=== PATIENT | male | born 1980 | race Caucasian/White ===

== ENCOUNTER 2020-10-11 10:48 | Outpatient (REF) | payer MEDICAID, SELFPAY | END 2020-10-11 10:49 | disposition home or self-care (01) | LOC: HO.LAB 10:48 | PROVIDERS: Visit Provider Internal Medicine | DX: Z20.828 Contact with and (suspected) exposure to other viral communicable diseases (principal) | CPT/HCPCS: C9803; U0003 ==

== ENCOUNTER 2021-01-07 13:19 | Outpatient (REF) | payer MEDICAID, SELFPAY | END 2021-01-07 13:20 | disposition home or self-care (01) | LOC: HO.LAB 13:19 | PROVIDERS: Visit Provider Internal Medicine | DX: Z20.822 Contact with and (suspected) exposure to COVID-19 (principal) | CPT/HCPCS: 36415; C9803; U0003; U0005 ==

== ENCOUNTER → 2021-02-01 13:48 | Outpatient (BNVA) | payer MEDICAID, SELFPAY | PROVIDERS: Visit Provider Nurse Practitioner Family | DX: M25.571 Pain in right ankle and joints of right foot (principal); M25.572 Pain in left ankle and joints of left foot; M25.50 Pain in unspecified joint; M47.816 Spondylosis without myelopathy or radiculopathy, lumbar region; Z98.1 Arthrodesis status | CPT/HCPCS: 99202 ==

== ENCOUNTER 2021-02-17 14:00 | Outpatient (RCR) | payer MEDICAID, SELFPAY ==
--- NOTE | 2021-02-10 09:28 | MHC.PT.EP ---
[facility] [place] Office [place] Office [place] Office [address] Helena Arboleda [address] [phone] F: [phone] F: [phone] F: [phone] F: [phone] Physical Therapy Plan of Care Date of Evaluation: 02/09/21 Date of Surgery: 2005 RIGHT /2012 LEFT WITH HARDWARE REMOVAL Diagnosis: PAIN IN RIGHT ANKLE AND JOINTS OF FOOT M25.571 PAIN IN LEFT ANKLE AND JOINTS OF FOOT M25.572 Assessment: MIRELLA PRESENTS WITH LONG HISTORY OF FOOT AND ANKLE PAIN WITH JACK FUSIONS. UPON EXAM HE DEMONSTRATES HYPERSENSITIVITY TO JACK FEET AND ANKLES. HE LACKS INVERSION/EVERSION ROM DUE TO FUSIONS JACK BUT IS ABLE TO COMPENSATE WITH MID AND FOREFOOT JOINTS. HE DEMONSTRATES ALTERED GAIT PATTERN, DECREASED BALANCE, INCREASED USE OF ASSISTIVE DEVICE (SPC) AND INCREASED PAIN. FUNCTIONAL LIMITATIONS INCLUDE DECREASED ABILITY TO PERFORM LIFTING, SQUATTING, PUSHING, PULLING. HE REPORTS DECREASED TOLERANCE TO WALKING, RUNNING AND STATIC STANDING. HE REPORTS DISRUPTED SLEEP, DECREASED ABILITY TO PARTICIPATE IN RECREATIONAL AND FITNESS ACTIVITIES. Frequency and Duration: The patient will be seen 2 X WEEK FOR 8 WEEKS Short Term Goals: INITIATE HEP AND PROMOTE SELF MANAGEMENT OF SYMPTOMS Jail Goals: TO AMBULATE AD ANGELA WITHOUT PAIN GREATER THAN 2/10 AT WORST IN 8 WEEKS TO DEMONSTRATE RECIPROCAL GAIT ON STAIRS, 2 FLIGHTS WITH PAIN NO GREATER THAN 2/10 IN 8 WEEKS TO TOLERATE SLS FOR A MINIMUM OF 30 SECONDS WITH MODERATE PRETURBATION IN 8 WEEKS Treatment Plan: CONT SEATED MOBILITY THEREX, BEGIN STRENGTHENING FOR ARCH AND FOOT STABILIZATION, DESENSITIZATION PROGRAM FOR SOFT TISSUES, HIP AND KNEE STRENGTHENING AND STABILIZATION, PROGRESSING TO GAIT TRAINING, DYNAMIC BALANCE ACTIVITIES, NEURO RE-ED MODALITIES PRN, Pt EDUC Electronically signed by: SANDRA MARIE PT, DPT Please sign and return to therapist. Thank you for your referral.
--- NOTE | 2021-03-07 14:26 | MHC.PT.DC ---
[facility] [place] Office [place] Office [place] Office [address] Helena Arboleda 140 [facility] [phone] F: [phone] F: [phone] F: [phone] F: [phone] Physical Therapy Discharge Report Diagnosis: PAIN IN RIGHT ANKLE AND JOINTS OF FOOT M25.571 PAIN IN LEFT ANKLE AND JOINTS OF FOOT M25.572 Date of Surgery: 2005 RIGHT /2012 LEFT WITH HARDWARE REMOVAL Date of Evaluation: 02/09/21 Date of Discharge: 03/07/21 Treatments to Date: 3 Cancellations to Date: 2 No Shows to Date: 3 Discharge Status: Visit Non-compliance Discharge Summary: The patient has had poor visit compliance. Per [facility] [place] [place] [facility] policy, he is to be discharged from this physical therapy plan of care for visit non-compliance. Electronically signed by: Carmen Dumont PT, DPT Please sign and return to therapist. Thank you for your referral.
== END 2021-03-07 14:26 | disposition other institution (70) ==
LOC: HO.PT 14:00
PROVIDERS: PCP General Practice; Visit Provider Anesthesiology
DX: M25.571 Pain in right ankle and joints of right foot (principal)
CPT/HCPCS: 97110; 97140; 97162; 97530; 97535

== ENCOUNTER 2021-02-25 07:31 | Outpatient (REF) | payer MEDICAID, SELFPAY ==
--- NOTE | ~2021-02-25 | XR_ITS ---
EXAMINATION: XR ANKLE, BILATERAL CLINICAL INFORMATION: Pain. COMPARISON: None TECHNIQUE: Bilateral ankles each 3 views. FINDINGS: Right ankle: Postsurgical changes with screw extending across the talus and calcaneus through the posterior subtalar joint. The posterior subtalar joint is not well visualized, suggesting areas of osseous bridging. Ankle mortise is maintained. No acute fracture is seen. Small plantar calcaneal spur. Left ankle: Ankle mortise is maintained. No visible acute fracture or dislocation. Multiple calcific/ossific fragments in the plantar aspect of the hindfoot, in the region of the plantar aponeurosis, appearing chronic. XR/XR ankle RT min 3V IMPRESSION: Right ankle: -Postsurgical changes with screw extending across the posterior subtalar joint, with the findings suggesting degree of osseous bridging. -No acute findings. Left ankle: -Multiple calcifications/ossifications in the region of the plantar fascia. These may be chronic. -No acute findings otherwise.
--- NOTE | ~2021-02-25 | XR_ITS ---
EXAMINATION: XR ANKLE, BILATERAL CLINICAL INFORMATION: Pain. COMPARISON: None TECHNIQUE: Bilateral ankles each 3 views. FINDINGS: Right ankle: Postsurgical changes with screw extending across the talus and calcaneus through the posterior subtalar joint. The posterior subtalar joint is not well visualized, suggesting areas of osseous bridging. Ankle mortise is maintained. No acute fracture is seen. Small plantar calcaneal spur. Left ankle: Ankle mortise is maintained. No visible acute fracture or dislocation. Multiple calcific/ossific fragments in the plantar aspect of the hindfoot, in the region of the plantar aponeurosis, appearing chronic. XR/XR ankle LT min 3V IMPRESSION: Right ankle: -Postsurgical changes with screw extending across the posterior subtalar joint, with the findings suggesting degree of osseous bridging. -No acute findings. Left ankle: -Multiple calcifications/ossifications in the region of the plantar fascia. These may be chronic. -No acute findings otherwise.
== END 2021-02-25 07:32 | disposition home or self-care (01) ==
LOC: HO.HOSX 07:31
PROVIDERS: Visit Provider Physician Assistant
DX: M25.571 Pain in right ankle and joints of right foot (principal); M25.572 Pain in left ankle and joints of left foot
CPT/HCPCS: 73610; 99202

== ENCOUNTER → 2021-03-04 09:21 | Outpatient (BNVA) | payer MEDICAID, SELFPAY | PROVIDERS: Visit Provider Nurse Practitioner Family ==

== ENCOUNTER → 2021-04-25 19:29 | Outpatient (REF) | payer MEDICAID, SELFPAY | LOC: HO.SL 19:29 | PROVIDERS: Visit Provider Internal Medicine Cardiovascular Disease | DX: G47.10 Hypersomnia, unspecified (principal); R06.83 Snoring; R06.81 Apnea, not elsewhere classified; I48.91 Unspecified atrial fibrillation | CPT/HCPCS: 95810 ==

== ENCOUNTER 2021-05-04 08:17 | Outpatient (REF) | payer MEDICAID, SELFPAY ==
--- NOTE | ~2021-05-04 | XR_ITS ---
EXAMINATION: AP PELVIS. THREE-VIEW LUMBAR SPINE. PA AND LATERAL CHEST. CLINICAL INFORMATION: Spondylosis without myelopathy or radiculopathy. Chest pain COMPARISON: None TECHNIQUE: AP pelvis. Three-view lumbar spine. PA and lateral chest. FINDINGS: There is no evidence of acute parenchymal disease, pneumothorax, or pleural effusion. Heart normal size. No evidence of pulmonary edema. Right middle lobe scarring seen. There are 5 nonrib bearing lumbar vertebra. No acute fracture, spondylolisthesis, or definite spondylolysis is appreciated. Sacroiliac joints unremarkable. Pedicles intact. Facet arthropathy is seen right side of L5-S1. There is some narrowing of the L5-S1 disc space. AP film of the pelvis does not demonstrate any acute fracture or diastases. Sacroiliac joints unremarkable. Hip joint spaces maintained. Abnormal XR/XR lumbar spine 2-3V IMPRESSION: No significant pelvic abnormality appreciated. Mild degenerative change L5-S1 disc space level. No significant chest abnormality appreciated.
--- NOTE | ~2021-05-04 | XR_ITS ---
EXAMINATION: AP PELVIS. THREE-VIEW LUMBAR SPINE. PA AND LATERAL CHEST. CLINICAL INFORMATION: Spondylosis without myelopathy or radiculopathy. Chest pain COMPARISON: None TECHNIQUE: AP pelvis. Three-view lumbar spine. PA and lateral chest. FINDINGS: There is no evidence of acute parenchymal disease, pneumothorax, or pleural effusion. Heart normal size. No evidence of pulmonary edema. Right middle lobe scarring seen. There are 5 nonrib bearing lumbar vertebra. No acute fracture, spondylolisthesis, or definite spondylolysis is appreciated. Sacroiliac joints unremarkable. Pedicles intact. Facet arthropathy is seen right side of L5-S1. There is some narrowing of the L5-S1 disc space. AP film of the pelvis does not demonstrate any acute fracture or diastases. Sacroiliac joints unremarkable. Hip joint spaces maintained. Abnormal XR/XR pelvis 1-2V IMPRESSION: No significant pelvic abnormality appreciated. Mild degenerative change L5-S1 disc space level. No significant chest abnormality appreciated.
--- NOTE | ~2021-05-04 | XR_ITS ---
EXAMINATION: AP PELVIS. THREE-VIEW LUMBAR SPINE. PA AND LATERAL CHEST. CLINICAL INFORMATION: Spondylosis without myelopathy or radiculopathy. Chest pain COMPARISON: None TECHNIQUE: AP pelvis. Three-view lumbar spine. PA and lateral chest. FINDINGS: There is no evidence of acute parenchymal disease, pneumothorax, or pleural effusion. Heart normal size. No evidence of pulmonary edema. Right middle lobe scarring seen. There are 5 nonrib bearing lumbar vertebra. No acute fracture, spondylolisthesis, or definite spondylolysis is appreciated. Sacroiliac joints unremarkable. Pedicles intact. Facet arthropathy is seen right side of L5-S1. There is some narrowing of the L5-S1 disc space. AP film of the pelvis does not demonstrate any acute fracture or diastases. Sacroiliac joints unremarkable. Hip joint spaces maintained. Abnormal XR/XR chest 2V IMPRESSION: No significant pelvic abnormality appreciated. Mild degenerative change L5-S1 disc space level. No significant chest abnormality appreciated.
--- NOTE | ~2021-05-04 | US_ITS ---
EXAMINATION: US RETROPERITONEAL LIMITED (RENAL ONLY) CLINICAL INFORMATION: Abdominal pain. COMPARISON: None TECHNIQUE: Real-time imaging of the kidneys. FINDINGS: RIGHT KIDNEY: 11.4 x 5.7 x 4.9 cm (SAG x AP x TRV). The kidney is normal in size, contour, and echogenicity. Renal cortical thickness is normal. No calculi or focal parenchymal lesions. No hydronephrosis. LEFT KIDNEY: 12.6 x 6.0 x 4.7 cm (SAG x AP x TRV). The kidney is normal in size, contour, and echogenicity. Renal cortical thickness is normal. No calculi or focal parenchymal lesions. No hydronephrosis. US/US renal BI IMPRESSION: Normal renal ultrasound.
[2021-05-04 09:39] LABS: MANUAL DIFF FLAG NO
[2021-05-04 09:52] LABS: Basophils Percent Auto 0.3 % (0-2); Eosinophils Absolute Auto 0.1 X10*3/uL (0.0-0.4); Eosinophils Percent Auto 1.5 % (0-4); Hematocrit 45.7 % (42-52); Hemoglobin 15.2 g/dl (14.0-18.0); Imm Gran Abs Auto 0.04 X10*3/uL (0.00-0.03); Imm Gran Pct Auto 0.6 % (0.0-0.4); Lymphocytes Absolute Auto 1.5 X10*3/uL (1.2-4.9); Lymphocytes Percent Auto 22.5 % (20-40); Mean Corpuscular HGB Conc 33.3 g/dl (31.0-36.0); Mean Corpuscular Hemoglobin 29.5 pg (27.0-33.0); Mean Corpuscular Volume 88.7 fL (80-98); Mean Platelet Volume 10.8 fL (9.4-12.4); Monocytes Absolute Auto 0.6 X10*3/uL (0.1-1.2); Monocytes Percent Auto 8.9 % (2-11); Neutrophils Absolute Auto 4.3 X10*3/uL (2.0-8.3); Neutrophils Percent Auto 66.2 % (45-73); Platelet Count 297 X10*3/uL (160-400); Red Blood Count 5.15 X10*6/uL (4.60-5.80); Red Cell Distribution Width 11.8 % (11.0-16.0); White Blood Count 6.5 X10*3/uL (4.8-10.8)
[2021-05-04 10:06] LABS: Alanine Aminotransferase 37 U/L (0-40); Albumin Level 4.4 g/dL (3.5-5.0); Alkaline Phosphatase 69 U/L (39-117); Anion Gap 12 (12-20); Aspartate Amino Transferase 29 U/L (5-37); Bilirubin Total 0.8 mg/dL (0.0-1.0); Blood Urea Nitrogen 13 mg/dL (9-16); C Reactive Protein 0.13 mg/dL (< or = 0.50); Calcium 9.6 mg/dL (8.4-10.2); Carbon Dioxide 27 mmol/L (22-29); Chloride 107 mmol/L (96-108); Estimated Glomerular Filt Rate > 60; Glucose Random 97 mg/dL (60-115); Potassium 4.4 mmol/L (3.3-5.1); Rheumatoid Factor < 15.0 IU/mL (<15.0); Sodium 142 mmol/L (135-145); Total Protein 6.9 g/dL (6.5-8.0)
[2021-05-04 10:33] LABS: Erythrocyte Sedimentation Rate 2 MM/HR (0-15)
[2021-05-05 17:21] LABS: Lyme Abs Screen <0.90 index
[2021-05-09 15:42] LABS: HLA B27 Negative (Negative)
[2021-05-10 12:42] LABS: Cyclic Citrullinated Peptide <16 UNITS
== END 2021-05-04 08:18 | disposition home or self-care (01) ==
LOC: HO.LAB 08:17
PROVIDERS: PCP General Practice; Visit Provider Student in an Organized Health Care Education/Training Program
DX: M47.816 Spondylosis without myelopathy or radiculopathy, lumbar region (principal); M25.571 Pain in right ankle and joints of right foot; M25.572 Pain in left ankle and joints of left foot; M25.50 Pain in unspecified joint; I48.91 Unspecified atrial fibrillation; R10.9 Unspecified abdominal pain; Z79.899 Other long term (current) drug therapy
CPT/HCPCS: 36415; 71046; 72100; 72170; 76775; 80053; 85025; 85652; 86140; 86200; 86431; 86617; 86618; 86812; 99202

== ENCOUNTER 2021-07-27 08:45 | Outpatient (REF) | payer MEDICAID, SELFPAY ==
--- NOTE | ~2021-07-27 | CT_ITS ---
EXAMINATION: CT ABDOMEN AND PELVIS WITH CONTRAST CLINICAL INFORMATION: Abdominal pain. COMPARISON: None TECHNIQUE: Multidetector volumetric images were obtained from the superior aspect of the liver through the pubic symphysis following administration 85 mL of Omnipaque 350 intravenous contrast. Sagittal and coronal reformatted images were obtained on the technologist's workstation. Oral contrast: No. This CT examination was performed using dose optimization techniques as appropriate, variously including the following: *Automated exposure control *Adjustment of mA and/or kV according to patient size (this includes techniques or standardized protocols for targeted exams where dose is matched to indication/reason for exam; i.e. extremities or head) *Use of iterative reconstruction technique DLP: 389 mGy-cm FINDINGS: LUNG BASES: The lung bases are clear. The heart size is normal. Suspect small hiatal hernia. LIVER, GALLBLADDER, AND BILIARY TREE: The liver is normal in size, shape, and attenuation. No focal hepatic lesion or biliary ductal dilatation is present. The gallbladder is unremarkable with no evidence of radiopaque gallstones, gallbladder wall thickening, or obvious pericholecystic inflammatory changes. PANCREAS: Unremarkable. SPLEEN: Unremarkable. ADRENAL GLANDS: Unremarkable. KIDNEYS AND URETERS: The kidneys are normal in size, shape, and attenuation. No hydronephrosis, hydroureter, or calculi seen. No perinephric stranding. BLADDER: Unremarkable. GASTROINTESTINAL TRACT: There is scattered old contrast in the colon and small bowel loops without distention. Appendix is normal caliber. No free fluid or inflammatory process seen. ABDOMINAL WALL: No significant hernia is appreciated. LYMPH NODES: Normal. VASCULAR: Unremarkable. PELVIC VISCERA: The prostate is normal size. No free fluid. No abnormal inguinal or pelvic lymph nodes seen. OSSEOUS STRUCTURES: Unremarkable. CT/CT abdomen pelvis w con IMPRESSION: Mild constipation. Otherwise no acute process seen.
[2021-07-27] MEDS: iohexoL 350 MG/ML 100 ML INFUS..BTL 85 ML IV (11:29)
== END 2021-07-27 08:46 | disposition home or self-care (01) ==
LOC: HO.CT 08:45
PROVIDERS: PCP General Practice; Visit Provider General Practice
DX: R10.13 Epigastric pain (principal); R10.12 Left upper quadrant pain
CPT/HCPCS: 74177; Q9967

== ENCOUNTER → 2021-08-03 13:56 | Outpatient (BNVA) | payer MEDICAID, SELFPAY | PROVIDERS: PCP General Practice; Visit Provider Nurse Practitioner Family | DX: M47.816 Spondylosis without myelopathy or radiculopathy, lumbar region (principal); M79.2 Neuralgia and neuritis, unspecified; M25.50 Pain in unspecified joint; Z98.1 Arthrodesis status | CPT/HCPCS: 99212 ==

== ENCOUNTER → 2021-08-11 10:00 | Outpatient (BNVA) | payer MEDICAID, SELFPAY | PROVIDERS: Visit Provider Nurse Practitioner Family | DX: M47.816 Spondylosis without myelopathy or radiculopathy, lumbar region (principal); M25.572 Pain in left ankle and joints of left foot; M25.571 Pain in right ankle and joints of right foot; I48.91 Unspecified atrial fibrillation; Z91.013 Allergy to seafood; Z79.01 Long term (current) use of anticoagulants; Z79.899 Other long term (current) drug therapy | CPT/HCPCS: 99212 ==

== ENCOUNTER 2021-08-16 09:53 | Outpatient (REF) | payer MEDICAID, SELFPAY ==
--- NOTE | ~2021-08-16 | US_ITS ---
EXAMINATION: US ABDOMEN COMPLETE CLINICAL INFORMATION: Abdominal pain. COMPARISON: CT abdomen and pelvis 07/27/2021. Renal ultrasound 05/04/2021. TECHNIQUE: Real-time imaging of the abdominal viscera. FINDINGS: PANCREAS: Normal. ABDOMINAL AORTA: The midabdominal aorta is not well visualized. The proximal and distal abdominal aorta is normal in caliber. INFERIOR VENA CAVA: Visualized portions are normal. LIVER: Normal. The liver is normal in size. The liver contour is normal. Parenchymal echogenicity is normal. No focal hepatic lesion. There is no intrahepatic biliary duct dilatation seen. GALLBLADDER: Normal. The gallbladder is physiologically distended without evidence of stones, sludge, polyps, wall thickening or pericholecystic fluid. COMMON BILE DUCT: Normal in caliber measuring 0.5 cm in diameter. RIGHT KIDNEY: Normal. No hydronephrosis. No renal calculi or focal parenchymal lesions. The kidney measures 11.7 cm in maximum dimension. LEFT KIDNEY: There is cortical thinning or scarring in the lower pole. No hydronephrosis. No renal calculi or focal parenchymal lesions. The kidney measures 12.6 cm in maximum dimension. SPLEEN: Normal. The spleen measures 11.1 cm in maximum dimension. FREE FLUID: None. US/US abdomen complete IMPRESSION: Cortical thinning or scarring of the lower pole of the left kidney. Limited visualization of the abdominal aorta.
== END 2021-08-16 09:54 | disposition home or self-care (01) ==
LOC: HO.US 09:53
PROVIDERS: PCP General Practice; Visit Provider Internal Medicine
DX: R10.9 Unspecified abdominal pain (principal)
CPT/HCPCS: 76700

== ENCOUNTER → 2022-02-09 09:55 | Outpatient (BNVA) | payer MEDICAID, SELFPAY | PROVIDERS: PCP General Practice; Visit Provider Nurse Practitioner Family | DX: M47.816 Spondylosis without myelopathy or radiculopathy, lumbar region (principal); M25.571 Pain in right ankle and joints of right foot; M25.572 Pain in left ankle and joints of left foot | CPT/HCPCS: 99212 ==

== ENCOUNTER 2022-03-14 08:03 | Outpatient (REF) | payer MEDICAID, SELFPAY ==
--- NOTE | 2022-03-14 08:06 | EEG_ITS ---
This is a 16-channel EEG with an EKG lead. The patient is awake during the tracing. Background EEG rhythm is 12-14 hertz, 5-30 microvolt posteriorly, lower amplitude fast anteriorly. Photic stimulation does not produce any significant driving. Hyperventilation is not performed. Some lead and muscle artifacts. An eye opening and closure artifacts are noted. Cardiac lead does not reveal any significant abnormality. No sharp wave spikes or paroxysmal tendencies noted. IMPRESSION: Unremarkable EEG. MD EMILY Tong/ELICEO / [id number]
== END 2022-03-14 08:04 | disposition home or self-care (01) ==
LOC: HO.NEURO 08:03
PROVIDERS: PCP General Practice; Visit Provider General Practice
DX: R40.4 Transient alteration of awareness (principal)
CPT/HCPCS: 95816

== ENCOUNTER 2022-03-24 18:42 | Outpatient (REF) | payer MEDICAID, SELFPAY ==
--- NOTE | ~2022-03-24 | MR_ITS ---
MR BRAIN WITHOUT AND WITH IV CONTRAST CLINICAL INFORMATION: Epilepsy. TIA. Evaluate for mass. COMPARISON: None available. TECHNIQUE: Multiplanar, multisequence MRI of the brain was obtained before and after the intravenous administration of 10 mL of Gadavist. FINDINGS: There is no pathologic intracranial enhancement. Nonspecific 1.3 cm ovoid focus of T2 signal change within the right parieto-occipital deep white matter on image 15 of series 5. Hippocampi are symmetric in size and normal in morphology without intrinsic signal abnormality. There is no hydrocephalus, extra-axial surface collection, or herniation. The major flow voids at the skull base are preserved. There is no acute infarct on diffusion-weighted imaging. There is no intracranial hemorrhage on the gradient recalled echo acquisition. The midline structures are normal. The cerebellar tonsils are normally positioned. The cerebellum and brainstem are normal. The craniocervical junction is normal. Osseous marrow signal intensity is homogenous. The visualized soft tissues are unremarkable. MR/MR head/brain wo/w con IMPRESSION: Nonspecific 1.3 cm ovoid focus of T2 signal change within the right parieto-occipital deep white matter on image 15 of series 5. No additional parenchymal signal abnormality and no enhancing lesions.
== END 2022-03-24 18:43 | disposition home or self-care (01) ==
LOC: HO.MRI 18:42
PROVIDERS: Visit Provider General Practice
DX: R40.4 Transient alteration of awareness (principal)
CPT/HCPCS: 70553; A9585

== ENCOUNTER 2022-05-08 14:51 | Emergency (ER) | payer MEDICAID, SELFPAY | END 2022-05-08 18:36 | disposition left against medical advice (07) | PROVIDERS: Emergency Provider Emergency Medicine | DX: Z02.89 Encounter for other administrative examinations (principal) | CPT/HCPCS: 99202; 99212 ==

== ENCOUNTER 2022-05-08 15:24 | Outpatient (REF) | payer MEDICAID, SELFPAY ==
[2022-05-08 16:57] LABS: Lipase 27 U/L (8-78)
[2022-05-13 12:06] LABS: Vitamin D 25-OH, D2 <4 ng/mL; Vitamin D 25-OH, D3 24 ng/mL; Vitamin D 25-OH, Total 24 ng/mL (30-100)
== END 2022-05-08 15:25 | disposition home or self-care (01) ==
LOC: HO.LAB 15:24
PROVIDERS: PCP General Practice; Visit Provider Nurse Practitioner Family
DX: R10.9 Unspecified abdominal pain (principal); E55.9 Vitamin D deficiency, unspecified
CPT/HCPCS: 36415; 82306; 82656; 83690; 87338

== ENCOUNTER 2022-05-08 20:16 | Outpatient (REF) | payer MEDICAID, SELFPAY ==
[2022-05-18 19:37] LABS: Pancreatic Elastase-1 >500 mcg/g
== END 2022-05-08 20:17 | disposition home or self-care (01) ==
LOC: HO.LNP 20:16
PROVIDERS: Visit Provider Nurse Practitioner Family
DX: R10.9 Unspecified abdominal pain (principal); E55.9 Vitamin D deficiency, unspecified
CPT/HCPCS: 82656; 87338

== ENCOUNTER 2022-05-17 06:35 | Emergency (ER) | payer MEDICAID, SELFPAY ==
--- NOTE | 2022-05-17 06:51 | ECG_ITS ---
Test Reason : chest pain Blood Pressure : / mmHG Vent. Rate : 056 BPM Atrial Rate : 056 BPM P-R Int : 158 ms QRS Dur : 100 ms QT Int : 400 ms P-R-T Axes : 049 055 -08 degrees QTc Int : 386 ms Sinus bradycardia T wave abnormality, consider inferior ischemia Abnormal ECG When compared to the previous EKG of No significant changes seen Referred By: Generic ED Physician Electronically Signed By:Yao Walls
[2022-05-17 07:44] VITALS: BP 128/83; PULSE 54; RESP 18; TEMP 37.1; BMI 29.6
== END 2022-05-17 10:11 | disposition left against medical advice (07) ==
PROVIDERS: Emergency Provider Emergency Medicine; PCP General Practice
DX: R07.89 Other chest pain (principal)
CPT/HCPCS: 93005; 99283

== ENCOUNTER 2022-06-06 08:23 | Outpatient (REF) | payer MEDICAID, SELFPAY ==
--- NOTE | ~2022-06-06 | US_ITS ---
EXAMINATION: US ABDOMEN COMPLETE CLINICAL INFORMATION: Unspecified abdominal pain. COMPARISON: Ultrasound abdomen complete 08/16/2021. CT abdomen and pelvis 07/27/2021. Renal ultrasound 05/04/2021. TECHNIQUE: Real-time imaging of the abdominal viscera. FINDINGS: PANCREAS: Normal. ABDOMINAL AORTA: The proximal, mid, and distal segments are normal in caliber. INFERIOR VENA CAVA: Visualized portions are normal. LIVER: Normal. The liver is normal in size. The liver contour is normal. Parenchymal echogenicity is normal. No focal hepatic lesion. There is no intrahepatic biliary duct dilatation seen. GALLBLADDER: Normal. The gallbladder is physiologically distended without evidence of stones, sludge, polyps, wall thickening or pericholecystic fluid. COMMON BILE DUCT: Normal in caliber measuring 0.4 cm in diameter. RIGHT KIDNEY: Normal. No hydronephrosis. No renal calculi or focal parenchymal lesions. The kidney measures 11.0 cm in maximum dimension. LEFT KIDNEY: Normal. No hydronephrosis. No renal calculi or focal parenchymal lesions. The kidney measures 11.4 cm in maximum dimension. SPLEEN: Normal. The spleen measures 12.1 cm in maximum dimension. FREE FLUID: None. US/US abdomen complete IMPRESSION: Unremarkable exam.
== END 2022-06-06 08:24 | disposition home or self-care (01) ==
LOC: HO.HMGCX 08:23
PROVIDERS: Visit Provider Nurse Practitioner Family
DX: R10.9 Unspecified abdominal pain (principal)
CPT/HCPCS: 76700

== ENCOUNTER 2022-09-19 11:44 | Emergency (ER) | payer MEDICAID, SELFPAY ==
[2022-09-19 11:48] VITALS: BP 124/82; PULSE 82; RESP 18; TEMP 36.9; O2SAT 97; BMI 30.1
[2022-09-19 12:24] LABS: COVID-19 Test Negative (Negative); IDNOW Serial# 16C4AD1C
--- NOTE | 2022-09-19 12:24 | ED.URI ---
HPI - URI/Sore Throat General Chief Complaint: Upper Respiratory Symptoms Stated Complaint: Cough Time Seen by Provider: 09/19/22 13:13 Source: patient Mode of arrival: ambulatory Limitations: no limitations History of Present Illness HPI Narrative: 42-year-old male with history of AFib was noncompliant with medication presents with cough and chills with sick contact with son who is influenza A. No diff breathing, chest pain, vomiting, diarrhea, fever, headache, neck pain or neck stiffness Related Data Home Medications Medication Instructions Recorded Confirmed acetaminophen 650 mg 650 mg PO Q12H 02/01/21 02/09/22 tablet,extended release (Tylenol Arthritis Pain) bupropion HCl 150 mg 24 hr tablet, 150 mg PO QAM 02/01/21 02/09/22 extended release cetirizine 10 mg capsule (Allergy 10 mg PO DAILY PRN 02/01/21 02/09/22 Relief (cetirizine)) duloxetine 60 mg capsule,delayed 60 mg PO DAILY 02/01/21 02/09/22 release epinephrine 0.3 mg/0.3 mL 0.3 mg IM Q10M PRN 02/01/21 02/09/22 injection, auto-injector alprazolam 1 mg tablet 1 mg PO TID 02/09/22 02/09/22 aspirin 81 mg chewable tablet 1 tab PO DAILY 02/09/22 02/09/22 metoprolol tartrate 25 mg tablet 12.5 mg PO BID 02/09/22 02/09/22 mirtazapine 15 mg tablet 15 mg PO BEDTIME 02/09/22 02/09/22 quetiapine 25 mg tablet 25 mg PO BEDTIME 02/09/22 02/09/22 Previous Rx's Medication Instructions Recorded bismuth subsalicylate 262 mg 2 tab PO QID 14 days #112 tabs 05/15/22 chewable tablet cholecalciferol (vitamin D3) 50 50 mcg PO DAILY #90 caps 05/15/22 mcg (2,000 unit) capsule metronidazole 500 mg tablet 1,000 mg PO BID #56 tabs 05/15/22 omeprazole 20 mg capsule,delayed 20 mg PO DAILY #60 caps 05/15/22 release tetracycline 500 mg capsule 1,000 mg PO Q12H #56 caps 05/15/22 benzonatate 200 mg capsule 200 mg PO TID PRN cough #30 caps 09/19/22 Allergies Allergy/AdvReac Type Severity Reaction Status Date / Time shrimp Allergy Severe RASH Verified 05/08/22 14:15 Review of Systems Review of Systems: Yes all other systems are reviewed and are negative Constitutional: Constitutional: Reports no additional constitutional complaints, Denies body ache(s), Reports chills, Denies fever(s), Denies headache(s) and Denies weakness Eyes: Eyes: Reports no additional eye complaints and Denies change in vision ENT: Reports system reviewed and no additional complaints, except as documented, Denies dizziness, Denies headache(s), Denies nasal congestion, Denies nasal discharge and Denies neck pain Cardiovascular: Cardiovascular: Reports no additional cardiovascular complaints, Denies chest pain, Denies leg edema and Denies dyspnea Respiratory: Respiratory: Reports no additional respiratory complaints, Reports cough and Denies dyspnea Gastrointestinal: Gastrointestinal: Reports no additional gastrointestinal complaints, Denies abdominal pain, Denies diarrhea, Denies nausea and Denies vomiting Genitourinary: Genitourinary: Denies urinary incontinence Musculoskeletal: Musculoskeletal: Reports no additional musculoskeletal complaints, Denies back pain, Denies arthralgias, Denies joint swelling, Denies neck pain, Denies numbness and Denies tingling Integumentary/Breasts: Skin/Breast: Reports system reviewed and no additional complaints, except as docu and Denies rash Neurologic: Reports system reviewed and no additional complaints, except as documented, Denies Abnormal speech present, Denies dizziness, Denies headache(s), Denies numbness, Denies tingling and Denies weakness [facility] Past Medical History Attestation statement: The following information was validated with the patient. 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 Physical Exam Vital Signs: Vital Signs: Last Vital Signs Temp 98.4 F 09/19/22 11:48 Pulse 82 09/19/22 11:48 Resp 18 09/19/22 11:48 BP 124/82 09/19/22 11:48 Pulse Ox 97 09/19/22 11:48 O2 Del Method 09/19/22 11:48 BMI result Body Mass Index 30.1 Const: General: cooperative, healthy appearing, comfortable and no acute distress Orientation/consciousness: patient oriented x3 Limitations: no limitations HEENT: Head: Yes normal to inspection Ears: hearing grossly normal bilaterally and TM's normal bilaterally General nose exam: Normal external nose present Face and sinus: Yes normal facial exam Mouth: Normal oral and palatal mucosa present Throat: Yes posterior oropharynx normal, Yes tonsils normal and Yes uvula midline Eyes: General: appearance normal, both eyes and all related structures Pupils: Equal, round and reactive pupils present Neck: Neck: Yes normal visual inspection, Yes full ROM, Yes no lymphadenopathy and Yes no meningeal signs Chest: Chest palpation & inspection: normal inspection of the chest Resp: Effort & Inspection: normal respiratory effort Auscultation: clear to auscultation bilaterally Cardio: Rate: regular rate Rhythm: regular rhythm Peripheral pulses: Peripheral pulses 2+ throughout GI: Inspection: Yes normal to inspection Palpation (GI): Soft to palpation and nontender Auscultation: normal bowel sounds Back/Spine/Pelvis: Thoracic/Lumbar Spine: thoracic and lumbar spine normal to inspection Skin: General skin exam: no rashes or lesions noted Neuro: General: patient oriented x3, no meningeal signs, no focal motor deficits and normal sensation to monofilament Cranial nerves: Yes Equal, round and reactive pupils present Cognition (Neuro): normal cognition Speech: No Abnormal speech present Gait exam (Neuro): Normal gait present Motor exam (neuro): 5/5 motor strength present throughout Extrem: General: Yes normal to inspection Course Course Course Narrative: Testing for flu and COVID are negative. Likely viral syndrome or early flu. Reviewed supportive care at home. Reviewed worrisome signs symptoms of when to return to the emergency room. Comfortable her discharge home. MDM - URI/Sore Throat MDM Narrative Medical decision making narrative: 42 yo male here with cough and chills with sick contact with son he was influenza A. Will send testing for COVID and flu. Medical Records Attestation: I reviewed the patient's medical records. Lab Data Attestation: I reviewed the patient's lab results. Labs: Lab Results 09/19/22 09/19/22 Range/Units 11:53 13:30 COVID-19 (LEIGH) Negative (Negative) COVID-19 Clin Com See Note Influenza Type A (BHARGAVI) Negative (Negative) Influenza Type B (BHARGAVI) Negative (Negative) Influenza A & B Note See Note Discharge Plan Discharge Clinical Impression: Viral infection Patient Disposition: Home, Self-Care Additional Instructions: Your COVID test is negative. your flu test is also negative. It may be positive over the next few days so I would quarantine at home if you are symptomatic. Take Motrin or Tylenol for pain or fever Increase fluids and rest. Return for any worsening symptoms Prescriptions: New benzonatate 200 mg capsule 200 mg PO TID PRN (Reason: cough) Qty: 30 0RF No Action bismuth subsalicylate 262 mg tablet,chewable 2 tab PO QID 14 Days Qty: 112 0RF metronidazole 500 mg tablet 1,000 mg PO BID Qty: 56 0RF tetracycline 500 mg capsule 1,000 mg PO Q12H Qty: 56 0RF omeprazole 20 mg capsule,delayed release(DR/EC) 20 mg PO DAILY Qty: 60 0RF cholecalciferol (vitamin D3) 50 mcg (2,000 unit) capsule 50 mcg PO DAILY Qty: 90 3RF bupropion HCl 150 mg tablet extended release 24 hr 150 mg PO QAM epinephrine 0.3 mg/0.3 mL auto-injector 0.3 mg IM Q10M PRN Rx Instructions: for 2 doses Allergy Relief (cetirizine) 10 mg capsule 10 mg PO DAILY PRN duloxetine 60 mg capsule,delayed release(DR/EC) 60 mg PO DAILY acetaminophen [Tylenol Arthritis Pain] 650 mg tablet extended release 650 mg PO Q12H metoprolol tartrate 25 mg tablet 12.5 mg PO BID aspirin 81 mg tablet,chewable 1 tab PO DAILY alprazolam 1 mg tablet 1 mg PO TID quetiapine 25 mg tablet 25 mg PO BEDTIME mirtazapine 15 mg tablet 15 mg PO BEDTIME Referrals: Diana Zamudio MD [Primary Care Provider] - Stand Alone Forms: Work/School Release
[2022-09-19 14:01] LABS: IDNOW Serial# BCCEAD1C; Influenza A Negative (Negative); Influenza B2 Negative (Negative)
== END 2022-09-19 15:03 | disposition home or self-care (01) ==
PROVIDERS: Emergency Medicine; Nurse Practitioner Family; Emergency Provider Emergency Medicine; PCP General Practice
DX: B34.9 Viral infection, unspecified (principal); R05.9 Cough, unspecified; Z20.822 Contact with and (suspected) exposure to COVID-19
CPT/HCPCS: 87502; 87635; 99282; 99283

== ENCOUNTER → 2023-02-23 08:39 | Outpatient (BNVA) | payer MEDICAID, SELFPAY | PROVIDERS: PCP General Practice; Visit Provider Nurse Practitioner Family | DX: M25.571 Pain in right ankle and joints of right foot (principal); M25.572 Pain in left ankle and joints of left foot | CPT/HCPCS: 99212 ==

== ENCOUNTER 2023-08-01 11:17 | Outpatient (REF) | payer MEDICAID, SELFPAY ==
[2023-08-01 13:31] LABS: Estimated Average Glucose 100 mg/dL; Hemoglobin A1c % 5.1 % (<6.0)
[2023-08-01 14:03] LABS: Alanine Aminotransferase 19 U/L (0-40); Albumin Level 4.5 g/dL (3.5-5.0); Alkaline Phosphatase 72 U/L (39-117); Anion Gap 12 (12-20); Aspartate Amino Transferase 23 U/L (5-37); Bilirubin Total 1.3 mg/dL (0.0-1.0); Blood Urea Nitrogen 15 mg/dL (9-16); Calcium 9.3 mg/dL (8.4-10.2); Carbon Dioxide 23 mmol/L (22-29); Chloride 109 mmol/L (96-108); Cholesterol 152 mg/dL (<200); Estimated Glomerular Filt Rate > 60; Glucose Random 88 mg/dL (60-115); HDL Cholesterol 38 mg/dL (>40); LDL Cholesterol Calculated 100 mg/dL (<100); Potassium 3.8 mmol/L (3.3-5.1); Sodium 140 mmol/L (135-145); Total Protein 7.1 g/dL (6.5-8.0); Triglycerides 71 mg/dL (<150)
[2023-08-01 14:20] LABS: TSH reflex Free T4 1.42 uIU/mL (0.32-4.0)
[2023-08-06 13:59] LABS: Anti Nuclear Antibody Screen NEGATIVE (NEGATIVE)
== END 2023-08-01 11:18 | disposition home or self-care (01) ==
LOC: HO.HHCL 11:17
PROVIDERS: Visit Provider General Practice
DX: Z00.00 Encounter for general adult medical examination without abnormal findings (principal); L56.8 Other specified acute skin changes due to ultraviolet radiation
CPT/HCPCS: 36415; 80053; 80061; 83036; 84443; 86038

== ENCOUNTER 2023-12-05 15:09 | Emergency (ER) | payer MEDICAID, SELFPAY ==
--- NOTE | ~2023-12-05 | CT_ITS ---
EXAMINATION: CT ABDOMEN AND PELVIS WITHOUT CONTRAST CLINICAL INFORMATION: Right upper quadrant pain. COMPARISON: None available. TECHNIQUE: Multidetector volumetric imaging was performed from the superior aspect of the liver through the pubic symphysis. Sagittal and coronal reformatted images were obtained on the technologist's workstation. This CT examination was performed using dose optimization techniques as appropriate, variously including the following: *Automated exposure control *Adjustment of mA and/or kV according to patient size (this includes techniques or standardized protocols for targeted exams where dose is matched to indication/reason for exam; i.e. extremities or head) *Use of iterative reconstruction technique DLP: 526 mGy-cm FINDINGS: LUNG BASES: There is platelike atelectasis in both lower lobes. Heart size is normal. LIVER, GALLBLADDER, AND BILIARY TREE: The liver is normal in size, shape, and attenuation. No focal hepatic lesion or biliary ductal dilatation is present. The gallbladder is unremarkable with no evidence of radiopaque gallstones, gallbladder wall thickening, or obvious pericholecystic inflammatory changes. PANCREAS: Unremarkable. SPLEEN: Unremarkable. ADRENAL GLANDS: Unremarkable. KIDNEYS AND URETERS: The kidneys are normal in size, shape, and attenuation. No hydronephrosis, hydroureter, or calculi seen. No perinephric stranding. BLADDER: Unremarkable. GASTROINTESTINAL TRACT: There is scattered stool and gas seen throughout the colon without significant distention. The small bowel loops are normal caliber. Stomach is partially distended with recently ingested food and fluid. ABDOMINAL WALL: No significant hernia is appreciated. LYMPH NODES: Normal. VASCULAR: Unremarkable. PELVIC VISCERA: Unremarkable. OSSEOUS STRUCTURES: There is mild degenerative disc changes at L5-S1 disc level. No aggressive lytic or sclerotic process seen. CT/CT abdomen pelvis wo IV con IMPRESSION: 1. No acute intra-abdominal process seen. 2. Mild constipation. Fleischner guidelines were followed.
--- NOTE | 2023-12-05 15:56 | ED.ABDPAIN ---
HPI - Abdominal Pain General Chief Complaint: Abdominal Pain Stated Complaint: abd pain, loss of appetite Time Seen by Provider: 12/05/23 20:02 Source: patient Mode of arrival: ambulatory History of Present Illness HPI narrative: 43-year-old male without significant past medical history reports epigastric discomfort since yesterday with associated nausea and vomiting but states he has been able to tolerate a little bit of water today but otherwise his appetite has been decreased. He otherwise denies any fever, chills. Related Data Home Medications Medication Instructions Recorded Confirmed acetaminophen 650 mg 650 mg PO Q12H 02/01/21 02/09/22 tablet,extended release (Tylenol Arthritis Pain) bupropion HCl 150 mg 24 hr tablet, 150 mg PO QAM 02/01/21 02/09/22 extended release cetirizine 10 mg capsule (Allergy 10 mg PO DAILY PRN 02/01/21 02/09/22 Relief (cetirizine)) duloxetine 60 mg capsule,delayed 60 mg PO DAILY 02/01/21 02/09/22 release epinephrine 0.3 mg/0.3 mL 0.3 mg IM Q10M PRN 02/01/21 02/09/22 injection, auto-injector alprazolam 1 mg tablet 1 mg PO TID 02/09/22 02/09/22 aspirin 81 mg chewable tablet 1 tab PO DAILY 02/09/22 02/09/22 metoprolol tartrate 25 mg tablet 12.5 mg PO BID 02/09/22 02/09/22 mirtazapine 15 mg tablet 15 mg PO BEDTIME 02/09/22 02/09/22 quetiapine 25 mg tablet 25 mg PO BEDTIME 02/09/22 02/09/22 hydroxyzine HCl 25 mg tablet 25 mg PO TID PRN anxiety 02/23/23 Previous Rx's Medication Instructions Recorded cholecalciferol (vitamin D3) 50 50 mcg PO DAILY #90 caps 05/15/22 mcg (2,000 unit) capsule omeprazole 20 mg capsule,delayed 20 mg PO DAILY #60 caps 05/15/22 release tetracycline 500 mg capsule 1,000 mg (2 x 500 mg) PO Q12H #56 05/15/22 caps benzonatate 200 mg capsule 200 mg PO TID PRN cough #30 caps 09/19/22 ondansetron 4 mg disintegrating 4 mg PO Q8H PRN nausea and 12/05/23 tablet vomiting 4 days #7 tabs Allergies Allergy/AdvReac Type Severity Reaction Status Date / Time shrimp Allergy Severe RASH Verified 12/05/23 15:56 Review of Systems Review of Systems Pertinent positives and negatives as stated in HPI [facility] Past Medical History Source: nursing notes reviewed Surgical History Hx of hernia repair Hx of foot surgery Family History Family History Mother HTN (hypertension) Lupus COPD (chronic obstructive pulmonary disease) Father Diabetes Arthritis Brother HTN (hypertension) Brain tumor Social History Social History Household Members: Family Alcohol intake: never Patient Tobacco Use Status: Never used Tobacco e-Cigarette/Vaping Use: Never Used Advance Directives: No Advance Directives Information Provided: No Current occupational status: unemployed Current occupation: right hand Physical Exam ED Vital Signs: Vital Signs - 24 hr 12/05/23 15:57 12/05/23 20:00 Temperature 98.2 F 98.2 F Pulse Rate 71 76 Respiratory Rate 16 16 Blood Pressure 126/91 H 127/88 Pulse Oximetry 97 97 Oxygen Delivery Method Room Air Room Air BMI result Body Mass Index 30.1 VITAL SIGNS: Reviewed. GENERAL: Well developed, well nourished, in no acute distress. HEAD: Normocephalic/atraumatic EYES: PERRLA, EOMI EARS: Ext canals without abnormality, TMs non-bulging and non-erythematous NOSE: Nares patent bilateral OROPHARYNX: no oral lesions noted, posterior pharynx clear and non-erythematous without noted tonsillar enlargement/erythema/exudates NECK: Supple, no adenopathy LUNGS: Normal breath sounds. No adventitious sounds or accessory muscle use. SpO2<97> CARDIOVASCULAR: Regular rate and rhythm without noted murmurs ABDOMEN: Soft, non-tender, non-distended with bowel sounds. MUSCULOSKELETAL: No tenderness, deformities, or effusions noted on gross inspection. EXTREMITIES: No cyanosis, clubbing or edema. SKIN: Inspection of the skin reveals no rashes NEUROLOGIC: Alert and oriented x 4. Strength and sensation to light touch were grossly intact x 4. Course Course Course Narrative: RME:?43 yo male hx of neuropathy here w/ diarrhea, vomiting, RUQ abd pain x2 days. fever 102F at home yesterday, now resolved. does not want to eat d/t nausea. no recent travel. no sick contacts. denies ilicit drug use, marijuana use, etoh consumption. labs, CT ordered Full HPI, ROS and PE to be performed by the primary ED provider. Medical Decision Making Medical Decision Making [facility] Narrative: 43-year-old male with history and clinical presentation, DDX: Viral syndrome, intra-abdominal infection, gastritis. I reviewed all investigations and hematologic indices are negative for leukocytosis or left shift, there is no anemia or thrombocytopenia. Chemistry indices do not demonstrate an JEFFREY/electrolyte/liver enzyme derangement. Viral testing positive for COVID and CT scan negative for any intra-abdominal pathology. Patient received combination analgesics as well as Zofran and was discharged home with a script for Zofran. Differential Diagnosis Differential Diagnoses: The differential diagnosis associated with the presentation includes Please see the discussion above Admission/Observation Consideration of admission/observation: Escalation of care including admission/observation considered Please see the discussion above Lab Data [facility] Lab Attestation statement: I reviewed the patient's lab results. Please see the discussion above 12/05/23 18:07 12/05/23 18:07 Labs: Lab Results 12/05/23 Range/Units 18:07 WBC 6.6 (4.8-10.8) X10*3/uL RBC 5.49 (4.60-5.80) X10*6/uL Hgb 16.6 (14.0-18.0) g/dl Hct 48.5 (42.0-52.0) % MCV 88.3 (80.0-98.0) fL MCH 30.2 (27.0-33.0) pg MCHC 34.2 (31.0-36.0) g/dl RDW 11.8 (11.0-16.0) % Plt Count 258 (160-400) X10*3/uL MPV 10.8 (9.4-12.4) fL Immature Gran % (Auto) 0.8 H (0.0-0.4) % Neut % (Auto) 66.0 (45-73) % Lymph % (Auto) 18.0 L (20-40) % [place] % (Auto) 14.4 H (2-11) % Eos % (Auto) 0.6 (0-4) % Baso % (Auto) 0.2 (0-2) % Lymph # (Auto) 1.2 (1.2-4.9) X10*3/uL [place] # (Auto) 1.0 (0.1-1.2) X10*3/uL Eos # (Auto) 0.0 (0.0-0.4) X10*3/uL Baso # (Auto) 0.0 (0.0-0.2) X10*3/uL Abs Immat Gran (auto) 0.05 H (0.00-0.03) X10*3/uL Absolute Neuts (auto) 4.4 (2.0-8.3) x10*3/uL Absolute Nucleated RBC 0.000 (0.0-0.012) X10*3/uL Nucleated RBC % (auto) 0.0 (0.0-0.2) /100WBC Sodium 139 (135-145) mmol/L Potassium 4.0 (3.3-5.1) mmol/L Chloride 106 (96-108) mmol/L Carbon Dioxide 24 (22-29) mmol/L Anion Gap 13 (12-20) BUN 13 (9-16) mg/dL Creatinine 1.19 (0.5-1.4) mg/dL Estim Creat Clear Calc 88.0 Estimated GFR > 60 Random Glucose 107 (60-115) mg/dL Calcium 9.7 (8.4-10.2) mg/dL Magnesium 2.0 (1.6-2.6) mg/dL Total Bilirubin 1.0 (0.0-1.0) mg/dL AST 22 (5-37) U/L ALT 20 (0-40) U/L Alkaline Phosphatase 77 (39-117) U/L Total Protein 7.5 (6.5-8.0) g/dL Albumin 4.5 (3.5-5.0) g/dL Lipase 24 (8-78) U/L COVID-19 (LEIGH) Positive A (Negative) COVID-19 Clin Com See Note Influenza Type A (BHARGAVI) Negative (Negative) Influenza Type B (BHARGAVI) Negative (Negative) Influenza A & B Note See Note Radiology Impression Discussion of test interpretation with radiology: I have reviewed the radiologist's reading. Radiologist Impression: Please see the discussion above External Record Review External record reviewed: Outpatient record, Prior outpatient labs and Prior outpatient radiology Critical Care Time Critical Care Time Critical Care Time: Yes Total Critical Care Time: 30 Attestation: I personally attest to this time spent taking care of the patient. Discharge Plan Discharge Clinical Impression: Viral syndrome, COVID-19 Patient Disposition: Home, Self-Care Instructions: Viral Syndrome (ED), COVID-19 (Coronavirus Disease 2019) (ED) Additional Instructions: 1. Recommend [id number] Tylenol/ibuprofen as needed for body aches, stomachaches, headaches, temperatures greater than 100.4. 2. Continue to drink plenty of water, I have provided a prescription for antinausea medication that should help with this. 3. Please follow-up with primary care doctor in the next 1-2 days. Return to the ER for any worsening symptoms. Prescriptions: New ondansetron 4 mg tablet,disintegrating 4 mg PO Q8H PRN (Reason: nausea and vomiting) 4 Days Qty: 7 0RF No Action tetracycline 500 mg capsule 1,000 mg PO Q12H Qty: 56 0RF omeprazole 20 mg capsule,delayed release(DR/EC) 20 mg PO DAILY Qty: 60 0RF cholecalciferol (vitamin D3) 50 mcg (2,000 unit) capsule 50 mcg PO DAILY Qty: 90 3RF benzonatate 200 mg capsule 200 mg PO TID PRN (Reason: cough) Qty: 30 0RF bupropion HCl 150 mg tablet extended release 24 hr 150 mg PO QAM epinephrine 0.3 mg/0.3 mL auto-injector 0.3 mg IM Q10M PRN Rx Instructions: for 2 doses Allergy Relief (cetirizine) 10 mg capsule 10 mg PO DAILY PRN duloxetine 60 mg capsule,delayed release(DR/EC) 60 mg PO DAILY acetaminophen [Tylenol Arthritis Pain] 650 mg tablet extended release 650 mg PO Q12H metoprolol tartrate 25 mg tablet 12.5 mg PO BID aspirin 81 mg tablet,chewable 1 tab PO DAILY alprazolam 1 mg tablet 1 mg PO TID quetiapine 25 mg tablet 25 mg PO BEDTIME mirtazapine 15 mg tablet 15 mg PO BEDTIME hydroxyzine HCl 25 mg tablet 25 mg PO TID PRN (Reason: anxiety) Referrals: Diana Zamudio MD [Primary Care Provider] - Stand Alone Forms: Work/School Release
[2023-12-05 15:57] VITALS: BP 126/91; PULSE 71; RESP 16; TEMP 36.8; O2SAT 97; BMI 30.1
[2023-12-05 18:11] LABS: MANUAL DIFF FLAG NO
[2023-12-05 18:26] LABS: Basophils Percent Auto 0.2 % (0-2); Eosinophils Percent Auto 0.6 % (0-4); Hematocrit 48.5 % (42.0-52.0); Hemoglobin 16.6 g/dl (14.0-18.0); Imm Gran Abs Auto 0.05 X10*3/uL (0.00-0.03); Imm Gran Pct Auto 0.8 % (0.0-0.4); Lymphocytes Absolute Auto 1.2 X10*3/uL (1.2-4.9); Mean Corpuscular HGB Conc 34.2 g/dl (31.0-36.0); Mean Corpuscular Hemoglobin 30.2 pg (27.0-33.0); Mean Corpuscular Volume 88.3 fL (80.0-98.0); Mean Platelet Volume 10.8 fL (9.4-12.4); Monocytes Percent Auto 14.4 % (2-11); Neutrophils Absolute Auto 4.4 x10*3/uL (2.0-8.3); Platelet Count 258 X10*3/uL (160-400); Red Blood Count 5.49 X10*6/uL (4.60-5.80); Red Cell Distribution Width 11.8 % (11.0-16.0); White Blood Count 6.6 X10*3/uL (4.8-10.8)
[2023-12-05 18:34] LABS: COVID-19 Test Positive (Negative); IDNOW Serial# 08D9AD1C; IDNOW Serial# 152EDE1D; Influenza A Negative (Negative); Influenza B2 Negative (Negative)
[2023-12-05 18:35] LABS: Alanine Aminotransferase 20 U/L (0-40); Albumin Level 4.5 g/dL (3.5-5.0); Alkaline Phosphatase 77 U/L (39-117); Anion Gap 13 (12-20); Aspartate Amino Transferase 22 U/L (5-37); Blood Urea Nitrogen 13 mg/dL (9-16); Calcium 9.7 mg/dL (8.4-10.2); Carbon Dioxide 24 mmol/L (22-29); Chloride 106 mmol/L (96-108); Estimated Glomerular Filt Rate > 60; Glucose Random 107 mg/dL (60-115); Lipase 24 U/L (8-78); Sodium 139 mmol/L (135-145); Total Protein 7.5 g/dL (6.5-8.0)
[2023-12-05 20:00] VITALS: BP 127/88; PULSE 76; RESP 16; TEMP 36.8; O2SAT 97
[2023-12-05] MEDS: Ibuprofen 400 MG TABLET PO (21:38)
[2023-12-05] MEDS: Ondansetron ODT 4 MG TAB.RAPDIS TRANSLINGU (21:38)
[2023-12-05] MEDS: Acetaminophen 325 MG TABLET 975 MG PO (21:38)
--- NOTE | 2023-12-05 21:40 | PC.NURSE ---
pt medicated per dec for headache. pt denies vomiting. pt tolerated meds well with water. pt verbalizes understanding d/c instructions/isolation precautions. pt axox4 ambulatory with steady gait. nad. resp even and unlabored.
== END 2023-12-05 21:51 | disposition home or self-care (01) ==
PROVIDERS: Physician Assistant Medical; Emergency Provider Student in an Organized Health Care Education/Training Program; PCP General Practice
DX: U07.1 COVID-19 (principal); B34.9 Viral infection, unspecified; R10.13 Epigastric pain; R11.2 Nausea with vomiting, unspecified
CPT/HCPCS: 74176; 80053; 83690; 83735; 85025; 87502; 87635; 99284

== ENCOUNTER 2024-04-10 15:26 | Emergency (ER) | payer MEDICAID, SELFPAY ==
--- NOTE | ~2024-04-10 | XR_ITS ---
EXAMINATION: XR CHEST CLINICAL INFORMATION: Chest pain COMPARISON: Chest 05/04/2021 TECHNIQUE: 2 views of the chest were obtained. FINDINGS: The lungs are well expanded. Right middle lobe scarring is again noted. No focal consolidation, interstitial pulmonary edema or pneumothorax. There is slight blunting of the left costophrenic angle which could represent pleural thickening or a small pleural effusion. No significant abnormality is noted involving the heart, mediastinum, bony thorax or soft tissues. XR/XR chest 2V IMPRESSION: 1. No pneumonia. 2. Blunting of the left costophrenic angle which could represent pleural thickening or a small pleural effusion.
[2024-04-10 15:35] VITALS: BP 132/95; PULSE 86; RESP 18; TEMP 36.6; O2SAT 96; BMI 30.4
--- NOTE | 2024-04-10 15:37 | ED.GENADULT ---
HPI - General Adult General Chief complaint: General Medical Stated complaint: rib pain radiating to back,cough palpatations Related Data Home Medications ?Medication ?Instructions ?Recorded ?Confirmed acetaminophen 650 mg 650 mg PO Q12H 02/01/21 02/09/22 tablet,extended release (Tylenol Arthritis Pain) bupropion HCl 150 mg 24 hr tablet, 150 mg PO QAM 02/01/21 02/09/22 extended release cetirizine 10 mg capsule (Allergy 10 mg PO DAILY PRN 02/01/21 02/09/22 Relief (cetirizine)) duloxetine 60 mg capsule,delayed 60 mg PO DAILY 02/01/21 02/09/22 release epinephrine 0.3 mg/0.3 mL 0.3 mg IM Q10M PRN 02/01/21 02/09/22 injection, auto-injector alprazolam 1 mg tablet 1 mg PO TID 02/09/22 02/09/22 aspirin 81 mg chewable tablet 1 tab PO DAILY 02/09/22 02/09/22 metoprolol tartrate 25 mg tablet 12.5 mg PO BID 02/09/22 02/09/22 mirtazapine 15 mg tablet 15 mg PO BEDTIME 02/09/22 02/09/22 quetiapine 25 mg tablet 25 mg PO BEDTIME 02/09/22 02/09/22 hydroxyzine HCl 25 mg tablet 25 mg PO TID PRN anxiety 02/23/23 Previous Rx's ?Medication ?Instructions ?Recorded cholecalciferol (vitamin D3) 50 50 mcg PO DAILY #90 caps 05/15/22 mcg (2,000 unit) capsule omeprazole 20 mg capsule,delayed 20 mg PO DAILY #60 caps 05/15/22 release tetracycline 500 mg capsule 1,000 mg (2 x 500 mg) PO Q12H #56 05/15/22 caps benzonatate 200 mg capsule 200 mg PO TID PRN cough #30 caps 09/19/22 ondansetron 4 mg disintegrating 4 mg PO Q8H PRN nausea and 12/05/23 tablet vomiting 4 days #7 tabs Allergies Allergy/AdvReac Type Severity Reaction Status Date / Time shrimp Allergy Severe RASH Verified 04/10/24 15:40 PMFSH Past Medical History Surgical History Hx of hernia repair Hx of foot surgery Family History Family History Mother HTN (hypertension) Lupus COPD (chronic obstructive pulmonary disease) Father Diabetes Arthritis Brother HTN (hypertension) Brain tumor Social History Social History Household Members: Family Alcohol intake: never Patient Tobacco Use Status: Never used Tobacco e-Cigarette/Vaping Use: Never Used Advance Directives: No Advance Directives Information Provided: Yes Do you have a plan to hurt others: No Plan Current occupational status: unemployed Current occupation: right hand Physical Exam ED Vital Signs: Vital Signs - 24 hr 04/10/24 15:35 Temperature 97.8 F Pulse Rate 86 Respiratory Rate 18 Blood Pressure 132/95 H Pulse Oximetry 96 Oxygen Delivery Method Room Air BMI result Body Mass Index 30.4 Course Course Course Narrative: This is an RME: Additional HPI, ROS, PE not included below will be deferred to primary provider. RME assessment and note performed by: Brandi Harrell PA-C This is a [id number]-male, with a hx of a fib not anticoagulated, who presents to the ER with complaints of worsening left rib pain. Reports pain worsens with deep inspiration. He also gets palpitations and also has a slight cough. No trauma or injury to his chest wall. He was previously on blood thinners however this was discontinued 2 months ago. Plan: labs, ekg, cxr Reevaluation(s) Reevaluation #1: Patient left without completing treatment. Medical Decision Making Lab Data 04/10/24 16:06 04/10/24 16:06 Labs: Lab Results 04/10/24 Range/Units 16:06 WBC 8.7 (4.8-10.8) X10*3/uL RBC 5.04 (4.60-5.80) X10*6/uL Hgb 15.4 (14.0-18.0) g/dl Hct 44.2 (42.0-52.0) % MCV 87.7 (80.0-98.0) fL MCH 30.6 (27.0-33.0) pg MCHC 34.8 (31.0-36.0) g/dl RDW 12.0 (11.0-16.0) % Plt Count 324 D (160-400) X10*3/uL MPV 10.6 (9.4-12.4) fL Immature Gran % (Auto) 0.3 (0.0-0.4) % Neut % (Auto) 78.2 H (45-73) % Lymph % (Auto) 12.6 L (20-40) % [place] % (Auto) 8.0 (2-11) % Eos % (Auto) 0.6 (0-4) % Baso % (Auto) 0.3 (0-2) % Lymph # (Auto) 1.1 L (1.2-4.9) X10*3/uL [place] # (Auto) 0.7 (0.1-1.2) X10*3/uL Eos # (Auto) 0.1 (0.0-0.4) X10*3/uL Baso # (Auto) 0.0 (0.0-0.2) X10*3/uL Abs Immat Gran (auto) 0.03 (0.00-0.03) X10*3/uL Absolute Neuts (auto) 6.8 (2.0-8.3) x10*3/uL Absolute Nucleated RBC 0.000 (0.0-0.012) X10*3/uL Nucleated RBC % (auto) 0.0 (0.0-0.2) /100WBC PT 12.6 (11.1-13.3) SEC INR 1.0 (0.9-1.1) APTT 28.7 (26.0-36.8) SEC Sodium 144 (135-145) mmol/L Potassium 4.1 (3.3-5.1) mmol/L Chloride 107 (96-108) mmol/L Carbon Dioxide 28 (22-29) mmol/L Anion Gap 13 (12-20) BUN 14 (9-16) mg/dL Creatinine 1.19 (0.5-1.4) mg/dL Estim Creat Clear Calc 88.3 Estimated GFR > 60 Random Glucose 103 (60-115) mg/dL Calcium 9.3 (8.4-10.2) mg/dL Total Bilirubin 0.8 (0.0-1.0) mg/dL Direct Bilirubin 0.2 (0.0-0.5) mg/dL AST 22 (5-37) U/L ALT 19 (0-40) U/L Alkaline Phosphatase 78 (39-117) U/L Troponin I High Sens < 2.7 (<3.5-35.0) ng/L Total Protein 7.0 (6.5-8.0) g/dL Albumin 4.3 (3.5-5.0) g/dL Influenza Type A (PCR) NEGATIVE (Negative) Influenza Type B (PCR) NEGATIVE (Negative) RSV RNA Qual (PCR) NEGATIVE (Negative) SARS-CoV-2 RNA (RT-PCR) NEGATIVE (Negative) Discharge Plan Discharge Clinical Impression: Cough Patient Disposition: Left W/O Completing Treatment Prescriptions: No Action tetracycline 500 mg capsule 1,000 mg PO Q12H Qty: 56 0RF omeprazole 20 mg capsule,delayed release(DR/EC) 20 mg PO DAILY Qty: 60 0RF cholecalciferol (vitamin D3) 50 mcg (2,000 unit) capsule 50 mcg PO DAILY Qty: 90 3RF benzonatate 200 mg capsule 200 mg PO TID PRN (Reason: cough) Qty: 30 0RF ondansetron 4 mg tablet,disintegrating 4 mg PO Q8H PRN (Reason: nausea and vomiting) 4 Days Qty: 7 0RF bupropion HCl 150 mg tablet extended release 24 hr 150 mg PO QAM epinephrine 0.3 mg/0.3 mL auto-injector 0.3 mg IM Q10M PRN Rx Instructions: for 2 doses Allergy Relief (cetirizine) 10 mg capsule 10 mg PO DAILY PRN duloxetine 60 mg capsule,delayed release(DR/EC) 60 mg PO DAILY acetaminophen [Tylenol Arthritis Pain] 650 mg tablet extended release 650 mg PO Q12H metoprolol tartrate 25 mg tablet 12.5 mg PO BID aspirin 81 mg tablet,chewable 1 tab PO DAILY alprazolam 1 mg tablet 1 mg PO TID quetiapine 25 mg tablet 25 mg PO BEDTIME mirtazapine 15 mg tablet 15 mg PO BEDTIME hydroxyzine HCl 25 mg tablet 25 mg PO TID PRN (Reason: anxiety) Discharge Date/Time: 04/10/24 21:11
--- NOTE | 2024-04-10 15:40 | ECG_ITS ---
Test Reason : CHESTPAIN Blood Pressure : / mmHG Vent. Rate : 081 BPM Atrial Rate : 081 BPM P-R Int : 150 ms QRS Dur : 092 ms QT Int : 364 ms P-R-T Axes : 050 050 -25 degrees QTc Int : 422 ms Normal sinus rhythm T wave abnormality, consider inferolateral ischemia Abnormal ECG When compared with ECG of 17-MAY-2022 06:47, Lateral T inversions noted Referred By: Brandi Harrell Electronically Signed By:LINNEA READ
[2024-04-10 16:14] LABS: MANUAL DIFF FLAG NO
[2024-04-10 16:17] LABS: Basophils Percent Auto 0.3 % (0-2); Eosinophils Absolute Auto 0.1 X10*3/uL (0.0-0.4); Eosinophils Percent Auto 0.6 % (0-4); Hematocrit 44.2 % (42.0-52.0); Hemoglobin 15.4 g/dl (14.0-18.0); Imm Gran Abs Auto 0.03 X10*3/uL (0.00-0.03); Imm Gran Pct Auto 0.3 % (0.0-0.4); Lymphocytes Absolute Auto 1.1 X10*3/uL (1.2-4.9); Lymphocytes Percent Auto 12.6 % (20-40); Mean Corpuscular HGB Conc 34.8 g/dl (31.0-36.0); Mean Corpuscular Hemoglobin 30.6 pg (27.0-33.0); Mean Corpuscular Volume 87.7 fL (80.0-98.0); Mean Platelet Volume 10.6 fL (9.4-12.4); Monocytes Absolute Auto 0.7 X10*3/uL (0.1-1.2); Neutrophils Absolute Auto 6.8 x10*3/uL (2.0-8.3); Neutrophils Percent Auto 78.2 % (45-73); Platelet Count 324 X10*3/uL (160-400); Red Blood Count 5.04 X10*6/uL (4.60-5.80); White Blood Count 8.7 X10*3/uL (4.8-10.8)
[2024-04-10 16:21] LABS: Prothrombin Time 12.6 SEC (11.1-13.3)
[2024-04-10 16:24] LABS: Partial Thromboplastin Time 28.7 SEC (26.0-36.8)
[2024-04-10 16:32] LABS: Alanine Aminotransferase 19 U/L (0-40); Albumin Level 4.3 g/dL (3.5-5.0); Alkaline Phosphatase 78 U/L (39-117); Anion Gap 13 (12-20); Aspartate Amino Transferase 22 U/L (5-37); Bilirubin Direct 0.2 mg/dL (0.0-0.5); Bilirubin Total 0.8 mg/dL (0.0-1.0); Blood Urea Nitrogen 14 mg/dL (9-16); Calcium 9.3 mg/dL (8.4-10.2); Carbon Dioxide 28 mmol/L (22-29); Chloride 107 mmol/L (96-108); Creatinine Clr Calc Pharmacy 88.3; Estimated Glomerular Filt Rate > 60; Glucose Random 103 mg/dL (60-115); Potassium 4.1 mmol/L (3.3-5.1); Sodium 144 mmol/L (135-145)
[2024-04-10 16:44] LABS: Troponin-I High Sensitivity < 2.7 ng/L (<3.5-35.0)
[2024-04-10 16:56] LABS: Influenza A PCR NEGATIVE (Negative); Influenza B PCR NEGATIVE (Negative); Resp Syncy Virus RNA Qual PCR NEGATIVE (Negative); SARS COV2 PCR INHOUSE NEGATIVE (Negative)
== END 2024-04-10 21:11 | disposition left against medical advice (07) ==
PROVIDERS: Physician Assistant Medical; Emergency Provider Emergency Medicine; PCP General Practice
DX: R05.9 Cough, unspecified (principal); R07.81 Pleurodynia
CPT/HCPCS: 0241U; 36415; 71046; 80048; 80076; 84484; 85025; 85610; 85730; 93005; 99283

== ENCOUNTER → 2024-04-10 15:40 | Outpatient (BNV) | payer MEDICAID, SELFPAY | PROVIDERS: Emergency Provider Emergency Medicine; PCP General Practice; Visit Provider Internal Medicine | DX: R94.31 Abnormal electrocardiogram [ECG] [EKG] (principal) | CPT/HCPCS: 93010 ==

== ENCOUNTER 2024-04-14 23:40 | Emergency (ER) | payer MEDICAID, SELFPAY ==
--- NOTE | 2024-04-14 | ECG_ITS ---
Test Reason : PALPITATIONS Blood Pressure : / mmHG Vent. Rate : 068 BPM Atrial Rate : 068 BPM P-R Int : 120 ms QRS Dur : 098 ms QT Int : 356 ms P-R-T Axes : 042 110 -26 degrees QTc Int : 378 ms Normal sinus rhythm Right axis deviation T wave abnormality, consider inferior ischemia Abnormal ECG When compared with ECG of 10-APR-2024 15:55, QRS axis Shifted right Nonspecific T wave abnormality has replaced inverted T waves in Anterior leads Referred By: Generic ED Physician Electronically Signed By:Yao Walls
--- NOTE | ~2024-04-14 | XR_ITS ---
EXAMINATION: XR CHEST CLINICAL INFORMATION: Cough. COMPARISON: 04/10/2024. TECHNIQUE: Frontal view of the chest was obtained. FINDINGS: The cardiomediastinal silhouette is within normal limits and stable. Right lower lung field scarring is again seen. There is no focal lung consolidation or pleural effusions. The bony structures and soft tissues are unremarkable XR/XR chest 1V IMPRESSION: No acute cardiopulmonary process.
[2024-04-14 23:54] VITALS: BP 139/89; PULSE 74; RESP 18; TEMP 36.4; O2SAT 95; BMI 30.1
--- NOTE | 2024-04-15 00:23 | PC.NURSE ---
pt from home, a&ox4, respirations even and unlabored. pt reporting onset of chest palpations and left sided rib pain x3 weeks. reports hx of afib but is currently no on medications. pt denies n/v/d, denies sob and chest pain. pt normal sinus on tele 70-74bpm. 20G placed in left ac, labs obtained and sent to lab. xray at bedside.
[2024-04-15 00:25] LABS: MANUAL DIFF FLAG NO
[2024-04-15 00:28] LABS: Basophils Percent Auto 0.4 % (0-2); Eosinophils Absolute Auto 0.1 X10*3/uL (0.0-0.4); Hematocrit 43.3 % (42.0-52.0); Hemoglobin 15.1 g/dl (14.0-18.0); Imm Gran Abs Auto 0.02 X10*3/uL (0.00-0.03); Imm Gran Pct Auto 0.2 % (0.0-0.4); Lymphocytes Absolute Auto 2.3 X10*3/uL (1.2-4.9); Lymphocytes Percent Auto 28.1 % (20-40); Mean Corpuscular HGB Conc 34.9 g/dl (31.0-36.0); Mean Corpuscular Hemoglobin 30.1 pg (27.0-33.0); Mean Corpuscular Volume 86.3 fL (80.0-98.0); Mean Platelet Volume 10.5 fL (9.4-12.4); Monocytes Absolute Auto 0.7 X10*3/uL (0.1-1.2); Monocytes Percent Auto 9.1 % (2-11); Neutrophils Percent Auto 61.2 % (45-73); Platelet Count 329 X10*3/uL (160-400); Red Blood Count 5.02 X10*6/uL (4.60-5.80); White Blood Count 8.2 X10*3/uL (4.8-10.8)
[2024-04-15 00:36] LABS: Prothrombin Time 12.5 SEC (11.1-13.3)
[2024-04-15 00:43] LABS: Alanine Aminotransferase 22 U/L (0-40); Albumin Level 4.4 g/dL (3.5-5.0); Alkaline Phosphatase 84 U/L (39-117); Anion Gap 12 (12-20); Aspartate Amino Transferase 24 U/L (5-37); Bilirubin Total 0.4 mg/dL (0.0-1.0); Blood Urea Nitrogen 18 mg/dL (9-16); Calcium 9.7 mg/dL (8.4-10.2); Carbon Dioxide 25 mmol/L (22-29); Chloride 110 mmol/L (96-108); Creatinine Clr Calc Pharmacy 100.7; D Dimer High Sensitivity < 150 NG/ML; Estimated Glomerular Filt Rate > 60; Glucose Fasting 101 mg/dL (60-99); Potassium 3.6 mmol/L (3.3-5.1); Sodium 143 mmol/L (135-145)
[2024-04-15 00:47] LABS: Troponin-I High Sensitivity < 2.7 ng/L (<3.5-35.0)
--- NOTE | 2024-04-15 01:10 | ED.GENADULT ---
HPI - General Adult General Chief complaint: General Medical Stated complaint: heart palpitations, under rib pain Time Seen by Provider: 04/15/24 00:39 Source: patient Mode of arrival: ambulatory Limitations: no limitations History of Present Illness ED Provider: betty CASTRO narrative: Patient used to live in [place] moved to [place] about a year ago does have a history of lone atrial fibrillation for 8 years used to be on Eliquis stopped after a few years comes here for cough for last month or so specially when he takes a deep breath along with palpitation patient was worried that he might have AFib cough is mostly dry Related Data Home Medications ?Medication ?Instructions ?Recorded ?Confirmed acetaminophen 650 mg 650 mg PO Q12H 02/01/21 02/09/22 tablet,extended release (Tylenol Arthritis Pain) bupropion HCl 150 mg 24 hr tablet, 150 mg PO QAM 02/01/21 02/09/22 extended release cetirizine 10 mg capsule (Allergy 10 mg PO DAILY PRN 02/01/21 02/09/22 Relief (cetirizine)) duloxetine 60 mg capsule,delayed 60 mg PO DAILY 02/01/21 02/09/22 release epinephrine 0.3 mg/0.3 mL 0.3 mg IM Q10M PRN 02/01/21 02/09/22 injection, auto-injector alprazolam 1 mg tablet 1 mg PO TID 02/09/22 02/09/22 aspirin 81 mg chewable tablet 1 tab PO DAILY 02/09/22 02/09/22 metoprolol tartrate 25 mg tablet 12.5 mg PO BID 02/09/22 02/09/22 mirtazapine 15 mg tablet 15 mg PO BEDTIME 02/09/22 02/09/22 quetiapine 25 mg tablet 25 mg PO BEDTIME 02/09/22 02/09/22 hydroxyzine HCl 25 mg tablet 25 mg PO TID PRN anxiety 02/23/23 Previous Rx's ?Medication ?Instructions ?Recorded cholecalciferol (vitamin D3) 50 50 mcg PO DAILY #90 caps 05/15/22 mcg (2,000 unit) capsule omeprazole 20 mg capsule,delayed 20 mg PO DAILY #60 caps 05/15/22 release tetracycline 500 mg capsule 1,000 mg (2 x 500 mg) PO Q12H #56 07/18/22 caps benzonatate 200 mg capsule 200 mg PO TID PRN cough #30 caps 09/19/22 ondansetron 4 mg disintegrating 4 mg PO Q8H PRN nausea and 12/05/23 tablet vomiting 4 days #7 tabs albuterol sulfate 90 mcg/actuation 2 puff inhalation Q4-6H PRN 04/15/24 aerosol inhaler (ProAir HFA) shortness of breath or wheezing #8.5 grams benzonatate 200 mg capsule 200 mg PO TID PRN cough #30 caps 04/15/24 prednisone 20 mg tablet 40 mg (2 x 20 mg) PO DAILY #10 tabs 04/15/24 Allergies Allergy/AdvReac Type Severity Reaction Status Date / Time shrimp Allergy Severe RASH Verified 04/14/24 23:57 Review of Systems Review of Systems: Yes all other systems are reviewed and are negative PMFSH Past Medical History Surgical History Hx of hernia repair Hx of foot surgery Family History Family History Mother HTN (hypertension) Lupus COPD (chronic obstructive pulmonary disease) Father Diabetes Arthritis Brother HTN (hypertension) Brain tumor Social History Social History Household Members: Family Alcohol intake: never Patient Tobacco Use Status: Never used Tobacco Smoked in Last 30 Days: No e-Cigarette/Vaping Use: Never Used Use of substances other than those prescribed or required for medical reasons: No Advance Directives: No Advance Directives Information Provided: Yes Do you have a plan to hurt others: No Plan Current occupational status: unemployed Current occupation: right hand Physical Exam ED Vital Signs: Vital Signs - 24 hr 04/14/24 23:54 04/15/24 01:29 04/15/24 02:36 Temperature 97.6 F 98.9 F Pulse Rate 74 78 79 Respiratory Rate 18 18 20 Blood Pressure 139/89 112/74 Pulse Oximetry 95 94 Oxygen Delivery Method Room Air Room Air 04/15/24 02:36 Temperature 98.9 F Pulse Rate 79 Respiratory Rate 20 Blood Pressure 112/74 Pulse Oximetry 94 Oxygen Delivery Method Room Air BMI result Body Mass Index 30.1 Appearance: Alert. Oriented X3. No acute distress. Eyes: PERRLA, No Nystagmus ENT: Pharynx normal. Oral Mucosa moist Neck: Normal inspection. Neck supple. CVS: Normal heart rate and rhythm. Pulses normal. Respiratory: No respiratory distress. Equal air entry bilateral, no wheezing/rales/rhonchi prolonged expiration Abdomen: Soft and nontender. Bowel sounds are present, no mass palpable, no CVA tenderness Skin: Skin warm and dry. Normal skin color. Normal skin turgor. Extremities: No lower extremity edema. No calf tenderness Neuro: Oriented X 3. No motor deficit. No sensory deficit.No cerebellar signs , cranial nerves II-XII intact Medications Administered Discontinued Medications Generic Name Dose Route Start Last Admin Trade Name Freq PRN Reason Stop Dose Admin Benzonatate 200 mg 04/15/24 02:26 04/15/24 02:32 Benzonatate 100 Mg Capsule PO 04/15/24 02:27 200 mg ONCE ONE Administration Albuterol Sulfate 2.5 mg/ 0 mg 04/15/24 01:24 04/15/24 01:28 Albuterol/Ipratropium 3 ml INHALE 04/15/24 01:25 5 dose ONCE ONE Administration Prednisone 40 mg 04/15/24 02:23 04/15/24 02:32 Prednisone 20 Mg Tablet PO 04/15/24 02:24 40 mg ONCE ONE Administration Medical Decision Making Medical Decision Making [facility] Narrative: Patient with lone atrial fibrillation with episodes of palpitation had 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 04/15/24 00:21 04/15/24 00:21 Labs: Lab Results 04/15/24 Range/Units 00:21 WBC 8.2 (4.8-10.8) X10*3/uL RBC 5.02 (4.60-5.80) X10*6/uL Hgb 15.1 (14.0-18.0) g/dl Hct 43.3 (42.0-52.0) % MCV 86.3 (80.0-98.0) fL MCH 30.1 (27.0-33.0) pg MCHC 34.9 (31.0-36.0) g/dl RDW 12.0 (11.0-16.0) % Plt Count 329 (160-400) X10*3/uL MPV 10.5 (9.4-12.4) fL Immature Gran % (Auto) 0.2 (0.0-0.4) % Neut % (Auto) 61.2 (45-73) % Lymph % (Auto) 28.1 (20-40) % [place] % (Auto) 9.1 (2-11) % Eos % (Auto) 1.0 (0-4) % Baso % (Auto) 0.4 (0-2) % Lymph # (Auto) 2.3 (1.2-4.9) X10*3/uL [place] # (Auto) 0.7 (0.1-1.2) X10*3/uL Eos # (Auto) 0.1 (0.0-0.4) X10*3/uL Baso # (Auto) 0.0 (0.0-0.2) X10*3/uL Abs Immat Gran (auto) 0.02 (0.00-0.03) X10*3/uL Absolute Neuts (auto) 5.0 (2.0-8.3) x10*3/uL Absolute Nucleated RBC 0.000 (0.0-0.012) X10*3/uL Nucleated RBC % (auto) 0.0 (0.0-0.2) /100WBC PT 12.5 (11.1-13.3) SEC INR 1.0 (0.9-1.1) D-Dimer High Sensitivty < 150 NG/ML Sodium 143 (135-145) mmol/L Potassium 3.6 (3.3-5.1) mmol/L Chloride 110 H (96-108) mmol/L Carbon Dioxide 25 (22-29) mmol/L Anion Gap 12 (12-20) BUN 18 H (9-16) mg/dL Creatinine 1.04 (0.5-1.4) mg/dL Estim Creat Clear Calc 100.7 Estimated GFR > 60 Fasting Glucose 101 H (60-99) mg/dL Calcium 9.7 (8.4-10.2) mg/dL Total Bilirubin 0.4 (0.0-1.0) mg/dL AST 24 (5-37) U/L ALT 22 (0-40) U/L Alkaline Phosphatase 84 (39-117) U/L Troponin I High Sens < 2.7 (<3.5-35.0) ng/L B-Natriuretic Peptide < 10 (<100) pg/mL Total Protein 7.0 (6.5-8.0) g/dL Albumin 4.4 (3.5-5.0) g/dL Independent Interpretation I performed an independent interpretation of an: EKG and Plain X-Ray Interpretation: Normal sinus rhythm heart rate 68 beats per minute normal intervals normal axis no acute ST T wave changes no acute ischemia Radiology Impression Discussion of test interpretation with radiology: I have reviewed the radiologist's reading. Discharge Plan Discharge Clinical Impression: Acute bronchitis Patient Disposition: Home, Self-Care Instructions: Acute Bronchitis (ED) Additional Instructions: Use inhaler as advised Cough drops and prednisone as prescribed Follow with your PCP Prescriptions: New benzonatate 200 mg capsule 200 mg PO TID PRN (Reason: cough) Qty: 30 0RF albuterol sulfate [ProAir HFA] 90 mcg/actuation HFA aerosol inhaler 2 puff inhalation Q4-6H PRN (Reason: shortness of breath or wheezing) Qty: 8.5 0RF prednisone 20 mg tablet 40 mg PO DAILY Qty: 10 0RF No Action tetracycline 500 mg capsule 1,000 mg PO Q12H Qty: 56 0RF omeprazole 20 mg capsule,delayed release(DR/EC) 20 mg PO DAILY Qty: 60 0RF cholecalciferol (vitamin D3) 50 mcg (2,000 unit) capsule 50 mcg PO DAILY Qty: 90 3RF benzonatate 200 mg capsule 200 mg PO TID PRN (Reason: cough) Qty: 30 0RF ondansetron 4 mg tablet,disintegrating 4 mg PO Q8H PRN (Reason: nausea and vomiting) 4 Days Qty: 7 0RF bupropion HCl 150 mg tablet extended release 24 hr 150 mg PO QAM epinephrine 0.3 mg/0.3 mL auto-injector 0.3 mg IM Q10M PRN Rx Instructions: for 2 doses Allergy Relief (cetirizine) 10 mg capsule 10 mg PO DAILY PRN duloxetine 60 mg capsule,delayed release(DR/EC) 60 mg PO DAILY acetaminophen [Tylenol Arthritis Pain] 650 mg tablet extended release 650 mg PO Q12H metoprolol tartrate 25 mg tablet 12.5 mg PO BID aspirin 81 mg tablet,chewable 1 tab PO DAILY alprazolam 1 mg tablet 1 mg PO TID quetiapine 25 mg tablet 25 mg PO BEDTIME mirtazapine 15 mg tablet 15 mg PO BEDTIME hydroxyzine HCl 25 mg tablet 25 mg PO TID PRN (Reason: anxiety) Interventions: ED Discharge Assessment Last Done: 04/15/24 02:36 Discharge Date/Time: 04/15/24 02:37 Print Language: Latvian
[2024-04-15] MEDS: Albuterol Sulfate 2.5 MG, Albuterol/Iprat 2.5/0.5MG 3 ML 3 ML INHALE (01:28)
[2024-04-15 01:29] VITALS: PULSE 78; RESP 18; O2SAT 98
[2024-04-15 01:52] LABS: B Type Natriuretic Peptide < 10 pg/mL (<100)
[2024-04-15] MEDS: Benzonatate 100 MG CAPSULE 200 MG PO (02:32)
[2024-04-15] MEDS: predniSONE 20 MG TABLET 40 MG PO (02:32)
[2024-04-15 02:36] VITALS: BP 112/74; PULSE 79; RESP 20; TEMP 37.2; O2SAT 94
== END 2024-04-15 02:37 | disposition home or self-care (01) ==
PROVIDERS: Emergency Provider Internal Medicine; PCP General Practice
DX: J20.9 Acute bronchitis, unspecified (principal); R00.2 Palpitations; R05.9 Cough, unspecified; Z79.899 Other long term (current) drug therapy; Z79.82 Long term (current) use of aspirin
CPT/HCPCS: 36415; 71045; 80053; 83880; 84484; 85025; 85379; 85610; 93005; 99284; 99285

== ENCOUNTER → 2024-04-14 23:43 | Outpatient (BNV) | payer MEDICAID, SELFPAY | PROVIDERS: Emergency Provider Internal Medicine; PCP General Practice; Visit Provider Internal Medicine Cardiovascular Disease | DX: R94.31 Abnormal electrocardiogram [ECG] [EKG] (principal) | CPT/HCPCS: 93010 ==

== ENCOUNTER 2024-08-06 09:01 | Outpatient (AMB) | payer MEDICAID, SELFPAY ==
[2024-08-06 09:05] VITALS: BP 110/68; PULSE 73
--- NOTE | 2024-08-06 09:05 | MHC.OFFVIS ---
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 Previously seen at [facility]. He would like to switch. Per notes, it seems he had atrial fibrillation diagnosed about 5 years ago or so but not definitive. Apparently that was diagnosed in [place] but no EKGs to review from that time. He states that he is still gets palpitations off and on. He can get that when he is playing sports like basketball but also randomly. That seems bother him a lot. He gets anxious. He also gets some stabbing chest pains off and on. Per notes, he was on verapamil but not taking it anymore. He was also on Eliquis but it seems that was stopped. 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 occupation: right hand Review of Systems Const Denies chills, Denies fatigue, Denies fever(s), Denies weight gain and Denies weight loss Eyes Denies loss of vision ENT Denies dizziness Card Denies chest pain, Denies leg edema, Denies lightheadedness, Denies palpitations, Denies dyspnea on exertion, Denies orthopnea and Denies other Resp Denies cough, Denies dyspnea on exertion and Denies wheezing GI Denies hematochezia and Denies change in stool character Denies dysuria and Denies urinary frequency Musc Denies abnormal gait, Denies muscle weakness, Denies numbness, Denies radiating pain into limb and Denies tingling Skin/Breast Denies nail changes and Denies rash Neuro Denies Abnormal speech present, Denies abnormal gait, Denies dizziness, Denies loss of vision, Denies memory loss, Denies numbness and Denies tingling Psych Denies depression and Denies memory loss Endo Denies fatigue and Denies palpitations Tj/Lymph Denies easy bruising Aller/Immun Denies wheezing Physical Exam Vital Signs: Last Vital Signs Pulse 73 08/06/24 09:05 BP 110/68 08/06/24 09:05 BMI result Body Mass Index 30.0 Const General: comfortable and no acute distress Orientation/consciousness: patient oriented x3 HEENT Other: Unremarkable Head: Yes normal to inspection Neck Neck: Yes normal visual inspection Chest Chest palpation & inspection: normal inspection of the chest Resp Auscultation: clear to auscultation bilaterally Cardio Palpation: normal PMI Heart sounds: S1 normal heart sound present, S2 normal heart sound present, no gallops, Murmur heart sound present systolic I/ and at the right sternal border and no rubs GI Palpation (GI): Soft to palpation Back/Spine/Pelvis Other: unremarkable Skin General skin exam: no rashes or lesions noted Neuro General: patient oriented x3 Speech: No Abnormal speech present Extrem General: Yes normal to inspection Psych Mental Status: mental status grossly normal Assessment & Plan Assessment & Plan (1) PAF (paroxysmal atrial fibrillation): Code(s): I48.0 - Paroxysmal atrial fibrillation Category: Medical Plan In the last EKG, underlying rhythm is sinus at 68/Min; inferior T inversions and lateral nonspecific ST-T changes. Normal MA and corrected QT. he has some inferior T-wave findings going back more than 10 years. Lateral changes seem relatively new. We will get any relevant testing from his previous cardiology group. As he continues to have palpitations, we will get an echocardiogram and 30 day monitor. Discussed with patient using historical interpreter. He understands and agrees with plan. Orders: Orders CA echo transthoracic complete Today I48.0 - Paroxysmal atrial fibrillation ECG 30 day event monitor Today I48.0 - Paroxysmal atrial fibrillation Coding Level of Care Code New Pt Level 3 (57487) Diagnoses PAF (paroxysmal atrial fibrillation) I48.0
== END 2024-08-06 09:27 | disposition home or self-care (01) ==
PROVIDERS: PCP General Practice; Visit Provider Internal Medicine
DX: I48.0 Paroxysmal atrial fibrillation (principal)
CPT/HCPCS: 99213

== ENCOUNTER → 2024-08-06 09:01 | Outpatient (BNVA) | payer MEDICAID, SELFPAY | PROVIDERS: PCP General Practice; Visit Provider Internal Medicine | DX: I48.0 Paroxysmal atrial fibrillation (principal) | CPT/HCPCS: 99212 ==

== ENCOUNTER → 2024-09-03 08:54 | Outpatient (REF) | payer MEDICAID, SELFPAY ==
--- NOTE | 2024-09-03 08:56 | HM_ITS ---
Cardiac event monitor Indication: Paroxysmal atrial fibrillation Technique: Patient was hooked up to cardiac event monitor from 09/03/2020 4-10 03 2024 for total period of 30 days. Where time was poor at 3.5 days. Findings: During the event monitoring patient had baseline normal sinus rhythm with average heart rate of 75 beats per minute. There were no significant pauses or bradycardia noted. There were no arrhythmias noted Patient reported 1 symptoms of feeling fatigued and tired correlating with sinus rhythm. Conclusion: 1. Baseline was normal sinus rhythm with no pauses 2. No significant arrhythmias noted 3. Patient reported symptoms correlated with sinus rhythm MTDD
--- NOTE | 2024-09-03 08:56 | CA_ITS ---
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 Low normal biventricular systolic function 2. Normal cardiac valvular Dopplers 3. No gross pericardial effusion Findings Procedure Information Contrast agent, definity, is being given per protocol without apparent complications. Left Ventricle Normal left ventricular cavity size. There is normal left ventricular wall thickness. The left ventricular systolic function is low normal. The visually estimated ejection fraction is between 50-55%. Spectral Doppler is indicative of a normal filling pattern. Right Ventricle Normal right ventricular cavity size. There is low normal right ventricular systolic function. Atria The left atrium is likely dilated. There is no evidence of interatrial shunt. The right atrium is normal in size. Aortic Valve Normal aortic valve structure and function. There is no aortic valve stenosis. There is no aortic valve regurgitation. Mitral Valve Normal mitral valve structure and function. There is trace mitral valve regurgitation. There is no mitral valve stenosis. Pulmonic Valve The pulmonic valve is likely normal. There is trace pulmonic valve regurgitation. Tricuspid Valve Normal tricuspid valve structure. Tricuspid regurgitation envelope is inadequate for calculation of right ventricular systolic pressure. Normal right atrial pressure. Great Vessels All visible segments of the aorta are normal in size. The pulmonary artery was not well visualized. Venous The inferior vena cava is normal in size and collapses greater than 50% with inspiration. Pericardium/Pleural There is no evidence of pericardial effusion. Prior Study Comparison No prior study available for comparison. Measurements 2D Linear Measurements IVSd: 0.98 0.6-0.9/0.6-1.0 cm LVIDd: 5.42 3.9-5.3/4.2-5.9 cm LVIDd Index: 2.66 2.4-3.2/2.2-3.1 cm/m2 LVIDs: 3.76 2.0-3.6 cm LVPWd: 0.81 0.7-1.1 cm LA Diam: 3.60 2.7-3.8/3.0-4.0 cm LAIDs Index: 1.76 1.5-2.3 cm/m2 LV Mass: 223.72 67-162/88-224 g LV Mass Index: 109.67 43-95/49-115 g/m2 LVOT Diam: 2.10 3.0+(-)1.3 cm 2D Systolic Function EF 4C: 48.00 >55% EF 2C: 54.90 >55% EF BiP: 51.60 >55% Mitral Valve MV Pk E: 0.60 MV PK A: 0.33 MV Decel Time: 383.00 E/A: 1.90 E'Lateral: 10.90 E'Medial: 6.53 E/E' Med: 9.20 E/E' Lat: 5.50 PHT: 112.00 MVA PHT: 1.96 Decel Newton: 1.58 Aortic Valve AoV Pk Lewis: 1.45 AoV Mn Lewis: 0.98 AoV VTI: 0.29 AoV Pk Grad: 8.00 Aov Mn Grad: 4.00 JODI Cont.VTI: 2.53 LVOT LVOT Pk Lewis: 1.20 LVOT Mn Lewis: 0.72 LVOT VTI: 0.21 LVOT Pk Grad: 6.00 LVOT Mn Grad: 3.00 LVOT Diam: 2.10 LVOT Area: 3.46 Diastolic Function MV Pk E: 0.60 MV Pk A: 0.33 E/A: 1.90 E'Medial: 6.53 E/E' Med: 9.20 E' Laterial: 10.90 E/E' Lat: 5.50 Right Ventricle TAPSE (mm): 16.60 TVS' Lewis: 9.19 Tricuspid Valve RA Press: 3.00 Great Vessels Aorta Sinus of Valsalva: 3.59 2.0-3.5 cm Ao Asc: 3.30 2.1-3.4 cm Updated in Other Vendor System with Status of Final Theodore Couch MD electronically signed on 09/04/2024 12:20:51 PM with status of Final
== END ==
LOC: HO.CARD 08:54
PROVIDERS: PCP General Practice; Visit Provider Internal Medicine
DX: I48.0 Paroxysmal atrial fibrillation (principal)
CPT/HCPCS: 93270; 93306; Q9957

== ENCOUNTER → 2024-09-03 08:56 | Outpatient (BNV) | payer MEDICAID, SELFPAY | PROVIDERS: PCP General Practice; Visit Provider Internal Medicine Cardiovascular Disease | DX: I48.0 Paroxysmal atrial fibrillation (principal) | CPT/HCPCS: 93306 ==

== ENCOUNTER 2024-09-04 13:05 | Emergency (ER) | payer MEDICAID, SELFPAY ==
--- NOTE | ~2024-09-04 | US_ITS ---
EXAMINATION: US ABDOMEN LIMITED CLINICAL INFORMATION: Epigastric pain. COMPARISON: Ultrasound abdomen dated June 06, 2022. TECHNIQUE: Real-time imaging of the right upper quadrant abdominal viscera. FINDINGS: PANCREAS: Normal. LIVER: Normal. The liver is normal in size. The liver contour is normal. Parenchymal echogenicity is normal. No focal hepatic lesion. There is no intrahepatic biliary duct dilatation seen. GALLBLADDER: Normal. The gallbladder is physiologically distended without evidence of stones, sludge, polyps, wall thickening or pericholecystic fluid. COMMON BILE DUCT: Normal in caliber measuring 0.18 cm in diameter. RIGHT KIDNEY: Normal. No hydronephrosis. No renal calculi or focal parenchymal lesions. The kidney measures 10 cm in maximum dimension. FREE FLUID: None. US/US abdomen limited IMPRESSION: Normal right upper quadrant ultrasound. Electronically signed by: Momo Green DO 09/04/2024 10:18 PM [facility] [place]
[2024-09-04 13:15] VITALS: BP 140/85; PULSE 85; RESP 20; TEMP 36.7; O2SAT 98; BMI 30.3
--- NOTE | 2024-09-04 13:17 | ED.GENADULT ---
HPI - General Adult General Chief complaint: Abdominal Pain Stated complaint: Abd pain Time Seen by Provider: 09/04/24 20:33 Source: patient, RN notes reviewed, old records reviewed and executive assistant Mode of arrival: ambulatory Limitations: language barrier History of Present Illness ED Provider: Nithin CASTRO narrative: 44-year-old male with past medical history significant for paroxysmal AFib, neuropathy, arthralgia presents for evaluation of abdominal pain. Patient reports he woke up around 4:00 a.m. with upper abdominal pain that radiates into his chest His pain was constant until about 2 hours ago. His pain has improved but has not completely resolved. His pain is currently a 6/10. He he denies any nausea vomiting Denies any cough, shortness of breath Denies any history of coronary artery disease Related Data Home Medications ?Medication ?Instructions ?Recorded ?Confirmed epinephrine 0.3 mg/0.3 mL 0.3 mg IM Q10M PRN 02/01/21 08/06/24 injection, auto-injector alprazolam 1 mg tablet 1 mg PO TID PRN 08/06/24 08/06/24 Previous Rx's ?Medication ?Instructions ?Recorded omeprazole 20 mg capsule,delayed 20 mg PO DAILY #60 caps 05/15/22 release albuterol sulfate 90 mcg/actuation 2 puff inhalation Q4-6H PRN 04/15/24 aerosol inhaler (ProAir HFA) shortness of breath or wheezing #8.5 grams omeprazole 40 mg capsule,delayed 40 mg PO DAILY #14 caps 09/04/24 release Allergies Allergy/AdvReac Type Severity Reaction Status Date / Time shrimp Allergy Severe RASH Verified 09/04/24 13:18 Review of Systems Constitutional: Constitutional: Denies body ache(s), Denies chills, Denies fever(s) and Denies headache(s) Eyes: Eyes: Denies blurry vision ENT: Denies vertigo, Denies dizziness and Denies headache(s) Cardiovascular: Cardiovascular: Reports chest pain and Denies dyspnea Respiratory: Respiratory: Denies cough and Denies dyspnea Gastrointestinal: Gastrointestinal: Reports abdominal pain, Denies GI cramping, Denies diarrhea, Denies loose stools, Denies nausea and Denies vomiting Musculoskeletal: Musculoskeletal: Denies back pain Integumentary/Breasts: Skin/Breast: Denies rash Neurologic: Denies vertigo, Denies dizziness and Denies headache(s) [facility] Past Medical History Medical History PAF (paroxysmal atrial fibrillation) Surgical History Hx of hernia repair Hx of foot surgery Family History Family History Mother HTN (hypertension) Lupus COPD (chronic obstructive pulmonary disease) Father Diabetes Arthritis Brother HTN (hypertension) Brain tumor Social History Social History Household Members: Family Alcohol intake: never Patient Tobacco Use Status: Never used Tobacco e-Cigarette/Vaping Use: Never Used Advance Directives: No Advance Directives Information Provided: Yes Current occupational status: unemployed Current occupation: right hand Physical Exam ED Vital Signs: Vital Signs - 24 hr 09/04/24 13:15 09/04/24 18:33 09/04/24 22:15 Temperature 98.1 F 97.4 F 98.4 F Pulse Rate 85 78 59 Respiratory Rate 20 16 17 Blood Pressure 140/85 H 138/90 H 109/63 Pulse Oximetry 98 99 98 Oxygen Delivery Method Room Air Room Air BMI result Body Mass Index 30.3 Const General: healthy appearing, comfortable, no acute distress, alert and awake Nutritional Appearance: well nourished Orientation/consciousness: patient oriented x3 HENMT Head: Yes normocephalic and Yes atraumatic Eyes Eyelids: Yes eyelids normal Conjunctivae: conjunctivae normal Sclerae: sclerae normal Corneas: corneas normal Pupils: Equal, round and reactive pupils present EOM: EOMs intact bilaterally Neck Neck: Yes full ROM Resp Effort & Inspection: normal respiratory effort, able to speak in complete sentences and not labored Cardio Rate: regular rate Rhythm: regular rhythm GI Inspection: No distended Palpation (GI): Soft to palpation, not firm, Tenderness to palpation present (GI) in the epigastrum, in the LUQ and in the RUQ; not in the LLQ and not in the RLQ, no guarding and not rigid Skin General skin exam: elasticity normal Neuro General: patient oriented x3 Cranial nerves: Yes Equal, round and reactive pupils present and Yes Bilaterally intact EOM present Cognition (Neuro): normal cognition Extrem Other: Moving all extremities well without any obvious deformities Course Course Course Narrative: This is an RME: Additional HPI, ROS, PE not included below will be deferred to primary provider. RME assessment and note performed by: Brandi Harrell PA-C This is a [id number]-male, with a hx of paroxysmal afib not anticoagulated (d/c 6 months ago) who presents to the ER with complaints of epigastric pain that will come up in the middle of the night at 4:00 a.m.. Pain has been constant has been worsening. Plan: Labs, EKG, further ER eval needed Reevaluation(s) Reevaluation #1: Patient's pain resolved after GI cocktail. He reports he is on Prilosec 20 mg daily, I will increase his dose to 40 mg for the next 2 weeks and he will follow-up with GI Time: 23:24 Medications Administered Discontinued Medications Generic Name Dose Route Start Last Admin Trade Name Kate PRN Reason Stop Dose Admin Acetaminophen 975 mg 09/04/24 18:33 09/04/24 18:35 Acetaminophen 325 Mg Tablet PO 09/04/24 18:34 975 mg ONCE ONE Administration Al Hydroxide/Mg Hydroxide 30 ml 09/04/24 20:46 09/04/24 22:28 Magnesium Hydrox/Alum Hydrox 30 Ml Oral.Susp PO 09/04/24 20:47 30 ml ONCE ONE Administration Lidocaine HCl 15 ml 09/04/24 20:46 09/04/24 22:28 Lidocaine Hcl Viscous 2 % 15 Ml Solution MUCOUS MEM 09/04/24 20:47 15 ml ONCE ONE Administration Ondansetron HCl 4 mg 09/04/24 20:46 09/04/24 22:28 Ondansetron Odt 4 Mg Tab.Rapdis TRANSLINGU 09/04/24 20:47 4 mg ONCE ONE Administration Medical Decision Making Medical Decision Making [facility] Narrative: 44-year-old male with past medical history as documented above presents for evaluation abdominal pain that started around 4:00 a.m. this morning. He denies associated symptoms. His pain does radiate into his chest, therefore plan for cardiac workup. Patient's EKG is unchanged from previous. He actually saw Cardiology yesterday and had an echocardiogram that is unremarkable. The patient's labs are reviewed and reassuring. An ultrasound of the abdomen was ordered to evaluate for obstructive biliary disease. This remains pending. We will treat the patient's pain with GI cocktail in the meantime. Differential Diagnosis Differential Diagnoses: The differential diagnosis associated with the presentation includes GERD Obstipation Cholelithiasis Acute cholecystitis Pancreatitis Chest pain less likely Lab Data MDM Lab Attestation statement: I reviewed the patient's lab results. No leukocytosis or anemia. Normal platelet count. No significant electrolyte abnormalities. Troponin undetectable. LFTs within normal limits 09/04/24 14:13 09/04/24 14:13 Labs: Lab Results 09/04/24 Range/Units 14:13 WBC 5.3 (4.8-10.8) X10*3/uL RBC 5.34 (4.60-5.80) X10*6/uL Hgb 16.0 (14.0-18.0) g/dl Hct 46.2 (42.0-52.0) % MCV 86.5 (80.0-98.0) fL MCH 30.0 (27.0-33.0) pg MCHC 34.6 (31.0-36.0) g/dl RDW 11.9 (11.0-16.0) % Plt Count 269 (160-400) X10*3/uL MPV 10.4 (9.4-12.4) fL Immature Gran % (Auto) 0.4 (0.0-0.4) % Neut % (Auto) 72.1 (45-73) % Lymph % (Auto) 12.4 L (20-40) % [place] % (Auto) 14.7 H (2-11) % Eos % (Auto) 0.0 (0-4) % Baso % (Auto) 0.4 (0-2) % Lymph # (Auto) 0.7 L (1.2-4.9) X10*3/uL [place] # (Auto) 0.8 (0.1-1.2) X10*3/uL Eos # (Auto) 0.0 (0.0-0.4) X10*3/uL Baso # (Auto) 0.0 (0.0-0.2) X10*3/uL Abs Immat Gran (auto) 0.02 (0.00-0.03) X10*3/uL Absolute Neuts (auto) 3.8 (2.0-8.3) x10*3/uL Absolute Nucleated RBC 0.000 (0.0-0.012) X10*3/uL Nucleated RBC % (auto) 0.0 (0.0-0.2) /100WBC Sodium 141 (135-145) mmol/L Potassium 3.7 (3.3-5.1) mmol/L Chloride 109 H (96-108) mmol/L Carbon Dioxide 22 (22-29) mmol/L Anion Gap 14 (12-20) BUN 13 (9-16) mg/dL Creatinine 0.98 (0.5-1.4) mg/dL Estim Creat Clear Calc 106.0 Estimated GFR > 60 Random Glucose 99 (60-115) mg/dL Calcium 9.7 (8.4-10.2) mg/dL Magnesium 2.0 (1.6-2.6) mg/dL Total Bilirubin 0.8 (0.0-1.0) mg/dL Direct Bilirubin 0.2 (0.0-0.5) mg/dL AST 25 (5-37) U/L ALT 26 (0-40) U/L Alkaline Phosphatase 72 (39-117) U/L Troponin I High Sens < 2.7 (<3.5-35.0) ng/L Total Protein 7.3 (6.5-8.0) g/dL Albumin 4.5 (3.5-5.0) g/dL Lipase 27 (8-78) U/L Urine Color Yellow Urine Appearance Clear Urine pH 5.5 (5.0-9.0) Ur Specific [place] 1.025 (1.005-1.025) Urine Protein Negative (Neg-Trace) mg/dL Urine Glucose (UA) Negative (Negative) mg/dL Urine Ketones Trace (Negative) mg/dL Urine Blood Negative (Negative) Urine Nitrite Negative (Negative) Ur Leukocyte Esterase Negative (Negative) Influenza Type A (PCR) NEGATIVE (Negative) Influenza Type B (PCR) NEGATIVE (Negative) RSV RNA Qual (PCR) NEGATIVE (Negative) SARS-CoV-2 RNA (RT-PCR) NEGATIVE (Negative) Discharge Plan Discharge Clinical Impression: Acute upper abdominal pain Patient Disposition: Home, Self-Care Instructions: Gastritis (ED) Additional Instructions: Your workup in the ER today was reassuring. Your pain is most likely related to gastritis or stomach ulcers. I recommend increasing your omeprazole to 40 mg daily for the next 2 weeks and following up with GI at the number provided Prescriptions: New omeprazole 40 mg capsule,delayed release(DR/EC) 40 mg PO DAILY Qty: 14 0RF No Action omeprazole 20 mg capsule,delayed release(DR/EC) 20 mg PO DAILY Qty: 60 0RF albuterol sulfate [ProAir HFA] 90 mcg/actuation HFA aerosol inhaler 2 puff inhalation Q4-6H PRN (Reason: shortness of breath or wheezing) Qty: 8.5 0RF epinephrine 0.3 mg/0.3 mL auto-injector 0.3 mg IM Q10M PRN Rx Instructions: for 2 doses alprazolam 1 mg tablet 1 mg PO TID PRN Referrals: Brittany Ramos MD [Physician] - (Severe gastritis) Print Language: Amharic
--- NOTE | 2024-09-04 13:20 | ECG_ITS ---
Test Reason : EPIGASTRIC PAIN Blood Pressure : / mmHG Vent. Rate : 085 BPM Atrial Rate : 085 BPM P-R Int : 142 ms QRS Dur : 088 ms QT Int : 334 ms P-R-T Axes : 042 052 -32 degrees QTc Int : 397 ms Normal sinus rhythm T wave abnormality, consider inferolateral ischemia Abnormal ECG When compared with ECG of 14-APR-2024 23:43, QRS axis Shifted left Inverted T waves have replaced nonspecific T wave abnormality in Lateral leads Referred By: Brandi Harrell Electronically Signed By:STACIE YOU MD
[2024-09-04 14:20] LABS: MANUAL DIFF FLAG NO
[2024-09-04 14:25] LABS: Appearance Urine Clear; Color Urine Yellow; Glucose Urine UA Negative (Negative); Leukocyte Esterase Urine Negative (Negative); Nitrite Urine Negative (Negative); PH 5.5 (5.0-9.0); Specific Gravity - Urine 1.025 (1.005-1.025); Urine Blood Negative (Negative); Urine Ketones Trace mg/dL (Negative); Urine Protein Negative (Neg-Trace)
[2024-09-04 14:28] LABS: Basophils Percent Auto 0.4 % (0-2); Hematocrit 46.2 % (42.0-52.0); Imm Gran Abs Auto 0.02 X10*3/uL (0.00-0.03); Imm Gran Pct Auto 0.4 % (0.0-0.4); Lymphocytes Absolute Auto 0.7 X10*3/uL (1.2-4.9); Lymphocytes Percent Auto 12.4 % (20-40); Mean Corpuscular HGB Conc 34.6 g/dl (31.0-36.0); Mean Corpuscular Volume 86.5 fL (80.0-98.0); Mean Platelet Volume 10.4 fL (9.4-12.4); Monocytes Absolute Auto 0.8 X10*3/uL (0.1-1.2); Monocytes Percent Auto 14.7 % (2-11); Neutrophils Absolute Auto 3.8 x10*3/uL (2.0-8.3); Neutrophils Percent Auto 72.1 % (45-73); Platelet Count 269 X10*3/uL (160-400); Red Blood Count 5.34 X10*6/uL (4.60-5.80); Red Cell Distribution Width 11.9 % (11.0-16.0); White Blood Count 5.3 X10*3/uL (4.8-10.8)
[2024-09-04 14:41] LABS: Alanine Aminotransferase 26 U/L (0-40); Albumin Level 4.5 g/dL (3.5-5.0); Alkaline Phosphatase 72 U/L (39-117); Anion Gap 14 (12-20); Aspartate Amino Transferase 25 U/L (5-37); Bilirubin Direct 0.2 mg/dL (0.0-0.5); Bilirubin Total 0.8 mg/dL (0.0-1.0); Blood Urea Nitrogen 13 mg/dL (9-16); Calcium 9.7 mg/dL (8.4-10.2); Carbon Dioxide 22 mmol/L (22-29); Chloride 109 mmol/L (96-108); Estimated Glomerular Filt Rate > 60; Glucose Random 99 mg/dL (60-115); Lipase 27 U/L (8-78); Potassium 3.7 mmol/L (3.3-5.1); Sodium 141 mmol/L (135-145); Total Protein 7.3 g/dL (6.5-8.0)
[2024-09-04 14:49] LABS: Troponin-I High Sensitivity < 2.7 ng/L (<3.5-35.0)
[2024-09-04 15:20] LABS: Influenza A PCR NEGATIVE (Negative); Influenza B PCR NEGATIVE (Negative); Resp Syncy Virus RNA Qual PCR NEGATIVE (Negative); SARS COV2 PCR INHOUSE NEGATIVE (Negative)
[2024-09-04 18:33] VITALS: BP 138/90; PULSE 78; RESP 16; TEMP 36.3; O2SAT 99
[2024-09-04] MEDS: Acetaminophen 325 MG TABLET 975 MG PO (18:35)
[2024-09-04 22:15] VITALS: BP 109/63; PULSE 59; RESP 17; TEMP 36.9; O2SAT 98
[2024-09-04] MEDS: Magnesium Hydrox/Alum Hydrox 30 ML ORAL.SUSP PO (22:28)
[2024-09-04] MEDS: Ondansetron ODT 4 MG TAB.RAPDIS TRANSLINGU (22:28)
[2024-09-04] MEDS: Lidocaine HCl Viscous 2 % 15 ML SOLUTION MUCOUS MEM (22:28)
--- NOTE | 2024-09-04 23:09 | PC.NURSE ---
report to Nola CORDOVA
--- NOTE | 2024-09-04 23:45 | PC.NURSE ---
Took over care from TASHA Recinos, Reviewed discharge instructions with pt. pt verbalized understanding, no sign of distress upon discharge, pt had a steady gait.
[2024-09-04 23:49] VITALS: BP 109/63; PULSE 59; RESP 17; TEMP 36.9; O2SAT 98
== END 2024-09-04 23:49 | disposition home or self-care (01) ==
PROVIDERS: Physician Assistant Medical; Emergency Provider Internal Medicine; PCP General Practice
DX: R10.2 Pelvic and perineal pain (principal); I48.0 Paroxysmal atrial fibrillation; R07.89 Other chest pain; Z79.01 Long term (current) use of anticoagulants; Z79.899 Other long term (current) drug therapy; Z03.818 Encounter for observation for suspected exposure to other biological agents ruled out
CPT/HCPCS: 0241U; 76705; 80048; 80076; 81003; 83690; 83735; 84484; 85025; 93005; 99284; 99285

== ENCOUNTER → 2024-09-04 13:20 | Outpatient (BNV) | payer MEDICAID, SELFPAY | PROVIDERS: Emergency Provider Internal Medicine; PCP General Practice; Visit Provider Internal Medicine Cardiovascular Disease | DX: R94.31 Abnormal electrocardiogram [ECG] [EKG] (principal) | CPT/HCPCS: 93010 ==

== ENCOUNTER 2024-09-19 14:27 | Outpatient (AMB) | payer MEDICAID, SELFPAY ==
[2024-09-19 14:32] VITALS: BP 134/86; PULSE 80; O2SAT 95
--- NOTE | 2024-09-19 14:32 | MHC.OFFVIS ---
Vital Signs 09/19/24 14:32 Height 5 ft 8 in Weight 197 lb 8.547 oz BMI 30.0 BP 134/86 Blood Pressure Location Lt brachial Position Sitting Pulse 80 Pulse Source Pulse Oximeter Pulse Oximetry (%) 95 Oxygen Delivery Method Room Air Intake Visit Reasons: Left side abd pain Intake Note: Relevant Flags or Indicators ? Requires Coffee Urn Attendant? Gilbert presents in office today for a scheduled ED FUV. Seen at [facility] 09/04. Pt reports having labs and US performed at ED. Relevant GI Sx as reported per pt? Reflux ? Dysphagia + Painful Swallowing ? Abdominal Pain + Epigastric pain. ? Hx of any recent surgeries? None Coffee Urn Attendant Required: No Accompanied by: Family/Other Allergies shrimp Allergy (Severe, Verified 09/19/24 14:33) RASH HPI HPI Left side abd pain: Details: LAST VISIT: 05/08/2022 GERD (gastroesophageal reflux disease) Symptoms of acid reflux postprandially. Discussed with patient avoiding dietary triggers and late night snacking. Staying upright for minimum 3 hours after meals discussed with patient. Will test for H pylori and treat empirically if positive. Continue on current dose of PPI IBS (irritable bowel syndrome) Review abdominal bloating. Patient reports that he is moving his bowels without issues discussed with patient FODMAP diet. List of food to avoid as well as list of food recommended given to patient Abdominal pain Patient reports upper abdominal discomfort. Pain mostly in left upper quadrant. Patient reports discomfort after he eats. Patient denies any nausea or vomiting. Patient is moving his bowels without any issues. Will check for H pylori, lipase, pancreatic elastase, will order abdominal ultrasound. Negative Soares sign, however mild tenderness to upper abdomen. Will treat empirically if positive. I will see him in 4 months, sooner on as needed basis. Patient is agreeable to this plan and verbalizes understanding of instructions. Was given the opportunity to ask questions all questions answered. ? Thank you for allowing me to participate in his care Plan Orders Orders Pancreatic Elastase-1 05/09/22 R10.9 Lipase 05/08/22 R10.9 Vitamin D 25-OH (D2 and D3) 05/08/22 E55.9 US abdomen complete 05/08/22 R10.9 H pylori Ag Stool 05/09/22 K21.9 ED VISIT 09/04/2024 Medical Decision Making MDM Narrative: 44-year-old male with past medical history as documented above presents for evaluation abdominal pain that started around 4:00 a.m. this morning. He denies associated symptoms. His pain does radiate into his chest, therefore plan for cardiac workup. Patient's EKG is unchanged from previous. He actually saw Cardiology yesterday and had an echocardiogram that is unremarkable. The patient's labs are reviewed and reassuring. An ultrasound of the abdomen was ordered to evaluate for obstructive biliary disease. This remains pending. We will treat the patient's pain with GI cocktail in the meantime. TODAY'S VISIT Patient is here today for follow-up visit after seen in the ER on September 04. Patient was seen for epigastric pain, severe heartburn postprandially and dyspepsia. Patient denies any nausea or vomiting. As mentioned above in HPI last visit patient was tested for H pylori and results came back positive. Patient was treated with quadruple therapy and states that he finished all of his antibiotics. Patient has not followed up for retesting to see if the bacteria was eradicated. Has not been taking any PPIs still after discharge from emergency department. Will not be able to test patient today, he will need to return for retesting after stopping PPI for 2 weeks. Patient denies any dysphagia or odynophagia. Denies any melena, hematochezia, unintentional weight loss or ribbon like stools. Patient reports that he is moving his bowels without any issues now [facility] Medical History PAF (paroxysmal atrial fibrillation) Surgical History Hx of hernia repair Hx of foot surgery Family History Mother HTN (hypertension) Lupus COPD (chronic obstructive pulmonary disease) Father Diabetes Arthritis Brother HTN (hypertension) Brain tumor Social History (Reviewed 09/19/24 @ 14:33 by Maxwell Sandoval [facility]) Household Members: Family Alcohol intake: never Patient Tobacco Use Status: Never used Tobacco e-Cigarette/Vaping Use: Never Used Current occupational status: unemployed Current occupation: right hand Review of Systems Const Denies weight gain and Denies weight loss ENT Reports no additional complaints, Reports dysphagia and Denies odynophagia Card Reports no additional complaints Resp Reports no additional complaints GI Reports abdominal pain (Epigastric pain postprandially), Denies belching, Denies melena, Denies bloating, Denies change in bowel habits, Denies constipation, Reports dysphagia, Denies excessive flatus, Reports dyspepsia, Reports heartburn, Denies diarrhea, Denies loose stools, Denies nausea, Denies odynophagia and Denies vomiting Reports no additional complaints Musc Reports no additional complaints Neuro Reports no additional complaints Psych Reports no additional complaints Endo Reports no additional complaints Physical Exam Vital Signs: Last Vital Signs Pulse 80 09/19/24 14:32 BP 134/86 09/19/24 14:32 Pulse Ox 95 09/19/24 14:32 Oxygen Delivery Method Room Air 09/19/24 14:32 BMI result Body Mass Index 30.0 Const General: healthy appearing and no acute distress Nutritional Appearance: obese Orientation/consciousness: patient oriented x3 Resp Effort & Inspection: normal respiratory effort, able to speak in complete sentences, no tracheal deviation and symmetric chest movement Auscultation: clear to auscultation bilaterally Cardio Rate: regular rate GI Inspection: Yes normal to inspection, No distended and Yes obesity Palpation (GI): Soft to palpation, not firm, nontender and No hepatosplenomegaly present Auscultation: normal bowel sounds General: Yes no CVA tenderness Back/Spine/Pelvis Back: no CVA tenderness Skin General skin exam: elasticity normal, turgor normal and dry skin Neuro General: patient oriented x3 Psych Appearance: grossly normal Mental Status: mental status grossly normal Results Reviewed Results Reviewed: ABDOMINAL ULTRASOUND 09/04/2024 FINDINGS: PANCREAS: Normal. LIVER: Normal. The liver is normal in size. The liver contour is normal. Parenchymal echogenicity is normal. No focal hepatic lesion. There is no intrahepatic biliary duct dilatation seen. GALLBLADDER: Normal. The gallbladder is physiologically distended without evidence of stones, sludge, polyps, wall thickening or pericholecystic fluid. COMMON BILE DUCT: Normal in caliber measuring 0.18 cm in diameter. RIGHT KIDNEY: Normal. No hydronephrosis. No renal calculi or focal parenchymal lesions. The kidney measures 10 cm in maximum dimension. FREE FLUID: None. US/US abdomen limited IMPRESSION: Normal right upper quadrant ultrasound. Assessment & Plan Assessment & Plan (1) GERD (gastroesophageal reflux disease): Code(s): K21.9 - Gastro-esophageal reflux disease without esophagitis Qualifiers: Esophagitis presence: esophagitis presence not specified Qualified Code(s): K21.9 - Gastro-esophageal reflux disease without esophagitis (2) IBS (irritable bowel syndrome): Code(s): K58.9 - Irritable bowel syndrome, unspecified Qualifiers: Irritable bowel syndrome type: without diarrhea Qualified Code(s): K58.9 - Irritable bowel syndrome, unspecified (3) Abdominal pain: Code(s): R10.9 - Unspecified abdominal pain Qualifiers: Abdominal location: epigastric Qualified Code(s): R10.13 - Epigastric pain (4) Postprandial epigastric pain: Code(s): R10.13 - Epigastric pain Plan We will retest for H pylori positive H pylori 2 years ago treated with quadruple therapy never returned for retesting. Will start sucralfate for now and stop omeprazole. NPO 1 hour before testing. Patient will return in 2 months to discuss going for possible endoscopy. Discussed with patient the importance of avoiding dietary triggers and late night snacking. Staying upright for minimum 3 hours after meals discussed with patient. Patient is agreeable to plan of care and verbalizes understanding instructions He was given the opportunity to ask questions all questions answered Thank you for allowing me to participate in his care Orders: Orders H Pylori Breath Test 09/19/24 K21.9 - Gastro-esophageal reflux disease without esophagitis Medications: New sucralfate 1 g PO BID 60 tabs 1RF R19.7 - Diarrhea, unspecified sucralfate Please take it at noon time and at bedtime 10 mL PO BID 400 mL 0RF K21.9 - Gastro-esophageal reflux disease without esophagitis Coding Level of Care Code Est Pt Level 4 (90286) Complex EM visit Add On G2211 Diagnoses Gastroesophageal reflux disease, unspecified whether esophagitis present K21.9 Esophagitis presence: esophagitis presence not specified Irritable bowel syndrome without diarrhea K58.9 Irritable bowel syndrome type: without diarrhea Epigastric pain R10.13 Abdominal location: epigastric Postprandial epigastric pain R10.13 Time Spent (min) 35 Comment 20 minutes spent with patient and additional 15 minutes spent reviewing his records
== END 2024-09-19 15:26 | disposition home or self-care (01) ==
PROVIDERS: PCP General Practice; Visit Provider Nurse Practitioner Family
DX: K21.9 Gastro-esophageal reflux disease without esophagitis (principal); K58.9 Irritable bowel syndrome, unspecified; R10.13 Epigastric pain
CPT/HCPCS: 99214

== ENCOUNTER → 2024-09-19 14:27 | Outpatient (BNVA) | payer MEDICAID, SELFPAY | PROVIDERS: PCP General Practice; Visit Provider Nurse Practitioner Family | DX: K21.9 Gastro-esophageal reflux disease without esophagitis (principal); K58.9 Irritable bowel syndrome, unspecified; R10.13 Epigastric pain | CPT/HCPCS: 99212 ==

== ENCOUNTER 2024-10-08 10:01 | Outpatient (AMB) | payer MEDICAID, SELFPAY ==
--- NOTE | 2024-10-08 10:13 | AM.OFFVISNUR ---
Intake Visit Reasons: h.pylori breath test Allergies shrimp Allergy (Severe, Verified 09/19/24 14:33) RASH Nursing Note Patient presents for collection of H Pylori breath test. Patient has been fasting for 1 hour (nothing to eat, drink, no chewing gum or smoking) has not taken any antacid medication for at least 2 weeks and has no allergies to artificial sweeteners.?? Assessment & Plan Assessment & Plan (1) GERD (gastroesophageal reflux disease): Code(s): K21.9 - Gastro-esophageal reflux disease without esophagitis Plan Patient presents for collection of H Pylori breath test. Patient has been fasting for 1 hour (nothing to eat, drink, no chewing gum or smoking) has not taken any antacid medication for at least 2 weeks and has no allergies to artificial sweeteners.???This test checks for an overgrowth of bacteria in your stomach. We all have bacteria but some may have more than others. It is treatable. if the test comes back negative there is nothing else to do. If the test result is positive we will treat you with 2 antibiotics and a medication to decrease the acid in your stomach (PPI) for 2 weeks. Two weeks after you have completed the treatment we will retest you to make sure the overgrowth has resolved. Patient Instructions: Process for specimen collection and reason for testing was explained to the patient. Specimen collection. Patient instructed to take a deep breath and then exhale into the blue bag, filling it up as much as possible. Patient instructed to drink a mixture of water and the artificial sweetener with a straw. A 15 minute wait period was observed. Patient instructed to take a deep breath and then exhale into the pink bag, filling it up as much as possible.??
== END 2024-10-08 10:29 | disposition home or self-care (01) ==
PROVIDERS: PCP General Practice; Visit Provider Nurse Practitioner Family
DX: K21.9 Gastro-esophageal reflux disease without esophagitis (principal)

== ENCOUNTER → 2024-10-08 10:01 | Outpatient (BNVA) | payer MEDICAID, SELFPAY | PROVIDERS: PCP General Practice; Visit Provider Nurse Practitioner Family | DX: K21.9 Gastro-esophageal reflux disease without esophagitis (principal); Z11.0 Encounter for screening for intestinal infectious diseases | CPT/HCPCS: 99211 ==

== ENCOUNTER 2024-10-08 16:41 | Outpatient (REF) | payer MEDICAID, SELFPAY ==
[2024-10-09 10:54] LABS: H Pylori Breath Test Positive (Negative)
== END 2024-10-08 16:42 | disposition home or self-care (01) ==
LOC: HO.LNP 16:41
PROVIDERS: Visit Provider Nurse Practitioner Family
DX: K21.9 Gastro-esophageal reflux disease without esophagitis (principal)
CPT/HCPCS: 83013; 99211

== ENCOUNTER 2024-11-07 08:00 | Outpatient (AMB) | payer MEDICAID, SELFPAY ==
[2024-11-07 08:21] VITALS: BP 108/72; PULSE 67; BMI 31.0
--- NOTE | 2024-11-07 08:21 | A.OFFVIS_ITS ---
Vital Signs 11/07/24 08:21 Height 5 ft 8 in Weight 203 lb 11.314 oz BMI 31.0 BP 108/72 Blood Pressure Location Rt brachial Position Sitting Pulse 67 Pulse Source Pulse Oximeter Intake Visit Reasons: 3 mth f/up echo/ 30 day HS Retail [employer] Required: No Allergies shrimp Allergy (Severe, Verified 11/07/24 08:22) RASH Medication List - Last Reconciled 11/07/24 by Mahogany Brower, WILLIAM-C albuterol sulfate 90 mcg/actuation (ProAir HFA) 2 puffs inhalation Q4-6H PRN alprazolam 1 mg PO TID PRN bismuth subsalicylate 2 tabs PO QID PRN 14 days bupropion HCl XL 150 mg PO QAM epinephrine 0.3 mg IM Q10M PRN ibuprofen 800 mg PO TID metronidazole 1,000 mg (2 x 500 mg) PO BID omeprazole 40 mg PO DAILY quetiapine 25 mg PO BEDTIME sucralfate 1 g PO BID sucralfate 10 mL PO BID tetracycline 1,000 mg (2 x 500 mg) PO Q12H HPI HPI 3 mth f/up echo/ 30 day HS: Details: Gilbert is a 44-year-old male with reported past medical history of paroxysmal atrial fibrillation, previously diagnosed in [place], no EKGs to confirm. More recently he was seen by [facility] and now follows with us. On last visit a cardiac event monitor and echocardiogram were ordered and he now presents for follow-up. Today he reports that he does notice brief palpitations at times lasting a few minutes and then resolve. No sustained rapid or irregular rates. No chest discomfort at rest or with activity. No shortness of breath, PND, orthopnea or edema. No lightheadedness, presyncope, syncope. 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 He drinks 1 coffee per day and 1-2 Pepsi's per day. 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 Review of Systems Const All systems reviewed & are unremarkable except as noted in HPI and below ENT Denies dizziness Card Details: intermittent palpitations Denies chest pain, Denies chest pain at rest, Denies chest pain with activity, Denies rapid heart rate, Denies pedal edema, Denies edema, Denies leg edema, Denies lightheadedness, Denies palpitations, Denies dyspnea, Denies dyspnea on exertion and Denies orthopnea Resp Denies cough, Denies dyspnea and Denies dyspnea on exertion GI Denies hematochezia and Denies change in stool character Musc Denies abnormal gait, Denies limited range of motion, Denies muscle cramps, Denies muscle weakness, Denies numbness, Denies radiating pain into limb, Denies stiffness and Denies tingling Neuro Denies abnormal gait, Denies dizziness, Denies numbness and Denies tingling Endo Denies palpitations Physical Exam Vital Signs: Last Vital Signs Pulse 67 11/07/24 08:21 BP 108/72 11/07/24 08:21 BMI result Body Mass Index 31.0 Const General: cooperative, healthy appearing, comfortable and no acute distress Orientation/consciousness: patient oriented x3 Neck Neck: Yes normal visual inspection and Yes no JVD Resp Effort & Inspection: normal respiratory effort Auscultation: clear to auscultation bilaterally, no crackles, no rales, no rhonchi and no wheezes Cardio Jugular venous distension: no JVD Rate: regular rate Rhythm: regular rhythm Heart sounds: S1 normal heart sound present, S2 normal heart sound present, no murmurs and no rubs Neuro General: patient oriented x3 Extrem General: Yes normal to inspection and No no pedal edema Psych Appearance: grossly normal Mental Status: mental status grossly normal Speech and movement: Normal speech and movement present Assessment & Plan Assessment & Plan (1) PAF (paroxysmal atrial fibrillation): Code(s): I48.0 - Paroxysmal atrial fibrillation Category: Medical Plan: Reported history of paroxysmal atrial fibrillation. No EKGs to confirm. First diagnosed approximately 5 years ago while in [place]. A cardiac event monitor done 03/07/2024 through [facility] showed sinus rhythm with occasional PACs and PVCs, no atrial fibrillation. EKG done here 04/15/2024 showed sinus rhythm with T-wave inversion lead 3 and AVF, unchanged from prior EKG, rate 68. A cardiac event monitor was done 09/03/2024 however only worn for 3.5 days due to reported skin irritation from the patch. It showed sinus rhythm with average heart rate 75, no arrhythmias. Echocardiogram 09/03/2024 showed EF 50-55%, no valve abnormality, left atrium likely dilated. He drinks up to 3 caffeinated beverages per day. He will feel brief palpitations at times. Chads Vasc score of 0. Recommended reduction in caffeine to 1 per day. ED care if he has sustained rapid palpitations. He does have daytime sleepiness and usually takes 1 nap per day. Will order a home sleep study to evaluate for obstructive sleep apnea. Echo Holter monitor prior to his next visit. Cardiology follow-up in 6 months, sooner if needed. (2) Palpitations: Code(s): R00.2 - Palpitations Category: Medical Plan: As above (3) Hypersomnia: Code(s): G47.10 - Hypersomnia, unspecified Category: Medical Plan: As above Plan Time spent on chart review, documentation, interview and assessment Orders: Orders RT home sleep study Today G47.10 - Hypersomnia, unspecified, I48.0 - Paroxysmal atrial fibrillation ECG 3 day holter monitor 5 Months I48.0 - Paroxysmal atrial fibrillation, R00.2 - Palpitations Coding Level of Care Code Est Pt Level 4 (68798) Complex EM visit Add On G2211 Diagnoses PAF (paroxysmal atrial fibrillation) I48.0 Palpitations R00.2 Hypersomnia G47.10 Time Spent (min) 28
== END 2024-11-07 08:38 | disposition home or self-care (01) ==
PROVIDERS: PCP General Practice; Visit Provider Nurse Practitioner Family
DX: I48.0 Paroxysmal atrial fibrillation (principal); R00.2 Palpitations; G47.10 Hypersomnia, unspecified
CPT/HCPCS: 99214

== ENCOUNTER → 2024-11-07 08:00 | Outpatient (BNVA) | payer MEDICAID, SELFPAY | PROVIDERS: PCP General Practice; Visit Provider Nurse Practitioner Family | DX: I48.0 Paroxysmal atrial fibrillation (principal); R00.2 Palpitations; G47.10 Hypersomnia, unspecified | CPT/HCPCS: 99212 ==

== ENCOUNTER → 2024-12-29 11:01 | Outpatient (REF) | payer MEDICAID, SELFPAY ==
--- OUTSIDE RECORDS SUMMARY | 2024-12-29 13:13 | XMS_ITS | Encounter Summary ---
Author Organization [employer] Address [address] [place] [address] Care Team Providers Care Operation Specialist Name Role Phone Diana Zamudio MD Primary Care Provider [phone] Reason for Visit * Reason Onset Date Comments Med Refill Schedule [facility] Initial appt 12/12/2024 Encounter Details Date Type Department Care Team (Late st Contact Info) Description 12/12/2024 Refill [facility] [address] [place] [address] Diana Zamudio MD [address] [place] [address] Mood disorder (CMS/HCC) Social History Tobacco Use Types Packs/Day Years Used Date Smoking Tobacco: Never Smokeless Tobacco: Never Alcohol Use Standard Drinks/Week Comments Never 0 (1 standard drink = 0.6 oz pur e alcohol) Alcohol Answer Date Recorded Frequency of Alcohol Consumption Not on file 08/01/2023 Average Number of Drinks Not on file 023 Frequency of Binge Drinking Not on file 01/2023 Score 0 08/01/2023 Depression Answer Date Recorded Patient Health Questionnaire-9 Score 3 03/03/2024 Patient Health Questionnaire-9 Score 3 03/03/2024 Last PHQ-9: Questionnaire Data Not on file 0 03/03/2024 Housing Stability Answer Date Recorded What is your housing situation today? I have quinn fernandez 08/08/[address] you li ve. Do you have problems with any of the following? None of the above 08/08/2024 Food Insecurity Answer Date Recorded Within the past 12 months, y ou worried that your food would run out before you got money to buy more: Never True 08/08/2024 Within the past 12 months,th e food you bought just didn't last and you didn't have enough money to get more: Never True 08/2024 Transportation Answer Date Recorded In the past 12 months, has l ack of transportation kept you from medical appts, meetings, work or from getting things needed for daily living? No 08/08/2024 Utilities Answer Date Recorded In the past 12 months, has t he electric, gas, oil or water company threatened to shut off services in your home? No 08/08/2024 Depression Answer Date Recorded Patient Health Questionnaire-2 Score 0 03/03/2024 Internet Access Answer Date Recorded Internet Access Q1 Yes 08/08/2024 Internet Access Q2 Not on file 08/08/2024 Sex and Gender Information Value Date Recorded Sex Assigned at Male 08/28/2022 10:37 AM EDT Legal Sex Male 10:37 AM EDT Gender Identity Male 08/28/2022 10:37 AM EDT Sexual Orientation Straight 08/28/2022 10 :37 AM EDT documented as of this encounter Miscellaneous Notes * Telephone Encounter - Ashley Bustillos RN - 12/16/2024 10:34 AM EST TC to patient, scheduled for [facility] Initial appt 12/30/24 @ 10am. Advised to bring his Xanax to the apptand to check in on red team. documented in this encounter Plan of Treatment Upcoming Encounters Date Type Department Care Team (Late st Contact Info) Description 12/30/2024 10:00 AM EST Clinical Support [facility] [address] [place] [address] Ashley Bustillos, RN documented as of this encounter Visit Diagnoses Diagnosis Mood disorder (CMS/HCC) Unspecified episodic mood disorder documented in this encounter Additional Health Concerns Assessment Noted Time PHQ-9 Depression Total Score: 3 03/03/20 24 2:34 PM EDT documented as of this encounter Care Teams Operation Specialist Relationship Specialty Start Date End Date Diana Zamudio MD [address] [place] [address] PCP - General Family Medicine 12/20/20 documented as of this encounter
--- OUTSIDE RECORDS SUMMARY | 2024-12-29 13:13 | XMS_ITS | Clinical Summary ---
Author Organization [employer] Address [address] [place] [address] [address] [place] [address] Care Team Providers Care Turkey Egg Gatherer Name Role Phone Diana Zamudio MD Primary Care Provider [phone] Allergies No known active allergies Medications Aspirin Low Dose 81 MG chewable tablet TAKE 1 TABLET BY MOUTH EVERY DAY FOR 30 DAYS Active D3 Super Strength 50 MCG (2000 UT) capsule Take 50 mcg by mouth in the morning. 023 Active EPINEPHrine (Epipen) 0.3 MG/0.3ML injection syringe Inject 0.3 mL into the shoulder, thigh, or buttocks. 022 Active DULoxetine (Cymbalta) [address] capsuleIndication s:Mood disorder (CMS/HCC) Take 1 capsule (60 mg) by mouth Once per day. Do not crush or chew. 90 capsule 3 024 Active QUEtiapine (SEROquel) 25 MG tabletIndications :Mood disorder (CMS/HCC) Take 1 tablet (25 mg) by mouth at bedtime. Take every night 90 tablet 3 024 Active Ventolin HFA 108 (90 Base) MCG/ACT inhaler TOME DOS INHALACIONES CADA 4-6 HORAS CUANDO SEA NECESARIO PARA LA FALTA DE RESPIRACI N/LA SIBILANCIA 024 Active ondansetron ODT (Zofran-ODT) 4 MG disintegrating tablet TOME ABDON TABLETA POR V A ORAL EVERY 8 HOURS NEEDED FOR NAUSEA AND VOMITING FOR 4 DAYS 024 Active buPROPion XL (Wellbutrin XL) 150 MG 24 hr tabletIndications :Mood disorder (CMS/HCC) TAKE 1 TABLET (150 MG) BY MOUTH IN THE MORNING. DO NOT CRUSH, CHEW, OR SPLIT. 90 tablet 3 024 Active omeprazole (PriLOSEC) [address] capsuleIndication s:Gastroesophagea l reflux disease, unspecified whether esophagitis present TAKE 1 CAPSULE BY MOUTH BEFORE MORNING MEAL DAILY 90 capsule 3 024 Active acetaminophen (Pain Relief Extra Strength) 500 MG tablet TAKE 1 TABLET (500 MG) BY MOUTH EVERY 8 (EIGHT) HOURS IF NEEDED FOR MILD PAIN. 90 tablet 3 024 Active clobetasol (Temovate) 0.05 % gelIndications:Po lymorphic light eruption Apply 1 Application. topically 2 times daily. 30 g 024 Active ibuprofen 800 MG tablet TAKE 1 TABLET BY MOUTH 3 TIMES DAILY. 90 tablet 024 Active ALPRAZolam (Xanax) 1 MG tabletIndications :Mood disorder (CMS/HCC) TOME ABDON TABLETA POR VIA ORAL ONCE DAILY NEEDED FOR PANIC ATTACK (MAX 20 TABLETS/MONTH) 20 tablet 025 Active ALPRAZolam (Xanax) 1 MG tabletIndications :Mood disorder (CMS/HCC) TOME ABDON TABLETA POR VIA ORAL ONCE DAILY NEEDED FOR PANIC ATTACK (MAX 20 TABLETS PER MONTH) Do not start before November 07, 2024. 20 tablet 025 2024 Discontinued Active Problems Problem Noted Date Diagnosed Date Chronic pain of left ankle 05/21/2024 Assessment & Plan (05/21/2024 6:39 AM EDT): S/p internal fixation in 2018 Declines hardware removal offered in 2020 at [facility] Movement and stretching Vicodin very sparingly prn Annual physical exam 08/01/2023 Left sided abdominal pain 01/23/2023 Mood disorder 11/02/2022 Assessment & Plan (03/03/2024 3:12 PM EDT): With history of episodes of altered consciousness in which he may do bizarre or risky things. Differential includes bipolar disorder, anxious depression, panic disorder, dissociative disorder, or seizure disorder or other transient neurological events. Psychosis is less likely, since he has normal cognitive functioning except with the rare episodes of panic attacks. These events do typically have warning signals, (prodrome vs. aura). Pt continues doing well. Alprazolam has worked well to prevent attacks when taken at first warning of impending episode. He will continue Seroquel (Quetiapine) 25 mg every bedtime for sleep, mood swings, irritability, and anxiety. Continue Alprazolam 1 mg at first sign of impending panic attack (maximum #20/month). Continue Bupropion 150 mg daily and Duloxetine 60 mg daily. Since this provider will be retiring, he is now referred back to his PCP for further medication management. For any issues or concerns, call [facility]. All his questions were answered. I have wished him well. He agrees with the plan. Assessment & Plan (12/31/2023 2:29 PM EST): With history of episodes of altered consciousness in which he may do bizarre or risky things. Differential includes bipolar disorder, anxious depression, panic disorder, dissociative disorder, or seizure disorder or other transient neurological events. Psychosis is less likely, since he has normal cognitive functioning except with the rare episodes of panic attacks. These events do typically have warning signals, (prodrome vs. aura). Pt continues doing well. Alprazolam has worked well to prevent attacks when taken at first warning of impending episode. He will continue Seroquel (Quetiapine) 25 mg every bedtime for sleep, mood swings, irritability, and anxiety. Continue Alprazolam 1 mg at first sign of impending panic attack (maximum #20/month). Continue Bupropion 150 mg daily and Duloxetine 60 mg daily. On 08/27/2023 provider informed pt that I would be retiring, but we would make every effort to ensure smooth transition of care. He is still not interested in counseling. F/U with me in 2 months. He agrees with the plan. Assessment & Plan (11/01/2023 2:46 PM EST): With history of episodes of altered consciousness in which he may do bizarre or risky things. Differential includes bipolar disorder, anxious depression, panic disorder, dissociative disorder, or seizure disorder or other transient neurological events. Psychosis is less likely, since he has normal cognitive functioning except with the rare episodes of panic attacks. These events do typically have warning signals, (prodrome vs. aura). Pt continues doing well. Alprazolam has worked well to prevent attacks when taken at first warning of impending episode. He will continue Seroquel (Quetiapine) 25 mg every bedtime for sleep, mood swings, irritability, and anxiety. Continue Alprazolam 1 mg at first sign of impending panic attack (maximum #20/month). Continue Bupropion 150 mg daily and Duloxetine 60 mg daily. On 08/27/2023 provider informed pt that I would be retiring, but we would make every effort to ensure smooth transition of care. He is still not interested in counseling. F/U with me in 2 months. He agrees with the plan. Assessment & Plan (08/27/2023 3:41 PM EDT): Differential includes bipolar disorder, anxious depression, panic disorder, dissociative disorder, or seizure disorder or other transient neurological events. Psychosis is less likely, since he has normal cognitive functioning except with the rare episodes of panic attacks. These events do typically have warning signals, (prodrome vs. aura). Pt continues doing subjectively well. Once again reminded that Seroquel (Quetiapine) 25 mg isn't a sleeping pill, but should be taken every bedtime for sleep, mood swings, irritability, and anxiety. Continue Alprazolam 1 mg at first sign of impending panic attack. Continue Bupropion 150 mg daily and Duloxetine 60 mg daily. Today 08/27/2023 provider informed pt that I would be retiring within a year or so, but we would make every effort to ensure smooth transition of care. F/U with me in 2 months. He agrees with the plan. Assessment & Plan (06/26/2023 2:08 PM EDT): Differential includes bipolar disorder, anxious depression, panic disorder, dissociative disorder, or seizure disorder or other transient neurological events. Psychosis is less likely, since he has normal cognitive functioning except with the rare episodes of panic attacks. These events do typically have warning signals, (prodrome vs. aura). Pt continues doing subjectively well, although PHQ9 is positive for depression. Reminded that Seroquel (Quetiapine) 25 mg isn't a sleeping pill, but should be taken every bedtime for sleep, mood swings, irritability, and anxiety. Continue Alprazolam 1 mg at first sign of impending panic attack. Continue Bupropion 150 mg daily and Duloxetine 60 mg daily. F/U with me in 2 months. He agrees with the plan. Assessment & Plan (04/26/2023 2:25 PM EDT): Differential includes bipolar disorder, anxious depression, panic disorder, dissociative disorder, or seizure disorder or other transient neurological events. Psychosis is less likely, since he has normal cognitive functioning except with the rare episodes of panic attacks. These events do typically have warning signals, (prodrome vs. aura). Pt continues doing well, although missing some of his medications as pharmacy (erroneously) told him refills were unavailable. Is able to prevent panic attacks by taking Alprazolam 1 mg at first sign of impending attack (approx once per week). He will also continue Seroquel (Quetiapine) 25 mg taking 1/2 - 1 full tab every bedtime for sleep, mood swings, irritability, and anxiety. Continue Bupropion 150 mg daily and Duloxetine 60 mg daily. Urged to consider switching pharmacies. . F/U with me in 2 months. He agrees with the plan. Assessment & Plan (02/15/2023 10:23 AM EDT): Differential includes bipolar disorder, anxious depression, panic disorder, dissociative disorder, or seizure disorder or other transient neurological events. Psychosis is less likely, since he has normal cognitive functioning except with the rare episodes of panic attacks. These events do typically have warning signals, (prodrome vs. aura). Pt continues doing very well. Is able to prevent panic attacks by taking Alprazolam 1 mg at first sign of impending attack (approx once per week). He will also continue Seroquel (Quetiapine) 25 mg taking 1/2 - 1 full tab every bedtime for sleep, mood swings, irritability, and anxiety. Continue Bupropion 150 mg daily and Duloxetine 60 mg daily. F/U with me in 2 months. He agrees with the plan. Assessment & Plan (12/14/2022 9:58 AM EST): Differential includes bipolar disorder, anxious depression, panic disorder, dissociative disorder, or seizure disorder or other transient neurological events. Psychosis is less likely, since he has normal cognitive functioning except with the rare episodes of panic attacks. These events do typically have warning signals, (prodrome vs. aura). Pt is doing much better. No panic attacks at all during the past week. He will continue Seroquel (Quetiapine) 25 mg taking 1/2 - 1 full tab every bedtime for sleep, mood swings, irritability, and anxiety. May continue Alprazolam 1 mg to take at first sign of impending attack. Will also continue Bupropion 150 mg daily and Duloxetine 60 mg daily. F/U with me in 6-8 weeks. He agrees with the plan. Assessment & Plan (11/02/2022 12:04 PM EST): Differential includes bipolar disorder, anxious depression, panic disorder, dissociative disorder, or seizure disorder or other transient neurological events. Psychosis is less likely, since he has normal cognitive functioning except with the rare episodes of panic attacks. These events do typically have warning signals, (prodrome vs. aura). Although anxiety is still troubling, no longer have frequent severe panic attacks. Reviewed with patient that the Seroquel (Quetiapine) was not just for sleep, but also to help with mood swings, irritability, and anxiety. He has found the Seroquel 50 mg too sedating. Will decrease to Seroquel 25 mg but should take this medication consistently every night around 9 or 10 pm. May continue Alprazolam 1 mg to take at first sign of impending attack. Will also continue Bupropion 150 mg daily and Duloxetine 60 mg daily. F/U with me in 6-8 weeks. He agrees with the plan. Photosensitivity 07/03/2022 Assessment & Plan (05/21/2024 6:37 AM EDT): Noted x 2 years LEYDI negative With joint pains Will refer to derm for further recommendations besides wearing sunscreen, avoidance of sun Helicobacter pylori gastritis 05/23/2022 Normal electroencephalography 04/10/2022 Gastroesophageal reflux disease 05/27/2021 Anxiety 12/21/2020 Atrial fibrillation 12/21/2020 Assessment & Plan (05/21/2024 6:36 AM EDT): Referred to [facility] Given number to call Assessment & Plan (08/01/2023 11:08 AM EDT): Will make f/u appointment with acid strength inspector Had been off anticoagulation for some time Depressive disorder 12/21/2020 Encounters Date Type Department Care Team Description 12/12/2024 Refill [facility] [address] [place] [address] Diana Zamudio MD Mood disorder ([facility]) 11/05/2024 Refill [facility] [address] [place] [address] Leydi Sheppard MD Mood disorder ([facility]) 10/31/2024 Telephone [facility] [address] [place], [place] [phone] Diana Zamudio MD Transfer patient 10/31/2024 Telephone [facility] PED[facility] [address] [place] [phone] Diana Zamudio MD TP 10/05/2024 Refill [facility] [address] [place] [address] Diana Zamudio MD 10/02/2024 Telephone [facility] [address] [place] [address] Diana Zamudio MD Schedule [employer] Initial appt from Last 3 Months Social History Tobacco Use Types Packs/Day Years Used Date Smoking Tobacco: Never Smokeless Tobacco: Never Tobacco Cessation:Counseling Given: Not Answered Alcohol Use Standard Drinks/Week Comments Never 0 [...] Orientation Straight 08/28/2022 10 :37 AM EDT Last Filed Vital Signs Vital Sign Reading Time Taken Comments Blood Pressure 128/70 08/29/2024 1:28 PM EDT Pulse 62 08/29/2024 1:28 PM EDT Temperature 37.1 ??C (98.7 ??F) 08/29/2024 1:28 PM ED T Respiratory Rate 18 08/29/2024 1:2 8 PM EDT Oxygen Saturation 98% 08/01/2023 10: 41 AM EDT Inhaled Oxygen Concentration - - Weight 90.6 kg (199 lb 12.8 oz) 08/29/2024 1:28 PM EDT Height 172.7 cm (5' 8 ) 08/29/2024 1:28 PM EDT Body Mass Index 30.38 08/29/2024 1:28 PM EDT Plan of Treatment Upcoming Encounters Date Type Department Care Team (Late st Contact Info) Description 12/30/2024 10:00 AM EST Clinical Support [address] [address] Ashley Bustillos, RN Health Maintenance Due Date Last Done Comments HIV Screening 1981 Alcohol/Substance Use Screening 1993 Family Planning (PISQ) 1996 DTaP/Tdap/Td Vaccines (1 - Tdap) 2000 Hepatitis B Vaccines (1 of 3 - 19+ 3-dose series) 2000 COVID-19 Vaccine (1 - 2023-2 5 season) 2024 Influenza Vaccine (#1) 2024 Depression Screening 03/03/2025 03/03/2024, 03/03/2024 Tobacco Screening 05/19/2025 05/19/2024 SDOH Screening 08/08/2025 08/08/2024 Lipid Panel 08/01/2028 08/01/2023, 10/19/2021 Zoster Vaccines (1 of 2) 2031 RSV Patients and Patients Aged 60 years or older (1 - 1-dose 75+ series) 2056 Hepatitis C Screening Completed 12/27/2020 HIB Vaccines Aged Out No longer eligi ble based on patient's age to complete this topic HPV Vaccines Aged Out No longer eligi ble based on patient's age to complete this topic Hepatitis A Vaccines Aged Out No long er eligible based on patient's age to complete this topic IPV Vaccines Aged Out No longer eligi ble based on patient's age to complete this topic Meningococcal Vaccine Aged Out No pauline lizandro eligible based on patient's age to complete this topic Pneumococcal Vaccine: Pediatrics (0 to 5 Years) and At-Risk Patients (6 to 49) Years) Aged Out No longer eligible b ased on patient's age to complete this topic RSV under 20 months Aged Out No longe r eligible based on patient's age to complete this topic Rotavirus Vaccines Aged Out No longer eligible based on patient's age to complete this topic Procedures Procedure Name Priority Date/Time Associated Diagnosis Comments LIPID PANEL, STANDARD Routine 08/01/2023 11:21 AM EDT Annual physical exam ZZZ HISTORICAL HEPATITIS C AB W/REFL TO HCV RNA, QN, PCR Routine 12/27/2020 10:03 AM EST from Last 3 Months or Most Recently Relevant to Health Maintenance Results * (ABNORMAL) Lipid Panel, Standard (08/01/2023 11:21 AM EDT) Triglycerides 71 <150 mg/dL [facility] Comment:Desirable Triglyceri de: less than 150 mg/dLBorderline High Triglyceride 150-199 mg/dLHigh Triglyceride: 200-499 mg/dLVery High Triglyceride: greater than or equal to 5OO mg/dL Cholesterol 152 <200 mg/dL [facility] Comment:Desirable Cholestero l: less than 200 mg/dLBorderline High Cholesterol: 200-239 mg/dLHigh Cholesterol: greater than 239 mg/dL LDL Cholesterol Calculated 100(H) <100 mg/dL [facility] Comment:Desirable LDL: less than 100 mg/dLNear Optimal/Above Optimal LDL: 110- 129 mg/dLBorderline High LDL: 130-159 mg/dLHigh LDL: 160-189 mg/dLVery High LDL: greater than or equal to 190 mg/dL HDL Cholesterol 38(L) >40 mg/dL [facility] Comment:Desirable HDL: great er than 40 mg/dL Note: This HDL assay may give artificially low results in patients with liver disease. Blood Venous blood specimen / Unknown 08/01/2023 11:21 AM EDT 08/01/2023 1:13 PM EDT us Diana Zamudio MD LAB BLOOD ORDERABLES Final Res ult [facility] [address] [place] [address] [phone] * HEPATITIS C AB W/REFL TO HCV RNA, QN, PCR (12/27/2020 10:03 AM EST) HEPATITIS C ANTIBODY NON-REACT NINO NON-REACT NINO [facility] INDEX 0.10 <1.00 [facility] Comment: ?? HCV antibody was non-reactive. There is no laboratory ?? evidence of HCV infection. ?? In most cases, no further action is required. However, if recent HCV exposure is suspected, a test for HCV RNA (test code 97660) is suggested. ?? For additional information please refer to http://[employer]faq/KPY77z6 (This link is being provided for informational/ educational purposes only.) ?? 12/27/2020 10:0 3 AM EST Diana Zamudio MD HISTORICAL/NON ORDERABLE LABS Final Result [facility] [address] from Last 3 Months or Most Recently Relevant to Health Maintenance Insurance C3 Care Teams Turkey Egg Gatherer Relationship Specialty Start Date End Date Diana Zamudio MD [address] [place] [address] PCP - General Family Medicine 12/20/20
--- OUTSIDE RECORDS SUMMARY | 2024-12-29 13:13 | XMS_ITS | Encounter Summary ---
Author Organization [employer] [facility] Address [address] [place] [address] [address] [place] [address] Care Team Providers Care Spool Salvager Name Role Phone Diana Zamudio MD Primary Care Provider [phone] Reason for Visit * Reason Comments Med Refill Encounter Details Date Type Department Care Team (Late st Contact Info) Description 12/08/2022 Refill [facility] [address] [place] [id number] John Saunders FNP Social History Tobacco Use Types Packs/Day Years Used Date Smoking Tobacco: Never Assessed PHQ-2 Answer Date Recorded Patient Health Questionnaire-2 Score 2 11/02/2022 Sex and Gender Information Value Date Recorded Sex Assigned at Male 08/28/2022 10:37 AM EDT Legal Sex Male 10:37 AM EDT Gender Identity Male 08/28/2022 10:37 AM EDT Sexual Orientation Straight 08/28/2022 10 :37 AM EDT documented as of this encounter Plan of Treatment Upcoming Encounters Date Type Department Care Team (Late st Contact Info) Description 12/30/2024 10:00 AM EST Clinical Support [facility] [address] [place] [phone] Ashley Bustillos, TASHA documented as of this encounter Visit Diagnoses Not on filedocumented in this encounter Additional Health Concerns Assessment Noted Time PHQ-9 Depression Total Score: 12 023 11:15 AM EST documented as of this encounter Care Teams Spool Salvager Relationship Specialty Start Date End Date Diana Zamudio MD [address] [place] [phone] PCP - General Family Medicine 12/20/20 documented as of this encounter
--- OUTSIDE RECORDS SUMMARY | 2024-12-29 13:13 | XMS_ITS | Encounter Summary ---
Author Organization [employer] Address [address] [facility] [address] [place] [address] Care Team Providers Care Deputy Controller Name Role Phone Diana Zamudio MD Primary Care Provider [phone] Reason for Visit * Reason Onset Date Comments Change PCP 04/21/2024 Encounter Details Date Type Department Care Team ([facility] Contact Info) Description 04/21/2024 Telephone [facility] [address] [place], [place] [phone] Diana Zamudio MD [address] [place], [place] [phone] Change PCP Social History Tobacco Use Types Packs/Day Years [...] housing situation today? I have quinn fernandez 08/27/[address] you li ve. Do you have problems with any of the following? None of the above 08/27/2023 Food Insecurity Answer Date Recorded Within the past 12 months, y ou worried that your food would run out before you got money to buy more: Never True 08/27/2023 Within the past 12 months,th e food you bought just didn't last and you didn't have enough money to get more: Never True Transportation Answer Date Recorded In the past 12 months, has l ack of transportation kept you from medical appts, meetings, work or from getting things needed for daily living? Yes, it has kept me from medical appointments or getting medications. 08/06/2023 Utilities Answer Date Recorded In the past 12 months, has t he electric, gas, oil or water company threatened to shut off services in your home? No 08/27/2023 Depression Answer Date Recorded Patient Health Questionnaire-2 Score 0 03/03/2024 Sex and Gender Information Value Date Recorded Sex Assigned at Male 08/28/2022 10:37 AM EDT Legal Sex Male 10:37 AM EDT Gender Identity Male 08/28/2022 10:37 AM EDT Sexual Orientation Straight 08/28/2022 10 :37 AM EDT documented as of this encounter Miscellaneous Notes * Telephone Encounter - Perla Rudd - 04/21/2024 3:19 PM EDT Tc from pt requesting to switch PCP due to long waits with Dr Zamudio and male preference. documented in this encounter Plan of Treatment Upcoming Encounters Date Type Department Care Team (Late st Contact Info) Description 12/30/2024 10:00 AM EST Clinical Support [facility] [address] [place] [address] Ashley Bustillos, TASHA documented as of this encounter Visit Diagnoses Not on filedocumented in this encounter Additional Health Concerns Assessment Noted Time PHQ-9 Depression Total Score: 3 03/03/20 24 2:34 PM EDT documented as of this encounter Care Teams Deputy Controller Relationship Specialty Start Date End Date Diana Zamudio MD [address] [place] [address] PCP - General Family Medicine 12/20/20 documented as of this encounter
--- OUTSIDE RECORDS SUMMARY | 2024-12-29 13:13 | XMS_ITS | Encounter Summary ---
Author Organization [employer] Address [address] [place] [address] 7t [place] [address] Care Team Providers Care Food Cooking Machine Operator Name Role Phone Diana Zamudio MD Primary Care Provider [phone] Reason for Referral * Consultation (Routine) - Closed Specialty Diagnoses / Procedures Referred By Contac t Referred To Contact Cardiology Diagnoses Paroxysmal atrial fibrillation (CMS/HCC) Diana Zamudio MD [address] [place] [address] Phone: tel: fax: [address] Phone: tel: fax: Referral ID Status Reason Start Date Expiration Date V isits Requested Visits Authorized [id number] Closed Specialty Services Required 04/25/2024 04/25/2025 6 6 Encounter Details Date Type Department Care Team (Late st Contact Info) Description 04/15/2024 Orders Only [facility] [address] [place], [place] [phone] Diana Zamudio MD [address] [place], [place] [phone] Paroxysmal atrial fibrillation (CMS/HCC) (Primary Dx) Social History Tobacco Use Types Packs/Day Years Used Date Smoking Tobacco: Never Smokeless Tobacco: Never Alcohol Use Standard Drinks/Week Comments Never 0 (1 standard drink = 0.6 oz pur e alcohol) Alcohol Answer Date Recorded Frequency of Alcohol Consumption Not on file 08/01/2023 Average Number of Drinks Not on file 023 Frequency of Binge Drinking Not on file 0 01/2023 Score 0 08/01/2023 Depression Answer Date [...] Description 12/30/2024 10:00 AM EST Clinical Support [facility] [address] [place] [phone] Ashley Bustillos RN documented as of this encounter Procedures Procedure Name Priority Date/Time Associated Diagnosis Comments AMB REFERRAL TO CARDIOLOGY Routine 07/22/2024 Paroxysmal atrial fibrillation (CMS/HCC) documented in this encounter Results * Referral to Cardiology (07/22/2024) Diana Zamudio MD OUTPATIENT REFERRAL ORDERABLES Final Result documented in this encounter Visit Diagnoses Diagnosis Paroxysmal atrial fibrillation (CMS/HCC)- Primary Atrial fibrillation documented in this encounter Additional Health Concerns Assessment Noted Time PHQ-9 Depression Total Score: 3 03/03/20 24 2:34 PM EDT documented as of this encounter Care Teams Food Cooking Machine Operator Relationship Specialty Start Date End Date Diana Zamudio MD [address] [place] [phone] PCP - General Family Medicine 12/20/20 documented as of this encounter
--- OUTSIDE RECORDS SUMMARY | 2024-12-29 13:13 | XMS_ITS | Encounter Summary ---
Author Organization [facility] Address [address] [place] [address] 7 [place] [address] Care Team Providers Care Box Office Clerk Name Role Phone Diana Zamudio MD Primary Care Provider [phone] Reason for Visit * Reason Onset Date Comments Appointment Request 05/16/2023 Encounter Details Date Type Department Care Team ([facility] st Contact Info) Description 05/16/2023 Telephone [facility] [address] [place], [place] [phone] Diana Zamudio MD [address] [place], [place] [phone] Appointment Request Social History Tobacco Use Types Packs/Day Years Used Date Smoking Tobacco: Never Assessed PHQ-2 Answer Date Recorded Patient Health Questionnaire-2 Score 2 04/26/2023 Sex and Gender Information Value Date Recorded Sex Assigned at Male 08/28/2022 10:37 AM EDT Legal Sex Male 10:37 AM EDT Gender Identity Male 08/28/2022 10:37 AM EDT Sexual Orientation Straight 08/28/2022 10 :37 AM EDT documented as of this encounter Miscellaneous Notes * Telephone Encounter - Jazmyne Fairbanks LPN - 05/18/2023 8:05 AM EDT Bárbara Ruelas RN - Inga reports patient was evaluated and independent with ADL's does not require AFC or PRESTRESSED CONCRETE LABORER, patient needs only homemaking services IADl's. Will forward message to provider binh OLMEDO. * Telephone Encounter - Clare Williamson - 05/16/2023 11:44 AM EDT Tc from [facility] requesting a PE appt . States pt needs for a program . documented in this encounter Plan of Treatment Upcoming Encounters Date Type Department Care Team (Late st Contact Info) Description 12/30/2024 10:00 AM EST Clinical Support [facility] [address] [place] [address] Ashley Bustillos, RN documented as of this encounter Visit Diagnoses Not on filedocumented in this encounter Additional Health Concerns Assessment Noted Time PHQ-9 Depression Total Score: 12 023 1:13 PM EDT documented as of this encounter Care Teams Box Office Clerk Relationship Specialty Start Date End Date Diana Zamudio MD [address] [place] [address] PCP - General Family Medicine 12/20/20 documented as of this encounter
== END ==
LOC: HO.SL 11:01
PROVIDERS: PCP General Practice; Visit Provider Nurse Practitioner Family
DX: G47.10 Hypersomnia, unspecified (principal); I48.0 Paroxysmal atrial fibrillation
CPT/HCPCS: 95806

== ENCOUNTER → 2024-12-30 11:17 | Outpatient (BNV) | payer MEDICAID, SELFPAY | PROVIDERS: PCP General Practice; Visit Provider Internal Medicine | DX: G47.10 Hypersomnia, unspecified (principal); R06.83 Snoring | CPT/HCPCS: 95806 ==

== ENCOUNTER 2025-02-03 06:40 | Day surgery (SDC) | payer MEDICAID, SELFPAY ==
--- NOTE | 2025-02-02 09:57 | P.CONAN_ITS ---
Documented by User: Michelle Teixeira NP 02/02/25 10:00 HPI - Anesthesia Eval Consult details Narrative: 44yo M for Upper Endoscopy Follows [facility] Cardiology for hx afib (? ~ 5 years ago in [place]). None noted on recent testing. No OAC. Stable at 10/2024 office visit with 6 month f/u [facility] Active Problems Active Problems: All Active Problems Hypersomnia (Acute) Palpitations (Acute) PAF (paroxysmal atrial fibrillation) (Acute) COVID-19 (Acute) Intractable neuropathic pain of foot (Acute) Neuropathy (Acute) Spondylosis of lumbar region without myelopathy or radiculopathy (Acute) Polyarthralgia (Acute) History of ankle fusion (Acute) Bilateral ankle pain (Acute) Past Medical History Medical History PAF (paroxysmal atrial fibrillation) Family History Family History Mother HTN (hypertension) Lupus COPD (chronic obstructive pulmonary disease) Father Diabetes Arthritis Brother HTN (hypertension) Brain tumor Surgical History Surgical History Hx of hernia repair Hx of foot surgery Social History Social History Household Members: Family Alcohol intake: never Patient Tobacco Use Status: Never used Tobacco e-Cigarette/Vaping Use: Never Used Have you been hit, kicked, punched, or otherwise hurt by someone within the past year? If so, by whom?: No Are you DNR?: No Advance Directives: No Advance Directives Information Provided: Yes Current occupational status: unemployed Current occupation: right hand Meds Allergies Allergy/AdvReac Type Severity Reaction Status Date / Time shrimp Allergy Severe RASH Verified 11/07/24 08:22 Home Medications ?Medication ?Instructions ?Recorded ?Confirmed ?Last Taken ?Type epinephrine 0.3 mg/0.3 mL 0.3 mg IM Q10M PRN Anxiety 02/01/21 02/03/25 Unknown History injection, auto-injector alprazolam 1 mg tablet 1 mg PO TID PRN Anxiety 08/06/24 02/03/25 Unknown History Exam Height,Weight and Vital Signs: Height 5 ft 8 in Weight 89.358 kg Pertinent Lab Results Pertinent Lab Results: Laboratory Tests 09/04/24 14:13 WBC 5.3 Hgb 16.0 Hct 46.2 Plt Count 269 Sodium 141 Potassium 3.7 Chloride 109 H Carbon Dioxide 22 BUN 13 Creatinine 0.98 Narrative Narrative: EKG 2023 Vent. Rate : 085 BPM Atrial Rate : 085 BPM P-R Int : 142 ms QRS Dur : 088 ms QT Int : 334 ms P-R-T Axes : 042 052 -32 degrees QTc Int : 397 ms Normal sinus rhythm T wave abnormality, consider inferolateral ischemia Abnormal ECG When compared with ECG of 14-APR-2024 23:43, QRS axis Shifted left Inverted T waves have replaced nonspecific T wave abnormality in Lateral leads A cardiac event monitor was done 09/03/2024 however only worn for 3.5 days due to reported skin irritation from the patch. It showed sinus rhythm with average heart rate 75, no arrhythmias. Echocardiogram 09/03/2024 showed EF 50-55%, no valve abnormality, left atrium likely dilated. Assessment and Plan Assessment Anesthesia Assessment: Chart Reviewed Documented by User: Tracey Padilla MD 02/03/25 08:41 PMFSH Past Medical History Medical History PAF (paroxysmal atrial fibrillation) Family History Family History Mother HTN (hypertension) Lupus COPD (chronic obstructive pulmonary disease) Father Diabetes Arthritis Brother HTN (hypertension) Brain tumor Family history of problems with anesthesia: No Surgical History Surgical History Hx of hernia repair Hx of foot surgery History of Problems with Anesthesia: No Social History Social History Household Members: Family Alcohol intake: never Patient Tobacco Use Status: Never used Tobacco e-Cigarette/Vaping Use: Never Used Have you been hit, kicked, punched, or otherwise hurt by someone within the past year? If so, by whom?: No Are you DNR?: No Advance Directives: No Advance Directives Information Provided: Yes Current occupational status: unemployed Current occupation: right hand Meds Allergies Allergy/AdvReac Type Severity Reaction Status Date / Time shrimp Allergy Severe RASH Verified 11/07/24 08:22 Home Medications ?Medication ?Instructions ?Recorded ?Confirmed ?Last Taken ?Type epinephrine 0.3 mg/0.3 mL 0.3 mg IM Q10M PRN Anxiety 02/01/21 02/03/25 Unknown History injection, auto-injector alprazolam 1 mg tablet 1 mg PO TID PRN Anxiety 08/06/24 02/03/25 Unknown History Exam Airway Mallampati Class: II TM Dist: >3cm Neck ROM: Full Heart: rrr Lungs: cta Assessment and Plan Assessment Anesthesia Assessment: Anesthesia Plan Discussed Final Anesthetic Review Family History of Problems with Anesthesia: No History of Problems with Anesthesia: No NPO: Yes ASA Class: III Final Preanesthetic Review: No Changes in Pt Med Stat, Meds/Allgs Chart Reviewed, Consent Obtained/Reviewed and Anes Risks/Benef Reviewed Patient Risk: Intermediate Procedure Risk: Low Anesthetic Plan Anesthetic Plan: MAC: Disposition: Standard PACU
[2025-02-03 06:49] VITALS: BP 142/97; PULSE 70; RESP 18; TEMP 36.1; O2SAT 96; BMI 30.2
[2025-02-03] MEDS: Lactated Ringers 1,000 ML 100 ML IVCONT (07:06)
--- NOTE | 2025-02-03 08:29 | MHC.SHP ---
Pre-Procedural Eval Section A - 24 Hr Update-Section A only Date of Service: 02/03/25 Section B - Complete if H&P > 30 days Chief Complaint: Epigastric pain Relevant Family History (Specify if Yes): No Relevant Social History: None Present Medications: see Short Stay Collaborative assessment Medical History: Significant History (a-fib) History of Previous Operations: Relevant previous surgery/procedure and date(s) (Hx of hernia repair Hx of foot surgery) Allergies: Allergies Allergy/AdvReac Type Severity Reaction Status Date / Time shrimp Allergy Severe RASH Verified 11/07/24 08:22 Review of Systems Sugical H&P ROS: Negative: Constitution, Cardiovascular, Respiratory, Neurological, Psychiatric, Hem-Onc, Allergic/Immunologic, Gastrointestinal, Genitourinary, Musculoskeletal, Integumentary, Endocrine and Eyes/Ears/Nose/Throat Exam Surgical H&P Exam: Normal: HEENT, Normal: Heart, Normal: Lungs, Normal: Extremities, Normal: Abdomen, Normal: Skin and Normal: Neurological Plan Diagnosis/Plan: Unchanged I have reviewed the history and physical and performed a pertinent physical examination on my patient. No changes have occurred unless specified. Time Spent With Patient Time: Total time managing care of this patient today ____ minutes.
--- NOTE | 2025-02-03 08:54 | W.PM.OPN ---
Operative Note Operative Note Date of Service: 02/03/25 Narrative: Procedure Description: EGD Indication: GERD Anesthesia: MAC FLEXIBLE TRANSORAL UPPER GASTROINTESTINAL ENDOSCOPY UPPER ENDOSCOPY Consent: Indications for the procedure and potential complications of bleeding, perforation, reaction to medications and missed diagnosis were discussed with the patient and informed consent was obtained. Instrument: Olympus GIF H 190 J mid size upper endoscope Monitoring: Vital signs and clinical assessment, continuous EKG monitoring, Pulse oximetry, Carbon Dioxide monitoring and blood pressure monitoring were done throughout the procedure. Procedure: The patient was placed in the left lateral decubitis position and pre-procedure medications were administered and a bite block was placed. The endoscope was inserted into the mouth and advanced under direct vision to the third part of duodenum. A careful inspection was made as the upper endoscope was withdrawn including a retroflexed examination of the proximal stomach; Findings and interventions are described below. Findings: Larynx:normal Esophagus: GE junction at 43 cm, diaphragm hiatus at 43 cm, patulous LES with LA grade B erosive esophagitis streaks at GEJ, bx taken from distal esophagus Stomach: patchy erythema . Biopsies were obtained. Grade 2 flap valve on retroflexed examination of the cardia. Duodenum: Normal bulb and descending duodenum, bx taken Intervention: Biopsies as noted above, Impression/Findings: gastritis erosive esophagitis patulous GEJ PLAN: ensure compliance with PPI if taking faithfully then can change to esomeprazole and see if get better control GERD precautions
[2025-02-03 09:03] VITALS: BP 122/71; PULSE 76; RESP 18; TEMP 36.2; O2SAT 94
[2025-02-03 09:18] VITALS: BP 120/71; PULSE 66; RESP 18; TEMP 36.2; O2SAT 94
== END 2025-02-03 09:59 | disposition home or self-care (01) ==
PROVIDERS: PCP General Practice; Visit Provider Internal Medicine Gastroenterology
PROC: 0DJ08ZZ Inspection of Upper Intestinal Tract, Via Natural or Artificial Opening Endoscopic (ICD-10-PCS; CPT 43235; principal; 2025-02-03 08:30)
DX: K22.10 Ulcer of esophagus without bleeding (principal); K29.60 Other gastritis without bleeding; K22.2 Esophageal obstruction; K22.4 Dyskinesia of esophagus; A04.8 Other specified bacterial intestinal infections; K21.9 Gastro-esophageal reflux disease without esophagitis; R13.10 Dysphagia, unspecified; I48.0 Paroxysmal atrial fibrillation; Z79.899 Other long term (current) drug therapy
CPT/HCPCS: 43239; 88305; 88341; 88342; J1100; J2003; J2250; J2704

== ENCOUNTER → 2025-02-03 06:40 | Outpatient (BNV) | payer MEDICAID, SELFPAY | PROVIDERS: PCP General Practice; Visit Provider Internal Medicine Gastroenterology | DX: K21.00 Gastro-esophageal reflux disease with esophagitis, without bleeding (principal); K29.70 Gastritis, unspecified, without bleeding | CPT/HCPCS: 43239 ==

== ENCOUNTER 2025-02-18 12:49 | Outpatient (AMB) | payer MEDICAID, SELFPAY ==
[2025-02-18 13:06] VITALS: BP 126/86; PULSE 80; O2SAT 97; BMI 30.4
--- NOTE | 2025-02-18 13:06 | A.OFFVIS_ITS ---
Vital Signs 02/18/25 13:06 Height 5 ft 8 in Weight 200 lb BMI 30.4 BP 126/86 Blood Pressure Location Rt brachial Position Sitting Pulse 80 Pulse Source Pulse Oximeter Pulse Oximetry (%) 97 Oxygen Delivery Method Room Air Intake Visit Reasons: s/p EGD Loving Intake Note: ESTABLISHED PATIENT for s/p EGD w/ TH. Chief Complaint; C/O epigastric pain and reflux despite PPI. Pt reports that he has not noticed a great improvement in sx since starting the medication and in fact feels his sx are getting worse. No additional sx or concerns. Burial Vault Setter Required: No Accompanied by: Self / Same As Patient Allergies shrimp Allergy (Severe, Verified 02/18/25 13:06) RASH HPI HPI s/p EGD Loving: Details: LAST VISIT 09/19/2024 GERD (gastroesophageal reflux disease) IBS (irritable bowel syndrome) Abdominal pain Postprandial epigastric pain Plan We will retest for H pylori positive H pylori 2 years ago treated with quadruple therapy never returned for retesting. Will start sucralfate for now and stop omeprazole. NPO 1 hour before testing. Patient will return in 2 months to discuss going for possible endoscopy. Discussed with patient the importance of avoiding dietary triggers and late night snacking. Staying upright for minimum 3 hours after meals discussed with patient. Patient is agreeable to plan of care and verbalizes understanding instructions He was given the opportunity to ask questions all questions answered ? Thank you for allowing me to participate in his care Orders Orders H Pylori Breath Test 09/19/24 K21.9 Medications New sucralfate 1 g PO BID 60 tabs 1RF R19.7 sucralfate Please take it at noon time and at bedtime 10 mL PO BID 400 mL 0RF K21.9 UPPER ENDOSCOPY Findings: Larynx:normal Esophagus: GE junction at 43 cm, diaphragm hiatus at 43 cm, patulous LES with LA grade B erosive esophagitis streaks at GEJ, bx taken from distal esophagus Stomach: patchy erythema . Biopsies were obtained. Grade 2 flap valve on retroflexed examination of the cardia. Duodenum: Normal bulb and descending duodenum, bx taken Intervention: Biopsies as noted above, Impression/Findings: gastritis erosive esophagitis patulous GEJ Schatzki ring PLAN: ensure compliance with PPI if taking faithfully then can change to esomeprazole and see if get better control GERD precautions PATHOLOGY RESULTS 02/03/2025 Diagnosis A. Duodenum, biopsy: Duodenal mucosa with preserved villi and increased intraepithelial lymphocytes (see comment). B. Stomach, biopsy: Chronic Helicobacter gastritis with mild activity and lymphoid aggregate; negative for intestinal metaplasia and dysplasia. C. Esophagus, distal, biopsy: Squamous mucosa with no specific change; no columnar mucosa present. Comment: (A): Although there is an increase in intraepithelial lymphocytes, the villous tip-heavy distribution which would be suggestive of celiac-sprue is not demonstrated. The long differential for this nonspecific finding includes celiac-sprue and clinical correlation is necessary TODAY'S VISIT Patient is here today for follow-up and to discuss upper endoscopy results. Patient reports that his symptoms are not better in fact he feels like they are is worse. He continues to have epigastric pain postprandially and sometimes even drinking water. Upper endoscopy results discussed with patient. Biopsy showed chronic H pylori. No celiac sprue. Patient denies any nausea or vomiting. Denies any dysphagia or odynophagia. Currently taking omeprazole and feels like symptoms are not very well control only occasionally he feels like omeprazole helps. Most of the time he has epigastric pain with reflux PFSH Medical History PAF (paroxysmal atrial fibrillation) Surgical History Hx of hernia repair Hx of foot surgery Family History Mother HTN (hypertension) Lupus COPD (chronic obstructive pulmonary disease) Father Diabetes Arthritis Brother HTN (hypertension) Brain tumor Social History Household Members: Family Alcohol intake: never Patient Tobacco Use Status: Never used Tobacco e-Cigarette/Vaping Use: Never Used Current occupational status: unemployed Current occupation: right hand Review of Systems Const Denies weight gain and Denies weight loss ENT Reports no additional complaints, Reports dysphagia and Denies odynophagia Card Reports no additional complaints Resp Reports no additional complaints GI Reports abdominal pain (Epigastric pain postprandially), Denies belching, Denies melena, Denies bloating, Denies change in bowel habits, Denies constipation, Reports dysphagia, Denies excessive flatus, Reports dyspepsia, Reports heartburn, Denies diarrhea, Denies loose stools, Denies nausea, Denies odynophagia and Denies vomiting Reports no additional complaints Musc Reports no additional complaints Neuro Reports no additional complaints Psych Reports no additional complaints Endo Reports no additional complaints Physical Exam Vital Signs: Last Vital Signs Pulse 80 02/18/25 13:06 BP 126/86 02/18/25 13:06 Pulse Ox 97 02/18/25 13:06 Oxygen Delivery Method Room Air 02/18/25 13:06 BMI result Body Mass Index 30.4 Const General: healthy appearing and no acute distress Nutritional Appearance: obese Orientation/consciousness: patient oriented x3 Resp Effort & Inspection: normal respiratory effort, able to speak in complete sentences, no tracheal deviation and symmetric chest movement Auscultation: clear to auscultation bilaterally Cardio Rate: regular rate GI Inspection: Yes normal to inspection, No distended and Yes obesity Palpation (GI): Soft to palpation, not firm, nontender and No hepatosplenomegaly present Auscultation: normal bowel sounds General: Yes no CVA tenderness Back/Spine/Pelvis Back: no CVA tenderness Skin General skin exam: elasticity normal, turgor normal and dry skin Neuro General: patient oriented x3 Psych Appearance: grossly normal Mental Status: mental status grossly normal Assessment & Plan Assessment & Plan (1) GERD (gastroesophageal reflux disease): Code(s): K21.9 - Gastro-esophageal reflux disease without esophagitis Qualifiers: Esophagitis presence: without esophagitis Qualified Code(s): K21.9 - Gastro-esophageal reflux disease without esophagitis (2) IBS (irritable bowel syndrome): Code(s): K58.9 - Irritable bowel syndrome, unspecified Qualifiers: Irritable bowel syndrome type: without diarrhea Qualified Code(s): K58.9 - Irritable bowel syndrome, unspecified (3) Abdominal pain: Code(s): R10.9 - Unspecified abdominal pain Qualifiers: Abdominal location: epigastric Qualified Code(s): R10.13 - Epigastric pain (4) Postprandial epigastric pain: Code(s): R10.13 - Epigastric pain (5) Helicobacter pylori (H. pylori): Code(s): A04.8 - Other specified bacterial intestinal infections Plan Will start patient on empiric therapy an we will recheck for eradication in few months. Quadruple therapy with changing the PPI to as omeprazole. Avoid dietary triggers we then snacking. Staying upright for minimal 3 hours after meals discussed with patient. James follow-up in 3 months, sooner on as needed basis. He is agreeable to this plan and verbalizes understanding of instructions. He was given the opportunity to ask questions and all questions answered. Thank you for allowing me to participate in his care Medications: New esomeprazole magnesium (Nexium) 40 mg PO DAILY 90 caps 3RF K21.9 - Gastro- esophageal reflux disease without esophagitis doxycycline hyclate 100 mg PO BID 28 tabs 0RF 14 days bismuth subsalicylate 2 tabs PO QID 112 tabs 0RF 14 days A04.8 - Other specified bacterial intestinal infections metronidazole 1,000 mg (2 x 500 mg) PO BID 56 tabs 0RF A04.8 - Other specified bacterial intestinal infections ondansetron 4 mg PO Q8H PRN 20 tabs 0RF nausea and vomiting R11.0 - Nausea Discontinued omeprazole Discontinued Reason: Doctor's Order 40 mg PO DAILY 14 caps 0RF Coding Level of Care Code Est Pt Level 4 (35927) Complex EM visit Add On G2211 Diagnoses Gastroesophageal reflux disease without esophagitis K21.9 Esophagitis presence: without esophagitis Irritable bowel syndrome without diarrhea K58.9 Irritable bowel syndrome type: without diarrhea Epigastric pain R10.13 Abdominal location: epigastric Postprandial epigastric pain R10.13 Helicobacter pylori (H. pylori) A04.8 Time Spent (min) 35 Comment 25 minutes spent with patient and additional 10 minutes spent reviewing his records
--- OUTSIDE RECORDS SUMMARY | 2025-02-18 15:07 | XMS_ITS | Encounter Summary ---
Author Organization [employer] Address [address] [facility] 7 [place] [address] Care Team Providers Care Practice Management Consultant Name Role Phone Milan Abrams MD Primary Care Prov ider Reason for Visit * Reason Comments Med Refill Encounter Details Date Type Department Care Team ([facility] st Contact Info) Description 02/16/2025 Refill [facility] [address] [place], [place] [phone] Milan Abrams MD [address] [place] [address] Mood disorder (CMS/HCC) Social History Tobacco Use [...] as of this encounter Plan of Treatment Not on file documented as of this encounter Visit Diagnoses Diagnosis Mood disorder (CMS/HCC) Unspecified episodic mood disorder documented in this encounter Additional Health Concerns Assessment Noted Time PHQ-9 Depression Total Score: 3 03/03/20 24 2:34 PM EDT documented as of this encounter Care Teams Practice Management Consultant Relationship Specialty Start Date End Date Milan Abrams MD [address] [place] [phone] PCP - General Internal Medicine 12/30/24 documented as of this encounter
--- OUTSIDE RECORDS SUMMARY | 2025-02-18 15:07 | XMS_ITS | Encounter Summary ---
Author Organization [employer] [facility] Address [address] [place] [address] 7 [place] [address] Care Team Providers Care Games Dealer Name Role Phone Diana Zamudio MD Primary Care Provider [phone] Milan Abrams MD Primary Care Prov ider Reason for Visit * Reason Onset Date Comments Appointment Request 05/16/2023 Encounter Details Date Type Department Care Team ([facility] st Contact Info) Description 05/16/[address] [facility] [address] [place] [address] Diana Zamudio MD [address] [place] [address] Appointment Request Social History Tobacco Use Types [...] 8:05 AM EDT Bárbara Ruelas RN - Anuradha reports patient was evaluated and independent with ADL's does not require AFC or LANDMEN, patient needs only homemaking services IADl's. Will forward message to provider binh OLMEDO. * Telephone Encounter - Clare Williamson - 05/16/2023 11:44 AM EDT Tc from [facility] requesting a PE appt . States pt needs for a program . documented in this encounter Plan of Treatment Not on file documented as of this encounter Visit Diagnoses Not on filedocumented in this encounter Additional Health Concerns Assessment Noted Time PHQ-9 Depression Total Score: 12 023 1:13 PM EDT documented as of this encounter Care Teams Games Dealer Relationship Specialty Start Date End Date Diana Zamudio MD [address] [place] [id number] PCP - General Family Medicine 12/20/20 12/29/24 Milan Abrams MD [address] [place] [address] PCP - General Internal Medicine 12/30/24 documented as of this encounter
--- OUTSIDE RECORDS SUMMARY | 2025-02-18 15:07 | XMS_ITS | Clinical Summary ---
Author Organization [employer] Address [address] [facility] 7t [place] [address] Care Team Providers Care Brim Pouncer Name Role Phone Milan Abrams MD Primary Care Prov ider Allergies No known active allergies Medications Aspirin Low Dose 81 MG chewable tablet TAKE 1 TABLET BY MOUTH EVERY DAY FOR 30 DAYS 2 Active D3 Super Strength 50 MCG (1999 UT) capsule Take 50 mcg by mouth in the morning. 3 Active EPINEPHrine (Epipen) 0.3 MG/0.3ML injection syringe Inject 0.3 mL into the shoulder, thigh, or buttocks. 2 Active DULoxetine (Cymbalta) [address] capsuleIndicati ons:Mood disorder (CMS/HCC) Take 1 capsule (60 mg) by mouth Once per day. Do not crush or chew. 90 capsule 3 4 Active QUEtiapine (SEROquel) 25 MG tabletIndicatio ns:Mood disorder (CMS/HCC) Take 1 tablet (25 mg) by mouth at bedtime. Take every night 90 tablet 3 4 Active Ventolin HFA 108 (90 Base) MCG/ACT inhaler TOME DOS INHALACIONES CADA 4-6 HORAS CUANDO SEA NECESARIO PARA LA FALTA DE RESPIRACI N/LA SIBILANCIA 4 Active buPROPion XL (Wellbutrin XL) 150 MG 24 hr tabletIndicatio ns:Mood disorder (CMS/HCC) TAKE 1 TABLET (150 MG) BY MOUTH IN THE MORNING. DO NOT CRUSH, CHEW, OR SPLIT. 90 tablet 3 4 Active omeprazole (PriLOSEC) [address] capsuleIndicati ons:Gastroesoph ageal reflux disease, unspecified whether esophagitis present TAKE 1 CAPSULE BY MOUTH BEFORE MORNING MEAL DAILY 90 capsule 3 4 Active clobetasol (Temovate) 0.05 % gelIndications: Polymorphic light eruption Apply 1 Application. topically 2 times daily. 30 g 4 Active naloxone (Narcan) 4 mg/0.1 mL nasal sprayIndication s:Anxiety Administer 1 spray (4 mg) into affected nostril(s) if needed for opioid reversal. May repeat every 2-3 minutes if needed, alternating nostrils, until medical assistance becomes available. 2 each 3 5 12/31/19 26 Active ALPRAZolam (Xanax) 1 MG tabletIndicatio ns:Mood disorder (CMS/HCC) TOME ABDON TABLETA POR VIA ORAL ONCE DAILY NEEDED FOR PANIC ATTACK (MAX 20 TABLETS/MONTH) 20 tablet 5 Active ALPRAZolam (Xanax) 1 MG tabletIndicatio ns:Mood disorder (CMS/HCC) TOME ABDON TABLETA POR VIA ORAL ONCE DAILY NEEDED FOR PANIC ATTACK (MAX 20 TABLETS/MONTH) 20 tablet 5 Active acetaminophen (Pain Relief Extra Strength) 500 MG tablet TAKE 1 TABLET (500 MG) BY MOUTH EVERY 8 (EIGHT) HOURS IF NEEDED FOR MILD PAIN. 90 tablet 3 5 Active ibuprofen 800 MG tablet Take 1 tablet (800 mg) by mouth 3 times daily. 90 tablet 5 Active Active Problems Problem Noted Date Diagnosed Date Chronic pain of left ankle 05/21/2024 Assessment & Plan (05/21/2024 6:39 AM EDT): S/p internal fixation in 2018 Declines hardware removal offered in 2020 at [facility] Movement and stretching Vicodin very sparingly prn [...] management. For any issues or concerns, call [facility]. All his questions were answered. I have [...] 6:37 AM EDT): Noted x 2 years DOMENICA negative With joint pains Will refer to derm for further recommendations besides wearing sunscreen, avoidance of sun Helicobacter pylori gastritis 05/23/2022 Normal electroencephalography 04/10/2022 Gastroesophageal reflux disease 05/27/2021 Assessment & Plan (01/19/2025 9:29 AM EDT): Followed by gastroenterology, on omeprazole, encouraged lifestyle modifications, Anxiety 12/21/2020 Assessment & Plan (01/19/2025 9:30 AM EDT): On cymbalta, alprazolam PRN, seroquel, bupropion, no suicidal ideas, not interested in BH therapy, Atrial fibrillation 12/21/2020 Assessment & Plan (01/19/2025 9:28 AM EDT): Followed by cardiology, [id number] score 0 points on aspirin Assessment & Plan (05/21/2024 6:36 AM EDT): Referred to [facility] Given number to call Assessment & Plan (08/01/2023 11:08 AM EDT): Will make f/u appointment with gas tester Had been off anticoagulation for some time Depressive disorder 12/21/2020 Encounters Date Type Department Care Team Description 02/16/2025 Refill [facility] [address] [place] [address] Milan Abrams MD Mood disorder (CMS/HCC) 02/03/2025 Orders Only GENERIC EXTERNAL DATA DEPARTMENT Provider, Generic External Data 01/19/2025 9:00 AM EDT Telemedicine [facility] & P[facility]S [address] [place] [address] Milan Abrams MD Paroxysmal atrial fibrillation (CMS/HCC) (Primary Dx); Mood disorder (CMS/HCC); Gastroesophageal reflux disease without esophagitis; Anxiety 01/18/2025 Travel 01/13/2025 Refill [facility] [address] [place] [address] Diana Zamudio MD Mood disorder (CMS/HCC) 01/09/2025 Population Health Risk Score [facility] Department [address] [phone] Provider, Population Health Generic 12/30/2024 10:00 AM EST Clinical Support [facility] MEDICINE [address] [place] [address] Ashley Bustillos, RN Anxiety (Primary Dx) 12/30/2024 Telephone [facility] MEDICINE [address] [place] [address] Milan Abrams MD Care Coordination 12/30/2024 Refill [facility] MEDICINE [address] [place] [address] Ashley Bustillos, TASHA Anxiety (Primary Dx) 12/30/2024 Travel 12/30/2024 Telephone [facility] MEDICINE [address] [place], [place] [phone] Ashley Bustillos RN Recommend CORE LAYING MACHINE OPERATOR Tier 2 12/12/2024 Refill [facility]S [address] [place], [place] [phone] Diana Zamudio MD Mood disorder (CMS/[facility]) from Last 3 Months Family History Medical History Relation Name Comments Brain cancer Brother Diabetes Father Asthma Mother Diabetes Mother Hypertension Mother Lupus Mother Osteoarthritis Mother Skin cancer Mother Relation Name Status Comments Brother Father Mother Social History Tobacco Use Types Packs/Day Years [...] PM ED T Respiratory Rate 18 08/29/2024 1:28 PM EDT Oxygen Saturation 98% 08/01/2023 10: 41 AM EDT Inhaled Oxygen Concentration - - Weight 90.6 kg (199 lb 12.8 oz) 08/29/2024 1:28 PM EDT Height 172.7 cm (5' 8 ) 08/29/2024 1:28 PM EDT Body Mass Index 30.38 08/29/2024 1:28 PM EDT Plan of Treatment Health Maintenance Due Date Last Done Comments HIV Screening 1981 Alcohol/Substance Use Screening 1993 Family Planning (PISQ) 1996 DTaP/Tdap/Td Vaccines (1 - Tdap) 2000 Hepatitis B Vaccines (1 of 3 - 19+ 3-dose series) 2000 COVID-19 Vaccine (1 - 2023-2 5 season) 2024 Influenza Vaccine (#1) 2024 Depression Screening 03/03/2025 03/03/2024, 03/03/2024 SDOH Screening 08/08/2025 08/08/2024 Tobacco Screening 01/19/2026 01/19/2025 Lipid Panel 08/01/2028 08/01/2023, 10/19/2021 Zoster Vaccines [...] Procedure Name Priority Date/Time Associated Diagnosis Comments HEMATOXYLIN AND EOSIN STAIN Routine 02/03/2025 8:52 AM EDT POCT CARLIE-14 URINE DRUG SCREEN Routine 12/30/2024 10:13 AM EST Anxiety LIPID PANEL, STANDARD Routine 08/01/2023 11:21 AM EDT Annual physical exam ZZZ HISTORICAL HEPATITIS C AB W/REFL TO HCV RNA, QN, PCR Routine 12/27/2020 10:03 AM EST from Last 3 Months or Most Recently Relevant to Health Maintenance Results * Hematoxylin and Eosin Stain (02/03/2025 8:52 AM EDT) 02/03/2025 8:52 AM EDT 02/03/2025 9:54 AM EDT [facility] - 02/05/2025 7:04 PM EDT ----- ------- Name: Gilbert Silva ? Age/Sex: 44/M ? : 1980 Unit#: [id number] ?? Attend Dr: Krysta Loving MD ?Re02/03/25 ?Status: DEP SDC ? Location: HO.SSS ?Disch: ? ----- ------- SPEC : [id number] ? RECD: 02/03/25-953 ? STATUS: ??SOUT ? REQ NUM: [id number] ? SEDRICK: 02/03/25-851 ? SUBM DR: Krysat Loving MD ? ENTERED: ??02/03/25-1001 ?SP TYPE: Surgical ? OTHR DR: Diana Zamudio ? ORDERED: ??HE Stain/9, Gross Micro L4/3, T Cell, IHC, Add. immunos, H. pylori ? Diagnosis ?? A. ??Duodenum, biopsy: ??Duodenal mucosa with preserved villi and increased intraepithelial ?? lymphocytes (see comment). ? B. ??Stomach, biopsy: ??Chronic Helicobacter gastritis with mild activity and lymphoid ?? aggregate; negative for intestinal metaplasia and dysplasia. ? C. ??Esophagus, distal, biopsy: ??Squamous mucosa with no specific change; no columnar ?? mucosa present. ? Comment: ?? (A): ??Although there is an increase in intraepithelial lymphocytes, the villous tip- ?? heavy distribution which would be suggestive of celiac-sprue is not demonstrated. ??The ?? long differential for this nonspecific finding includes celiac-sprue and clinical ?? correlation is necessary. ?Clinical History Pre-Op Dx: ??GERD Post-Op Dx: Erosive esophagitis, gastritis, Schatski's ring, incompetent LES ?Microscopic Description Microscopic sections reviewed. ??Immunostain for H. pylori on B is positive. ??CD3 on A shows increased intraepithelial lymphocytes without a villous tip-heavy distribution. ??Controls stain appropriately. ? Material Received ?? A. Duodenal bx's ?? B. Stomach bx's ?? C. Distal esophagus bx's ? Gross Description Received in three parts. Part A: ??Received in formalin labeled ?duodenum biopsies? are 2 pink- red irregular tissue fragments measuring 0.25 cm, submitted in toto in a cassette labeled A. Part B: ??Received in formalin labeled ?stomach biopsies? are 3 scott- pink irregular tissue fragments ranging from 0.15-0.25 cm, submitted in toto in a cassette labeled B. ? CONTINUED ON NEXT PAGE ----- ------- Name: Gilbert Silva ? Age/Sex: 44/M ? : 1980 Unit#: [id number] ?? Attend Dr: Krysta Loving MD ?Re02/03/25 ?Status: DEP SDC ? Location: HO.SSS ?Disch: ? ----- ------- SPEC : [id number] ? RECD: 02/03/25-953 ? STATUS: ??SOUT ? REQ NUM: [id number] ? SEDRICK: 02/03/25-851 ? SUBM DR: Krysta Loving MD ? ENTERED: ??02/03/25-1001 ?SP TYPE: Surgical ? OTHR DR: Diana Zamudio ? ORDERED: ??HE Stain/9, Gross Micro L4/3, T Cell, IHC, Add. immunos, H. pylori ? Gross Description ?(Continued) Part C: ??Received in formalin labeled ?distal esophagus biopsies? are 3 nuno-white irregular and rectangular tissue fragments ranging from 0.2-0.3 cm, submitted in toto in a cassette labeled C. CEDS Special studies ordered and performed: Immunostain for H. pylori on B1; CD3 on A1. Copies To: ?? Krysta Loving MD ?? [facility] Gastroenterology Services ?? [address] ?? [place] [address] ?? [phone] ?? Diana Zamudio ?? [address] [facility] ?? [place] [address] ?? [phone] ----- ------- Signed (signature on file) Verónica Thornton 02/05/251903 ? ----- ------- ? END OF REPORT ? us Generic External Data Provider LAB BLOOD ORDERAB LES Final Result [facility] [address] [place] [address] [phone] * POCT CARLIE-14 Urine Drug Screen (12/30/2024 10:13 AM EST) Urine Urine specimen obtained by clean catch procedure / Unknown 12/30/2024 10:13 AM EST Ashley Dobbs RN - 12/30/2024 10:13 AM EST UTOX cup Lot#[id number] Exp. 06/17/26 Internal Pass Control Negative for all substances Diana Zamudio MD POINT OF CARE TEST ENTER/EDIT ORDERABLES Final Result * (ABNORMAL) Lipid Panel, Standard (08/01/2023 11:21 AM EDT) Triglycerides 71 <150 mg/dL [facility] Comment:Desirable Triglyceri de: less than 150 mg/dLBorderline High Triglyceride 150-199 mg/dLHigh Triglyceride: 200-499 mg/dLVery High Triglyceride: greater than or equal to 5OO mg/dL Cholesterol 152 <200 mg/dL [facility] Comment:Desirable Cholestero l: less than 200 mg/dLBorderline High Cholesterol: 200-239 mg/dLHigh Cholesterol: greater than 239 mg/dL LDL Cholesterol Calculated 100(H) <100 mg/dL [facility] Comment:Desirable LDL: less than 100 mg/dLNear Optimal/Above Optimal LDL: 110- 129 mg/dLBorderline High LDL: 130-159 mg/dLHigh LDL: 160-189 mg/dLVery High LDL: greater than or equal to 190 mg/dL HDL Cholesterol 38(L) >40 mg/dL [facility] Comment:Desirable HDL: great er than 40 mg/dL Note: This HDL assay may give artificially low results in patients with liver disease. Blood Venous blood specimen / Unknown 08/01/2023 11:21 AM EDT 08/01/2023 1:13 PM EDT Diana Zamudio MD LAB BLOOD ORDERABLES Final Res ult Performing Organization Address City/[facility]/ZIP Co de Phone Number [facility] [address] [place] [address] [phone] * HEPATITIS C AB W/REFL TO HCV RNA, QN, PCR (12/27/2020 10:03 AM EST) HEPATITIS C ANTIBODY NON-REACT NINO NON-REACT NINO [facility] INDEX 0.10 <1.00 [facility] Comment: ?? HCV antibody was non-reactive. There is no laboratory ?? evidence of HCV infection. ?? In most cases, no further action is required. However, if recent HCV exposure is suspected, a test for HCV RNA (test code 63176) is suggested. ?? For additional information please refer to http://education.[employer]/faq/QFA56r5 (This link is being provided for informational/ educational purposes only.) ?? 12/27/2020 10:0 3 AM EST Diana Zamudio MD HISTORICAL/NON ORDERABLE LABS Final Result Performing Organization Address City/[facility]/ZIP Co de Phone Number [facility] [address] from Last 3 Months or Most Recently Relevant to Health Maintenance Insurance [facility] C[facility] * Guarantor: Gilbert Silva Account Type Relation to Patient Date of Phone Billing Address Personal/Family Self [address] [place] [address] Care Teams Brim Pouncer Relationship Specialty Start Date End Date Milan Abrams MD [address] [place] [address] PCP - General Internal Medicine 12/30/24
--- OUTSIDE RECORDS SUMMARY | 2025-02-18 15:07 | XMS_ITS | Encounter Summary ---
Author Organization [employer] Address [address] [facility] 7t [place] [address] Care Team Providers Care Philosophy Professor Name Role Phone Diana Zamudio MD Primary Care Provider [phone] Milan Abrams MD Primary Care Prov ider Reason for Referral * Consultation (Routine) - Closed Specialty Diagnoses / Procedures Referred By Contac t Referred To Contact Cardiology Diagnoses Paroxysmal atrial fibrillation (CMS/HCC) Diana Zamudio MD [address] [place] [address] Phone: tel: fax: [address] Phone: tel: fax: Referral ID Status Reason Start Date Expiration Date V isits Requested Visits Authorized [id number] Closed Specialty Services Required 04/25/2024 04/25/2025 6 6 Encounter Details Date Type Department Care Team (Late st Contact Info) Description 04/15/2024 Orders Only [facility] MEDIC[facility] [address] [place], [place] [phone] Diana Zamudio MD [address] [place], [place] [phone] Paroxysmal atrial fibrillation (CMS/HCC) (Primary Dx) Social [...] on file documented as of this encounter Procedures Procedure [...] documented as of this encounter Care Teams Philosophy Professor Relationship Specialty Start Date End Date Diana Zamudio MD [address] [place] [phone] PCP - General Family Medicine 12/20/20 12/29/24 Milan Abrams MD [address] [place] [address] PCP - General Internal Medicine 12/30/24 documented as of this encounter
--- OUTSIDE RECORDS SUMMARY | 2025-02-18 15:07 | XMS_ITS | Encounter Summary ---
Author Organization [facility] [facility] Address [address] [place] [address] 7 [place] [address] Care Team Providers Care Physical Therapy Professor Name Role Phone Diana Zamudio MD Primary Care Provider [phone] Milan Abrams MD Primary Care Prov ider Reason for Visit * Reason Comments Med Refill Encounter Details Date Type Department Care Team ([facility] st Contact Info) Description 12/08/2022 Refill [facility] MEDICINE [address] [place] [address] John Saunders FNP Social History Tobacco Use [...] documented as of this encounter Care Teams Physical Therapy Professor Relationship Specialty Start Date End Date Diana Zamudio MD [address] [place] [address] PCP - General Family Medicine 12/20/20 12/29/24 Milan Abrams MD [address] [place] [id number] PCP - General Internal Medicine 12/30/24 documented as of this encounter
--- OUTSIDE RECORDS SUMMARY | 2025-02-18 15:07 | XMS_ITS | Encounter Summary ---
Author Organization [employer] Address [address] [facility] 7t [place] [address] Care Team Providers Care Video Intern Name Role Phone Diana Zamudio MD Primary Care Provider [phone] Milan Abrams MD Primary Care Prov ider Reason for Visit * Reason Onset Date Comments Change PCP 04/21/2024 Encounter Details Date Type Department Care Team (Late st Contact Info) Description 04/21/2024 Telephone [facility] MEDICINE [address] [place] [address] Diana Zamudio MD [address] [place] [address] Change PCP Social History Tobacco Use Types [...] the past 12 months, has t he about.me, gas, oil or water [employer] threatened to shut off services in your [...] documented as of this encounter Care Teams Video Intern Relationship Specialty Start Date End Date Diana Zamudio MD [address] [place] [address] PCP - General Family Medicine 12/20/20 12/29/24 Milan Abrams MD [address] [place] [address] PCP - General Internal Medicine 12/30/24 documented as of this encounter
== END 2025-02-18 13:36 | disposition home or self-care (01) ==
LOC: HO.HGI 12:50
PROVIDERS: PCP General Practice; Visit Provider Nurse Practitioner Family
DX: K21.9 Gastro-esophageal reflux disease without esophagitis (principal); K58.9 Irritable bowel syndrome, unspecified; R10.13 Epigastric pain; A04.8 Other specified bacterial intestinal infections
CPT/HCPCS: 99214

== ENCOUNTER → 2025-02-18 12:49 | Outpatient (BNVA) | payer MEDICAID, SELFPAY | PROVIDERS: PCP General Practice; Visit Provider Nurse Practitioner Family | DX: K21.9 Gastro-esophageal reflux disease without esophagitis (principal); K58.9 Irritable bowel syndrome, unspecified; R10.13 Epigastric pain; R11.0 Nausea; A04.8 Other specified bacterial intestinal infections | CPT/HCPCS: 99212 ==

== ENCOUNTER → 2025-03-11 14:57 | Outpatient (REF) | payer MEDICAID, SELFPAY ==
--- OUTSIDE RECORDS SUMMARY | 2025-03-11 14:59 | XMS_ITS | Encounter Summary ---
Author Organization [employer] Address [address] [place] [address] 7t [place] [address] Care Team Providers Care Tipping Machine Operator Automatic Name Role Phone Diana Zamudio MD Primary Care Provider [phone] Milan Abrams MD Primary Care Prov ider Reason for Visit * Reason Onset Date Comments Appointment Request 05/16/2023 Encounter Details Date Type Department Care Team ([facility] st Contact Info) Description 05/16/2023 Telephone [facility] MEDICINE [address] [place] [address] Diana Zamudio MD [address] [place] [address] Appointment Request Social History Tobacco Use Types [...] 8:05 AM EDT Bárbara Ruelas RN - [facility] patient was evaluated and independent with ADL's does not require AFC or FLIGHT TEACHER, patient needs only homemaking services IADl's. Will forward message to provider binh OLMEDO. * Telephone Encounter - Clare Williamson - 05/16/2023 11:44 AM EDT Tc from [facility] requesting a PE appt . States pt needs for a program . documented in this encounter Plan of Treatment Upcoming Encounters Date Type Department Care Team (Late st Contact Info) Description 06/01/2025 3:15 PM EDT Office Visit [facility] [address] [place] [address] Milan Abrams MD [address] [place] [address] documented as of this encounter Visit Diagnoses Not on filedocumented in this encounter Additional Health Concerns Assessment Noted Time PHQ-9 Depression Total Score: 12 023 1:13 PM EDT documented as of this encounter Care Teams Tipping Machine Operator Automatic Relationship Specialty Start Date End Date Diana Zamudio MD [address] [place] [address] PCP - General Family Medicine 12/20/20 12/29/24 Milan Abrams MD [address] [place] [address] PCP - General Internal Medicine 12/30/24 documented as of this encounter
--- OUTSIDE RECORDS SUMMARY | 2025-03-11 14:59 | XMS_ITS | Encounter Summary ---
Author Organization [employer] Address [address] [facility] 7t [place] [address] Care Team Providers Care Consulting Senior Practice Director Name Role Phone Diana Zamudio MD Primary Care Provider [phone] Milan Abrams MD Primary Care Prov ider Reason for Visit * Reason Onset Date Comments Change PCP 04/21/2024 Encounter Details Date Type Department Care Team ([facility] st Contact Info) Description 04/21/2024 Telephone [facility] MEDICINE [address] [place] [address] Diana Zamudio MD [address] [place] [address] Change PCP Social History Tobacco Use Types [...] the past 12 months, has t he [employer], gas, oil or water [employer] threatened to shut off services in your [...] Description 06/01/2025 3:15 PM EDT Office Visit [facility] MED [facility] PEDS [address] [place] [address] Milan Abrams MD [address] [place] [address] documented as of this encounter Visit Diagnoses Not on filedocumented in this encounter Additional Health Concerns Assessment Noted Time PHQ-9 Depression Total Score: 3 03/03/20 24 2:34 PM EDT documented as of this encounter Care Teams Consulting Senior Practice Director Relationship Specialty Start Date End Date Diana Zamudio MD [address] [place] [id number] PCP - General Family Medicine 12/20/20 12/29/24 Milan Abrams MD [address] [place] [address] [place] [address] PCP - General Internal Medicine 12/30/24 documented as of this encounter
--- OUTSIDE RECORDS SUMMARY | 2025-03-11 14:59 | XMS_ITS | Clinical Summary ---
Author Organization [employer] Address [address] [facility] 7t [place] [address] Care Team Providers Care Multimedia Coordinator Name Role Phone Milan Abrams MD Primary Care Prov ider Allergies No known active allergies Medications Aspirin Low Dose 81 MG chewable tablet TAKE 1 TABLET BY MOUTH EVERY DAY FOR 30 DAYS 08/23/20 22 Active D3 Super Strength 50 MCG (1999 UT) capsule Take 50 mcg by mouth in the morning. 02/22/20 23 Active EPINEPHrine (Epipen) 0.3 MG/0.3ML injection syringe Inject 0.3 mL into the shoulder, thigh, or buttocks. 02/22/20 22 Active DULoxetine (Cymbalta) [address] capsuleIndicat ions:Mood disorder (CMS/HCC) Take 1 capsule (60 mg) by mouth Once per day. Do not crush or chew. 90 capsule 3 03/03/20 24 Active QUEtiapine (SEROquel) 25 MG tabletIndicati ons:Mood disorder (CMS/HCC) Take 1 tablet (25 mg) by mouth at bedtime. Take every night 90 tablet 3 03/03/20 24 Active Ventolin HFA 108 (90 Base) MCG/ACT inhaler TOME DOS INHALACIONES CADA 4-6 HORAS CUANDO SEA NECESARIO PARA LA FALTA DE RESPIRACI N/LA SIBILANCIA 04/15/20 24 Active buPROPion XL (Wellbutrin XL) 150 MG 24 hr tabletIndicati ons:Mood disorder (CMS/HCC) TAKE 1 TABLET (150 MG) BY MOUTH IN THE MORNING. DO NOT CRUSH, CHEW, OR SPLIT. 90 tablet 3 08/04/20 24 Active omeprazole (PriLOSEC) [address] capsuleIndicat ions:Gastroeso phageal reflux disease, unspecified whether esophagitis present TAKE 1 CAPSULE BY MOUTH BEFORE MORNING MEAL DAILY 90 capsule 3 08/04/20 24 Active clobetasol (Temovate) 0.05 % gelIndications :Polymorphic light eruption Apply 1 Application. topically 2 times daily. 30 g 08/29/20 24 Active naloxone (Narcan) 4 mg/0.1 mL nasal sprayIndicatio ns:Anxiety Administer 1 spray (4 mg) into affected nostril(s) if needed for opioid reversal. May repeat every 2-3 minutes if needed, alternating nostrils, until medical assistance becomes available. 2 each 3 12/31/19 25 026 Active ALPRAZolam (Xanax) 1 MG tabletIndicati ons:Mood disorder (CMS/HCC) TOME ABDON TABLETA POR VIA ORAL ONCE DAILY NEEDED FOR PANIC ATTACK (MAX 20 TABLETS/MONTH) 20 tablet 01/20/20 25 Active acetaminophen (Pain Relief Extra Strength) 500 MG tablet TAKE 1 TABLET (500 MG) BY MOUTH EVERY 8 (EIGHT) HOURS IF NEEDED FOR MILD PAIN. 90 tablet 3 01/20/20 25 Active ibuprofen 800 MG tablet TAKE 1 TABLET BY MOUTH 3 TIMES DAILY. 90 tablet 02/19/20 25 Active ALPRAZolam (Xanax) 1 MG tabletIndicati ons:Mood disorder (CMS/HCC) TOME ABDON TABLETA POR VIA ORAL ONCE DAILY NEEDED FOR PANIC ATTACK (MAX 20 TABLETS/MONTH) 20 tablet 02/19/20 25 Active ALPRAZolam (Xanax) 1 MG tabletIndicati ons:Mood disorder (CMS/HCC) TOME ABDON TABLETA POR VIA ORAL ONCE DAILY NEEDED FOR PANIC ATTACK (MAX 20 TABLETS/MONTH) 20 tablet 01/20/20 25 025 Discontinued ibuprofen 800 MG tablet Take 1 tablet (800 mg) by mouth 3 times daily. 90 tablet 01/20/20 25 025 Discontinued Active Problems Problem Noted Date Diagnosed Date Chronic pain of left ankle 05/21/2024 Assessment & Plan (05/21/2024 6:39 AM EDT): S/p internal fixation in 2018 Declines hardware removal offered in 2021 at [facility] Movement and stretching Vicodin very sparingly prn [...] management. For any issues or concerns, call [facility]. All his questions were answered. I [...] (01/19/2025 9:28 AM EDT): Followed by cardiology, [id number] score 0 points on aspirin Assessment & Plan (05/21/2024 6:36 AM EDT): Referred to [facility] Given number to call Assessment & Plan (08/01/2023 11:08 AM EDT): Will make f/u appointment with marketing graphics specialist Had been off anticoagulation for some time Depressive disorder 12/21/2020 Encounters Date Type Department Care Team Description 02/16/2025 Refill [facility] [address] [place] [address] Milan Abrmas MD Mood disorder ([facility]) 02/03/2025 Orders Only GENERIC EXTERNAL DATA DEPARTMENT Provider, Generic External Data 01/19/2025 9:00 AM EDT Telemedicine [facility] [address] [place] [address] Milan Abrams MD Paroxysmal atrial fibrillation (CMS/HCC) (Primary Dx); Mood disorder (CMS/HCC); Gastroesophageal reflux disease without esophagitis; Anxiety 01/18/2025 Travel 01/13/2025 Refill [facility] [address] [place] [address] Diana Zamudio MD Mood disorder (CMS/HCC) 01/09/2025 Population Health Risk Score [facility] () Department [address] [place] [id number] Provider, Population Health Generic 12/30/2024 10:00 AM EST Clinical Support [facility] [address] [place] [address] Ashley Bustillos RN Anxiety (Primary Dx) 12/30/2024 Telephone [facility] [address] [place] [address] Milan Abrams MD Care Coordination 12/30/2024 Refill [facility] [address] [place] [address] Ashley Bustillos, TASHA Anxiety (Primary Dx) 12/30/2024 Travel 12/30/2024 Telephone [facility] [address] [place] [address] Ashley Bustillos, TASHA Recommend MINE ANALYST Tier 2 12/12/2024 Refill [facility] [address] [place] [address] Diana Zamudio MD Mood disorder (CMS/HCC) from Last 3 Months Family History Medical [...] Upcoming Encounters Date Type Department Care Team ([facility] st Contact Info) Description 06/01/2025 3:15 PM EDT Office Visit [facility] [address] [place] [address] Milan Abrams MD [address] [place] [address] Health Maintenance Due Date Last Done Comments HIV Screening 1981 Alcohol/Substance Use Screening 1993 Family Planning (PISQ) 1996 DTaP/Tdap/Td Vaccines (1 - Tdap) 2000 Hepatitis B Vaccines (1 of 3 - 19+ 3-dose series) 2000 COVID-19 Vaccine ( - 2023-2 5 season) 2024 Influenza Vaccine [...] 8:52 AM EDT 02/03/2025 9:54 AM EDT [facility] - 02/05/2025 7:04 PM EDT ----- ------- Name: Gilbert Silva ? Age/Sex: 44/M ? : 1980 Unit#: [id number] ?? Attend Dr: Krysta Loving MD ?Re02/03/25 ?Status: DEP [facility] ? Location: HO.SSS ?Disch: ? ----- ------- SPEC : [id number] ? RECD: 02/03/25 ? STATUS: ??SOUT ? REQ NUM: [id number] ? SEDRICK: 02/03/25 ? SUBM DR: Krysta Loving MD ? [...] ? Age/Sex: 44/M ? : 1980 Unit#: [id number] ?? Attend Dr: Krysta Loving MD ?Re02/03/25 ?Status: DEP SDC ? Location: HO.SSS ?Disch: ? ----- ------- SPEC : [id number] ? RECD: 02/03/25 ? STATUS: ??SOUT ? REQ NUM: [id number] ? SEDRICK: 02/03/25 ? SUBM DR: Krysta Loving MD ? ENTERED: ??02/03/25-1001 ?SP TYPE: Surgical ? OTHR DR: Diana Zamudio ? ORDERED: ??HE Stain/9, Gross Micro L4/3, T Cell, IHC, Add. immunos, H. pylori ? Gross Description ?(Continued) Part C: ??Received in formalin labeled ?distal esophagus biopsies? are 3 nuno-white irregular and rectangular tissue fragments ranging from 0.2-0.3 cm, submitted in toto in a cassette labeled CAngie CEDS Special studies ordered and performed: Immunostain for H. pylori on B1; CD3 on A1. Copies To: ?? Krysta Loving MD ?? [facility] Gastroenterology Services ?? [address] ?? [place] [address] ?? [phone] ?? Diana Zamudio ?? [address] [facility] ?? [place] [address] ?? [phone] ----- ------- Signed (signature on file) Verónica Norberto 02/05/251903 ? ----- ------- ? END OF REPORT ? us Generic External Data Provider LAB BLOOD ORDERAB LES Final Result [facility] [address] [place] [address] [phone] * POCT CARLIE-14 Urine Drug Screen (12/30/2024 10:13 AM EST) Urine Urine specimen obtained by clean catch procedure / Unknown 12/30/2024 10:13 AM EST Ashley Dobbs RN - 12/30/2024 10:13 AM EST UTOX cup Lot#[id number] Exp. 06/17/26 Internal Pass Control Negative for all substances us Diana Zamudio MD POINT OF CARE TEST ENTER/EDIT ORDERABLES Final Result * (ABNORMAL) Lipid Panel, Standard (08/01/2023 11:21 AM EDT) Triglycerides 71 <150 mg/dL [facility] Comment:Desirable Triglyceri de: less than 150 mg/dLBorderline High Triglyceride 150-199 mg/dLHigh Triglyceride: 200-499 mg/dLVery High Triglyceride: greater than or equal to 5OO mg/dL Cholesterol 152 <200 mg/dL [facility] Comment:Desirable Cholestero l: less than 200 mg/dLBorderline High Cholesterol: 200-239 mg/dLHigh Cholesterol: greater than 239 mg/dL LDL Cholesterol Calculated 100(H) <100 mg/dL [facility] Comment:Desirable LDL: less than 100 mg/dLNear Optimal/Above Optimal LDL: 110- 129 mg/dLBorderline High LDL: 130-159 mg/dLHigh LDL: 160-189 mg/dLVery High LDL: greater than or equal to 190 mg/dL HDL Cholesterol 38(L) >40 mg/dL [facility] Comment:Desirable HDL: great er than 40 mg/dL Note: This HDL assay may give artificially low results in patients with liver disease. Blood Venous blood specimen / Unknown 08/01/2023 11:21 AM EDT 08/01/2023 1:13 PM EDT Diana Zamudio MD LAB BLOOD ORDERABLES Final Res ult [facility] [address] [place] [phone] * HEPATITIS C AB W/REFL TO HCV RNA, QN, PCR (12/27/2020 10:03 AM EST) HEPATITIS C ANTIBODY NON-REACT NINO NON-REACT NINO [facility] INDEX 0.10 <1.00 [facility] Comment: ?? HCV antibody was non-reactive. There is no laboratory ?? evidence of HCV infection. ?? In most cases, no further action is required. However, if recent HCV exposure is suspected, a test for HCV RNA (test code 91014) is suggested. ?? For additional information please refer to http://education.[employer]/faq/ADN07c9 (This link is being provided for informational/ educational purposes only.) ?? 12/27/2020 10:0 3 AM EST us Diana Zamudio MD HISTORICAL/NON ORDERABLE LABS Final Result [facility] [address] from Last 3 Months or Most Recently Relevant to Health Maintenance Insurance [facility] C3 Care Teams Multimedia Coordinator Relationship Specialty Start Date End Date Milan Abrams MD [address] [place] [phone] PCP - General Internal Medicine 12/30/24
--- OUTSIDE RECORDS SUMMARY | 2025-03-11 14:59 | XMS_ITS | Encounter Summary ---
Author Organization [employer] Address [address] [place] [address] 7 [place] [address] Care Team Providers Care Software Installation Engineer Name Role Phone Diana Zamudio MD Primary Care Provider [phone] Milan Abrams MD Primary Care Prov ider Reason for Visit * Reason Comments Med Refill Encounter Details Date Type Department Care Team (Late st Contact Info) Description 12/08/2022 Refill [facility] [address] [place] [address] John Saunders FNP Social History Tobacco Use [...] Description 06/01/2025 3:15 PM EDT Office Visit [facility] [address] [place], [place] [phone] Milan Abrams MD [address] [place], [place] [phone] documented as of this encounter Visit Diagnoses Not on filedocumented in this encounter Additional Health Concerns Assessment Noted Time PHQ-9 Depression Total Score: 12 023 11:15 AM EST documented as of this encounter Care Teams Software Installation Engineer Relationship Specialty Start Date End Date Diana Zamudio MD [address] [place] [address] PCP - General Family Medicine 12/20/20 12/29/24 Milan Abrams MD [address] [place] [phone] PCP - General Internal Medicine 12/30/24 documented as of this encounter
--- OUTSIDE RECORDS SUMMARY | 2025-03-11 14:59 | XMS_ITS | Encounter Summary ---
Author Organization [employer] Address [address] [facility] 7t [place] [address] Care Team Providers Care Reading Professor Name Role Phone Diana Zamudio MD Primary Care Provider [phone] Milan Abrams MD Primary Care Prov ider Reason for Referral * Consultation (Routine) - Closed Specialty Diagnoses / Procedures Referred By Contac t Referred To Contact Cardiology Diagnoses Paroxysmal atrial fibrillation (CMS/HCC) Diana Zamudio MD [address] [place] [address] Phone: tel: fax: [address] Phone: tel: fax: Referral ID Status Reason Start Date Expiration Date V isits Requested Visits Authorized [id number] Closed Specialty Services Required 04/25/2024 04/25/2025 6 6 Encounter Details Date Type Department Care Team (Late st Contact Info) Description 04/15/2024 Orders Only [facility] [address] [place], [place] [phone] Diana Zamudio MD [address] [place], [place] [phone] Paroxysmal atrial fibrillation (CMS/HCC) (Primary Dx) Social [...] Upcoming Encounters Date Type Department Care Team ([facility] st Contact Info) Description 06/01/2025 3:15 PM EDT Office Visit [facility] [address] [place] [address] Milan Abrams MD [address] [place] [address] documented as of this encounter Procedures Procedure [...] documented as of this encounter Care Teams Reading Professor Relationship Specialty Start Date End Date Diana Zamudio MD [address] [place] [phone] PCP - General Family Medicine 12/20/20 12/29/24 Milan Abrams MD [address] [place] [phone] PCP - General Internal Medicine 12/30/24 documented as of this encounter
== END ==
LOC: HO.CARD 14:57
PROVIDERS: PCP General Practice; Visit Provider Nurse Practitioner Family
DX: R00.2 Palpitations (principal); I48.0 Paroxysmal atrial fibrillation
CPT/HCPCS: 93242

== ENCOUNTER → 2025-03-11 14:59 | Outpatient (BNV) | payer MEDICAID, SELFPAY | PROVIDERS: PCP General Practice; Visit Provider Internal Medicine | DX: I47.10 Supraventricular tachycardia, unspecified (principal) | CPT/HCPCS: 93227 ==

== ENCOUNTER 2025-04-23 09:57 | Outpatient (REF) | payer MEDICAID, SELFPAY ==
--- NOTE | ~2025-04-23 | XR_ITS ---
EXAMINATION: XR WRIST, RIGHT CLINICAL INFORMATION: right wrist pain COMPARISON: None available. TECHNIQUE: PA, oblique, lateral, and spot navicular views of the right wrist. FINDINGS: There is no joint diastases or offset of the proximal carpal row. There are no degenerative changes. No fracture or deformity is identified. XR/XR wrist RT min 3V IMPRESSION: Unremarkable right wrist. Electronically signed by: Jose Manuel Silva MD 04/23/2025 10:35 AM EDT
--- OUTSIDE RECORDS SUMMARY | 2025-04-23 11:27 | XMS_ITS | Encounter Summary ---
Author Organization [employer] Address [address] [place] [address] 7t [place] [address] Care Team Providers Care Knife Setter Grinder Machine Name Role Phone Diana Zamudio MD Primary Care Provider [phone] Milan Abrams MD Primary Care Prov ider Reason for Referral * Consultation (Routine) - Closed Specialty Diagnoses / Procedures Referred By Contac t Referred To Contact Cardiology Diagnoses Paroxysmal atrial fibrillation (CMS/HCC) Diana Zamudio MD [address] [place] [address] Phone: tel: fax: [address] Phone: tel: fax: Referral ID Status Reason Start Date Expiration Date V isits Requested Visits Authorized [id number] Closed Specialty Services Required 04/25/2024 04/25/2025 6 6 Encounter Details Date Type Department Care Team (Late st Contact Info) Description 04/15/2024 Orders Only [facility] [address] [place] [address] Diana Zamudio MD [address] [place] [address] Paroxysmal atrial fibrillation (CMS/HCC) (Primary Dx) Social [...] Description 06/01/2025 3:15 PM EDT Office Visit [facility] [address] [place], [place] [phone] Milan Abrams MD [address] [place] [address] documented as of this encounter Procedures Procedure [...] documented as of this encounter Care Teams Knife Setter Grinder Machine Relationship Specialty Start Date End Date Diana Zamudio MD [address] [place] [address] PCP - General Family Medicine 12/20/20 12/29/24 Milan Abrams MD [address] [place] [address] PCP - General Internal Medicine 12/30/24 documented as of this encounter
== END 2025-04-23 09:58 | disposition home or self-care (01) ==
LOC: HO.XRAY 09:57
PROVIDERS: PCP Internal Medicine; Visit Provider Internal Medicine
DX: M25.531 Pain in right wrist (principal)
CPT/HCPCS: 73110

== ENCOUNTER → 2025-04-23 10:01 | Outpatient (BNV) | payer MEDICAID, SELFPAY | PROVIDERS: PCP Internal Medicine; Visit Provider Radiology Diagnostic Radiology | DX: M25.531 Pain in right wrist (principal) | CPT/HCPCS: 73110 ==

== ENCOUNTER 2025-05-20 15:17 | Outpatient (AMB) | payer MEDICAID, SELFPAY ==
--- OUTSIDE RECORDS SUMMARY | 2023-08-02 10:15 | XMS_ITS | Continuity of Care Document ---
Author Organization [facility] Address [address] [place] [address] Phone Care Team Providers Care Uniform Room Attendant Name Role Phone Samuel Biggs DO Unavailable Unavailable Allergies, Adverse Reactions, Alerts Substance Reaction Status Criticality No Known Allergies Active No Inform ation Medications Medication Instructions Dosage Effective Dates (start - stop) Status Comments duloxetine 60 mg capsule,delayed release take 1 capsule by oral route every day 60 MG - Active D/C LATUDA hydroxyzine HCl 25 mg tablet take 1 tablet by oral route tid prn anxiety - Active mirtazapine 15 mg tablet take 1 tablet by oral route every day before bedtime 15 MG - Active D/C TRAZODONE ; TELUGU LABEL PLS; D/C WELLBUTRIN EPIPEN 2-MECHELLE 0.3 MG/0.3 ML INJECTION, AUTO-INJECTOR inject 0.3 milliliter by intramuscular route once as needed for anaphylaxis 0.3 MG - Active loratadine 10 mg tablet take 1 tablet by oral route every day 10 MG - Active Flonase Allergy Relief 50 mcg/actuation nasal spray,suspension spray 1 - 2 spray by intranasal route every day in each nostril as needed 50-100 MCG - Active Vitamin D3 2,000 unit tablet take 1 tabloet po q day after 8 weeks of high dose Vitamin D - Active Eliquis 5 mg tablet take 1 tablet by oral route 2 times every day 5 MG - Active atenolol 25 mg tablet take 1 tablet by oral route every day 25 MG - Active Procedures Procedure Date OFFICE/OUTPATIENT VISIT EST OFFICE/OUTPATIENT VISIT, EST OFFICE/OUTPATIENT VISIT, EST OFFICE/OUTPATIENT VISIT EST OFFICE/OUTPATIENT VISIT EST OFFICE/OUTPATIENT VISIT, EST OFFICE/OUTPATIENT VISIT, EST OFFICE/OUTPATIENT VISIT, EST [facility] Mccd,phys coor-care ovrst Mccd,phys coor-care ovrst OFFICE/OUTPATIENT VISIT, EST Mccd,phys coor-care ovrst OFFICE/OUTPATIENT VISIT, EST PSYCHOTHERAPY 30 MIN WITH A PATIENT AND/ OR FAMILY Mccd,phys coor-care ovrst OFFICE/OUTPATIENT VISIT, EST Mccd,phys coor-care ovrst Mccd,phys coor-care ovrst OFFICE/OUTPATIENT VISIT, EST OFFICE/OUTPATIENT VISIT, EST PSYCHOTHERAPY 30 MIN WITH A PATIENT AND/ OR FAMILY OFFICE/OUTPATIENT VISIT, EST OFFICE/OUTPATIENT VISIT, EST OFFICE/OUTPATIENT VISIT, EST CHIROPRACTIC MANIPULATION PSYCHOTHERAPY 30 MIN WITH A PATIENT AND/ OR FAMILY OFFICE/OUTPATIENT VISIT, EST MEDICAL NUTRITION, INDIV, INITIAL ASSES. OFFICE/OUTPATIENT VISIT, EST OFFICE/OUTPATIENT VISIT, EST Brief Emotional/behave Assmt Brief Emotional/behave Assmt Alcohol/drug screening OFFICE/OUTPATIENT VISIT, EST OFFICE/OUTPATIENT VISIT, EST Handling and/or conveyance of specimen O OFFICE/OUTPATIENT VISIT, EST PSYCHOTHERAPY 30 MIN WITH A PATIENT AND/ OR FAMILY OFFICE/OUTPATIENT VISIT, EST OFFICE/OUTPATIENT VISIT, EST PSYCHOTHERAPY 30 MIN WITH A PATIENT AND/ OR FAMILY Handling and/or conveyance of specimen A OFFICE/OUTPATIENT VISIT, EST OFFICE/OUTPATIENT VISIT, EST OFFICE/OUTPATIENT VISIT, EST PSYCHOTHERAPY 30 MIN WITH A PATIENT AND/ OR FAMILY OFFICE/OUTPATIENT VISIT, EST PSYCHOTHERAPY 30 MIN WITH A PATIENT AND/ OR FAMILY PSYCHOTHERAPY 30 MIN WITH A PATIENT AND/ OR FAMILY PSYCHOTHERAPY 30 MIN WITH A PATIENT AND/ OR FAMILY PSYCHOTHERAPY 30 MIN WITH A PATIENT AND/ OR FAMILY PSYCHOTHERAPY 30 MIN WITH A PATIENT AND/ OR FAMILY OFFICE/OUTPATIENT VISIT, EST PHARMACOLOGICAL MGMT OFFICE/OUTPATIENT VISIT, EST PHARMACOLOGICAL MGMT PSYCHOTHERAPY 45 MIN Psychiatric Diagnositc Eval Advance Directives Directive Yes / No Effective Date File Name No Information Encounters Encounter Description Practice Location Reason(s) For Visit Diagnoses Date Provider Providers Copied on Encounter [facility], [address] [id number], [place] tel:[phone] [facility] No Information 3 Biggs Samuel. [address] [place], [place], [address], [place]. tel:[phone] OFFICE/OUTPATI ENT VISIT EST [facility], [address], [place], [place], [address], [place] tel:[phone] [facility] Major depressive disorder, recurrent, moderateAnxi ety 1 Tom Langston. [address] [place], [place], [address], [place]. tel:[phone] OFFICE/OUTPATI ENT VISIT, EST [facility], [address], [place], [place], [address], [place] tel:[phone] [facility] Major depressive disorder, recurrent, moderateAnxi ety Aug-0 0 Santos Dashrath. [address] [place], [place], [address], [place]. tel:[phone] OFFICE/OUTPATI ENT VISIT, EST [facility], [address], [place], [place], [address], [place] tel:[phone] [facility] Major depressive disorder, recurrent, moderateAnxi ety Sep-0 0 Santos Dashrath. [address] [place], [place], [address], [place]. tel:[phone] OFFICE/OUTPATI ENT VISIT EST [facility], [address], [place], [place], [address], [place] tel:[phone] [facility] Cardiology referrals and test done (chief complaint)Te [facility] (chief complaint)GI update (chief complaint) Heartburn symptomAtypi roddy chest pain 0 Syed Leilan. [address] [place], [address], [place]. tel:[phone] OFFICE/OUTPATI ENT VISIT EST [facility], [address], [place], [place], [address], [place] tel:[phone] [facility] Major depressive disorder, recurrent, moderateAnxi ety Mar- 0 Santos Dashrath. [address] [place], [place], [address], [place]. tel:[phone] [facility], [address], [place], [place], [address], [place] tel:[phone] [facility] No Information 0 No Informatio n OFFICE/OUTPATI ENT VISIT, EST [facility], [address], [place], [place], [address], [place] tel:[phone] [facility] Major depressive disorder, recurrent, moderateAnxi ety Apr-2 3-202 0 Santos Dashrath. [address] [place], [place], [address], [place]. tel:[phone] OFFICE/OUTPATI ENT VISIT, EST [facility], [address], [place], [place], [address], [place] [phone] [facility] Major depressive disorder, recurrent, moderateAnxi ety 9201 9 Santos Dashrath. [address] [place], [place], [address], [place]. tel:[phone] OFFICE/OUTPATI ENT VISIT, EST [facility], [address], [place], [place], [address], [place] tel:[phone] [facility] Major depressive disorder, recurrent, moderateAnxi etyEncounter for administrati ve examinations , unspecified 9 Santos Dashrath. [address] [place], [place], [address], [place]. tel:[phone] [facility], [address], [place], [place], [address], [place] tel:[phone] [facility] Encounter for administrati ve examinations , unspecified 9 Frempong Mathieu. [address] [place], [address], [place]. tel:[phone] OFFICE/OUTPATI ENT VISIT, EST [facility], [address], [place], [place], [address], [place] tel:[phone] [facility] HHP Follow up (chief complaint)Mu ltiple skin tags (chief complaint) Encounter for administrati ve examinations , unspecifiedS kin tags, multiple acquired Sep-0 3-201 9 Frempong Mathieu. [address] [place], [address], [place]. tel:[phone] [facility], [address], [place], [place], [address], [place] tel:[phone] [facility] Encounter for administrati ve examinations , unspecified 9 [facility]. [address] [place], [address], [place]. tel:[phone] OFFICE/OUTPATI ENT VISIT, EST [facility], [address], [place], [place], [address], [place] tel:[phone] [facility] Major depressive disorder, recurrent, moderateAnxi ety 9 Tom Langston. [address] [place], [place], [address], [place]. tel:[phone] PSYCHOTHERAPY 30 MIN WITH A PATIENT AND/OR FAMILY [facility], [address], [place], [place], [address], [place] tel:[phone] [facility] Major depressive disorder, recurrent, moderateAnxi ety 9 No Informatio n OFFICE/OUTPATI ENT VISIT, EST [facility], [address], [place], [place], [address], [place] tel:[phone] [facility] Follow up (chief complaint)ri ght leg pain (chief complaint) Posterior right knee painScreenin g for HIV (human immunodefici ency virus)Screen for STD (sexually transmitted disease)Over weight 9 [facility]. [address] [place], [address], [place]. tel:[phone] [facility], [address], [place], [place], [address], [place] tel:[phone] [facility] Segmental and somatic dysfunction of lumbar region 9 [facility]. [address] [place], [address], [place]. tel:[phone] [facility], [address], [place], [place], [address], [place] tel:[phone] [facility] Segmental and somatic dysfunction of lumbar region 9 Frempong Mathieu. [address] [place], [address], [place]. tel:[phone] OFFICE/OUTPATI ENT VISIT, EST [facility], [address], [place], [place], [address], [place] tel:[phone] [facility] Major depressive disorder, recurrent, moderateAnxi ety 9 Santos Kian. [address] [place], [place], [address], [place]. tel:[phone] OFFICE/OUTPATI ENT VISIT, EST [facility], [address], [place], [place], [address], [place] tel:[phone] [facility] x ray results (chief complaint) Primary osteoarthrit is, right ankle and foot February- 9 Bro Donaldson. [address] [place], [address], [place]. tel:[phone] PSYCHOTHERAPY 30 MIN WITH A PATIENT AND/OR FAMILY [facility], [address], [place], [place], [address], [place] tel:[phone] [facility] Major depressive disorder, recurrent, moderateAnxi ety 9 No Informatio n OFFICE/OUTPATI ENT VISIT, EST [facility], [address], [place], [place], [address], [place] tel:[phone] [facility] ankle issues (chief complaint) Acute right ankle pain February-0 9 Bro Cardoso [address] [place], [address], [place]. tel:[phone] OFFICE/OUTPATI ENT VISIT, EST [facility], [address], [address], [place] tel:[phone] [facility] Major depressive disorder, recurrent, moderateAnxi ety 9 Santos Dashrath. [address] [place], [place], [address], [place]. tel:[phone] OFFICE/OUTPATI ENT VISIT, EST [facility], [address], [place], [place], [address], [place] [phone] [facility] HHP Follow Up (chief complaint)Bl ue Nails (chief complaint) Subungual hematoma of great toe of left foot, initial encounterSub ungual hematoma of great toe of right foot, initial encounterAtr ial fibrillation , unspecified typeHx of care home use of blood thinners 9 Frempong Mathieu. [address] [place], [address], [place]. tel:[phone] [facility], [address], [place], [place], [address], [place] [phone] [facility] Spinal Care (chief complaint) Segmental and somatic dysfunction of lumbar regionSegmen anitra and somatic dysfunction of thoracic regionMid back painAcute midline low back pain without sciatica 9 Gal Washington. [address] [place], [place], [address], [place]. tel:[phone] PSYCHOTHERAPY 30 MIN WITH A PATIENT AND/OR FAMILY [facility], [address], [place], [place], [address], [place] tel:[phone] [facility] Major depressive disorder, recurrent, moderate 9 No Informatio n OFFICE/OUTPATI ENT VISIT, EST [facility], [address], [place], [place], [address], [place] [phone] [facility] Major depressive disorder, recurrent, moderate Feb-0 9 Santos Dashrath. [address] [place], [place], [address], [place]. tel:[phone] [facility], [address], [place], [place], [address], [place] tel:[phone] [facility] RD Consult (chief complaint) BMI 27.0-27.9,ad ultWeight loss counseling, encounter for 9 Rebekah Lozano. [address] [place], [address], [place]. tel:[phone] OFFICE/OUTPATI ENT VISIT, [facility], [address], [place], [place], [address], [place] tel:[phone] [facility] Podiatry referral (chief complaint) Right foot pain 9 Syed Boyd. [address] [place], [address], [place]. tel:[phone] OFFICE/OUTPATI ENT VISIT, [facility], [address], [place], [place], [address], [place] tel:[phone] [facility] Major depressive disorder, recurrent, moderate 8 Tom Langston. [address] [place], [place], [address], [place]. tel:[phone] OFFICE/OUTPATI ENT VISIT, [facility], [address], [place], [place], [address], [place] tel:[phone] [facility] Encounter for screening for other disorderPoor dietAtrial fibrillation , unspecified typeOsteoart hritis, unspecified osteoarthrit is type, unspecified siteDepressi on, unspecified depression typePOLST (Physician Orders for Life-Sustain ing Treatment)En counter to establish care with new doctor 8 Freddy Murdock. [address] [place], [address], [place]. tel:[phone] OFFICE/OUTPATI ENT VISIT, [facility], [address], [place], [place], [address], [place] tel:[phone] [facility] lab results (chief complaint) Shrimp allergyAller gy to treesAtrial fibrillation with controlled ventricular rateRecurren t sinusitis 8 No Informatio n [facility], [address], [place], [place], [address], [place] tel:[phone] [facility] labs only (chief complaint) Allergic rhinitis, unspecified 8 Syed Deb. [address] [place], [address], [place]. tel:[phone] OFFICE/OUTPATI ENT VISIT, [facility], [address], [place], [place], [address], [place] tel:[phone] [facility] f/u allergies/ referrals (chief complaint) Allergic rhinitis, unspecified seasonality, unspecified triggerSnori ngFatigue, unspecified type Sep-2 8 Syed Deb. [address] [place], [address], [place]. tel:[phone] PSYCHOTHERAPY 30 MIN WITH A PATIENT AND/OR FAMILY [facility], [address], [place], [place], [address], [place] tel:[phone] [facility] Major depressive disorder, recurrent, moderate Sep-2 8 No Informatio n OFFICE/OUTPATI ENT VISIT, [facility], [address], [place], [place], [address], [place] tel:[phone] [facility] Major depressive disorder, recurrent, moderatePain in unspecified jointPersona l history of other diseases of the circulatory system 8 Tom Langston. [address] [place], [place], [address], [place]. tel:[phone] OFFICE/OUTPATI ENT VISIT, [facility], [address], [place], [place], [address], [place] tel:[phone] [facility] Results (chief complaint) Low vitamin D levelEncount er to discuss test results 8 Syed Boyd. [address] [place], [address], [place]. tel:[phone] [facility], [address], [address], [place] tel:[phone] [facility] No Information 8 Syed Boyd. [address] [place], [address], [place]. tel:[phone] PSYCHOTHERAPY 30 MIN WITH A PATIENT AND/OR FAMILY [facility], [address], [place], [place], [address], [place] tel:[phone] [facility] Major depressive disorder, recurrent, moderate 8 No Informatio n [facility], [address], [address], [place] tel:[phone] [facility] No Information 8 Syed Boyd. [address] [place], [address], [place]. tel:[phone] OFFICE/OUTPATI ENT VISIT, EST [facility], [address], [address], [place] tel:[phone] [facility] f/u (chief complaint)Ad dendum 03/12/18 (chief complaint) Arthralgia, unspecified jointHistory of atrial fibrillation 8 Syed Boyd. [address] [place], [address], [place]. tel:[phone] OFFICE/OUTPATI ENT VISIT, EST [facility], [address], [address], [place] tel:[phone] [facility] Major depressive disorder, recurrent, moderateImpu lse control disorder 8 Tom Langston. [address] [place], [place], [address], [place]. tel:[phone] OFFICE/OUTPATI ENT VISIT, EST [facility], [address], [place], [place], [address], [place] tel:[phone] [facility] ER follow up (chief complaint) Atrial fibrillation with controlled ventricular rate 8 Carlo Sloan. [address] [place], [place], [address], [place]. tel:[phone] PSYCHOTHERAPY 30 MIN WITH A PATIENT AND/OR FAMILY [facility], [address], [place], [place], [address], [place] tel:[phone] [facility] Major depressive disorder, recurrent, moderate Dec-0 8 No Informatio n OFFICE/OUTPATI ENT VISIT, EST [facility], [address], [address], [place] tel:[phone] [facility] established care (chief complaint) Body mass index (BMI) 29.0-29.9, [facility] to establish careArthralg ia, unspecified jointFatigue , unspecified typeChronic bilateral low back pain without sciaticaOthe r chronic pain 8 Syed Boyd. [address] [place], [address], [place]. tel:[phone] PSYCHOTHERAPY 30 MIN WITH A PATIENT AND/OR FAMILY [facility], [address], [place], [place], [address], [place] tel:[phone] [facility] Major depressive disorder, recurrent, moderateAnge r 8 No Informatio n PSYCHOTHERAPY 30 MIN WITH A PATIENT AND/OR FAMILY [facility], [address], [place], [place], [address], [place] tel:[phone] [facility] Major depressive disorder, recurrent, moderatePani c disorder without agoraphobiaI mpulse control disorder 7 Santos Dashrath. [address] [place], [place], [address], [place]. tel:[phone] PSYCHOTHERAPY 30 MIN WITH A PATIENT AND/OR FAMILY [facility], [address], [address], [place] tel:[phone] [facility] Major depressive disorder, recurrent, moderatePani c disorder without agoraphobiaI mpulse control disorder 7 Santos Dashrath. [address] [place], [place], [address], [place]. tel:[phone] PSYCHOTHERAPY 30 MIN WITH A PATIENT AND/OR FAMILY [facility], [address], [address], [place] tel:[phone] [facility] Major depressive disorder, recurrent, moderatePani c disorder without agoraphobiaI mpulse control disorder Jan- 7 Santos Dashrath. [address] [place], [place], [address], [place]. tel:[phone] PSYCHOTHERAPY 30 MIN WITH A PATIENT AND/OR FAMILY [facility], [address], [address], [place] tel:[phone] [facility] Major depressive disorder, recurrent, moderatePani c disorder without agoraphobia 7 Santos Dashrath. [address] [place], [place], [address], [place]. tel:[phone] OFFICE/OUTPATI ENT VISIT, [facility], [address], [place], [place], [address], [place] tel:[phone] [facility] Major depressive disorder, recurrent, moderatePani c disorder without agoraphobia 6 [facility]. [address] [place], [place], [address], [place]. tel:[phone] OFFICE/OUTPATI ENT VISIT, EST [facility], [facility], [place], [place], [address], [place] tel:[phone] [facility] depression (chief complaint) Major depressive disorder, recurrent, moderatePani c disorder without agoraphobia 6 [facility] [address] [place], [place], [address], [place]. tel:[phone] PSYCHOTHERAPY 45 MIN [facility], [facility], [place], [place], [address], [place] tel:[phone] [facility] Major depressive disorder, recurrent, moderatePani c disorder without agoraphobia 6 No Informatio n Psychiatric Diagnositc Eval [facility], [address], [place], [place], [address], [place] tel:[phone] [facility] Depression (chief complaint)Pa sally Attacks (chief complaint)Mo od Swings (chief complaint) Major depressive disorder, recurrent, moderatePani c disorder without agoraphobia 5 No Informatio n Family History Family Member Type Diagnosis Age At Onset Brother Problem (finding) Cancer, brain Mother Problem (finding) Lupus erythematosus Immunizations Vaccine Date Status Comments Tdap (Adacel) administered Source: Other Provider Payers Payer name Insurance type Covered constitution party ID Authoriza tiania(s) [facility] Managed Wrap [id number] Social History Type Description Quantity Date Captured Comments Alcohol Use Details Unknown Caffeine Use Details Unknown Tobacco Use Status No Information Smoking Status No Information Sex Male Sexual Orientation Straight or heterosexual Gender Identity Male Chief Complaint And Reason For Visit No Information Reason For Referral Reason For Referral No Information Plan Of Treatment Date Type Action Status Goal Alcohol/chemical dependency screeing. Due on due Goal Hep C Ab. Due on due Goal Dental exam. Due on 023 due Goal Depression scree kylah. Due on due Goal Unhealthy drug u se screening. Due on due Goal Hepatitis C scre ening. Due on due Goal Lipid panel. Due on due Goal Depression scree kylah. Due on due Goal Alcohol/chemical dependency screeing. Due on due Goal Hep C Ab. Due on due Goal Dental exam. Due on 021 due Goal Lipid Panel. Due on 023 due Goal Lipid panel. Due on 023 due Goal Influenza vaccine. Due on due Goal Tdap due Goal Depression scree kylah. Due on due Goal Dental exam. Due on due Goal Hep C Ab. Due on due Goal Alcohol/chemical dependency screeing. Due on due Goal Dental exam. Due on 020 due Goal Depression scree kylah. Due on due Goal Lipid Panel due Goal Hep C Ab. Due on due Goal Alcohol/chemical dependency screeing. Due on due Goal Alcohol/chemical dependency screeing. Due on due Goal Hep C Ab. Due on due Goal Dental exam. Due on due Goal Lipid Panel due Goal Depression scree kylah. Due on due Goal Hep C Ab. Due on due Goal Depression scree kylah. Due on due Goal Alcohol/chemical dependency screeing. Due on due Goal Dental exam. Due on due Goal Lipid Panel due Goal PHQ9. Due on due Goal Hep C Ab. Due on due Goal Depression scree kylah. Due on due Goal Alcohol/chemical dependency screeing. Due on due Goal Dental exam. Due on due Goal Lipid Panel. Due on due Goal SHA Senior 65+. Due on due Goal SHA Adult 18-64 yrs. Due on due Goal Tdap due Goal Depression scree kylah. Due on due Goal SHA Senior 65+. Due on due Goal SHA Adult 18-64 yrs. Due on due Goal Tdap due Goal Depression scree kylah. Due on due Goal SHA Adult 18-64 yrs. Due on due Goal SHA Senior 65+. Due on due Goal Tdap due Goal Depression scree kylah. Due on due Goal SHA Adult 18-64 yrs. Due on due Goal SHA Senior 65+. Due on due Goal Tdap due Goal Depression scree kylah. Due on due Goal Tdap due Goal Depression scree kylah. Due on due Goal Tdap due Goal Depression scree kylah. Due on due Goal Tdap due Goal Depression scree kylah. Due on due Goal Tdap due Goal Depression scree kylah. Due on due Goal Tdap due Goal Depression scree kylah. Due on due Goal Tdap due Goal Depression scree kylah. Due on due Goal Depression scree kylah. Due on due Goal Tdap due Goal Tdap due Goal Depression scree kylah. Due on due Goal Tdap due Goal Depression scree kylah. Due on due Goal Tdap due Goal Depression scree kylah. Due on due Goal Tdap due Goal Depression scree kylah. Due on due Goal Tdap due Goal Depression scree kylha. Due on due Goal Depression scree kylah. Due on due Goal Tdap due Goal Depression scree kylah. Due on due Goal Tdap due Goal Tdap due Goal Depression scree kylah. Due on due Goal Tdap due Goal Depression scree kyalh. Due on due Goal Tdap due Goal Depression scree kylah. Due on due Goal Tdap due Goal Depression scree kylah. Due on due Goal Tdap due Goal Depression scree kylah. Due on due Goal Tdap due Goal Depression scree kylah. Due on due Goal Tdap due Goal Depression scree kylah. Due on due Goal Tdap due Goal Depression scree kylah. Due on due Goal Tdap due Goal Depression scree kylah. Due on due Goal Tdap due Goal Depression scree kylah. Due on due Goal Tdap due Goal Depression scree kylah. Due on due Goal Tdap due Goal Depression scree kylah. Due on due Goal Tdap due Goal Depression scree kylah. Due on due Goal Tdap due Goal Depression scree kylah. Due on due Goal Tdap due Goal Depression scree kylah. Due on due Goal Tdap due Goal Depression scree kylah. Due on due Goal Tdap due Goal Depression scree kylah. Due on due Goal Lifestyle education regardin g diet completed Referral Ordered: Dermatology (related to Skin tags, multiple acquired) ordered Referral Ordered: Referrals: Dermatology. Evaluate and treat Appointment date/timeframe: 1 Week ordered Referral Ordered: Physical Therapy (related to Posterior right knee pain) ordered Referral Ordered: X-RAY EXAM OF KNEE, 3- COMPLETE Right ordered Referral Referred To: Physical Therapy Ordered: Referrals: Physical Therapy. Evaluate and treat Appointment date/timeframe: 1 Week ordered Referral Ordered: X-RAY EXAM OF FOOT- COMPLETE RT ordered Referral Ordered: X-RAY EXAM OF ANKLE-COMPLETE RT ordered Referral Ordered: Referrals: Podiatry. Evaluate and treat Appointment date/timeframe: 03/05/2019 ordered Referral Referred To: Dr. Newby Ordered: Referrals: Podiatry. Dr. Newby. Evaluate and treat ordered Referral Ordered: Referrals: Cio. Evaluate and treat Appointment date/timeframe: 10/16/2018 ordered Referral Ordered: X-RAY EXAM OF SINUSES- COMPLETE ordered Referral Ordered: Referrals: Allergy and Immunology. Consult ordered Referral Ordered: Referrals: Pulmonology. Consult ordered Patient Education Chest Pain: Care Instru ctions completed Patient Education A Healthy Lifestyle: Ca re Instructions completed Patient Education A Healthy Lifestyle: Ca re Instructions completed Patient Education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
--- NOTE | 2025-05-20 15:20 | A.OFFVIS_ITS ---
Vital Signs 05/20/25 15:22 Height 5 ft 8 in Weight 203 lb BMI 30.9 BP 126/68 Blood Pressure Location Rt brachial Position Sitting Pulse 90 Pulse Source Pulse Oximeter Pulse Oximetry (%) 97 Oxygen Delivery Method Room Air Intake Visit Reasons: 3 mos FUV. Intake Note: Est pt for mgmt of GERD w/ abd pain. Chief Complaint; C.O. chronic sx persistence. Pt did not finish abx as instructed. Took one dose and stopped taking them due to side effects. Equipment Processor Required: No Accompanied by: Self / Same As Patient Allergies shrimp Allergy (Severe, Verified 02/18/25 13:06) RASH HPI HPI 3 mos FUV.: Details: LAST VISIT GERD (gastroesophageal reflux disease) IBS (irritable bowel syndrome) Abdominal pain Postprandial epigastric pain Helicobacter pylori (H. pylori) Plan Will start patient on empiric therapy an we will recheck for eradication in few months. Quadruple therapy with changing the PPI to as omeprazole. Avoid dietary triggers we then snacking. Staying upright for minimal 3 hours after meals discussed with patient. James follow-up in 3 months, sooner on as needed basis. He is agreeable to this plan and verbalizes understanding of instructions. He was given the opportunity to ask questions and all questions answered. ? Thank you for allowing me to participate in his care New esomeprazole magnesium (Nexium) 40 mg PO DAILY 90 caps 3RF K21.9 doxycycline hyclate 100 mg PO BID 28 tabs 0RF 14 days bismuth subsalicylate 2 tabs PO QID 112 tabs 0RF 14 days A04.8 metronidazole 1,000 mg (2 x 500 mg) PO BID 56 tabs 0RF A04.8 ondansetron 4 mg PO Q8H PRN 20 tabs 0RF nausea and vomiting R11.0 Discontinued omeprazole Discontinued Reason: Doctor's Order 40 mg PO DAILY 14 caps 0RF TODAY'S VISIT Patient is here today for follow-up. Patient reports that he did not take his antibiotic. Patient states that he only took it one day and developed severe abdominal pain. Patient admits that he was not eating any food that day when he was taking the medication. Patient end up at urgent care. Currently patient reports that he has been feeling little better. Is taking Nexium every morning. States that his symptoms are better, however he still has epigastric pain after eating. Worsening epigastric pain when he is hungry. Patient reports that he eats about twice a day. Changed his diet and eating healthier. Avoiding fried food as much as he can. [facility] Medical History PAF (paroxysmal atrial fibrillation) Surgical History Hx of hernia repair Hx of foot surgery Family History Mother HTN (hypertension) Lupus COPD (chronic obstructive pulmonary disease) Father Diabetes Arthritis Brother HTN (hypertension) Brain tumor Social History Household Members: Family Alcohol intake: never Patient Tobacco Use Status: Never used Tobacco e-Cigarette/Vaping Use: Never Used Current occupational status: unemployed Current occupation: right hand Review of Systems Const Denies weight gain and Denies weight loss ENT Reports no additional complaints, Reports dysphagia and Denies odynophagia Card Reports no additional complaints Resp Reports no additional complaints GI Reports abdominal pain (Epigastric pain postprandially), Denies belching, Denies melena, Denies bloating, Denies change in bowel habits, Denies constipation, Reports dysphagia, Denies excessive flatus, Reports dyspepsia, Reports heartburn, Denies diarrhea, Denies loose stools, Denies nausea, Denies odynophagia and Denies vomiting Reports no additional complaints Musc Reports no additional complaints Neuro Reports no additional complaints Psych Reports no additional complaints Endo Reports no additional complaints Physical Exam Vital Signs: Last Vital Signs Pulse 90 05/20/25 15:22 BP 126/68 05/20/25 15:22 Pulse Ox 97 05/20/25 15:22 Oxygen Delivery Method Room Air 05/20/25 15:22 BMI result Body Mass Index 30.9 Const General: healthy appearing and no acute distress Nutritional Appearance: obese Orientation/consciousness: patient oriented x3 Resp Effort & Inspection: normal respiratory effort, able to speak in complete sentences, no tracheal deviation and symmetric chest movement Auscultation: clear to auscultation bilaterally Cardio Rate: regular rate GI Inspection: Yes normal to inspection, No distended and Yes obesity Palpation (GI): Soft to palpation, not firm, nontender and No hepatosplenomegaly present Auscultation: normal bowel sounds General: Yes no CVA tenderness Back/Spine/Pelvis Back: no CVA tenderness Skin General skin exam: elasticity normal, turgor normal and dry skin Neuro General: patient oriented x3 Psych Appearance: grossly normal Mental Status: mental status grossly normal Assessment & Plan Assessment & Plan (1) Gastroesophageal reflux disease: Code(s): K21.9 - Gastro-esophageal reflux disease without esophagitis Qualifiers: Esophagitis presence: esophagitis presence not specified Qualified Code(s): K21.9 - Gastro-esophageal reflux disease without esophagitis (2) Irritable bowel syndrome: Code(s): K58.9 - Irritable bowel syndrome, unspecified Qualifiers: Irritable bowel syndrome type: without diarrhea Qualified Code(s): K58.9 - Irritable bowel syndrome, unspecified (3) Abdominal pain: Code(s): R10.9 - Unspecified abdominal pain Qualifiers: Abdominal location: epigastric Qualified Code(s): R10.13 - Epigastric pain (4) Postprandial epigastric pain: Code(s): R10.13 - Epigastric pain (5) Helicobacter pylori infection: Code(s): A04.8 - Other specified bacterial intestinal infections Plan Patient will take full cycle of antibiotics if he did not take the antibiotics properly. He was taking them on empty stomach. Patient will try Zofran if he will have any trouble with nausea. Continue Nexium. Avoid dietary triggers and late night snacking. Staying upright for minimal 3 hours after meals discussed with patient. Patient will follow-up in 3 months, sooner on as needed basis. He is agreeable to this plan and verbalizes understanding of instructions. He was given the opportunity to ask questions and all questions answered. Thank you for allowing me to participate in his care Medications: New bismuth subsalicylate 2 tabs PO QID 112 tabs 0RF 14 days A04.8 - Other specified bacterial intestinal infections doxycycline hyclate 100 mg PO BID 28 caps 0RF 14 days metronidazole 1,000 mg (2 x 500 mg) PO BID 56 tabs 0RF A04.8 - Other specified bacterial intestinal infections Coding Level of Care Code Est Pt Level 4 (26825) Complex EM visit Add On G2211 Diagnoses Gastroesophageal reflux disease, unspecified whether esophagitis present K21.9 Esophagitis presence: esophagitis presence not specified Irritable bowel syndrome without diarrhea K58.9 Irritable bowel syndrome type: without diarrhea Epigastric pain R10.13 Abdominal location: epigastric Postprandial epigastric pain R10.13 Helicobacter pylori infection A04.8 Time Spent (min) 35 Comment 25 minutes spent with patient and additional 10 minutes spent reviewing his records
[2025-05-20 15:22] VITALS: BP 126/68; PULSE 90; O2SAT 97; BMI 30.9
--- OUTSIDE RECORDS SUMMARY | 2025-05-20 15:42 | XMS_ITS | Encounter Summary ---
Author Organization [employer] Address [address] [place] [address] 7t [place] [address] Care Team Providers Care Manufacturing Cost Estimator Name Role Phone Diana Zamudio MD Primary Care Provider [phone] Milan Abrams MD Primary Care Prov ider Reason for Referral * Consultation (Routine) - Closed Specialty Diagnoses / Procedures Referred By Contac t Referred To Contact Cardiology Diagnoses Paroxysmal atrial fibrillation (CMS/HCC) Diana Zamudio MD [address] [place] [address] Phone: tel: fax: [address] Phone: tel: fax: Referral ID Status Reason Start Date Expiration Date V isits Requested Visits Authorized [id number] Closed Specialty Services Required 04/25/2024 04/25/2025 6 6 Encounter Details Date Type Department Care Team (Late st Contact Info) Description 04/15/2024 Orders Only [facility] [address] [place] [address] Diana Zamudio MD [address] [place] [address] Paroxysmal atrial fibrillation (CMS/HCC) (Primary Dx) Social [...] Description 06/01/2025 3:15 PM EDT Office Visit [facility] [address] [place], [place] [phone] Milan Abrams MD [address] [place] [address] documented as of this encounter [...] documented as of this encounter Care Teams Manufacturing Cost Estimator Relationship Specialty Start Date End Date Diana Zamudio MD [address] [place] [address] PCP - General Family Medicine 12/20/20 12/29/24 Milan Abrams MD [address] [place] [address] PCP - General Internal Medicine 12/30/24 documented as of this encounter
== END 2025-05-20 15:38 | disposition home or self-care (01) ==
PROVIDERS: PCP Internal Medicine; Visit Provider Nurse Practitioner Family
DX: K21.9 Gastro-esophageal reflux disease without esophagitis (principal); K58.9 Irritable bowel syndrome, unspecified; R10.13 Epigastric pain; A04.8 Other specified bacterial intestinal infections
CPT/HCPCS: 99214

== ENCOUNTER → 2025-05-20 15:17 | Outpatient (BNVA) | payer MEDICAID, SELFPAY | PROVIDERS: PCP Internal Medicine; Visit Provider Nurse Practitioner Family | DX: K21.9 Gastro-esophageal reflux disease without esophagitis (principal); K58.9 Irritable bowel syndrome, unspecified; R10.13 Epigastric pain; A04.8 Other specified bacterial intestinal infections | CPT/HCPCS: 99212 ==

== ENCOUNTER 2025-06-08 14:07 | Outpatient (AMB) | payer MEDICAID, SELFPAY ==
[2025-06-08 14:12] VITALS: BP 124/72; PULSE 80; BMI 30.8
--- NOTE | 2025-06-08 14:12 | MHC.OFFVIS ---
Vital Signs 06/08/25 14:12 Height 5 ft 8 in Weight 202 lb 13.204 oz BMI 30.8 BP 124/72 Blood Pressure Location Rt brachial Position Sitting Pulse 80 Pulse Source Pulse Oximeter Intake Visit Reasons: 6m follow up Research Test Engine Operator Required: No Allergies shrimp Allergy (Severe, Verified 06/08/25 14:14) RASH Medication List - Last Reconciled 06/08/25 by Mahogany Brower, DOOR BUILDER-C albuterol sulfate 90 mcg/actuation (ProAir HFA) 2 puffs inhalation Q4-6H PRN alprazolam 1 mg PO TID PRN bismuth subsalicylate 2 tabs PO QID 14 days doxycycline hyclate 100 mg PO BID 14 days epinephrine 0.3 mg IM Q10M PRN esomeprazole magnesium (Nexium) 40 mg PO DAILY metronidazole 1,000 mg (2 x 500 mg) PO BID naloxone 4 mg/actuation intranasal omeprazole 40 mg PO DAILY ondansetron 4 mg PO Q8H PRN HPI HPI 6m follow up: Details: Gilbert is a 44-year-old male with reported past medical history of paroxysmal atrial fibrillation, previously diagnosed in [place], no EKGs to confirm. More recently he was seen by [facility] and now follows with us. Last visit 11/07/2024. Today he reports that he continues to feel rapid heartbeats especially when he does physical activity like playing basketball with his kids. He says that even after exercise it takes a while for his heart rate to come down. He reports good hydration but does not do routine exercise. He is fearful that these heart palpitations are signs of recurrent AFib. No shortness of breath, PND, orthopnea or edema. No lightheadedness, presyncope, syncope. He has been out of work for a few months and needs a note for return to work. He still drinks 1 coffee per day and 1-2 Pepsi's per day. Paroxysmal AFib reportedly diagnosed in [place] approximately 5 years ago. 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 Review of Systems Const All systems reviewed & are unremarkable except as noted in HPI and below ENT Denies dizziness Card Denies chest pain, Denies chest pain at rest, Denies chest pain with activity, Reports rapid heart rate, Denies pedal edema, Denies edema, Denies leg edema, Denies lightheadedness, Denies palpitations, Denies dyspnea, Denies dyspnea on exertion and Denies orthopnea Resp Denies cough, Denies dyspnea and Denies dyspnea on exertion GI Denies hematochezia and Denies change in stool character Musc Denies abnormal gait, Reports limited range of motion, Reports muscle cramps, Denies muscle weakness, Denies numbness, Denies radiating pain into limb, Denies stiffness and Denies tingling Neuro Denies abnormal gait, Denies dizziness, Denies numbness and Denies tingling Endo Denies palpitations Physical Exam Vital Signs: Last Vital Signs Pulse 80 06/08/25 14:12 BP 124/72 06/08/25 14:12 BMI result Body Mass Index 30.8 Const General: cooperative, healthy appearing, comfortable and no acute distress Orientation/consciousness: patient oriented x3 Neck Neck: Yes normal visual inspection and Yes no JVD Resp Effort & Inspection: normal respiratory effort Auscultation: clear to auscultation bilaterally, no crackles, no rales, no rhonchi and no wheezes Cardio Jugular venous distension: no JVD Rate: regular rate Rhythm: regular rhythm Heart sounds: S1 normal heart sound present, S2 normal heart sound present, no murmurs and no rubs Neuro General: patient oriented x3 Extrem General: Yes normal to inspection and No no pedal edema Psych Appearance: grossly normal Mental Status: mental status grossly normal Speech and movement: Normal speech and movement present Assessment & Plan Assessment & Plan (1) PAF (paroxysmal atrial fibrillation): Code(s): I48.0 - Paroxysmal atrial fibrillation Category: Medical Plan: Reported history of paroxysmal atrial fibrillation, though not confirmed. A cardiac event monitor done 03/07/2024 through [facility] showed sinus rhythm with occasional PACs and PVCs, no atrial fibrillation. EKG done here 04/15/2024 showed sinus rhythm with T-wave inversion lead 3 and AVF, unchanged from prior EKG, rate 68. A cardiac event monitor was done 09/03/2024 however only worn for 3.5 days due to reported skin irritation from the patch. It showed sinus rhythm with average heart rate 75, no arrhythmias. Holter monitor done 03/11/2025 showing sinus rhythm with average heart rate 78, rare SVE and ve. Echocardiogram 09/03/2024 showed EF 50-55%, no valve abnormality, left atrium likely dilated. Home sleep study 01/12/2025 showed no evidence of sleep apnea. He is still reporting intermittent heart palpitations especially with activity. Will order exercise stress test to evaluate this further. He is likely feeling sinus tachycardia. Recommended reduction in caffeine. Chads Vasc score of 0. No indication for anticoagulation due to low CHADS-VASc score and no confirmed AFib. Cardiology follow-up in 6 months, sooner if needed. (2) Palpitations: Code(s): R00.2 - Palpitations Category: Medical Plan: As above Plan I discussed with the patient the plan to conduct a stress test to monitor for atrial fibrillation during physical exertion. We agreed that if the test is normal, I will provide a clearance note for work. I explained that due to his low stroke risk, anticoagulation therapy is not necessary. The patient will be contacted for scheduling the stress test, and a follow-up is planned in six months, or sooner if needed. Orders: Orders CA stress test Today I48.0 - Paroxysmal atrial fibrillation, R00.2 - Palpitations Patient Instructions: - Await contact for stress test scheduling. - Follow up in six months or sooner if symptoms worsen. - Monitor heart rate during physical activity and report any irregularities. Patient was informed and verbally consented to the use of an ambient scribe for clinic note documentation during this visit. Visit time spent on chart review, interview, assessment, orders, documentation. Coding Level of Care Code Est Pt Level 3 (20400) Complex EM visit Add On G2211 Diagnoses PAF (paroxysmal atrial fibrillation) I48.0 Palpitations R00.2 Time Spent (min) 22
== END 2025-06-08 14:40 | disposition home or self-care (01) ==
LOC: HO.HCS 14:07
PROVIDERS: PCP Internal Medicine; Visit Provider Nurse Practitioner Family
DX: I48.0 Paroxysmal atrial fibrillation (principal); R00.2 Palpitations
CPT/HCPCS: 99213

== ENCOUNTER → 2025-06-08 14:07 | Outpatient (BNVA) | payer MEDICAID, SELFPAY | PROVIDERS: PCP Internal Medicine; Visit Provider Nurse Practitioner Family | DX: I48.0 Paroxysmal atrial fibrillation (principal); R00.2 Palpitations | CPT/HCPCS: 99212 ==

== ENCOUNTER → 2025-07-03 08:05 | Outpatient (REF) | payer MEDICAID, SELFPAY ==
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
--- OUTSIDE RECORDS SUMMARY | 2023-08-02 10:15 | XMS_ITS | Continuity of Care Document ---
Author Organization [facility] Address [address] [place] [address] Phone Care Team Providers Care Sanitation Tank Washer Name Role Phone Samuel Biggs DO Unavailable [...] 15 MG - Active D/C TRAZODONE ; BELARUSIAN LABEL PLS; D/C WELLBUTRIN EPIPEN 2-MECHELLE 0.3 [...] VISIT, EST OFFICE/OUTPATIENT VISIT, EST [facility]-care ovrst Mccd,phys coor-care [...] Diagnoses Date Provider Providers Copied on Encounter [employer], [address], [address], [place] tel:[phone] [employer] No Information 3 Biggs Samuel. [address], [place], [address], [place]. tel:[phone] OFFICE/OUTPATI ENT VISIT EST [employer], [address], [place], [place], [address], [place] tel:[phone] [facility] Major depressive disorder, recurrent, moderateAnxi ety 1 Tom Langston. [address] [place], [place], [address], [place]. tel:[phone] OFFICE/OUTPATI ENT VISIT, EST [employer], [address], [place], [place], [address], [place] tel:[phone] [facility] Major depressive disorder, recurrent, moderateAnxi ety Aug-0 0 Santos Dashrath. [address] [place], [place], [address], [place]. tel:[phone] OFFICE/OUTPATI ENT VISIT, EST [employer], [address], [place], [place], [address], [place] tel:[phone] [facility] Major depressive disorder, recurrent, moderateAnxi ety Sep-0 0 Santos Dashrath. [address] [place], [place], [address], [place]. tel:[phone] OFFICE/OUTPATI ENT VISIT EST [employer], [address], [place], [place], [address], [place] tel:[phone] [facility] Cardiology referrals and test done (chief complaint)Te [facility] (chief complaint)GI update (chief complaint) Heartburn symptomAtypi roddy chest pain 0 Syed Leilan. [address] [place], [address], [place]. tel:[phone] OFFICE/OUTPATI ENT VISIT EST [employer], [address], [place], [place], [address], [place] tel:[phone] [facility] Major depressive disorder, recurrent, moderateAnxi ety Mar- 0 Santos Dashrath. [address] [place], [place], [address], [place]. tel:[phone] [employer], [address], [place], [place], [address], [place] tel:[phone] [facility] No Information 0 No Informatio n OFFICE/OUTPATI ENT VISIT, EST [employer], [address], [place], [place], [address], [place] tel:[phone] [facility] Major depressive disorder, recurrent, moderateAnxi ety Apr-2 3-202 0 Santos Dashrath. [address] [place], [place], [address], [place]. tel:[phone] OFFICE/OUTPATI ENT VISIT, EST [employer] [facility], [address], [place], [place], [address], [place] [phone] [facility] Major depressive disorder, recurrent, moderateAnxi ety 9201 9 Santos Dashrath. [address] [place], [place], [address], [place]. tel:[phone] OFFICE/OUTPATI ENT VISIT, EST [employer] [facility], [address], [place], [place], [address], [place] tel:[phone] [facility] Major depressive disorder, recurrent, moderateAnxi etyEncounter for administrati ve examinations , unspecified 9 Santos Dashrath. [address] [place], [place], [address], [place]. tel:[phone] [employer], [address], [place], [place], [address], [place] tel:[phone] [facility] Encounter for administrati ve examinations , unspecified 9 Frempong Mathieu. [address] [place], [address], [place]. tel:[phone] OFFICE/OUTPATI ENT VISIT, EST [employer], [address], [place], [place], [address], [place] tel:[phone] [facility] HHP Follow up (chief complaint)Mu ltiple skin tags (chief complaint) Encounter for administrati ve examinations , unspecifiedS kin tags, multiple acquired Sep-0 3-201 9 Frempong Mathieu. [address] [place], [address], [place]. tel:[phone] [employer], [address], [place], [place], [address], [place] tel:[phone] [facility] Encounter for administrati ve examinations , unspecified 9 [facility]. [address] [place], [address], [place]. tel:[phone] OFFICE/OUTPATI ENT VISIT, EST [facility], [address], [place], [place], [address], [place] tel:[phone] [facility] Major depressive disorder, recurrent, moderateAnxi ety 9 Tom Langston. [address], [place], [address], [place]. tel:[phone] PSYCHOTHERAPY 30 MIN WITH A PATIENT AND/OR FAMILY [employer] [facility], [address], [place], [place], [address], [place] tel:[phone] [facility] Major depressive disorder, recurrent, moderateAnxi ety 9 No Informatio n OFFICE/OUTPATI ENT VISIT, EST [employer] [facility], [address], [place], [place], [address], [place] tel:[phone] [facility] Follow up (chief complaint)ri ght leg pain (chief complaint) Posterior right knee painScreenin g for HIV (human immunodefici ency virus)Screen for STD (sexually transmitted disease)Over weight 9 [facility]. [address] [place], [address], [place]. tel:[phone] [employer] [facility], [address], [place], [place], [address], [place] tel:[phone] [facility] Segmental and somatic dysfunction of lumbar region 9 [facility]. [address] [place], [address], [place]. tel:[phone] [employer] [facility], [address], [place], [place], [address], [place] tel:[phone] [facility] Segmental and somatic dysfunction of lumbar region 9 Frempong Mathieu. [address] [place], [address], [place]. tel:[phone] OFFICE/OUTPATI ENT VISIT, EST [employer] [facility], [address], [place], [place], [address], [place] tel:[phone] [facility] Major depressive disorder, recurrent, moderateAnxi ety 9 Santos Kian. [address] [place], [place], [address], [place]. tel:[phone] OFFICE/OUTPATI ENT VISIT, EST [employer], [address], [place], [place], [address], [place] tel:[phone] [facility] x ray results (chief complaint) Primary osteoarthrit is, right ankle and foot February- 9 Bro Donaldson. [address] [place], [address], [place]. tel:[phone] PSYCHOTHERAPY 30 MIN WITH A PATIENT AND/OR FAMILY [facility] [employer], [address], [place], [place], [address], [place] tel:[phone] [facility] Major depressive disorder, recurrent, moderateAnxi ety 9 No Informatio n OFFICE/OUTPATI ENT VISIT, EST [employer], [address], [place], [place], [address], [place] tel:[phone] [facility] ankle issues (chief complaint) Acute right ankle pain February-0 9 Bro Cardoso [address] [place], [address], [place]. tel:[phone] OFFICE/OUTPATI ENT VISIT, EST [employer], [address], [address], [place] tel:[phone] [facility] Major depressive disorder, recurrent, moderateAnxi ety 9 Santos Dashrath. [address], [place], [address], [place]. tel:[phone] OFFICE/OUTPATI ENT VISIT, EST [facility], [address], [place], [place], [address], [place] [phone] [facility] HHP Follow Up (chief complaint)Bl ue Nails (chief complaint) Subungual hematoma of great toe of left foot, initial encounterSub ungual hematoma of great toe of right foot, initial encounterAtr ial fibrillation , unspecified typeHx of terminal operations manager use of blood thinners 9 Frempong Mathieu. [address] [place], [address], [place]. tel:[phone] [facility], [address], [place], [place], [address], [place] [phone] [facility] Spinal Care (chief complaint) Segmental and somatic dysfunction of lumbar regionSegmen anitra and somatic dysfunction of thoracic regionMid back painAcute midline low back pain without sciatica 9 Gal Washington. [address], [place], [address], [place]. tel:[phone] PSYCHOTHERAPY 30 MIN WITH A PATIENT AND/OR FAMILY [facility], [address], [place], [place], [address], [place] tel:[phone] [facility] Major depressive disorder, recurrent, moderate 9 No Informatio n OFFICE/OUTPATI ENT VISIT, EST [facility], [address], [place], [place], [address], [place] [phone] [facility] Major depressive disorder, recurrent, moderate Feb-0 9 Santos Dashrath. [address] [place], [place], [address], [place]. tel:[phone] [employer] [facility], [address], [place], [place], [address], [place] tel:[phone] [facility] RD Consult (chief complaint) BMI 27.0-27.9,ad ultWeight loss counseling, encounter for 9 Rebekah Lozano. [address] [place], [address], [place]. tel:[phone] OFFICE/OUTPATI ENT VISIT, [facility] [employer], [address], [place], [place], [address], [place] tel:[phone] [facility] Podiatry referral (chief complaint) Right foot pain 9 Syed Boyd. [address] [place], [address], [place]. tel:[phone] OFFICE/OUTPATI ENT VISIT, [facility] [employer], [address], [place], [place], [address], [place] tel:[phone] [facility] Major depressive disorder, recurrent, moderate 8 Tom Langston. [address] [place], [place], [address], [place]. tel:[phone] OFFICE/OUTPATI ENT VISIT, [facility] [employer], [address], [place], [place], [address], [place] tel:[phone] [facility] ([facility]) Encounter for screening for other disorderPoor dietAtrial fibrillation , unspecified typeOsteoart hritis, unspecified osteoarthrit is type, unspecified siteDepressi on, unspecified depression typePOLST (Physician Orders for Life-Sustain ing Treatment)En counter to establish care with new doctor 8 Freddy Murdock. [address] [place], [address], [place]. tel:[phone] OFFICE/OUTPATI ENT VISIT, [facility], [address], [place], [place], [address], [place] tel:[phone] [facility] lab results (chief complaint) Shrimp allergyAller gy to treesAtrial fibrillation with controlled ventricular rateRecurren t sinusitis 8 No Informatio n [facility], [address], [place], [place], [address], [place] tel:[phone] [facility] labs only (chief complaint) Allergic rhinitis, unspecified 8 Syed Deb. [address] [place], [address], [place]. tel:[phone] OFFICE/OUTPATI ENT VISIT, [facility], [address], [place], [place], [address], [place] tel:[phone] [facility] f/u allergies/ referrals (chief complaint) Allergic rhinitis, unspecified seasonality, unspecified triggerSnori ngFatigue, unspecified type Sep-2 8 Syed Deb. [address] [place], [address], [place]. tel:[phone] PSYCHOTHERAPY 30 MIN WITH A PATIENT AND/OR FAMILY [facility] [employer] [facility], [address], [place], [place], [address], [place] tel:[phone] [facility] Major depressive disorder, recurrent, moderate Sep-2 8 No Informatio n OFFICE/OUTPATI ENT VISIT, [facility] [employer] [facility], [address], [place], [place], [address], [place] tel:[phone] [facility] Major depressive disorder, recurrent, moderatePain in unspecified jointPersona l history of other diseases of the circulatory system 8 Tom Langston. [address], [place], [address], [place]. tel:[phone] OFFICE/OUTPATI ENT VISIT, [facility] [employer], [address], [place], [place], [address], [place] tel:[phone] [facility] Results (chief complaint) Low vitamin D levelEncount er to discuss test results 8 Syed Boyd. [address] [place], [address], [place]. tel:[phone] [employer], [address], [address], [place] tel:[phone] [facility] No Information 8 Syed Boyd. [address] [place], [address], [place]. tel:[phone] PSYCHOTHERAPY 30 MIN WITH A PATIENT AND/OR FAMILY [facility], [address], [place], [place], [address], [place] tel:[phone] [facility] Major depressive disorder, recurrent, moderate 8 No Informatio n [employer], [address], [address], [place] tel:[phone] [facility] No Information 8 Syed Boyd. [address] [place], [address], [place]. tel:[phone] OFFICE/OUTPATI ENT VISIT, EST [employer], [address], [address], [place] tel:[phone] [facility] f/u (chief complaint)Ad dendum 03/12/18 (chief complaint) Arthralgia, unspecified jointHistory of atrial fibrillation 8 Syed Boyd. [address] [place], [address], [place]. tel:[phone] OFFICE/OUTPATI ENT VISIT, EST [employer], [address], [address], [place] tel:[phone] [facility] Major depressive disorder, recurrent, moderateImpu lse control disorder 8 Tom Langston. [address], [place], [address], [place]. tel:[phone] OFFICE/OUTPATI ENT VISIT, EST [employer], [address], [place], [place], [address], [place] tel:[phone] [facility] ER follow up (chief complaint) Atrial fibrillation with controlled ventricular rate 8 Carlo Sloan. [address], [place], [address], [place]. tel:[phone] PSYCHOTHERAPY 30 MIN WITH A PATIENT AND/OR FAMILY [employer], [address], [place], [place], [address], [place] tel:[phone] [facility] Major depressive disorder, recurrent, moderate Dec-0 8 No Informatio n OFFICE/OUTPATI ENT VISIT, EST [employer], [address], [address], [place] tel:[phone] [facility] established care (chief complaint) Body mass index (BMI) 29.0-29.9, [facility] er to establish careArthralg ia, unspecified jointFatigue , unspecified typeChronic bilateral low back pain without sciaticaOthe r chronic pain 8 Syed Boyd. [address] [place], [address], [place]. tel:[phone] PSYCHOTHERAPY 30 MIN WITH A PATIENT AND/OR FAMILY [employer], [address], [place], [place], [address], [place] tel:[phone] [facility] Major depressive disorder, recurrent, moderateAnge r 8 No Informatio n PSYCHOTHERAPY 30 MIN WITH A PATIENT AND/OR FAMILY [employer], [address], [place], [place], [address], [place] tel:[phone] [facility] Major depressive disorder, recurrent, moderatePani c disorder without agoraphobiaI mpulse control disorder 7 Santos Dashrath. [address], [place], [address], [place]. tel:[phone] PSYCHOTHERAPY 30 MIN WITH A PATIENT AND/OR FAMILY [facility], [address], [address], [place] tel:[phone] [facility] Major depressive disorder, recurrent, moderatePani c disorder without agoraphobiaI mpulse control disorder 7 Santos Dashrath. [address], [place], [address], [place]. tel:[phone] PSYCHOTHERAPY 30 MIN WITH A PATIENT AND/OR FAMILY [facility], [address], [place], [address], [place] tel:[phone] [facility] Major depressive disorder, recurrent, moderatePani c disorder without agoraphobiaI mpulse control disorder Jan- 7 Santos Dashrath. [address], [place], [address], [place]. tel:[phone] PSYCHOTHERAPY 30 MIN WITH A PATIENT AND/OR FAMILY [employer], [address], [address], [place] tel:[phone] [facility] Major depressive disorder, recurrent, moderatePani c disorder without agoraphobia 7 Santos Dashrath. [address], [place], [address], [place]. tel:[phone] OFFICE/OUTPATI ENT VISIT, [facility] [employer], [address], [place], [place], [address], [place] tel:[phone] [facility] Major depressive disorder, recurrent, moderatePani c disorder without agoraphobia 6 [facility]. [address], [place], [address], [place]. tel:[phone] OFFICE/OUTPATI ENT VISIT, EST [facility], [facility] [address], [place], [place], [address], [place] tel:[phone] [facility] depression (chief complaint) Major depressive disorder, recurrent, moderatePani c disorder without agoraphobia 6 [facility] [address], [place], [address], [place]. tel:[phone] PSYCHOTHERAPY 45 MIN [facility], [facility], [place], [place], [address], [place] tel:[phone] [facility] Major depressive disorder, recurrent, moderatePani c disorder without agoraphobia 6 No Informatio n Psychiatric Diagnositc Eval [facility], [address], [place], [place], [address], [place] tel:[phone] [facility] Depression (chief complaint)Pa sally Attacks (chief complaint)Mo [...] type Covered alliance party ID Authoriza tiania(s) [facility] Managed Wrap [id number] Social History Type Description Quantity Date Captured Comments Alcohol Use Details Unknown Caffeine Use Details Unknown Tobacco Use Status No Information Smoking Status No Information Sex Male Sexual Orientation Straight or heterosexual Gender Identity Male Chief Complaint And Reason For Visit No Information Reason For Referral Reason For Referral No Information Plan Of Treatment Date Type Action Status Goal Dental exam. Due on due Goal Hep C Ab. Due on due Goal Unhealthy drug u se screening. Due on due Goal Alcohol/chemical dependency screeing. Due on due Goal Depression scree kylah. Due on due Goal Hepatitis C scre ening. Due on due Goal Alcohol/chemical dependency screeing. Due on due Goal Depression scree kylah. Due on due Goal Lipid panel. Due on due Goal Dental exam. Due on due Goal Hep C Ab. Due on due Goal Lipid panel. Due on due Goal Influenza vaccine. Due on due Goal Tdap due Goal Lipid Panel. Due on due Goal Hep C Ab. Due on due Goal Alcohol/chemical dependency screeing. Due on due Goal Dental exam. Due on due Goal Depression scree kylah. Due on due Goal Hep C Ab. Due on due Goal Depression scree kylah. Due on due Goal Dental exam. Due on due Goal Alcohol/chemical dependency screeing. Due on due Goal Lipid Panel due Goal Lipid Panel due Goal Dental [...] Goal Lipid Panel. Due on due Goal Hep C Ab. Due on due Goal PHQ9. Due on due Goal Dental exam. Due on due Goal Alcohol/chemical dependency screeing. Due on due Goal SHA Adult 18-64 [...] Evaluate and treat ordered Referral Ordered: Referrals: [facility]. Evaluate and treat Appointment date/timeframe: 10/16/2018 ordered [...] Lab Order Chlamydi a/Neisseria gonorrhoeae RNA, TMA ([id number]), Ordered on: Ordered Future Order: Lab Order CMP ([id number]), Orde red on: Ordered Future Order: Lab Order CBC (INC LUDES DIFF/PLT) (1202), Ordered on: Ordered Future Order: Lab Order LIPID PA PARVIZ ([id number]), Ordered on: Ordered Future Order: Lab Order HEMOGLOB IN A1C (496), Ordered on: Ordered Future Order: Lab Order TSH, 3RD GENERATION ([id number]), Ordered on: Ordered Future Order: Lab Order T4, FREE (866), O rdered on: Ordered Future Order: Lab Order URINALYS IS, COMPLETE W/REFLEX TO CULTURE ([id number]), Ordered on: Ordered Future Order: Lab Order RPR (DX) W/REFL TITER AND CONFIRMATORY TESTING ([id number]), Ordered on: Ordered Future Order: Lab Order HIV-1/2 Antigen and Antibodies, Fourth Generation, with Reflexes ([id number]), Ordered on: Ordered History Of Present Illness Encounter Date Complaint History Of Prese nt Illness GI update > Seen by Dr. Ra felton, scheduled for EGD 06/24/20 Cardiology referrals and test done > Cardiac work up - Unremarkable, per Dr. Valadez, chest pain is non cardiac Tele Health > Patient verbal ly consented to have their visit with [facility] via Telehealth for their concern.> Reason for Telehealth Visit: State guidelines require residents to remain at home> Telehealth Platform used: Telephone > Is this visit type clinically appropriate for this patient? Yes> Is the encounter in place of a glmh-pe-gmyq encounter? Yes> Total Length of Telehealth Visit: 15 minutes> The patient understands and consents to this telehealth(audio) encounter> Date of verified by patient> Language line used for Interpretation: Sami> ID # - Placido [id number] [facility] Follow up Patient is here for [...] Still complaining of Right foot pain, his Door Captain is Dr. Newby> No other health complaints [facility] enrollment 37 year old male patient here presenting for [facility] Enrollment.Specialist/ Other doctors:- Cardiology - Afib- Podiatry - Odin- - Anxiety Depression - Gastro - for Ulcers- Pain management- on Yoandy-PCP- [facility] PMHx Date/ status / medications:- Afib- Arthritis [...] Caffeine: none Hospital Visits: 6 months ago [facility] lab results labs only f/u allergies/ [...] - will do Lumbosacral X-ray> Currently takes [place] for pain, c/o pain management2. Annual labs3. 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
--- NOTE | 2025-07-03 08:08 | CA_ITS ---
Acquisition Time: 2025-07-03 08:12:57 Total Exercise Time: 00:11:31 Test Indications: P AFIB Medications: SEE H&P Protocol: UCHE Max HR: 153 BPM 86% of Pred: 177 BPM Max BP: 140/80 mmHG Max Work Load: 13.4 METS Exercise stress test with exercise 11 mins 31 secs of [place] Protocol, achieving 86% MPHR, without any reports of chest pain or SOB, with isolated PVC, with normotensive response to exercise. Without any EKG changes meeting criteria for ischemia. In recovery, pt continued to feel well. Test reviewed with Dr. Walls. Referred By: Mahogany Brower Electronically Signed By: Mitch Rodgers
--- OUTSIDE RECORDS SUMMARY | 2025-07-03 08:12 | XMS_ITS | Encounter Summary ---
Author Organization [employer] Address [address] [place] [address] [address] [place] [address] Care Team Providers Care Living Nurse Name Role Phone Diana Zamudio MD Primary Care Provider [phone] Milan Abrams MD Primary Care Prov ider Reason for Referral * Consultation (Routine) - Closed Specialty Diagnoses / Procedures Referred By Contac t Referred To Contact Cardiology Diagnoses Paroxysmal atrial fibrillation (CMS/HCC) Diana Zamudio MD [address] [place] [address] Phone: tel: fax: [address] Phone: tel: fax: Referral ID Status Reason Start Date Expiration Date V isits Requested Visits Authorized [id number] Closed Specialty Services Required 04/25/2024 04/25/2025 6 6 Encounter Details Date Type Department Care Team (Late st Contact Info) Description 04/15/2024 Orders Only [facility] [address] [place] [address] Diana Zamudio MD [address] [place] [address] Paroxysmal atrial fibrillation (CMS/HCC) (Primary Dx) Social [...] encounter Results * Referral to Cardiology (07/22/2024) us Diana Zamudio MD OUTPATIENT REFERRAL ORDERABLES Final Result documented in this encounter Visit Diagnoses Diagnosis Paroxysmal atrial fibrillation (CMS/HCC)- Primary Atrial fibrillation documented in this encounter Additional Health Concerns Assessment Noted Time PHQ-9 Depression Total Score: 3 03/03/20 24 2:34 PM EDT documented as of this encounter Care Teams Living Nurse Relationship Specialty Start Date End Date Diana Zamudio MD [address] [place] [address] PCP - General Family Medicine 12/20/20 12/29/24 Milan Abrams MD [address] [place] [id number] PCP - General Internal Medicine 12/30/24 documented as of this encounter
--- OUTSIDE RECORDS SUMMARY | 2025-07-03 08:13 | XMS_ITS | Encounter Summary ---
Author Organization [employer] Address [address] [place] [address] [address] [place] [address] Care Team Providers Care Sales Host Name Role Phone Diana Zamudio MD Primary Care Provider [phone] Milan Abrams MD Primary Care Prov ider Reason for Visit * Reason Comments Med Refill Encounter Details Date Type Department Care Team (Late st Contact Info) Description 12/08/2022 Refill [facility] [address] [place] [address] John Saunders FNP Social History Tobacco Use [...] documented as of this encounter Care Teams Sales Host Relationship Specialty Start Date End Date Diana Zamudio MD [address] [place] [address] PCP - General Family Medicine 12/20/20 12/29/24 Milan Abrams MD [address] [place] [id number] PCP - General Internal Medicine 12/30/24 documented as of this encounter
--- OUTSIDE RECORDS SUMMARY | 2025-07-03 08:13 | XMS_ITS | Encounter Summary ---
Author Organization [employer] Address [address] [place] [address] [address] [place] [address] Care Team Providers Care Manager Transfer Name Role Phone Diana Zamudio MD Primary Care Provider [phone] Milan Abrams MD Primary Care Prov ider Reason for Visit * Reason Onset Date Comments Appointment Request 05/16/2023 Encounter Details Date Type Department Care Team ([facility] st Contact Info) Description 05/16/2023 Telephone [facility] [address] [place] [address] Diana Zamudio MD [address] [place] [address] Appointment Request Social History Tobacco Use Types [...] with ADL's does not require AFC or TISSUE SPECIALIST, patient needs only homemaking services IADl's. Will [...] documented as of this encounter Care Teams Manager Transfer Relationship Specialty Start Date End Date Diana Zamudio MD [address] [place] [phone] PCP - General Family Medicine 12/20/20 12/29/24 Milan Abrams MD [address] [place] [id number] PCP - General Internal Medicine 12/30/24 documented as of this encounter
--- OUTSIDE RECORDS SUMMARY | 2025-07-03 08:13 | XMS_ITS | Encounter Summary ---
Author Organization [employer] Address [address] [facility] [address] [place] [address] Care Team Providers Care Reinforcing Steel Worker Wire Mesh Name Role Phone Diana Zamudio MD Primary Care Provider [phone] Milan Abrams MD Primary Care Prov ider Reason for Visit * Reason Onset Date Comments Change PCP 04/21/2024 Encounter Details Date Type Department Care Team (Late st Contact Info) Description 04/21/2024 Telephone [facility] MEDICINE [address] [place] [address] Diana Zamudio MD [address] [place], [place] [phone] Change PCP Social History Tobacco Use Types [...] Time PHQ-9 Depression Total Score: 3 03/03/20 2:34 PM EDT documented as of this encounter Care Teams Reinforcing Steel Worker Wire Mesh Relationship Specialty Start Date End Date Diana Zamudio MD [address] [place] [address] PCP - General Family Medicine 12/20/20 12/29/24 Milan Abrams MD [address] [place] [address] PCP - General Internal Medicine 12/30/24 documented as of this encounter
--- OUTSIDE RECORDS SUMMARY | 2025-07-03 08:15 | XMS_ITS | Clinical Summary ---
Author Organization [employer] Address [address] [facility] 7t [place] [address] Care Team Providers Care Sailing Instructor Name Role Phone Milan Abrams MD Primary [...] shoulder, thigh, or buttocks. 02/22/20 22 Active buPROPion XL (Wellbutrin XL) 150 MG 24 hr tabletIndicatio ns:Mood disorder (CMS/HCC) TAKE 1 TABLET (150 MG) BY MOUTH IN THE MORNING. DO NOT CRUSH, CHEW, OR SPLIT. 90 tablet 3 08/04/20 24 Active omeprazole (PriLOSEC) [address] capsuleIndicati ons:Gastroesoph ageal reflux disease, unspecified whether esophagitis present TAKE 1 CAPSULE BY MOUTH BEFORE MORNING MEAL DAILY 90 capsule 3 08/04/20 24 Active clobetasol (Temovate) 0.05 % gelIndications: Polymorphic [...] 25 026 Active ALPRAZolam (Xanax) 1 MG tabletIndicatio ns:Mood disorder (CMS/HCC) TOME ADBON TABLETA POR VIA ORAL ONCE DAILY NEEDED FOR PANIC ATTACK (MAX 20 TABLETS/MONTH) 20 tablet 01/20/20 25 Active acetaminophen (Pain Relief Extra Strength) 500 MG tablet TAKE 1 TABLET (500 MG) BY MOUTH EVERY 8 (EIGHT) HOURS IF NEEDED FOR MILD PAIN. 90 tablet 3 01/20/20 25 Active QUEtiapine (SEROquel) 25 MG tabletIndicatio ns:Mood disorder (CMS/HCC) Take 1 tablet (25 mg) by mouth at bedtime. Take every night 90 tablet 3 05/11/20 25 Active DULoxetine (Cymbalta) [address] capsuleIndicati ons:Mood disorder (CMS/HCC) TAKE 1 CAPSULE BY MOUTH EVERY DAY. DO NOT CRUSH OR CHEW. 90 capsule 05/15/20 25 Active ibuprofen 800 MG tablet TAKE 1 TABLET BY MOUTH 3 TIMES DAILY 90 tablet 05/18/20 25 Active Diclofenac Sodium 1 % gelIndications: De Quervain's tenosynovitis,R ight wrist pain TO APPLY TO THE AFFECTED AREA 3 TIMES A DAY 100 g 05/25/20 25 Active Ventolin HFA 108 (90 Base) MCG/ACT inhaler Inhale 1 puff every 6 (six) hours if needed for wheezing. 18 g 3 06/01/20 25 026 Active ALPRAZolam (Xanax) 1 MG tabletIndicatio ns:Mood disorder (CMS/HCC) TOME 1 TABLETA POR VIA ORAL TODOS [place] FOR PANIC ATTACK (MAX 20 TABS/MONTH) 20 tablet 06/27/20 25 Active ALPRAZolam (Xanax) 1 MG tabletIndicatio ns:Mood disorder (CMS/HCC) TOME 1 TABLETA POR VIA ORAL TODOS [place] N[place]ESARIO FOR PANIC ATTACK (MAX 20 TABS/MONTH) 20 tablet 05/25/20 25 025 Discontinued Active Problems Problem Noted Date Diagnosed Date Chronic pain of left ankle 05/21/2024 Assessment & Plan (05/21/2024 6:39 AM EDT): S/p internal fixation in 2019 Declines hardware removal offered in 2020 at [facility] Movement and stretching Vicodin very sparingly prn [...] management. For any issues or concerns, call [facility]. All his questions were answered. 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 Had been off anticoagulation for some time Depressive disorder 12/21/2020 Assessment & Plan (06/01/2025 4:29 PM EDT): Followed by therapist, no suicidal/homicidal ideas Encounters Date Type Department Care Team Description 06/27/2025 Refill [facility] [address] [place] [address] Milan Abrams MD De Quervain's tenosynovitis; Right wrist pain 06/26/2025 Telephone [facility] [address] [place] [address] Milan Abrams MD 06/24/2025 Refill [facility] [address] [place] [address] Milan Abrams MD Mood disorder (CMS/HCC) 06/11/2025 Telephone [facility] [address] [place] [address] Milan Abrams MD Letter Request (I called to get information, regarding a request for a letter for daycare, and spoke with Haley. She stated that she is currently , and is high risk. The patient is disabled, and cannot care for their young son while she goes to her doctors appointments. They are requesting a letter from the patient's PCP, asking for assistance with getting their son into daycare. ) 06/03/2025 Telephone [facility] [address] [place] [address] Milan Abrams MD Letter Request (I called to get clarification, on a request for a letter for welfare. I reached a voicemail, and left a message asking the patient to return my call at ext [phone].) 06/01/2025 3:15 PM EDT Office Visit [facility] [address] [place] [address] Milan Abrams MD Paroxysmal atrial fibrillation (CMS/HCC) (Primary Dx); Dietary counseling; Exercise counseling; Depressive disorder 06/01/2025 Travel 05/25/2025 Refill [facility] [address] [place] [address] Kit Reyes MD Mood disorder (CMS/HCC); De Quervain's tenosynovitis; Right wrist pain 05/25/2025 Travel 05/17/2025 Refill [facility] [address] [place] [address] Milan Abrams MD 05/15/2025 Refill [facility] [address] [place] [address] Milan Abrams MD Mood disorder ([facility] 05/11/2025 Refill [facility] [address] [place] [address] Milan Abrams MD Mood disorder ([facility]) 04/27/2025 Refill [facility] [address] [place] [address] Milan Abrams MD Mood disorder ([facility]) 04/23/2025 9:00 AM EDT Office Visit [facility] [address] [place] [address] Kit Reyes MD De Quervain's tenosynovitis (Primary Dx); Right wrist pain 04/23/2025 Results Follow-Up [facility] [address] [place] [address] Kit Reyes MD XR Wrist 3+ Views Right 04/23/2025 Travel 04/22/2025 Telephone [facility] [address] [place] [address] Milan Abrams MD 04/22/2025 Telephone [facility] [address] [place] [address] Milan Abrams MD Nurse Triage 04/16/2025 Refill [facility] [address] [place] [address] Milan Abrams MD from Last 3 Months Family History Medical [...] Answer Date Recorded Patient Health Questionnaire-9 Score 21 06/01/2025 Patient Health Questionnaire-9 Score 21 06/01/2025 Last PHQ-9: Questionnaire Data Not on file 0 06/01/2025 Housing Stability Answer Date Recorded What is [...] Answer Date Recorded Patient Health Questionnaire-2 Score 5 06/01/2025 Internet Access Answer Date Recorded Internet Access [...] Sign Reading Time Taken Comments Blood Pressure 118/72 06/01/2025 3:14 PM EDT Pulse 80 06/01/2025 3:14 PM EDT Temperature 37.1 C (98.7 F) 06/01/2025 3:14 PM EDT Respiratory Rate 20 06/01/2025 3:14 PM EDT Oxygen Saturation 96% 04/23/2025 9:03 AM EDT Inhaled Oxygen Concentration - - Weight 91.6 kg (202 lb) 06/01/2025 3:14 PM EDT Height 172.7 cm (5' 8 ) 06/01/2025 3:14 PM EDT Body Mass Index 30.71 06/01/2025 3:14 PM EDT Plan of Treatment Health Maintenance Due Date Last Done Comments HIV Screening 1980 Family Planning (PISQ) 1996 HPV Vaccines (1 - Male 3-dos e series) 1996 DTaP/Tdap/Td Vaccines (1 - Tdap) 2000 Hepatitis B Vaccines (1 of 3 - 19+ 3-dose series) 2000 Pneumococcal Vaccine: Pediatrics (0 to 5 Years) and At-Risk Patients (6 to 49) Years (1 of 2 - PCV) 2000 COVID-19 Vaccine (1 - 2023-2 5 season) 2025 Influenza Vaccine (#1) 2025 SDOH Screening 08/08/2025 08/08/2024 Depression Monitoring 12/02/2025 06/01/2025 , 06/01/2025 Disability Screening 01/18/2026 01/18/2025 Tobacco Screening 04/23/2026 04/23/2025 Alcohol/Substance Use Screening 06/01/2026 06/01/2025 Lipid Panel 08/01/2028 08/01/2023, 10/19/2021 Zoster Vaccines [...] patient's age to complete this topic Meningococcal B Vaccine Aged Out No l onger eligible based on patient's age to complete [...] Procedure Name Priority Date/Time Associated Diagnosis Comments XR WRIST 3+ VIEWS RIGHT Routine 04/23/2025 10:02 AM EDT Right wrist pain LIPID PANEL, STANDARD Routine 08/01/2023 11:21 AM EDT Annual physical exam ZZZ HISTORICAL HEPATITIS C AB W/REFL TO HCV RNA, QN, PCR Routine 12/27/2020 10:03 AM EST from Last 3 Months or Most Recently Relevant to Health Maintenance Results * XR Wrist 3+ Views Right (04/23/2025 10:02 AM EDT) Anatomical Region Laterality Modality Upper Extremities, Wrist Right Radiogr aphic Imaging 04/23/2025 10:0 2 AM EDT Narrative 04/23/2025 10:38 AM EDT [place] [address] XRay Report Signed Patient: Gilbert Silva MR#: [id number] : 1980 Acct:[id number] Age/Sex: 44 / M ADM Date: 04/23/25 Loc: HO.JOVANNI Attending Dr: Kit Reyes MD Ordering Physician: Kit Reyes MD Date of Service: 04/23/25 Procedure(s): XR wrist RT min 3V Accession Number(s): [id number] cc: Kit Reyes MD EXAMINATION: XR WRIST, RIGHT CLINICAL INFORMATION: right wrist pain COMPARISON: None available. TECHNIQUE: PA, oblique, lateral, and spot navicular views of the right wrist. FINDINGS: There is no joint diastases or offset of the proximal carpal row. There are no degenerative changes. No fracture or deformity is identified. XR/XR wrist RT min 3V IMPRESSION: Unremarkable right wrist. Electronically signed by: Jose Manuel Silva MD 04/23/2025 10:35 AM EDT RP Dictated By: Jose Manuel Silva MD Signed By: <Electronically signed by Jose Manuel Silva MD in OV> 04/23/25 1035 DD/ 1002 TD/TT: 04/23/25 1010 Yard Clerk: Procedure Note Donotsjinterpreter, Image - 04/23/[address] [address] XRay Report Signed Patient: Gilbert Silva EMR#: [id number] : 1980Acct:[id number] Age/Sex: 44 / MADM Date: 04/23/25 Loc: HO.JOVANNI Attending Dr: Kit Reyes MD Ordering Physician: Kit Reyes MD Date of Service: 04/23/25 Procedure(s): XR wrist RT min 3V Accession Number(s): [id number] cc: Kit Reyes MD EXAMINATION: XR WRIST, RIGHT CLINICAL INFORMATION: right wrist pain COMPARISON: None available. TECHNIQUE: PA, oblique, lateral, and spot navicular views of the right wrist. FINDINGS: There is no joint diastases or offset of the proximal carpal row. There are no degenerative changes. No fracture or deformity is identified. XR/XR wrist RT min 3V IMPRESSION: Unremarkable right wrist. Electronically signed by: Jose Manuel Silva MD 04/23/2025 10:35 AM EDT RP Dictated By: Jose Manuel Silva MD Signed By: <Electronically signed by Jose Manuel Silva MD in OV> 04/23/25 1035 DD/ 1002 TD/TT: 04/23/25 1010 Yard Clerk: us Kit Reyes MD IMG XR PROCEDURES Final Res ult * (ABNORMAL) Lipid Panel, Standard (08/01/2023 11:21 AM EDT) Triglycerides 71 <150 mg/dL [facility] Comment:Desirable Triglyceri de: less than 150 mg/dLBorderline High Triglyceride 150-199 mg/dLHigh Triglyceride: 200-499 mg/dLVery High Triglyceride: greater than or equal to 5OO mg/dL Cholesterol 152 <200 mg/dL [facility] Comment:Desirable Cholestero l: less than 200 mg/dLBorderline High Cholesterol: 200-239 mg/dLHigh Cholesterol: greater than 239 mg/dL LDL Cholesterol Calculated 100(H) <100 mg/dL [facility] Comment:Desirable LDL: less than 100 mg/dLNear Optimal/Above Optimal LDL: 110- 129 mg/dLBorderline High LDL: 130-159 mg/dLHigh LDL: 160-189 mg/dLVery High LDL: greater than or equal to 190 mg/dL HDL Cholesterol 38(L) >40 mg/dL [facility] Comment:Desirable HDL: great er than 40 mg/dL Note: This HDL assay may give artificially low results in patients with liver disease. Blood Venous blood specimen / Unknown 08/01/2023 11:21 AM EDT 08/01/2023 1:13 PM EDT us Diana Zamudio MD LAB BLOOD ORDERABLES Final Res ult [facility] [address] [place] [phone] * HEPATITIS C AB W/REFL TO HCV RNA, QN, PCR (12/27/2020 10:03 AM EST) HEPATITIS C ANTIBODY NON-REACT NINO NON-REACT NINO [facility] INDEX 0.10 <1.00 [facility] Comment: HCV antibody was non-reactive. There is no laboratory evidence of HCV infection. In most cases, no further action is required. However, if recent HCV exposure is suspected, a test for HCV RNA (test code 62468) is suggested. For additional information please refer to http://education.Stitch/faq/MZY69g2 (This link is being provided for informational/ educational purposes only.) 12/27/2020 10:0 3 AM EST us Diana Zamudio MD HISTORICAL/NON ORDERABLE LABS Final Result [facility] [address] [place] [phone], from Last 3 Months or Most Recently Relevant to Health Maintenance [facility] Care Teams Sailing Instructor Relationship Specialty Start Date End Date Milan Abrams MD [address] [place] [id number] PCP - General Internal Medicine 12/30/24
--- OUTSIDE RECORDS SUMMARY | 2025-07-03 08:15 | XMS_ITS | Encounter Summary ---
Author Organization [employer] Address [address] [place] [address] 7 [place] [address] Care Team Providers Care System Operator Name Role Phone Milan Abrams MD Primary Care Prov ider Reason for Visit * Reason Comments Med Refill Encounter Details Date Type Department Care Team ([facility] st Contact Info) Description 06/27/2025 Refill [facility] [address] [place], [place] [phone] Milan Abrams MD [address] [place] [address] De Quervain's tenosynovitis; Right wrist pain Social History Tobacco Use Types Packs/Day Years [...] as of this encounter Visit Diagnoses Diagnosis De Quervain's tenosynovitis Radial styloid tenosynovitis Right wrist pain Pain in joint, forearm documented in this encounter Additional Health Concerns Assessment Noted Time PHQ-9 Depression Total Score: 21 025 3:47 PM EDT documented as of this encounter Care Teams System Operator Relationship Specialty Start Date End Date Milan Abrams MD [address] [place] [id number] PCP - General Internal Medicine 12/30/24 documented as of this encounter
== END ==
LOC: HO.CARD 08:05
PROVIDERS: PCP Internal Medicine; Visit Provider Nurse Practitioner Family
DX: I48.0 Paroxysmal atrial fibrillation (principal); R00.2 Palpitations
CPT/HCPCS: 93017

== ENCOUNTER → 2025-07-03 08:08 | Outpatient (BNV) | payer MEDICAID, SELFPAY | PROVIDERS: PCP Internal Medicine | DX: I49.3 Ventricular premature depolarization (principal) | CPT/HCPCS: 93016; 93018 ==

== ENCOUNTER 2025-07-22 12:49 | Outpatient (AMB) | payer MEDICAID, SELFPAY ==
--- NOTE | 2025-07-22 12:51 | A.OFFVIS_ITS ---
Vital Signs 07/22/25 12:59 Height 5 ft 8 in Weight 200 lb BMI 30.4 BP 114/66 Blood Pressure Location Rt brachial Position Sitting Pulse 72 Pulse Source Pulse Oximeter Pulse Oximetry (%) 96 Oxygen Delivery Method Room Air Intake Visit Reasons: 3m retest h pylori Intake Note: Est pt for GERD mgmt. Needs retesting for H Pylori. Check to see if abx were finished. CC; Pt denies any GI changes or concerns at this time. Confirms that he did complete the abx course. Commission Agent Livestock Required: No Accompanied by: Self / Same As Patient Allergies shrimp Allergy (Severe, Verified 07/22/25 12:51) RASH HPI HPI 3m retest h pylori: Details: LAST VISIT: Gastroesophageal reflux disease Irritable bowel syndrome Abdominal pain Postprandial epigastric pain Helicobacter pylori infection Plan Patient will take full cycle of antibiotics if he did not take the antibiotics properly. He was taking them on empty stomach. Patient will try Zofran if he will have any trouble with nausea. Continue Nexium. Avoid dietary triggers and late night snacking. Staying upright for minimal 3 hours after meals discussed with patient. Patient will follow-up in 3 months, sooner on as needed basis. He is agreeable to this plan and verbalizes understanding of instructions. He was given the opportunity to ask questions and all questions answered. ? Thank you for allowing me to participate in his care New bismuth subsalicylate 2 tabs PO QID 112 tabs 0RF 14 days A04.8 doxycycline hyclate 100 mg PO BID 28 caps 0RF 14 days metronidazole 1,000 mg (2 x 500 mg) PO BID 56 tabs 0RF A04.8 TODAY'S VISIT: Patient is here today for follow-up. Patient reports that he has been doing well since he finished his antibiotics. He is currently taking Nexium every morning. Denies any dyspepsia, dysphagia or odynophagia. Denies any acid reflux, however occasionally depending on what he eats he might have reflux. Denies any abdominal pain, cramping, diarrhea, constipation. Patient denies any other GI concerning symptoms. Reports to have good appetite denies melena, hematochezia, unintentional weight loss or ribbon like stools. [facility] Medical History PAF (paroxysmal atrial fibrillation) Surgical History Hx of hernia repair Hx of foot surgery Family History Mother HTN (hypertension) Lupus COPD (chronic obstructive pulmonary disease) Father Diabetes Arthritis Brother HTN (hypertension) Brain tumor Social History Household Members: Family Alcohol intake: never Patient Tobacco Use Status: Never used Tobacco e-Cigarette/Vaping Use: Never Used Current occupational status: unemployed Current occupation: right hand Review of Systems Const Denies weight gain and Denies weight loss ENT Reports no additional complaints, Reports dysphagia and Denies odynophagia Card Reports no additional complaints Resp Reports no additional complaints GI Reports abdominal pain (Epigastric pain postprandially), Denies belching, Denies melena, Denies bloating, Denies change in bowel habits, Denies constipation, Reports dysphagia, Denies excessive flatus, Reports dyspepsia, Reports heartburn, Denies diarrhea, Denies loose stools, Denies nausea, Denies odynophagia and Denies vomiting Reports no additional complaints Musc Reports no additional complaints Neuro Reports no additional complaints Psych Reports no additional complaints Endo Reports no additional complaints Physical Exam Const General: healthy appearing and no acute distress Nutritional Appearance: obese Orientation/consciousness: patient oriented x3 Resp Effort & Inspection: normal respiratory effort, able to speak in complete sentences, no tracheal deviation and symmetric chest movement Auscultation: clear to auscultation bilaterally Cardio Rate: regular rate GI Inspection: Yes normal to inspection, No distended and Yes obesity Palpation (GI): Soft to palpation, not firm, nontender and No hepatosplenomegaly present Auscultation: normal bowel sounds General: Yes no CVA tenderness Back/Spine/Pelvis Back: no CVA tenderness Skin General skin exam: elasticity normal, turgor normal and dry skin Neuro General: patient oriented x3 Psych Appearance: grossly normal Mental Status: mental status grossly normal Assessment & Plan Assessment & Plan (1) Gastroesophageal reflux disease: Code(s): K21.9 - Gastro-esophageal reflux disease without esophagitis Qualifiers: Esophagitis presence: esophagitis presence not specified Qualified Code(s): K21.9 - Gastro-esophageal reflux disease without esophagitis (2) Irritable bowel syndrome: Code(s): K58.9 - Irritable bowel syndrome, unspecified Qualifiers: Irritable bowel syndrome type: without diarrhea Qualified Code(s): K58.9 - Irritable bowel syndrome, unspecified (3) Abdominal pain: Code(s): R10.9 - Unspecified abdominal pain Qualifiers: Abdominal location: epigastric Qualified Code(s): R10.13 - Epigastric pain (4) Postprandial epigastric pain: Code(s): R10.13 - Epigastric pain (5) Helicobacter pylori infection: Code(s): A04.8 - Other specified bacterial intestinal infections Plan Patient will hold Nexium for the next 2 weeks and start famotidine. Hold famotidine 24-48 hours before coming back for testing. If positive will treat empirically. Patient will start Nexium after testing for H pylori. Patient will continue avoiding dietary triggers and late night snacking. Staying upright for minimum 3 hours after meals discussed with patient. Orders: Orders H Pylori Breath Test Today K21.9 - Gastro-esophageal reflux disease without esophagitis Medications: New famotidine (Pepcid) 20 mg PO BID 30 tabs 0RF K29.70 - Gastritis, unspecified, without bleeding Coding Level of Care Code Est Pt Level 4 (24537) Complex EM visit Add On G2211 Diagnoses Gastroesophageal reflux disease, unspecified whether esophagitis present K21.9 Esophagitis presence: esophagitis presence not specified Irritable bowel syndrome without diarrhea K58.9 Irritable bowel syndrome type: without diarrhea Epigastric pain R10.13 Abdominal location: epigastric Postprandial epigastric pain R10.13 Helicobacter pylori infection A04.8 Time Spent (min) 35 Comment 25 minutes spent with patient and additional 10 minutes spent reviewing his records
[2025-07-22 12:59] VITALS: BP 114/66; PULSE 72; O2SAT 96; BMI 30.4
--- OUTSIDE RECORDS SUMMARY | 2025-07-22 15:16 | XMS_ITS | Encounter Summary ---
Author Organization [employer] Address [address] [facility] [address] [place] [address] Care Team Providers Care Delivery Tech Name Role Phone Diana Zamudio MD Primary Care Provider [phone] Milan Abrams MD Primary Care Prov ider Reason for Visit * Reason Onset Date Comments Change PCP 04/21/2024 Encounter Details Date Type Department Care Team (Late st Contact Info) Description 04/21/2024 Telephone [facility] [address] [place] [address] Diana Zamudio MD [address] [place], [place] [phone] Change PCP Social History Tobacco Use Types [...] documented as of this encounter Care Teams Delivery Tech Relationship Specialty Start Date End Date Diana Zamudio MD [address] [place] [address] PCP - General Family Medicine 12/20/20 12/29/24 Milan Abrams MD [address] [place] [address] PCP - General Internal Medicine 12/30/24 documented as of this encounter
--- OUTSIDE RECORDS SUMMARY | 2025-07-22 15:16 | XMS_ITS | Encounter Summary ---
Author Organization [employer] Address [address] [facility] 7 [place] [address] Care Team Providers Care Network Mgr Name Role Phone Milan Abrams MD Primary Care Prov ider Reason for Visit * Reason Comments Med Refill Encounter Details Date Type Department Care Team ([facility] st Contact Info) Description 07/20/2025 Refill [facility] [address] [place], [place] [phone] Kit Reyes MD [address] [place] [address] Social History Tobacco Use Types Packs/Day Years [...] documented as of this encounter Care Teams Network Mgr Relationship Specialty Start Date End Date iMlan Abrams MD [address] [place] [phone] PCP - General Internal Medicine 12/30/24 documented as of this encounter
--- OUTSIDE RECORDS SUMMARY | 2025-07-22 15:16 | XMS_ITS | Encounter Summary ---
Author Organization [employer] Address [address] [place] [address] 7 [place] [address] Care Team Providers Care Science Consultant Name Role Phone Diana Zamudio MD Primary Care Provider [phone] Milan Abrams MD Primary Care Prov ider Reason for Visit * Reason Onset Date Comments Appointment Request 05/16/2023 Encounter Details Date Type Department Care Team ([facility] st Contact Info) Description 05/16/2023 Telephone [facility] [address] [place] [address] Diana Zamudio MD [address] [place] [address] Appointment Request Social History Tobacco Use Types [...] with ADL's does not require AFC or CLINICAL DOCUMENTATION MANAGER, patient needs only homemaking services IADl's. Will [...] documented as of this encounter Care Teams Science Consultant Relationship Specialty Start Date End Date Diana Zamudio MD [address] [place] [id number] PCP - General Family Medicine 12/20/20 12/29/24 Milan Abrams MD [address] [place] [address] PCP - General Internal Medicine 12/30/24 documented as of this encounter
--- OUTSIDE RECORDS SUMMARY | 2025-07-22 15:16 | XMS_ITS | Encounter Summary ---
Author Organization [employer] Address [address] [facility] 7t [place] [address] Care Team Providers Care Political Organizer Name Role Phone Milan Abrams MD Primary Care Prov ider Encounter Details Date Type Department Care Team ([facility] st Contact Info) Description 07/22/2025 Orders Only [facility] [address] [place], [place] [phone] Milan Abrams MD [address] [place] [address] Social History Tobacco Use Types Packs/Day Years [...] documented as of this encounter Care Teams Political Organizer Relationship Specialty Start Date End Date Milan Abrams MD [address] [place] [address] PCP - General Internal Medicine 12/30/24 documented as of this encounter
--- OUTSIDE RECORDS SUMMARY | 2025-07-22 15:16 | XMS_ITS | Clinical Summary ---
Author Organization [employer] Address [address] [facility] 7t [place] [address] Care Team Providers Care Transaction Processor Name Role Phone Milan Abrams MD Primary [...] OR CHEW. 90 capsule 05/15/20 25 Active Ventolin HFA 108 (90 Base) MCG/ACT inhaler Inhale 1 puff every 6 (six) hours if needed for wheezing. 18 g 3 06/01/20 25 026 Active ALPRAZolam (Xanax) 1 MG tabletIndicatio ns:Mood disorder (CMS/HCC) TOME 1 TABLETA POR VIA ORAL TODOS LOS SUAREZ CUANDO SEA NECESARIO FOR PANIC ATTACK (MAX 20 TABS/MONTH) 20 tablet 06/27/20 25 Active Diclofenac Sodium 1 % gelIndications: De Quervain's tenosynovitis,R ight wrist pain TO APPLY TO THE AFFECTED AREA 3 TIMES A DAY 100 g 07/07/20 25 Active ibuprofen 800 MG tablet TOME 1 TABLETA POR VIA ORAL RAIMUNDO VECES AL DEMARCUS 90 tablet 07/22/20 25 Active ibuprofen 800 MG tablet TAKE 1 TABLET BY MOUTH 3 TIMES DAILY 90 tablet 05/18/20 25 025 Discontinued ALPRAZolam (Xanax) 1 MG tabletIndicatio ns:Mood disorder (CMS/HCC) TOME 1 TABLETA POR VIA ORAL TODOS LOS SUAREZ CUANDO SEA NECESARIO FOR PANIC ATTACK (MAX 20 TABS/MONTH) 20 tablet 05/25/20 25 025 Discontinued Diclofenac Sodium 1 % gelIndications: De Quervain's tenosynovitis,R ight wrist pain TO APPLY TO THE AFFECTED AREA 3 TIMES A DAY 100 g 05/25/20 25 025 Discontinued Active Problems Problem Noted Date Diagnosed Date Chronic pain of left ankle 05/21/2024 Assessment & Plan (05/21/2024 6:39 AM EDT): S/p internal fixation in 2018 Declines hardware removal offered in 2020 at [facility] Movement and stretching Vicodin very sparingly prn [...] management. For any issues or concerns, call [facility]. All his questions were answered. [...] (01/19/2025 9:28 AM EDT): Followed by cardiology, [id number] score 0 points on aspirin Assessment & Plan (05/21/2024 6:36 AM EDT): Referred to [facility] Given number to call Assessment & Plan (08/01/2023 11:08 AM EDT): Will make f/u appointment with dispatcher service chief Had been off anticoagulation for some time Depressive disorder 12/21/2020 Assessment & Plan (06/01/2025 4:29 PM EDT): Followed by therapist, no suicidal/homicidal ideas Encounters Date Type Department Care Team Description 07/22/2025 Orders Only [facility] [address] [place] [address] Milan Abrams MD 07/20/2025 Refill [facility] [address] [place] [address] Kit Reyes MD 07/09/2025 Telephone [facility] [address] [place] [address] Milan Abrams MD 06/27/2025 Refill [facility] [address] [place] [address] Milan Abrams MD De Quervain's tenosynovitis; Right wrist pain 06/26/2025 Telephone [facility] [address] [place] [address] Milan Abrams MD TP 06/24/2025 Refill [facility] [address] [place] [address] Milan Abrams MD Mood disorder (CMS/HCC) 06/11/2025 Telephone [facility] [address] [place] [address] Milan Abrams MD Letter Request (I called [...] their son into daycare. ) 06/03/2025 Telephone [facility] [address] [place] [address] Milan Abrams MD Letter Request (I called to get clarification, on a request for a letter for welfare. I reached a voicemail, and left a message asking the patient to return my call at ext [phone].) 06/01/2025 3:15 PM EDT Office Visit [facility] [address] [place] [address] Milan Abrams MD Paroxysmal atrial fibrillation ([facility]/HCC) (Primary Dx); Dietary counseling; Exercise counseling; Depressive disorder 06/01/2025 Travel 05/25/2025 Refill [facility] [address] [place] [address] Kit Reyes MD Mood disorder ([facility]/HCC); De Quervain's tenosynovitis; Right wrist pain 05/25/2025 Travel 05/17/2025 Refill [facility] [address] [place] [address] Milan Abrams MD 05/15/2025 Refill [facility] [address] [place] [address] Milan Abrams MD Mood disorder ([facility]/HCC) 05/11/2025 Refill [facility] [address] [place] [address] Milan Abrams MD Mood disorder ([facility]/HCC) 04/27/2025 Refill [facility] [address] [place] [address] Milan Abrams MD Mood disorder ([facility]/HCC) 04/23/2025 9:00 AM EDT Office Visit [facility] [address] [place] [address] Kit Reyes MD De Quervain's tenosynovitis (Primary Dx); Right wrist pain 04/23/2025 Results Follow-Up [facility] [address] [place] [address] Kit Reyes MD XR Wrist 3+ Views Right 04/23/2025 Travel 04/22/2025 Telephone [facility] & PEDS [address] [place] [address] Milan Abrams MD 04/22/2025 Telephone [facility] MEDICINE [address] [place] [address] Milan Abrams MD Nurse Triage from Last 3 Months Family History Medical [...] of 2 - PCV) 2000 COVID-19 Vaccine ( - 2023-2 5 season) 2025 Influenza Vaccine [...] AM EDT Narrative 04/23/2025 10:38 AM EDT [address] [address] XRay Report Signed Patient: Gilbert Silva MR#: [id number] : 1980 Acct:[id number] Age/Sex: 44 / M ADM Date: 04/23/25 Loc: [facility] Attending Dr: Kti Reyes MD Ordering Physician: Kit Reyes MD Date of Service: 04/23/25 Procedure(s): XR wrist RT min 3V Accession Number(s): [id number] cc: Kit Reyes MD EXAMINATION: XR WRIST, [...] 04/23/25 1035 DD/ 1002 TD/TT: 04/23/25 1010 Environmental Services Coordinator: Procedure Note Donotuseinterpreter, Image - 04/23/[address] [address] XRay Report Signed Patient: Gilbert Silva EMR#: [id number] : 1980Acct:[id number] Age/Sex: 44 / MADM Date: 04/23/25 Loc: [facility] Attending Dr: Kit Reyes MD Ordering Physician: Kit Reyes MD Date of Service: 04/23/25 Procedure(s): XR wrist RT min 3V Accession Number(s): [id number] cc: Kit Reyes MD EXAMINATION: XR WRIST, [...] 04/23/25 1035 DD/ 1002 TD/TT: 04/23/25 1010 Environmental Services Coordinator: us Kit Reyes MD IMG XR PROCEDURES Final Res ult * (ABNORMAL) Lipid Panel, Standard (08/01/2023 11:21 AM EDT) Triglycerides 71 <150 mg/dL [facility] Comment:Desirable Triglyceri de: less than 150 mg/dLBorderline High Triglyceride 150-199 mg/dLHigh Triglyceride: 200-499 mg/dLVery High Triglyceride: greater than or equal to 5OO mg/dL Cholesterol 152 <200 mg/dL [facility] Comment:Desirable Cholestero l: less than 200 mg/dLBorderline High Cholesterol: 200-239 mg/dLHigh Cholesterol: greater than 239 mg/dL LDL Cholesterol Calculated 100(H) <100 mg/dL [facility] Comment:Desirable LDL: less than 100 mg/dLNear Optimal/Above Optimal LDL: 110- 129 mg/dLBorderline High LDL: 130-159 mg/dLHigh LDL: 160-189 mg/dLVery High LDL: greater than or equal to 190 mg/dL HDL Cholesterol 38(L) >40 mg/dL [facility] Comment:Desirable HDL: great er than 40 mg/dL Note: This HDL assay may give artificially low results in patients with liver disease. Blood Venous blood specimen / Unknown 08/01/2023 11:21 AM EDT 08/01/2023 1:13 PM EDT us Diana Zamudio MD LAB BLOOD ORDERABLES Final Res ult [facility] [address] [place], [place] [phone] * HEPATITIS C AB W/REFL TO HCV RNA, QN, PCR (12/27/2020 10:03 AM EST) HEPATITIS C ANTIBODY NON-REACT NINO NON-REACT NINO [facility] INDEX 0.10 <1.00 [facility] Comment: HCV antibody was non-reactive. There is no laboratory evidence of HCV infection. In most cases, no further action is required. However, if recent HCV exposure is suspected, a test for HCV RNA (test code 95407) is suggested. For additional information please refer to http://education.Zilyo/faq/KYX25w1 (This link is being provided for informational/ educational purposes only.) 12/27/2020 10:0 3 AM EST Diana Zamudio MD HISTORICAL/NON ORDERABLE LABS Final Result [facility] Count includes the [facility] [place] [facility] Anywhere [address] from Last 3 Months or Most Recently Relevant to Health Maintenance Insurance [facility] C3 Care Teams Transaction Processor Relationship Specialty Start Date End Date Milan Abrams MD [address] [place] [address] PCP - General Internal Medicine 12/30/24
--- OUTSIDE RECORDS SUMMARY | 2025-07-22 15:16 | XMS_ITS | Encounter Summary ---
Author Organization [employer] Address [address] [place] [address] [address] [place] [address] Care Team Providers Care Cartographic Drafter Name Role Phone Diana Zamudio MD Primary Care Provider [phone] Milan Abrams MD Primary Care Prov ider Reason for Visit * Reason Comments Med Refill Encounter Details Date Type Department Care Team (Late st Contact Info) Description 12/08/2022 Refill [facility] [address] [place] [address] John Saunders FNP Social History Tobacco Use [...] documented as of this encounter Care Teams Cartographic Drafter Relationship Specialty Start Date End Date Diana Zamudio MD [address] [place] [address] PCP - General Family Medicine 12/20/20 12/29/24 Milan Abrams MD [address] [place] [address] PCP - General Internal Medicine 12/30/24 documented as of this encounter
--- OUTSIDE RECORDS SUMMARY | 2025-07-22 15:16 | XMS_ITS | Encounter Summary ---
Author Organization [employer] Address [address] [place] [address] 7t [place] [address] Care Team Providers Care Button Maker And Installer Name Role Phone Diana Zamudio MD Primary Care Provider [phone] Milan Abrams MD Primary Care Prov ider Reason for Referral * Consultation (Routine) - Closed Specialty Diagnoses / Procedures Referred By Contac t Referred To Contact Cardiology Diagnoses Paroxysmal atrial fibrillation (CMS/HCC) Diana Zamudio MD [address] [place] [address] Phone: tel: fax: [address] Phone: tel: fax: Referral ID Status Reason Start Date Expiration Date V isits Requested Visits Authorized [id number] Closed Specialty Services Required 04/25/2024 04/25/2025 6 6 Encounter Details Date Type Department Care Team (Late st Contact Info) Description 04/15/2024 Orders Only [facility] MED[facility] [address] [place] [address] Diana Zamudio MD [address] [place] [address] Paroxysmal atrial fibrillation (CMS/HCC) (Primary Dx) Social [...] documented as of this encounter Care Teams Button Maker And Installer Relationship Specialty Start Date End Date Diana Zamudio MD [address] [place] [address] PCP - General Family Medicine 12/20/20 12/29/24 Milan Abrams MD [address] [place] [address] PCP - General Internal Medicine 12/30/24 documented as of this encounter
== END 2025-07-22 13:07 | disposition home or self-care (01) ==
LOC: HO.HGI 12:49
PROVIDERS: PCP Internal Medicine; Visit Provider Nurse Practitioner Family
DX: K21.9 Gastro-esophageal reflux disease without esophagitis (principal); K58.9 Irritable bowel syndrome, unspecified; R10.13 Epigastric pain; A04.8 Other specified bacterial intestinal infections
CPT/HCPCS: 99214

== ENCOUNTER → 2025-07-22 12:49 | Outpatient (BNVA) | payer MEDICAID, SELFPAY | PROVIDERS: PCP Internal Medicine; Visit Provider Nurse Practitioner Family | DX: K21.9 Gastro-esophageal reflux disease without esophagitis (principal); K58.9 Irritable bowel syndrome, unspecified; R10.13 Epigastric pain; A04.8 Other specified bacterial intestinal infections | CPT/HCPCS: 99212 ==

== ENCOUNTER 2025-07-30 21:41 | Observation (INO) | payer MEDICAID, SELFPAY ==
--- OUTSIDE RECORDS SUMMARY | 2023-04-20 02:12 | XMS_ITS | Continuity of Care Document ---
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 Role Phone [facility] [place], [facility] Unavailable Unavailable Allergies, Adverse Reactions, Alerts Substance Reaction Status Criticality No Known Allergies Active No Inform ation Medications Medication Instructions Dosage Effective Dates (start - stop) Status Comments ibuprofen 800 mg tablet take 1 tablet by oral route 3 times every day with food PRN OA Pain - Active Orma 5 mg-325 mg tablet take 1 tablet by oral route every 6 hours as needed for pain - Active Prilosec 20 mg capsule,delayed release take 1 capsule by oral route every day before a meal - Active Procedures Procedure Date Office/outpatient visit,est, mod 2016 [facility] [place] [facility] DOCD Systolic Blood Pressure Less Than 130mm Hg Diastolic Blood Pressure 80-89mm Hg Urinalysis, non-automated, w/scope Office/outpatient visit,est, mod 2016 [place] [facility] DOCD Systolic Blood Pressure Less Than 130mm Hg Diastolic Blood Pressure 80-89mm Hg Preventive checkup, est,18-39 yrs [place] INDEX DOCD Systolic Blood Pressure Less Than 130mm Hg Urinalysis, non-automated, w/scope Office/outpatient visit,est, [facility] [place] 2016 [place] INDEX DOCD Systolic Blood Pressure Less Than 130mm Hg Diastolic Blood Pressure 80-89mm Hg Office/outpatient visit,[facility], [facility] [place] 2016 Systolic Blood Pressure 131-139mm Hg Nov Diastolic Blood Pressure 80-89mm Hg Office/outpatient visit,est, [facility] [place] 2016 [place] INDEX DOCD Systolic Blood Pressure 131-139mm Hg Oct Diastolic Blood Pressure Less Than 80mm Hg Office/outpatient visit,[facility], [facility] [place] 2015 [facility] [place] INDEX [facility] Systolic Blood Pressure 131-139mm Hg Jul Diastolic Blood Pressure 80-89mm Hg Office/outpatient visit,[facility], [facility] [place] 2015 [place] INDEX [facility] Systolic Blood Pressure Less Than 130mm Hg Diastolic Blood Pressure 80-89mm Hg Office/outpatient visit,[facility], [facility] [place] 2015 Systolic Blood Pressure Less Than 130mm Hg Diastolic Blood Pressure 80-89mm Hg Office/outpatient visit,[facility], [facility] [place] 2015 [place] INDEX DOCD Systolic Blood Pressure Less Than 130mm Hg Diastolic Blood Pressure Less Than 80mm Hg Office/outpatient visit,[facility], [facility] [place] 2015 [place] INDEX [facility] Systolic Blood Pressure Less Than 130mm Hg Diastolic Blood Pressure Less Than 80mm Hg Normal BP Reading Documented. F/U Not Re quired Office/outpatient visit,est, [facility] [place] 2015 [place] INDEX DOCD Systolic Blood Pressure 131-139mm Hg Nov Diastolic Blood Pressure 80-89mm Hg Urinalysis, non-automated, w/scope Office/outpatient visit,est, [facility] [place] 2015 [place] [facility]DEX DOCD Systolic Blood Pressure Less Than 130mm Hg Diastolic Blood Pressure 80-89mm Hg Toradol Per 15mg THER/PROPH/DIAG INJ, SC/IM Office/outpatient visit,est, mod 2014 [place] [facility] DOCD Systolic Blood Pressure Less Than 130mm Hg Diastolic Blood Pressure 80-89mm Hg Office/outpatient visit,est, mod 2014 [place] [facility]DEX DOCD Systolic Blood Pressure Less Than 130mm Hg Diastolic Blood Pressure 80-89mm Hg Office/outpatient visit,est, mod 2014 [place] [facility]DEX DOCD Systolic Blood Pressure Less Than 130mm Hg Diastolic Blood Pressure 80-89mm Hg Office/outpatient visit,est, mod 2014 [place] [facility]DEX DOCD Systolic Blood Pressure Less Than 130mm Hg Diastolic Blood Pressure 80-89mm Hg Electrocardiogram, complete (ECG) Office/outpatient visit,est, low 2014 [place] [facility]DEX DOCD Systolic Blood Pressure Less Than 130mm Hg Diastolic Blood Pressure Less Than 80mm Hg Normal BP Reading Documented. F/U Not Re quired [place] [facility]DEX DOCD Systolic Blood Pressure Less Than 130mm Hg Diastolic Blood Pressure Less Than 80mm Hg Normal BP Reading Documented. F/U Not Re quired Normal BP Reading Documented. F/U Not Re quired Preventive checkup, est,18-39 yrs Electrocardiogram, complete (ECG) [place] [facility]DEX DOCD Systolic Blood Pressure Less Than 130mm Hg Diastolic Blood Pressure 80-89mm Hg Preventive checkup, est,18-39 yrs [place] INDEX DOCD Systolic Blood Pressure Less Than 130mm Hg Diastolic Blood Pressure 80-89mm Hg Office/outpatient visit,est, mod 2013 [place] INDEX DOCD Systolic Blood Pressure Less Than 130mm Hg Diastolic Blood Pressure Less Than 80mm Hg Office/outpatient visit,est, mod 2013 [place]DEX DOCD Systolic Blood Pressure Less Than 130mm Hg Diastolic Blood Pressure 80-89mm Hg Office/outpatient visit,est, mod 2013 [place]DEX DOCD Systolic Blood Pressure Less Than 130mm Hg Diastolic Blood Pressure Less Than 80mm Hg Office/outpatient visit,est, mod 2013 [place] INDEX DOCD Systolic Blood Pressure Less Than 130mm Hg Diastolic Blood Pressure Less Than 80mm Hg Urinalysis, non-automated, w/scope Office/outpatient visit,est, mod 2013 [place] [facility]DEX DOCD Systolic Blood Pressure 131-139mm Hg Jan Diastolic Blood Pressure 80-89mm Hg Infcts antign, streptococcus Grp A Office/outpatient visit,est, mod 2013 Toradol Per 15mg Office/outpatient visit,est, low 2012 Office/outpatient visit,est, mod 2012 Void Ticket Office/outpatient visit,est, mod 2011 Flu vac, split, 3+ years, intramusc, 0.5 0ml Tdap Vaccine,7yrs>, [email or web address].[email or web address] Preventive checkup, est,18-39 yrs Preventive checkup, new,18-39 yrs Advance Directives Directive Yes / No Effective Date File Name No Information Encounters Encounter Description Practice Location Reason(s) For Visit Diagnoses Date Provider Providers Copied on Encounter [facility], [address], [place], [place], [id number], [place] tel:[phone] [facility] No Information 3 [facility]. [address] [place], [address], [place]. tel:[phone] Office/outpa tient visit,[facility], [facility], [address] [place] [address], [id number], [place] tel:[phone] [facility] Urinary frequency (FP) (chief complaint) Renal mass, rightProstat e massBody mass index (BMI) 26.0-26.9, [facility] w/o abnormal findings 7 Deangelo Fabian. [address] [place], [address], [place]. tel:[phone] Office/outpa tient visit,[facility], [facility], [address] [place] [address], [id number], [place] tel:[phone] [facility] b/l foot pain (chief complaint)U rinary frequency (FP) (chief complaint)H PI (chief complaint) Osteoarthrit is of both ankles, unspecified osteoarthrit is typeUrinatio n frequencyBod y mass index (BMI) 27.0-27.9, [facility] of [facility] pressure w/o abnormal findings 7 Deangelo Fabian. [address] [place], [address], [place]. tel:[phone] Preventive checkup, est,18-39 yrs [facility], [address] [place] [address], [id number], [place] tel:[phone] [facility] Back pain (chief complaint)M edication refill (chief complaint) Routine physical examinationP ain in left footAcute low back pain without sciatica, unspecified back pain lateralityBo dy mass index (BMI) 26.0-26.9, [facility] of blood pressure w/o abnormal findings 7 Deangelo Fabian. [address] [place], [address], [place]. tel:[phone] [facility], [address] [place] [address], [id number], [place] tel:[phone] [facility] Pain in left foot 7 Yudith Adhikari. [address] [place] [address], [address], [place]. tel:[phone] Office/outpa tient visit,est, [facility], [address], [place], [place], [id number], [place] tel:[phone] [facility] referral (chief complaint)t est results (chief complaint)H PI (chief complaint) Pain in left foot 7 Deangelo Fabian. [address] [place], [address], [place]. tel:[phone] Office/outpa tient visit,est, [facility], [address], [place], [place], [id number], [place] tel:[phone] [facility] neck pain (chief complaint)H PI (chief complaint) Cervicalgia 7 Deangelo Fabian. [address] [place], [address], [place]. tel:[phone] [facility], [address], [place], [place], [id number], [place] tel:[phone] [facility] Periumbilica l pain 7 Deangelo Fabian. [address] [place], [address], [place]. tel:[phone] Office/outpa tient visit,est, [facility], [address], [place], [place], [id number], [place] tel:[phone] [facility] Abdominal pain (chief complaint)a nkle pain (chief complaint)H PI (chief complaint) Pain in left footPeriumbi lical pain 7 Deangelo Fabian. [address] [place], [address], [place]. tel:[phone] Office/outpa tient visit,est, [facility], [address] [place] [address], [id number], [place] tel:[phone] [facility] ankle pain (chief complaint)p aperwork (chief complaint) Pain in left foot Oct-1 7-201 6 Deangelo Fabian. [address] [place], [address], [place]. tel:[phone] Office/outpa tient visit,est, [facility], [address] [place] [address], [id number], [place] tel:[phone] [facility] foot pain (chief complaint)m edication refills (chief complaint)H PI (chief complaint) Pain in unspecified limb Sep-0 2-201 6 Deangelo Fabian. [address] [place], [address], [place]. tel:[phone] Office/outpa tient visit,[facility], [facility], [address] [place] [address], [id number], [place] tel:[phone] [facility] back pain (chief complaint) Acute left-sided thoracic back pain Eugene-3 0-201 6 Linsenbigle r Jignesh. [address] [place], [address], [place]. tel:[phone] Office/outpa tient visit,[facility], [facility], [address] [place] [address], [id number], [place] tel:[phone] [facility] ER Follow up (chief complaint)H PI (chief complaint) Hemorrhoids, external, thrombosed May-0 2-201 6 Deangelo Fabian. [address] [place], [address], [place]. [phone] Office/outpa tient visit,[facility], [facility], [address] [place] [address], [id number], [place] tel:[phone] [facility] Foot Pain (chief complaint)[employer] (chief complaint) Left ankle pain, unspecified chronicity Apr-2 6-201 6 Linsenbigle r Jignesh. [address] [place], [address], [place]. tel:[phone] Office/outpa tient visit,[facility], [facility], [address] [place] [address], [id number], [place] tel:[phone] [facility] medication (chief complaint) Acute left ankle pain 6 Linsenbigle r Jignesh. [address] [place], [address], [place]. [phone] Office/outpa tient visit,[facility], [facility], [address] [place] [address], [id number], [place] tel:[phone] [facility] Pre- operative visit (chief complaint) Pre-op evaluationAb normal EKG 6 Linsenbigle r Jignesh. [address] [place], [address], [place]. tel:[phone] Office/outpa tient visit,[facility], [address], [place], [id number], [place] tel:[phone] [facility] leg pain (chief complaint)a bdominal pain (chief complaint) Left ankle painBody mass index (BMI) 26.0-26.9, adult Dec-0 4-201 5 Linsenbigle r Jignesh. [address] [place], [address], [place]. tel:[phone] Office/outpa tient visit,[facility], [facility], [address] [place] [address], [id number], [place] tel:[phone] [facility] depression (chief complaint) DepressionAr thralgia of left ankleLeg pain, bilateralPai n In Left LegBody mass index (BMI) 27.0-27.9, adultEncount er for exam of blood pressure w/o abnormal findings 2 5 [facility]. [address] [place], [address], [place]. tel:[phone] Referring Provider: Jignesh sarabia, [address] [place], [address]. tel:[phone] Office/outpa tient visit,est, mod [facility], [address], [place], [id number], [place] tel:[phone] [facility] Left ankle pain (chief complaint)T est results f/u (chief complaint) Left foot pain Sep-2 4-201 5 Israel Egan. [address] [place], [address], [place]. tel:[phone] Office/outpa tient visit,est, mod [facility], [address], [id number], [place] tel:[phone] [facility] ear pain (chief complaint)f oot pain (chief complaint)a bdominal pain (chief complaint) Abdominal painJOINT PAIN-ANKLEOt itis media Apr-2 0-201 5 Joe Rey. [address] [place], [address], [place]. tel:[phone] Office/outpa tient visit,est, low [facility], [address], [id number], [place] tel:[phone] [facility] Surgery Clearance (chief complaint) Pre-op evaluationJo int fusionJOINT PAIN-ANKLE Eugene-0 5-201 5 Joe Rey. [address] [place], [address], [place]. tel:[phone] Preventive checkup, est,18-39 yrs [facility], [address], [id number], [place] tel:[phone] [facility] Pre-op Clearance (chief complaint) Pre-op evaluation Jan-2 1-201 5 Joe Rey. [address] [place], [address], [place]. tel:[phone] Preventive checkup, est,18-39 yrs [facility], [address] [place] [address], [id number], [place] tel:[phone] [facility] Pre-op exam (chief complaint)c hest pain (chief complaint) BMI 27.0-27.9,AD ULTPre-op examAtypical chest painPalpitat ions Oct- 2-201 5 [place] [facility]-Dye Zeynep. [address] [place] [address], [address], [place]. tel:[phone] Office/outpa tient visit,[facility], [facility], [address] [place] [address], [id number], [place] tel:[phone] [facility] ankle pain (chief complaint) JOINT PAIN-ANKLE Sep-0 9-201 4 [place] y-Dye Zeynep. [address] [place] [address], [address], . tel:[phone] Office/outpa tient visit,[facility], [facility], [address] [place] [address], [id number], [place] tel:[phone] [facility] foot pain (chief complaint) JOINT PAIN-ANKLE Aug-0 4-201 4 [place] [facility]-D[facility] Zeynep. [address] [place] [address], [address], [place]. tel:[phone] Office/outpa tient visit,[facility], [facility], [address] [place] [address], [id number], [place] tel:[phone] [facility] Physical Exam (chief complaint) JOINT PAIN-ANKLE Oscar-0 7-201 4 [place] [facility]-Dye Zeynep. [address] [place] [address], [address], [place]. tel:[phone] Office/outpa tient visit,[facility], [address] [place] [address], [id number], [place] tel:[phone] [facility] testicular pain (chief complaint) Left varicocele Eugene-2 3-201 4 Aragon Kerry. [address] [place], [address], [place]. tel:[phone] Office/outpa tient visit,est, [facility], [address], [place], [place], [id number], [place] tel:[phone] [facility] abdominal pain (chief complaint) Abdominal discomfort, generalized May-2 2-201 4 Aragon Kerry. [address] [place], [address], [place]. tel:[phone] Office/outpa tient visit,est, [facility], [address], [id number], [place] tel:[phone] [facility] cold symptoms (chief complaint)a nkle pain (chief complaint) NV 26.0-26.9,AD ULTOTH SPECIFIED EXAMPHARYNGI TIS- ACUTEJOINT PAIN-ANKLEAc [place] sinusitis Apr-1 7-201 4 Aragon Kerry. [address] [place], [address], [place]. tel:[phone] Office/outpa tient visit,est, low [facility], [address], [place], [place], [id number], [place] tel:[phone] [facility] Hospital Discahrge (chief complaint) PainCervical strainLBP (low back pain) Sep- 8-201 3 Aragon Kerry. [address] [place], [address], [place]. tel:[phone] Office/outpa tient visit,[facility], [facility], [address], [id number], [place] tel:[phone] [facility] pain (chief complaint)a bd discomfort (chief complaint) JOINT PAIN-ANKLEAb dominal discomfortAB DOMINAL PAIN UNSPECIFIED Apr-0 2-201 3 Aragon Kerry. [address] [place], [address], [place]. tel:[phone] [facility], [address], [id number], [place] tel:[phone] [place] [address] No Information 2 [facility]. [address] [place], [address], [place]. tel:[phone] Office/outpa tient visit,est, mod [facility], [address], [id number], [place] tel:[phone] [facility] left ankle pain (chief complaint)v accines (chief complaint)f atigue (chief complaint) FatigueFATIG UEFLU VACCINEVACCI NATION FOR DTP-DTAPAnkl e painJOINT PAIN-ANKLE 2 Mahesh Payne. [address] [place], [address], [place]. [phone] Preventive checkup, est,18-39 yrs [facility], [address], [id number], [place] tel:[phone] [place] [address] No Information 2 Viral Egan. [address] [place], [address], [place]. tel:[phone] Preventive checkup, new,18-39 yrs [facility], [address], [id number], [place] tel:[phone] [facility] No Information 1 Viral Egan. [address] [place], [address], [place]. tel:[phone] Family History Family Member Type Diagnosis Age At Onset Close relative Problem (finding) Maternal history of d iabetes mellitus Mother Problem (finding) malignant neoplasm of b one Brother Problem (finding) Brain tumor Mother Problem (finding) Heart disease Immunizations Vaccine Date Status Comments Tdap administered Source: New Imm unization Record Flu (split) (3 yrs or older) administered Source: New Immunization Record Payers Payer name Insurance type Covered green party ID Authoriza shakila(s) [facility] PPO CI [id number] Social History Type Description Quantity Date Captured Comments Sex Male Smoking Status No Information Chief Complaint And Reason For Visit No Information Reason For Referral Reason For Referral No Information Plan Of Treatment Date Type Action Status Goal Lipid panel. Due on 021 due Goal TSH. Due on due Goal Depression scree kylah. Due on due Goal Hemoglobin A1C. Due on due Goal Hemoglobin A1C. Due on due Goal TSH. Due on due Goal Depression scree kylah. Due on due Goal Depression scree kylah. Due on due Goal Hemoglobin A1C. Due on due Goal Hemoglobin A1C. Due on due Goal Hemoglobin A1C. Due on due Goal Hemoglobin A1C. Due on due Goal Hemoglobin A1C. Due on due Goal TSH. Due on due Goal Hemoglobin A1C. Due on due Goal Hemoglobin A1C. Due on due Goal TSH. Due on due Goal TSH. Due on due Goal Hemoglobin A1C. Due on due Goal Hemoglobin A1C. Due on due Goal Lipid panel. Due on 017 due Goal TSH. Due on due Goal Eye Exam. Due on due Goal Lipid panel. Due on 015 due Goal Influenza Vaccine. Due on due Goal Depression scree kylah. Due on due Goal Hemoglobin A1C. Due on due Goal Eye Exam. Due on due Goal TSH. Due on due Goal Depression scree kylah. Due on due Goal Lipid panel. Due on due Goal Influenza Vaccine. Due on due Goal TSH. Due on due Goal Hemoglobin A1C. Due on due Goal Eye Exam. Due on due Goal Influenza Vaccine. Due on due Goal Hemoglobin A1C. Due on due Goal Lipid panel. Due on due Goal TSH. Due on due Goal Eye Exam. Due on due Goal Depression scree kylah. Due on due Goal Depression scree kylah. Due on due Goal TSH. Due on due Goal Lipid panel. Due on due Goal Influenza Vaccine. Due on due Goal Eye Exam. Due on due Goal Hemoglobin A1C. Due on due Goal Depression scree kylah. Due on due Goal Influenza Vaccine. Due on due Goal TSH. Due on due Goal Eye Exam. Due on due Goal Hemoglobin A1C. Due on due Goal Lipid panel. Due on due Goal FLUZONE HIGH DOSE. Due on due Goal TSH. Due on due Goal FLUZONE MDV 3yrs>. Due on due Goal FLUZONE HIGH DOSE. Due on due Goal FLUMIST. Due on due Goal FLUVIRIN MDV 3yrs>. Due on due Goal FLULAVAL. Due on due Goal Lipid panel. Due on 015 due Goal FLUVIRIN PRES FR EE 3yrs>. Due on due Goal Hemoglobin A1C. Due on due Goal Influenza Vaccine. Due on due Goal Eye Exam. Due on due Goal Depression scree kylah. Due on due Goal Tdap due Goal Lipid panel. Due on 014 due Goal Hemoglobin A1C. Due on due Goal TSH. Due on due Goal Depression scree kylah. Due on due Goal Influenza Vaccine. Due on due Goal Eye Exam. Due on due Goal TSH. Due on due Goal Hemoglobin A1C. Due on due Goal Influenza Vaccine. Due on due Goal TSH. Due on due Goal Hemoglobin A1C. Due on due Goal Influenza Vaccine. Due on due Goal TSH. Due on due Goal Hemoglobin A1C. Due on due Goal Influenza Vaccine. Due on due Goal H&P. Due on due Goal H&P. Due on due Goal Hemoglobin A1C. Due on due Goal TSH. Due on due Goal Influenza Vaccine. Due on due Goal H&P. Due on due Goal TSH. Due on due Goal Hemoglobin A1C. Due on due Goal Influenza Vaccine. Due on due Goal Influenza Vaccine. Due on due Goal Hemoglobin A1C. Due on due Goal H&P. Due on due Goal TSH. Due on due Referral Ordered: Ultrasound Renal/Retroperitoneal Complete ordered Referral Ordered: Pain Medicine (related to Pain in left foot) ordered Referral Ordered: Referrals: Pain Medicine. Evaluate and treat ordered Referral Ordered: at [facility]/Specialist -Podiatry (related to Pain in left foot) ordered Referral Referred To: at [facility]/Specialist Ordered: Referrals: Podiatry. at [facility]/Specialist. Evaluate and treat. Surgery ordered Referral Ordered: X-ray Cervical Complete 4 Views ordered Referral Ordered: Referrals: Surgery. Evaluate and treat Appointment date/timeframe: ROUTINE ordered Referral Ordered: X-ray Foot Complete 3 Views Left ordered Referral Ordered: Chest X-ray Complete 2 Views ordered Referral Ordered: Referrals: Orthopedic Surgery. Consult Appointment date/timeframe: ROUTINE ordered Referral Ordered: Mental Health Counselor (related to Depression) ordered Referral Ordered: Referrals: Mental Health Counselor. Evaluate and treat Appointment date/timeframe: ROUTINE ordered Referral Ordered: Referrals: Physical Therapy. Evaluate and treat Appointment date/timeframe: ROUTINE ordered Referral Ordered: Gastroenterology (related to Abdominal pain) ordered Referral Ordered: Referrals: Gastroenterology. Evaluate and treat Appointment date/timeframe: EXPEDITE ordered Referral Ordered: Cardiology (related to Pre-op exam) ordered Referral Ordered: Referrals: Cardiology. Evaluate and treat Appointment date/timeframe: ROUTINE ordered Referral Ordered: Podiatry (related to JOINT PAIN-ANKLE) ordered Referral Ordered: Referrals: Radiology. Diagnostic testing Appointment date/timeframe: ROUTINE ordered Referral Ordered: Referrals: Podiatry. Evaluate and treat Appointment date/timeframe: ROUTINE ordered Referral Ordered: Referral: Orthopedics. Evaluate and treat. Appointment date/timeframe: ROUTINE ordered Referral Ordered: Urology (related to Left varicocele) ordered Referral Ordered: Referral: Urology. Evaluate and treat. Appointment date/timeframe: ROUTINE ordered Referral Ordered: Physical Therapy (related to Cervical strain) ordered Referral Ordered: Referral: Physical Therapy. Evaluate and treat. Appointment date/timeframe: ROUTINE ordered Patient Education Hemorrhoids: After Your Visit completed Patient Education Joint Pain: After Your Visit completed Patient Education Depression Treatment: A fter Your Visit completed Future Order: Lab Order Comp. Me tabolic Panel (14) ([id number]), Sent on: Sent Future Order: Lab Order CBC With Differential/Platelet ([id number]), Sent on: Sent Future Order: Lab Order Hemoglob in A1c ([id number]), Sent on: Sent Future Order: Lab Order Lipid Pa main ([id number]), Sent on: Sent Future Order: Lab Order TSH And Free T4 ([id number]), Sent on: Sent History Of Present Illness Encounter Date Complaint History Of Prese nt Illness Urinary frequency (FP) The patie nt does not report any of the following neurological symptoms: diabetes. Additional information: Pt here to discuss renal ultrasound. [facility]. Urinary frequency (FP) The onset was 4 months ago. The patient does not report any of the following neurological symptoms: diabetes. Additional information: Pt states today he voided 3 times in a 30 min span. States sometimes theres burning. [facility]. b/l foot pain Pt states he was told at [facility] pain was due to arthritis and pt is requesting to be treated for this.Currently going to pain mgmt. [facility] HPI Pt. to keep all scheduled f/us with Pain Management for control of his Chronic Bilat. Foot/Ankle Pain Issues. Pt. denies no Familial Early onset of BPH/Prostate CA, no feeling of Inability to Empty Bladder, no infxns/lesions rashes, no dysuria. Back pain Onset: 3 days ag o. Location of pain is lower back.There is no radiation of pain. The patient describes the pain as an ache. Context: slept on the floor and had pain upon waking up. Additional information: currently takes advil and Orma PRN severe pain. -Shaista MELO. Medication refill Patient states needs refill on Orma. -SIAopez [employer] test results Pt here to revie w recent cervical x-ray. [facility] referral Pt requesting re ferral to [facility] toilet products molder for b/l foot pain. Left foot is worse.Pt also requesting med for the pain. [facility] HPI Imaging of Neck shows No Abnormalities/Pt. to cont. current meds/avoidance of activities that can worsening neck pain issues. HPI Pt. to be schedu led for Senior Network Security Architect/Surgeon visit at [facility] in near future for his Chronic Left Foot Pain and urged to make and keep this Specialist visit/See Previous Notes for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
--- OUTSIDE RECORDS SUMMARY | 2023-08-02 10:15 | XMS_ITS | Continuity of Care Document ---
[facility] Organization [facility] Address [address] [place] [address] Phone Care Team Providers Care Audit Associate Name Role Phone Samuel Biggs DO Unavailable [...] 15 MG - Active D/C TRAZODONE ; SOMALI LABEL PLS; D/C WELLBUTRIN EPIPEN 2-MECHELLE 0.3 [...] Diagnoses Date Provider Providers Copied on Encounter [facility], [address], [address], [place] tel:[phone] [facility] No Information 3 Biggs Samuel. [address], [place], [address], [place]. tel:[phone] OFFICE/OUTPATI ENT VISIT EST [facility], [address], [place], [place], [address], [place] tel:[phone] [facility] Major depressive disorder, recurrent, moderateAnxi ety 1 Tom Langston. [address], [place], [address], [place]. tel:[phone] OFFICE/OUTPATI ENT VISIT, EST [facility], [address], [place], [place], [address], [place] tel:[phone] [facility] Major depressive disorder, recurrent, moderateAnxi ety Aug-0 0 Santos Dashrath. [address], [place], [address], [place]. tel:[phone] OFFICE/OUTPATI ENT VISIT, EST [facility], [address], [place], [place], [address], [place] tel:[phone] [facility] Major depressive disorder, recurrent, moderateAnxi ety Sep-0 0 Santos Dashrath. [address], [place], [address], [place]. tel:[phone] OFFICE/OUTPATI ENT VISIT EST [facility], [address], [place], [place], [address], [place] tel:[phone] [facility] Cardiology referrals and test done (chief complaint)Te [facility] (chief complaint)GI update (chief complaint) Heartburn symptomAtypi roddy chest pain 0 Syed Leilan. [address] [place], [address], [place]. tel:[phone] OFFICE/OUTPATI ENT VISIT EST [facility], [address], [place], [place], [address], [place] tel:[phone] [facility] Major depressive disorder, recurrent, moderateAnxi ety Mar- 0 Santos Dashrath. [address], [place], [address], [place]. tel:[phone] [facility], [address], [place], [place], [address], [place] tel:[phone] [facility] No Information 0 No Informatio n OFFICE/OUTPATI ENT VISIT, EST [facility], [address], [place], [place], [address], [place] tel:[phone] [facility] Major depressive disorder, recurrent, moderateAnxi ety Apr-2 3-202 0 Santos Dashrath. [address], [place], [address], [place]. tel:[phone] OFFICE/OUTPATI ENT VISIT, EST [facility], [address], [place], [place], [address], [place] [phone] [facility] Major depressive disorder, recurrent, moderateAnxi ety 9201 9 Santos Dashrath. [address], [place], [address], [place]. tel:[phone] OFFICE/OUTPATI ENT VISIT, EST [facility], [address], [place], [place], [address], [place] tel:[phone] [facility] Major depressive disorder, recurrent, moderateAnxi etyEncounter for administrati ve examinations , unspecified 9 Santos Dashrath. [address], [place], [address], [place]. tel:[phone] [facility], [address], [place], [place], [address], [place] tel:[phone] [facility] Encounter for administrati ve examinations , unspecified 9 Frempong Mathieu. [address] [place], [address], [place]. tel:[phone] OFFICE/OUTPATI ENT VISIT, EST [facility], [address], [place], [place], [address], [place] tel:[phone] [facility] HHP Follow up (chief complaint)Mu ltiple skin tags (chief complaint) Encounter for administrati ve examinations , unspecifiedS kin tags, multiple acquired Sep-0 3-201 9 Frempong Mathieu. [address] [place], [address], [place]. tel:[phone] [facility], [address], [place], [place], [address], [place] tel:[phone] [facility] Encounter for administrati ve examinations , unspecified 9 [facility]. [address] [place], [address], [place]. tel:[phone] OFFICE[facility]PATI ENT VISIT, [facility], [address], [place], [place], [address], [place] tel:[phone] [facility] Major depressive disorder, recurrent, moderateAnxi ety 9 Tom Langston. [address], [place], [address], [place]. tel:[phone] PSYCHOTHERAPY 30 MIN WITH A PATIENT AND/OR FAMILY [facility], [address], [place], [place], [address], [place] tel:[phone] [facility] Major depressive disorder, recurrent, moderateAnxi ety 9 No Informatio n OFFICE/OUTPATI ENT VISIT, EST [facility], [address], [place], [place], [address], [place] tel:[phone] [facility] Follow up (chief complaint)ri ght leg pain (chief complaint) Posterior right knee painScreenin g for HIV (human immunodefici ency virus)Screen for STD (sexually transmitted disease)Over weight 9 [facility]. [address] [place], [address], [place]. tel:[phone] [facility], [address], [place], [place], [address], [place] tel:[phone] [facility] Segmental and somatic dysfunction of lumbar region 9 [facility]. [address] [place], [address], [place]. tel:[phone] [facility], [address], [place], [place], [address], [place] tel:[phone] [facility] Segmental and somatic dysfunction of lumbar region 9 Frempong Mathieu. [address] [place], [address], [place]. tel:[phone] OFFICE/OUTPATI ENT VISIT, EST [facility], [address], [place], [place], [address], [place] tel:[phone] [facility] Major depressive disorder, recurrent, moderateAnxi ety 9 Santos Kian. [address], [place], [address], [place]. tel:[phone] OFFICE/OUTPATI ENT VISIT, EST [facility], [address], [place], [place], [address], [place] tel:[phone] [facility] x ray results (chief complaint) Primary osteoarthrit is, right ankle and foot February- 9 Bro Donaldson. [address] [place], [address], [place]. tel:[phone] PSYCHOTHERAPY 30 MIN WITH A PATIENT AND/OR FAMILY [facility], [address], [place], [place], [address], [place] tel:[phone] [facility] Major depressive disorder, recurrent, moderateAnxi ety 9 No Informatio n OFFICE/OUTPATI ENT VISIT, EST [facility], [address], [place], [place], [address], [place] tel:[phone] [facility] ankle issues (chief complaint) Acute right ankle pain February-0 9 Bro Cardoso [address] [place], [address], [place]. tel:[phone] OFFICE/OUTPATI ENT VISIT, EST [facility], [address], [address], [place] tel:[phone] [facility] Major depressive disorder, recurrent, moderateAnxi ety 9 Santos Dashrath. [address], [place], [address], [place]. tel:[phone] OFFICE/OUTPATI ENT VISIT, EST [facility], [address], [place], [place], [address], [place] [phone] [facility] HHP Follow Up (chief complaint)Bl ue Nails (chief complaint) Subungual hematoma of great toe of left foot, initial encounterSub ungual hematoma of great toe of right foot, initial encounterAtr ial fibrillation , unspecified typeHx of custodial use of blood thinners 9 Frempong Mathieu. [address] [place], [address], [place]. tel:[phone] [facility], [address], [place], [place], [address], [place] [phone] [facility] Spinal Care (chief complaint) Segmental and somatic dysfunction of lumbar regionSegmen anitra and somatic dysfunction of thoracic regionMid back painAcute midline low back pain without sciatica 9 Gal Washington. [address], [place], [address], [place]. tel:[phone] PSYCHOTHERAPY 30 MIN WITH A PATIENT AND/OR FAMILY [facility], [address], [place], [place], [address], [place] tel:[phone] [facility] Major depressive disorder, recurrent, moderate 9 No Informatio n OFFICE/OUTPATI ENT VISIT, EST [facility], [address], [place], [place], [address], [place] [phone] [facility] Major depressive disorder, recurrent, moderate Feb-0 9 Santos Dashrath. [address], [place], [address], [place]. tel:[phone] [facility], [address], [place], [place], [address], [place] tel:[phone] [facility] [address] Consult (chief complaint) BMI 27.0-27.9,ad ultWeight loss counseling, encounter for 9 Rebekah Lozano. [address] [place], [address], [place]. tel:[phone] OFFICE/OUTPATI ENT VISIT, [facility], [address], [place], [place], [address], [place] tel:[phone] [facility] Podiatry referral (chief complaint) Right foot pain 9 Syed Boyd. [address] [place], [address], [place]. tel:[phone] OFFICE/OUTPATI ENT VISIT, [facility], [address], [place], [place], [address], [place] tel:[phone] [facility] Major depressive disorder, recurrent, moderate 8 Tom Langston. [address], [place], [address], [place]. tel:[phone] OFFICE/OUTPATI ENT VISIT, [facility], [address], [place], [place], [address], [place] tel:[phone] [facility] Encounter for screening for other disorderPoor dietAtrial fibrillation , unspecified typeOsteoart hritis, unspecified osteoarthrit is type, unspecified siteDepressi on, unspecified depression typePOLST (Physician Orders for Life-Sustain ing Treatment)En counter to establish care with new doctor 8 Freddy Murdock. [address] [place], [address], [place]. tel:[phone] OFFICE/OUTPATI ENT VISIT, [facility], [address], [place], [place], [address], [place] tel:[phone] [facility] lab results (chief complaint) Shrimp allergyAller gy to treesAtrial fibrillation with controlled ventricular rateRecurren t sinusitis 8 No Informatio n [facility], [address], [place], [place], [address], [place] tel:[phone] [facility] labs only (chief complaint) Allergic rhinitis, unspecified 8 Syed Deb. [address] [place], [address], [place]. tel:[phone] OFFICE/OUTPATI ENT VISIT, [facility], [address], [place], [place], [address], [place] tel:[phone] [facility] f/u allergies/ referrals (chief complaint) Allergic rhinitis, unspecified seasonality, unspecified triggerSnori ngFatigue, unspecified type Sep-2 8 Syed Deb. [address] [place], [address], [place]. tel:[phone] PSYCHOTHERAPY 30 MIN WITH A PATIENT AND/OR FAMILY [facility], [address], [place], [place], [address], [place] tel:[phone] [facility] Major depressive disorder, recurrent, moderate Sep-2 8 No Informatio n OFFICE/OUTPATI ENT VISIT, [facility], [address], [place], [place], [address], [place] tel:[phone] [facility] Major depressive disorder, recurrent, moderatePain in unspecified jointPersona l history of other diseases of the circulatory system 8 Tom Langston. [address], [place], [address], [place]. tel:[phone] OFFICE/OUTPATI ENT VISIT, [facility], [address], [place], [place], [address], [place] tel:[phone] [facility] Results (chief complaint) Low vitamin D levelEncount er to discuss test results 8 Syed Boyd. [address] [place], [address], [place]. tel:[phone] [facility], [address], [address], [place] tel:[phone] [facility] No Information 8 Syed Boyd. [address] [place], [address], [place]. tel:[phone] PSYCHOTHERAPY 30 MIN WITH A PATIENT AND/OR FAMILY [facility], [address], [place], [place], [address], [place] tel:[phone] [facility] Major depressive disorder, recurrent, moderate 8 No Informatio n [facility], [address], [address], [place] tel:[phone] [facility] No Information 8 Syed Boyd. [address] [place], [address], [place]. tel:[phone] OFFICE/OUTPATI ENT VISIT, EST [facility], [address], [address], [place] tel:[phone] [facility] f/u (chief complaint)Ad dendum 03/12/18 (chief complaint) Arthralgia, unspecified jointHistory of atrial fibrillation 8 Syed Boyd. [address] [place], [address], [place]. tel:[phone] OFFICE/OUTPATI ENT VISIT, EST [facility], [address], [address], [place] tel:[phone] [facility] Major depressive disorder, recurrent, moderateImpu lse control disorder 8 Tom Langston. [address], [place], [address], [place]. tel:[phone] OFFICE/OUTPATI ENT VISIT, EST [facility], [address], [place], [place], [address], [place] tel:[phone] [facility] ER follow up (chief complaint) Atrial fibrillation with controlled ventricular rate 8 Carlo Sloan. [address], [place], [address], [place]. tel:[phone] PSYCHOTHERAPY 30 MIN WITH A PATIENT AND/OR FAMILY [facility], [address], [place], [place], [address], [place] tel:[phone] [facility] Major depressive disorder, recurrent, moderate Dec-0 8 No Informatio n OFFICE/OUTPATI ENT VISIT, EST [facility], [address], [address], [place] tel:[phone] [facility] established care (chief complaint) Body mass index (BMI) 29.0-29.9, [facility] er to establish careArthralg ia, unspecified jointFatigue , unspecified typeChronic bilateral low back pain without sciaticaOthe r chronic pain 8 Syed Boyd. [address] [place], [address], [place]. tel:[phone] PSYCHOTHERAPY 30 MIN WITH A PATIENT AND/OR FAMILY [facility], [address], [place], [place], [address], [place] tel:[phone] [facility] Major depressive disorder, recurrent, moderateAnge r 8 No Informatio n PSYCHOTHERAPY 30 MIN WITH A PATIENT AND/OR FAMILY [facility], [address], [place], [place], [address], [place] tel:[phone] [facility] Major depressive disorder, recurrent, moderatePani c disorder without agoraphobiaI mpulse control disorder 7 Santos Dashrath. [address], [place], [address], [place]. tel:[phone] PSYCHOTHERAPY 30 MIN WITH A PATIENT AND/OR FAMILY [facility], [address], [address], [place] tel:[phone] [facility] Major depressive disorder, recurrent, moderatePani c disorder without agoraphobiaI mpulse control disorder 7 Santos Dashrath. [address], [place], [address], [place]. tel:[phone] PSYCHOTHERAPY 30 MIN WITH A PATIENT AND/OR FAMILY [facility], [address], [address], [place] tel:[phone] [facility] Major depressive disorder, recurrent, moderatePani c disorder without agoraphobiaI mpulse control disorder Jan- 7 Santos Dashrath. [address], [place], [address], [place]. tel:[phone] PSYCHOTHERAPY 30 MIN WITH A PATIENT AND/OR FAMILY [facility], [address], [address], [place] tel:[phone] [facility] Major depressive disorder, recurrent, moderatePani c disorder without agoraphobia 7 Santos Dashrath. [address], [place], [address], [place]. tel:[phone] OFFICE/OUTPATI ENT VISIT, [facility], [address], [place], [place], [address], [place] tel:[phone] [facility] Major depressive disorder, recurrent, moderatePani c disorder without agoraphobia 6 [facility]. [address], [place], [address], [place]. tel:[phone] OFFICE/OUTPATI ENT VISIT, EST [facility], [facility], [place], [place], [address], [place] tel:[phone] [facility] depression (chief complaint) Major depressive disorder, recurrent, moderatePani c disorder without agoraphobia 6 [facility]. [address], [place], [address], [place]. tel:[phone] PSYCHOTHERAPY 45 MIN [facility], [facility], [place], [place], [address], [place] tel:[phone] [facility] Major depressive disorder, recurrent, moderatePani c disorder without agoraphobia 6 No Informatio n Psychiatric Diagnositc Eval [facility], [address], [place], [place], [address], [place] tel:[phone] [facility] Depression (chief complaint)Pa sally Attacks (chief complaint)Mo od Swings (chief complaint) Major depressive disorder, recurrent, moderatePani c disorder without agoraphobia 5 No Informatio n Family History Family Member Type Diagnosis Age At Onset Brother Problem (finding) Cancer, brain Mother Problem (finding) Lupus erythematosus Immunizations Vaccine Date Status Comments Tdap (Adacel) administered Source: Other Provider Payers Payer name Insurance type Covered democrat ID Authoriza tion(s) [facility] Managed Wrap [id number] Social History Type Description Quantity Date Captured Comments Alcohol Use Details Unknown Caffeine Use Details Unknown Tobacco Use Status No Information Smoking Status No Information Sex Male Sexual Orientation Straight or heterosexual Gender Identity Male Chief Complaint And Reason For Visit No Information Reason For Referral Reason For Referral No Information Plan Of Treatment Date Type Action Status Goal Hepatitis C scre ening. Due on due Goal Unhealthy drug u se screening. Due on due Goal Hep C Ab. Due on due Goal Dental exam. Due on due Goal Depression scree kylah. Due on due Goal Alcohol/chemical dependency screeing. Due on due Goal Hep C Ab. Due on due Goal Dental exam. Due on due Goal Depression scree kylah. Due on due Goal Alcohol/chemical dependency screeing. Due on due Goal Lipid panel. Due on due Goal Lipid panel. Due on due Goal Tdap due Goal Influenza vaccine. Due on due Goal Lipid Panel. Due on due Goal Dental exam. Due on due Goal Depression scree kylah. Due on due Goal Alcohol/chemical dependency screeing. Due on due Goal Hep C Ab. Due on due Goal Lipid Panel due Goal Alcohol/chemical dependency screeing. Due on due Goal Dental exam. Due on due Goal Depression scree kylah. Due on due Goal Hep C Ab. Due on due Goal Alcohol/chemical dependency screeing. Due on due Goal Hep C Ab. Due on due Goal Dental exam. Due on due Goal Lipid Panel due Goal Depression scree kylah. Due on due Goal Depression scree kylah. Due on due Goal Lipid Panel due Goal Dental exam. Due on due Goal Hep C Ab. Due on due Goal Alcohol/chemical dependency screeing. Due on due Goal Lipid Panel. Due on due Goal Depression scree kylah. Due on due Goal Alcohol/chemical dependency screeing. Due on due Goal Dental exam. Due on due Goal PHQ9. Due on due Goal Hep C Ab. Due on due Goal Tdap due Goal Depression scree kylah. Due on due Goal SHA Adult 18-64 yrs. Due on due Goal SHA Senior 65+. Due on due Goal Depression scree kylah. Due on due Goal SHA Senior 65+. Due on due Goal Tdap due Goal SHA Adult 18-64 yrs. Due [...] Due on due Goal Tdap due Goal Lifestyle education regardin g diet [...] Evaluate and treat ordered Referral Ordered: Referrals: [facility]. Evaluate and treat Appointment date/timeframe: 10/16/2018 ordered [...] Lab Order Chlamydi a/Neisseria gonorrhoeae RNA, TMA ([id number]), Ordered on: Ordered Future Order: Lab Order CMP ([id number]), Orde red on: Ordered Future Order: Lab Order CBC (INC LUDES DIFF/PLT) ([id number]), Ordered on: Ordered Future Order: Lab Order LIPID PA PARVIZ ([id number]), Ordered on: Ordered Future Order: Lab Order HEMOGLOB IN A1C (496), Ordered on: Ordered Future Order: Lab Order TSH, 3RD GENERATION (699), Ordered on: Ordered Future Order: Lab Order T4, FREE (866), O rdered on: Ordered Future Order: Lab Order URINALYS IS, COMPLETE W/REFLEX TO CULTURE ([id number]), Ordered on: Ordered Future Order: Lab Order RPR (DX) W/REFL TITER AND CONFIRMATORY TESTING ([id number]), Ordered on: Ordered Future Order: Lab Order HIV-1/2 Antigen and Antibodies, Fourth Generation, with Reflexes ([id number]), Ordered on: Ordered History Of Present Illness Encounter Date Complaint History Of Prese nt Illness GI update > Seen by Dr. Ra felton, scheduled for EGD 06/24/20 Cardiology referrals and test done > Cardiac work up - Unremarkable, per Dr. Valadez, chest pain is non cardiac Tele Health > Patient verbal ly consented to have their visit with [facility] via Telehealth for their concern.> Reason for Telehealth Visit: State guidelines require residents to remain at home> Telehealth Platform used: Telephone > Is this visit type clinically appropriate for this patient? Yes> Is the encounter in place of a dlwf-af-khra encounter? Yes> Total Length of Telehealth Visit: 15 minutes> The patient understands and consents to this telehealth(audio) encounter> Date of verified by patient> Language line used for Interpretation: Upper Sorbian> ID # - Placido [id number] [facility] Follow up Patient is here for [...] Still complaining of Right foot pain, his Tool Checker is Dr. Newby> No other health complaints [facility] enrollment 37 year old male patient here presenting for [facility] Enrollment.Specialist/ Other doctors:- Cardiology - Afib- Podiatry - Odin- - Anxiety Depression - Gastro - for Ulcers- Pain management- on Yoandy-PCP- [facility] PMHx Date/ status / medications:- Afib- Arthritis [...] Caffeine: none Hospital Visits: 6 months ago [facility] lab results labs only f/u allergies/ [...] - will do Lumbosacral X-ray> Currently takes [place] for pain, c/o pain management2. Annual labs3. [...] region PLEASE FOLLOW UP WIT H YOUR HEMP FIBER TAKER OFF Related to Atrial fibrillation with controlled ventricular [...] Related to Encounter to discuss test results Will come back for l abs ordered previously Related to Arthralgia, unspecified joint Ff. up with Dr. Mojica Related to History of atrial fibrillation Giving encouragement to exercise Related to Body mass index (BMI) 29.0-29.9, adult Lifestyle education regarding di et Related to [...] Related to Major depressive disorder, recurrent, moderate Assessments Type Assessment Date No Information Patient Care Teams Name Effective Dates (start - stop) Status Members No Information
--- NOTE | 2025-07-30 | ECG_ITS ---
Test Reason : DIZINESS Blood Pressure : */* mmHG Vent. Rate : 67 BPM Atrial Rate : 67 BPM P-R Int : 154 ms QRS Dur : 104 ms QT Int : 386 ms P-R-T Axes : 57 71 -8 degrees QTcB Int : 407 ms Normal sinus rhythm T wave abnormality, consider inferior ischemia Abnormal ECG When compared with ECG of 04-Sep-2024 13:59, Nonspecific T wave abnormality has replaced inverted T waves in Lateral leads Referred By: Generic ED Physician Electronically Signed By: LINNEA READ
--- NOTE | ~2025-07-30 | XR_ITS ---
CLINICAL HISTORY: DIZZINESS 1 view chest x-ray Comparison: 04/15/2024 Findings: Lungs are clear without acute infiltrates. No pneumothorax. Heart size normal. No acute bony abnormalities. Impression: No acute processes This document has been electronically signed by: Andres Irvin MD on 07/30/2025 22:37:04
--- NOTE | ~2025-07-30 | CT_ITS ---
CLINICAL HISTORY: syncope, severe MIGUEL CT head without contrast Comparison: None provided Findings: No intra-axial mass, midline shift, hydrocephalus, or acute hemorrhage. No significant atrophy-like change or white matter disease. There is no sinus or mastoid fluid. The orbits are unremarkable. There is no acute fracture. IMPRESSION: 1. No acute intracranial findings. This document has been electronically signed by: Joseph Yu MD, PHD on 07/31/2025 05:06:28
[2025-07-30 21:51] VITALS: BP 144/82; PULSE 78; O2SAT 96; BMI 31.1
[2025-07-30 22:00] VITALS: BP 130/86; PULSE 71; RESP 16; TEMP 36.3; O2SAT 97
--- OUTSIDE RECORDS SUMMARY | 2025-07-30 22:07 | XMS_ITS | Encounter Summary ---
Author Organization [employer] Address [address] [place] [address] 7t [place] [address] Care Team Providers Care Glassware Selector Name Role Phone Diana Zamudio MD Primary Care Provider [phone] Milan Abrams MD Primary Care Prov ider Reason for Referral * Consultation (Routine) - Closed Specialty Diagnoses / Procedures Referred By Contac t Referred To Contact Cardiology Diagnoses Paroxysmal atrial fibrillation (CMS/HCC) (HCC) Diana Zamudio MD [address] [place] [address] Phone: tel: fax: [address] Phone: tel: fax: Referral ID Status Reason Start Date Expiration Date V isits Requested Visits Authorized [id number] Closed Specialty Services Required 04/25/2024 04/25/2025 6 6 Encounter Details Date Type Department Care Team (Late st Contact Info) Description 04/15/2024 Orders Only [facility] [address] [place] [address] Diana Zamudio MD [address] [place] [address] Paroxysmal atrial fibrillation (CMS/HCC) (Primary Dx) Social [...] encounter Visit Diagnoses Diagnosis Paroxysmal atrial fibrillation (CMS/HCC) (HCC)- Primary Atrial fibrillation documented in this encounter Additional Health Concerns Assessment Noted Time PHQ-9 Depression Total Score: 3 03/03/20 24 2:34 PM EDT documented as of this encounter Care Teams Glassware Selector Relationship Specialty Start Date End Date Diana Zamudio MD [address] [place] [address] PCP - General Family Medicine 12/20/20 12/29/24 Milan Abrams MD [address] [place] [address] PCP - General Internal Medicine 12/30/24 documented as of this encounter
--- OUTSIDE RECORDS SUMMARY | 2025-07-30 22:07 | XMS_ITS | Encounter Summary ---
Author Organization [employer] Address [address] [facility] 7t [place] [address] Care Team Providers Care Mobile Lounge Driver Name Role Phone Diana Zamudio MD Primary Care Provider [phone] Milan Abrams MD Primary Care Prov ider Reason for Visit * Reason Onset Date Comments Change PCP 04/21/2024 Encounter Details Date Type Department Care Team (Late st Contact Info) Description 04/21/2024 Telephone [facility] [address] [place] [address] Diana Zamudio MD [address] [place], [place] [phone] Change PCP Social History Tobacco Use Types [...] documented as of this encounter Care Teams Mobile Lounge Driver Relationship Specialty Start Date End Date Diana Zamudio MD [address] [place] [address] PCP - General Family Medicine 12/20/20 12/29/24 Milan Abrams MD [address] [place] [address] PCP - General Internal Medicine 12/30/24 documented as of this encounter
--- OUTSIDE RECORDS SUMMARY | 2025-07-30 22:07 | XMS_ITS | Encounter Summary ---
Author Organization [employer] Address [address] [place] [address] 7 [place] [address] Care Team Providers Care Astrophysics Professor Name Role Phone Diana Zamudio MD Primary Care Provider Milan Abrams MD Primary Care Prov ider Reason for Visit * Reason Onset Date Comments Appointment Request 05/16/2023 Encounter Details Date Type Department Care Team ([facility] st Contact Info) Description 05/16/2023 Telephone [facility] MEDICINE [address] [place] [address] Diana Zamudio MD [address] [place] [address] Appointment Request Social History Tobacco Use Types [...] with ADL's does not require AFC or IMPREGNATING TANK OPERATOR, patient needs only homemaking services IADl's. Will [...] documented as of this encounter Care Teams Astrophysics Professor Relationship Specialty Start Date End Date Diana Zamudio MD [address] [place] [address] PCP - General Family Medicine 12/20/20 12/29/24 Milan Abrams MD [address] [place] [address] PCP - General Internal Medicine 12/30/24 documented as of this encounter
--- OUTSIDE RECORDS SUMMARY | 2025-07-30 22:07 | XMS_ITS | Encounter Summary ---
Author Organization [employer] Address [address] [facility] [address] [place] [address] Care Team Providers Care Neon Tube Pumper Name Role Phone Milan Abrams MD Primary Care Prov ider Reason for Visit * Reason Onset Date Comments PCP Summary form 07/29/2025 Encounter Details Date Type Department Care Team ([facility] st Contact Info) Description 07/29/2025 Telephone [facility] MEDICINE [address] [place] [address] Milan Abrams MD [address] [place] [address] PCP Summary form Social History Tobacco Use Types Packs/Day Years [...] encounter Miscellaneous Notes * Telephone Encounter - Milena Garvin - 07/29/2025 10:52 AM EDT Tc from Martine stating she fax over an PCP summary form, needing fax over for this or next week. Contact Martine at [phone] documented in this encounter Plan of Treatment Not on file documented as of this encounter Visit Diagnoses Not on filedocumented in this encounter Additional Health Concerns Assessment Noted Time PHQ-9 Depression Total Score: 21 025 3:47 PM EDT documented as of this encounter Care Teams Neon Tube Pumper Relationship Specialty Start Date End Date Milan Abrams MD [address] [place] [address] PCP - General Internal Medicine 12/30/24 documented as of this encounter
--- OUTSIDE RECORDS SUMMARY | 2025-07-30 22:07 | XMS_ITS | Clinical Summary ---
Author Organization [employer] Address [address] [facility] 7t [place] [address] Care Team Providers Care Molder Operator Name Role Phone Milan Abrams MD [...] 18 g 3 06/01/20 25 026 Active Diclofenac Sodium 1 % gelIndications: De Quervain's tenosynovitis,R ight wrist pain TO APPLY TO THE AFFECTED AREA 3 TIMES A DAY 100 g 07/07/20 25 Active ibuprofen 800 MG tablet TOME 1 TABLETA POR VIA ORAL RAIMUNDO VECES AL DEMARCUS 90 tablet 07/22/20 25 Active ALPRAZolam (Xanax) 1 MG tabletIndicatio ns:Mood disorder (CMS/HCC) TOME 1 TABLETA POR VIA ORAL TODOS LOS SUAREZ CUANDO SEA NECESARIO FOR PANIC ATTACK (MAX 20 TABS/MONTH) 20 tablet 07/29/20 25 Active ibuprofen 800 MG tablet TAKE 1 TABLET BY MOUTH 3 TIMES DAILY 90 tablet 05/18/20 25 025 Discontinued Diclofenac Sodium 1 % gelIndications: De Quervain's tenosynovitis,R ight wrist pain TO APPLY TO THE AFFECTED AREA 3 TIMES A DAY 100 g 05/25/20 25 025 Discontinued ALPRAZolam (Xanax) 1 MG tabletIndicatio ns:Mood disorder (CMS/HCC) TOME 1 TABLETA POR VIA ORAL TODOS LOS SUAREZ CUANDO SEA NECESARIO FOR PANIC ATTACK (MAX 20 TABS/MONTH) 20 tablet 06/27/20 25 025 Discontinued Active Problems Problem Noted Date Diagnosed Date Chronic pain of left ankle 05/21/2024 Assessment & Plan (05/21/2024 6:39 AM EDT): S/p internal fixation in 2018 Declines hardware removal offered in 2020 at [facility] Movement and stretching Vicodin very sparingly [...] management. For any issues or concerns, call [facility]. All his questions were answered. I [...] not interested in BH therapy, Atrial fibrillation ([facility]) 12/21/2020 Assessment & Plan (06/01/2025 4:22 PM EDT): Followed by cardiology, on aspirin, no changes will be made Assessment & Plan (01/19/2025 9:28 AM EDT): Followed by cardiology, [id number] score 0 points on aspirin Assessment & Plan (05/21/2024 6:36 AM EDT): [facility] to [facility] Given number to call Assessment & Plan (08/01/2023 11:08 AM EDT): Will make f/u appointment with vp integration Had been off anticoagulation for some time Depressive disorder 12/21/2020 Assessment & Plan (06/01/2025 4:29 PM EDT): Followed by therapist, no suicidal/homicidal ideas Encounters Date Type Department Care Team Description 07/29/2025 Telephone [facility] MEDICINE [address] [place] [address] Milan Abrams MD PCP Summary form 07/27/2025 Refill [facility] PEDS [address] [place] [address] Milan Abrams MD Mood disorder (CMS/HCC) 07/23/2025 Telephone [facility] [address] [place] [address] Milan Abrams MD TP 07/23/2025 Telephone [facility] MEDICINE [address] [place] [address] Milan Abrams MD 07/22/2025 Orders Only [facility] PEDS [address] [place] [address] Milan Abrams MD 07/20/2025 Refill [facility]S [address] [place] [address] Kit Reyes MD 07/09/2025 Telephone [facility] PED[facility] [address] [place] [address] Milan Abrams MD 06/27/2025 Refill [facility] PEDS [address] [place] [address] Milan Abrams MD De Quervain's tenosynovitis; Right wrist pain 06/26/2025 Telephone [facility] PEDS [address] [place] [address] Milan Abrams MD TP 06/24/2025 Refill [facility]EDS [address] [place] [address] Milan Abrams MD Mood disorder ([facility]/HCC) 06/11/2025 Telephone [facility] PEDS [address] [place] [address] Milan Abrams MD Letter Request (I called [...] their son into daycare. ) 06/03/2025 Telephone [facility] [address] [place] [address] Milan Abrams MD Letter Request (I called to get clarification, on a request for a letter for welfare. I reached a voicemail, and left a message asking the patient to return my call at ext [phone].) 06/01/2025 3:15 PM EDT Office Visit [facility] [address] [place] [address] Milan Abrams MD Paroxysmal atrial fibrillation ([facility]) (Primary Dx); Dietary counseling; Exercise counseling; Depressive disorder 06/01/2025 Travel 05/25/2025 Refill [facility] [address] [place] [address] Kit Reyes MD Mood disorder ([facility]/HCC); De Quervain's tenosynovitis; Right wrist pain 05/25/2025 Travel 05/17/2025 Refill [facility] PEDS [address] [place] [address] Milan Abrams MD 05/15/2025 Refill [facility]EDS [address] [place] [address] Milan Abrams MD Mood disorder ([facility]/HCC) 05/11/2025 Refill [facility] PEDS [address] [place] [address] Milan Abrams MD Mood disorder (CMS/HCC) from Last 3 [...] t he electric, gas, oil or water [employer] threatened to shut off services in your [...] 11:21 AM EDT) Triglycerides 71 <150 mg/dL [facility] Comment:Desirable Triglyceri de: less than 150 mg/dLBorderline High Triglyceride 150-199 mg/dLHigh Triglyceride: 200-499 mg/dLVery High Triglyceride: greater than or equal to 5OO mg/dL Cholesterol 152 <200 mg/dL [facility] Comment:Desirable Cholestero l: less than 200 mg/dLBorderline High Cholesterol: 200-239 mg/dLHigh Cholesterol: greater than 239 mg/dL LDL Cholesterol Calculated 100(H) <100 mg/dL [facility] Comment:Desirable LDL: less than 100 mg/dLNear Optimal/Above Optimal LDL: 110- 129 mg/dLBorderline High LDL: 130-159 mg/dLHigh LDL: 160-189 mg/dLVery High LDL: greater than or equal to 190 mg/dL HDL Cholesterol 38(L) >40 mg/dL [facility] Comment:Desirable HDL: great er than 40 mg/dL Note: This HDL assay may give artificially low results in patients with liver disease. Blood Venous blood specimen / Unknown 08/01/2023 11:21 AM EDT 08/01/2023 1:13 PM EDT us Diana Zamudio MD LAB BLOOD ORDERABLES Final Res ult Performing Organization Address City/[facility]/ZIP Co de Phone Number [facility] [address] [place] [address] [phone] * HEPATITIS C AB W/REFL TO [...] a test for HCV RNA (test code 04871) is suggested. For additional information please refer to http://education.[employer]/faq/DBM53y8 (This link is being provided for informational/ educational purposes only.) 12/27/2020 10:0 3 AM EST us Diana Zamudio MD HISTORICAL/NON ORDERABLE LABS Final Result Performing Organization Address City/[facility] Co de Phone Number [facility] [address] [place] [address], from Last 3 Months or Most Recently Relevant to Health Maintenance Insurance [facility] C3 Care Teams Molder Operator Relationship Specialty Start Date End Date Milan Abrams MD [address] [place] [address] PCP - General Internal Medicine 12/30/24
--- OUTSIDE RECORDS SUMMARY | 2025-07-30 22:07 | XMS_ITS | Encounter Summary ---
Author Organization [employer] Address [address] [place] [address] [address] [place] [address] Care Team Providers Care Area Cleaner Name Role Phone Milan Abrams MD Primary Care Prov ider Encounter Details Date Type Department Care Team ([facility] st Contact Info) Description 07/22/2025 Orders Only [facility] MED [facility] PEDS [address] [place], [place] [phone] Milan Abrams MD [address] [place] [address] Social History Tobacco Use Types Packs/Day Years [...] documented as of this encounter Care Teams Area Cleaner Relationship Specialty Start Date End Date Milan Abrams MD [address] [place] [address] PCP - General Internal Medicine 12/30/24 documented as of this encounter
--- OUTSIDE RECORDS SUMMARY | 2025-07-30 22:07 | XMS_ITS | Encounter Summary ---
Author Organization [employer] Address [address] [place] [address] [address] [place] [address] Care Team Providers Care Door Patcher Name Role Phone Diana Zamudio MD Primary Care Provider [phone] Milan Abrams MD Primary Care Prov ider Reason for Visit * Reason Comments Med Refill Encounter Details Date Type Department Care Team (Late st Contact Info) Description 12/08/2022 Refill [facility] MEDICINE [address] [place] [address] John Saunders FNP Social History Tobacco Use [...] documented as of this encounter Care Teams Door Patcher Relationship Specialty Start Date End Date Diana Zamudio MD [address] [place] [address] PCP - General Family Medicine 12/20/20 12/29/24 Milan Abrams MD [address] [place] [id number] PCP - General Internal Medicine 12/30/24 documented as of this encounter
--- OUTSIDE RECORDS SUMMARY | 2025-07-30 22:07 | XMS_ITS | Encounter Summary ---
Author Organization [employer] Address [address] [place] [address] 7 [place] [address] Care Team Providers Care Residential Tech Name Role Phone Milan Abrams MD Primary Care Prov ider Reason for Visit * Reason Comments Med Refill Encounter Details Date Type Department Care Team ([facility] st Contact Info) Description 07/27/2025 Refill [facility] MED [facility] PEDS [address] [place], [place] [phone] Milan Abrams MD [address] [place] [address] Mood disorder (CMS/HCC) Social History Tobacco Use [...] encounter Miscellaneous Notes * Telephone Encounter - Salome Antony RN - 07/27/2025 3:47 PM EDT Would you like pt to be on [employer]HER? What [employer]ING [employer]W PUSHER Tier? documented in this encounter Plan of Treatment Not on file documented as of this encounter Visit Diagnoses Diagnosis Mood disorder (CMS/HCC) Unspecified episodic mood disorder documented in this encounter Additional Health Concerns Assessment Noted Time PHQ-9 Depression Total Score: 21 025 3:47 PM EDT documented as of this encounter Care Teams Residential Tech Relationship Specialty Start Date End Date Milan Abrams MD [address] [place] [id number] PCP - General Internal Medicine 12/30/24 documented as of this encounter
[2025-07-30 22:15] LABS: MANUAL DIFF FLAG NO
[2025-07-30 22:22] LABS: INTERNATIONAL NORM RATIO 1.0 (0.9-1.1); Prothrombin Time 11.8 SEC (10.9-12.4)
[2025-07-30 22:30] LABS: Hematocrit 41.2 % (42.0-52.0); Hemoglobin 14.6 g/dl (14.0-18.0); Imm Gran Abs Auto 0.11 X10*3/uL (0.00-0.03); Imm Gran Pct Auto 0.7 % (0.0-0.4); Lymphocytes Absolute Auto 1.7 X10*3/uL (1.2-4.9); Mean Corpuscular HGB Conc 35.4 g/dl (31.0-36.0); Mean Corpuscular Hemoglobin 30.2 pg (27.0-33.0); Mean Corpuscular Volume 85.3 fL (80.0-98.0); NRBC Abs Auto 0.000 X10*3/uL (0.0-0.012); NRBC Pct Auto 0.0 /100WBC (0.0-0.2); Platelet Count 286 X10*3/uL (160-400); Red Blood Count 4.83 X10*6/uL (4.60-5.80); White Blood Count 15.6 X10*3/uL (4.8-10.8)
[2025-07-30 22:32] LABS: Alanine Aminotransferase 27 U/L (0-40); Albumin Level 4.6 g/dL (3.5-5.0); Alkaline Phosphatase 75 U/L (39-117); Anion Gap 13 (12-20); Aspartate Amino Transferase 28 U/L (5-37); Blood Urea Nitrogen 19 mg/dL (9-16); Calcium 8.8 mg/dL (8.4-10.2); Carbon Dioxide 23 mmol/L (22-29); Chloride 109 mmol/L (96-108); Creatinine Clr Calc Pharmacy 82.9; Estimated Glomerular Filt Rate > 60; Potassium 3.4 mmol/L (3.3-5.1); Sodium 142 mmol/L (135-145); Total Protein 6.7 g/dL (6.5-8.0)
[2025-07-30 22:39] LABS: Troponin-I High Sensitivity 9.9 ng/L (<3.5-35.0)
[2025-07-31] VITALS (15 sets, daily range): BP systolic 99–121; BP diastolic 59–77; PULSE 58–84; RESP 12–18; TEMP 36.5–36.9; O2SAT 94–98; BMI 30.9
--- NOTE | 2025-07-31 | EEG_ITS ---
Roomed Performed: 1st floor Reason: syncope History: H/O afib- Yesterday patient reported episode of dizziness, like the room was spinning and then lowered to the ground. Patient has had blurred vision since then as well as dizziness. Medication: albuterol, magnesium hydroxide, melatonin, omeprazole, ondansetron Technical description Photic stimulation: completed Hyperventilation:?omitted Behavioral state: pleasant State of Consciousness: awake and sleep Skull defect: none Sedation: none Handedness: right Duration of study:?29 min 40 sec Description: This is a 16 channel EEG with an EKG lead. Patient is reported awake and asleep during the tracing. Background EEG rhythm is about 10 hertz 5- 50 microvolt posteriorly and lower amplitude fast anteriorly. Photic stimulation does not produce any significant abnormality. Hyperventilation is not performed. Cardiac lead does not reveal any significant abnormality patient transitioned into drowsiness wit no significant abnormality. No sharp wave spikes or paroxysmal tendency noted. Impression: Unremarkable EEG. MTDD
[2025-07-31 00:38] LABS: Appearance Urine Clear; Glucose Urine UA Negative (Negative); PH 6.0 (5.0-9.0); Specific Gravity - Urine 1.025 (1.005-1.025)
--- NOTE | 2025-07-31 00:53 | ED_ITS ---
HPI - Dizziness General Chief Complaint: Dizziness Stated Complaint: Fall no head strike, HTN, n/v, dizziness Time Seen by Provider: 07/31/25 00:34 Source: patient and EMS Mode of arrival: EMS Limitations: no limitations History of Present Illness ED Provider: Dr. Stephanie Ruano HPI Narrative: Patient comes to the emergency room complaining of dizziness. According to the patient, he was cooking when he told his that he was not feeling well and was feeling lightheaded/dizzy. According to the patient, he started called him and lower him to the ground. He did not hit his head or lost consciousness. Patient is known to take Eliquis for atrial fibrillation. However, patient states that he stopped taking it a few days ago because he takes too much medication and did not feel like taking it. According to EMS, patient was a bit diaphoretic when they arrived to his residence, patient's oxygen saturation was 89% on room air, but patient did not complaining of any shortness of breath, palpitations or chest pain. Patient was put on 4 L nasal cannula with significant improvement and was eventually weaned off to room air. Patient states that approximately 30 minutes ago he started having a severe headache Related Data Home Medications ?Medication ?Instructions ?Recorded ?Confirmed epinephrine 0.3 mg/0.3 mL 0.3 mg IM Q10M PRN Anxiety 0 02/01/21 06/08/25 injection, auto-injector alprazolam 1 mg tablet 1 mg PO TID PRN Anxiety 10/0 07/2206/08/25 naloxone 4 mg/actuation nasal spray intranasal 5 06/08/25 Previous Rx's ?Medication ?Instructions ?Recorded albuterol sulfate 90 mcg/actuation 2 puff inhalation Q 4-6H PRN 04/15/24 aerosol inhaler (ProAir HFA) shortness of breath or wh eezing #8.5 grams esomeprazole magnesium 40 mg 40 mg PO DAILY #90 caps 0 02/18/25 capsule,delayed release (Nexium) ondansetron 4 mg disintegrating 4 mg PO Q8H PRN nausea and 02/18/25 tablet vomiting #20 tabs famotidine 20 mg tablet (Pepcid) 20 mg PO BID #30 tabs 07/22/25 Allergies Allergy/AdvReac Type Severity Reaction Status Date / Time shrimp Allergy Severe RASH Verified 07/30/25 21:56 Review of Systems 2 Review of Systems: Constitutional : No Weight loss, No Fever, No Chills, No Night Sweats, No Fatigue, No Malaise ENT/Mouth : No Hearing loss, No Ear Pain, No Nasal Congestion, No Sinus Pain, No Hoarseness, No sore throat, No Rhinorrhea, No Swallowing Difficulty Eyes: No Eye Pain, No Swelling, No Redness, No Foreign Body, No Discharge, No Vision Changes Cardiovascular : No Chest Pain, No SOB, No Dyspnea on Exertion, No Orthopnea, No Edema, No Palpitations Respiratory : No Cough, No Sputum, No Wheezing, No Smoke Exposure, No Dyspnea Gastrointestinal : No Nausea, No Vomiting, No Diarrhea, No Constipation, No abdominal Pain, No Hematochezia, No Melena Genitourinary : no irregular bleeding, No Dysuria, No Urinary Frequency, No Hematuria, No Urinary Incontinence, No Urgency, No Flank Pain, No Urinary Flow Changes, No Hesitancy Musculoskeletal : No joint pain, No Myalgias, No Joint Swelling Skin : No Skin Lesions, No rash Neuro : No Weakness, No Numbness, No Paresthesias, complaining of near syncope with dizziness , no head strike but patient complaining of headache Psych : No Anxiety/Panic, No Depression, No SI/HI/AH/VH, No Social Issues, Heme/Lymph: No Bruising, No Bleeding,No Lymphadenopathy Endocrine : No Polyuria, No Polydipsia, No Temperature Intolerance PMFSH Past Medical History 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 PAF (paroxysmal atrial fibrillation) Surgical History Hx of hernia repair Hx of foot surgery Family History Family History Mother HTN (hypertension) Lupus COPD (chronic obstructive pulmonary disease) Father Diabetes Arthritis Brother HTN (hypertension) Brain tumor Social History Social History Household Members: Family Alcohol intake: never Patient Tobacco Use Status: Never used Tobacco Smoked in Last 30 Days: No e-Cigarette/Vaping Use: Never Used Use of substances other than those prescribed or required for medical reasons: No Advance Directives: No Advance Directives Information Provided: No Current occupational status: unemployed 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 Oriented X3. No acute distress. Eyes: Pupils equal, round and reactive to light. No nystagmus ENT: Pharynx normal. Neck: Normal inspection. Neck supple. No lymph nodes noted. No crepitus CVS: Normal heart rate and rhythm. Pulses normal. Normal S1 and S2 Respiratory: No respiratory distress. Breath sounds normal. No Wheezing. No rales Abdomen: Soft and nontender. No rigidity. No distention. Skin: Skin warm and dry. Normal skin color. Normal skin turgor. Extremities: No lower extremity edema. No Lacerations. No Rash Neuro: Oriented X 3. No motor deficit. No sensory deficit. Moving all extremities. No slurred speech. CN 2 through 12 grossly intact Psych: calm, cooperative, normal affect Vital Signs: Vital Signs: Last Vital Signs Temp 98 F 07/31/25 03:55 Pulse 72 07/31/25 03:55 Resp 16 07/31/25 03:55 BP 110/60 07/31/25 03:55 Pulse Ox 96 07/31/25 03:55 O2 Del Method Room Air 07/31/25 03:55 BMI result Body Mass Index 31.1 Course Course Course Narrative: Patient denies chest pain, palpitations or shortness of breath. Patient has a near syncopal episode Given patient's symptoms, we will proceed with a CT scan. Patient admits that he has stopped taking Eliquis a few days ago Medications Administered Discontinued Medications Generic Name Dose Route Start Last Admin Trade Name Kate PRN Reason Stop Dose Admin Acetaminophen/Butalbital/Caffeine 1 tab 07/31/25 04:22 07/31/25 04:27 Butalb/Acetamin/Caff 50/325/40 Tablet PO 07/31/25 04:23 1 tab ONCE ONE Administration Diazepam 2.5 mg 07/31/25 00:51 07/31/25 01:06 Diazepam 10 Mg/2 Ml Cartridge IVPUSH 07/31/25 00:52 2.5 mg STAT STA Administration Morphine Sulfate 1 mg 07/31/25 00:51 07/31/25 01:06 Morphine Sulfate 2 Mg/Ml Cartridge IVPUSH 07/31/25 00:52 1 mg ONCE ONE Administration Protocol Ondansetron HCl 4 mg 07/31/25 01:02 07/31/25 01:06 Ondansetron Hcl 4 Mg/2 Ml Vial IVPUSH 07/31/25 01:03 4 mg ONCE ONE Administration Medical Decision Making Medical Decision Making [facility] Narrative: My interpretation of EKG: Normal sinus rhythm, heart rate 67, no ST segment depression or elevation, nonspecific T-wave inversion in lead 3 AVF, QTC 407. No EKG changes since at least August of 2024 My interpretation of hematology, patient's white blood cell count 15.6, likely reactive leukocytosis. No source of infection at this time. Chemistry does not show any acute abnormality, glucose 131, INR 1.0, normal chemistry, troponin within normal limits. Urinalysis negative for UTI Patient complaining of a headache. Patient states that he feels opens his eyes he becomes very dizzy, described as room spinning. Patient receiving IV diazepam and morphine to help with the symptoms. CT scan of the head pending D-dimer is negative Orthostatic vitals are negative Head CT does not show any acute abnormality Patient states that he feels much better. However, when patient arrived, patient's oxygen saturation was 89% with a clear explanation. Patient's oxygen saturation now 97% on room air Patient has been off Eliquis for several days. I discussed the above-mentioned with Dr. Matute from the Medicine team, patient to be admitted. Patient agrees with plan Differential Diagnosis Differential Diagnoses: The differential diagnosis associated with the presentation includes (Atrial fibrillation, hemorrhagic stroke, vertigo) Admission/Observation Consideration of admission/observation: Escalation of care including admission/observation considered Consult Healthcare Provider Management of the patient was discussed with: Hospitalist Lab Data [facility] Lab Attestation statement: I reviewed the patient's lab results. 07/30/25 22:08 07/30/25 22:08 Labs: Lab Results 07/30/25 07/31/25 Range/Units 22:08 00:26 WBC 15.6 H (4.8-10.8) X10*3/uL RBC 4.83 (4.60-5.80) X10*6/uL Hgb 14.6 (14.0-18.0) g/dl Hct 41.2 L (42.0-52.0) % MCV 85.3 (80.0-98.0) fL MCH 30.2 (27.0-33.0) pg MCHC 35.4 (31.0-36.0) g/dl RDW 11.8 (11.0-16.0) % Plt Count 286 (160-400) X10*3/uL MPV 10.9 (9.4-12.4) fL Immature Gran % (Auto) 0.7 H (0.0-0.4) % Neut % (Auto) 82.7 H (45-73) % Lymph % (Auto) 10.9 L (20-40) % [place] % (Auto) 5.4 (2-11) % Eos % (Auto) 0.1 (0-4) % Baso % (Auto) 0.2 (0-2) % Lymph # (Auto) 1.7 (1.2-4.9) X10*3/uL [place] # (Auto) 0.8 (0.1-1.2) X10*3/uL Eos # (Auto) 0.0 (0.0-0.4) X10*3/uL Baso # (Auto) 0.0 (0.0-0.2) X10*3/uL Abs Immat Gran (auto) 0.11 H (0.00-0.03) X10*3/uL Absolute Neuts (auto) 12.9 H (2.0-8.3) x10*3/uL Absolute Nucleated RBC 0.000 (0.0-0.012) X10*3/uL Nucleated RBC % (auto) 0.0 (0.0-0.2) /100WBC PT 11.8 (10.9-12.4) SEC INR 1.0 (0.9-1.1) D-Dimer High Sensitivty < 150 NG/ML Sodium 142 (135-145) mmol/L Potassium 3.4 (3.3-5.1) mmol/L Chloride 109 H (96-108) mmol/L Carbon Dioxide 23 (22-29) mmol/L Anion Gap 13 (12-20) BUN 19 H (9-16) mg/dL Creatinine 1.27 (0.5-1.4) mg/dL Estim Creat Clear Calc 82.9 Estimated GFR > 60 Random Glucose 131 H (60-115) mg/dL Calcium 8.8 D (8.4-10.2) mg/dL Total Bilirubin 0.6 (0.0-1.0) mg/dL AST 28 (5-37) U/L ALT 27 (0-40) U/L Alkaline Phosphatase 75 (39-117) U/L Troponin I High Sens 9.9 D (<3.5-35.0) ng/L Total Protein 6.7 (6.5-8.0) g/dL Albumin 4.6 (3.5-5.0) g/dL Urine Color Yellow Urine Appearance Clear Urine pH 6.0 (5.0-9.0) Ur Specific [place] 1.025 (1.005-1.025) Urine Protein Negative (Neg-Trace) mg/dL Urine Glucose (UA) Negative (Negative) mg/dL Urine Ketones Trace (Negative) mg/dL Urine Blood Negative (Negative) Urine Nitrite Negative (Negative) Ur Leukocyte Esterase Negative (Negative) Urine RBC 0-2 (0-2) /HPF Urine WBC 0-5 (0-5) /HPF Ur Squamous Epith Cells 0-2 (0-2) /HPF Urine Bacteria None Seen (None Seen) Hyaline Casts 0-2 (0-2) /LPF Urine Opiates Screen Not Detected (Not Detect) Ur Buprenorphine Scrn Not Detected (Not Detect) ng/mL Ur Oxycodone Screen Not Detected (Not Detect) ng/mL Urine Methadone Screen Not Detected (Not Detect) ng/mL Urine Fentanyl Screen Not Detected (Not Detect) Ur Barbiturates Screen Not Detected (Not Detect) Ur Phencyclidine Scrn Not Detected (Not Detect) Ur Amphetamines Screen Not Detected (Not Detect) U Benzodiazepines Scrn Not Detected (Not Detect) Urine Cocaine Screen Not Detected (Not Detect) U Marijuana (THC) Screen Not Detected (Not Detect) Independent Interpretation I performed an independent interpretation of an: EKG and CT Scan Radiology Impression Discussion of test interpretation with radiology: I have reviewed the radiologist's reading. Radiologist Impression: No intra-axial mass, midline shift, hydrocephalus, or acute hemorrhage. No significant atrophy-like change or white matter disease. There is no sinus or mastoid fluid. The orbits are unremarkable. There is no acute fracture. IMPRESSION: 1. No acute intracranial findings. Chronic Conditions Patient?s care impacted by: Other (Atrial fibrillation, medication noncompliance) Critical Care Time Critical Care Time Critical Care Time: Yes Total Critical Care Time: 60 Attestation: I have personally provided critical care time. Time includes review of lab data, radiology results, discussion with consultants, and monitoring for potential decompensation. Intervention performed as documented. Discharge Plan Discharge Clinical Impression: Near syncope Patient Disposition: Admitted As Inpatient Print Language: Mozambican
[2025-07-31] MEDS: diazePAM 10 MG/2 ML CARTRIDGE 2.5 MG IVPUSH (01:06)
[2025-07-31 01:09] LABS: D Dimer High Sensitivity < 150 NG/ML
--- NOTE | 2025-07-31 01:22 | MHC.EDTECH ---
This PCT attempted to perform Orthostatic vitals on patient. After successfully completing the supine position patient informed me he was too weak to sit and stand to complete the rest of the vitals. aware
[2025-07-31 01:25] LABS: Cannabinoid Screen Urine Not Detected (Not Detect)
[2025-07-31] MEDS: Butalb/Acetamin/Caff 50/325/40 TABLET 1 TAB PO ×2 (04:27→21:20)
--- NOTE | 2025-07-31 05:19 | MHC.EDTECH ---
pt's ambulation trial complete and he ambulated from room 6 to double doors outside of 4 back to room just fine
--- NOTE | 2025-07-31 05:46 | PM.IMHP ---
History of Present Illness Date of Service: 07/31/25 Attending physician on admission: Tj Dukes Chief Complaint: syncope Patient is a 44-year-old male with past medical history PAFib normally on Eliquis, COVID, spondylosis of the lumbar spine,,neuropathy ankle fusion, GERD, anxiety, recent sleep study negative for FARIHA, bronchitis was brought in by ambulance after experiencing a syncopal episode witnessed by family. It was in the evening while family was preparing dinner and patient complained to his that he was not feeling well and felt dizzy and as he began to pass out, family caught him and prevented the head strike. Patient currently on leave from work as he and his have just welcomed a 7-day-old baby that was born premature. Patient indicates that he has not had much sleep and prior to this episode in the kitchen, patient had been at the gym doing cardiovascular activity for approximately 2 hours. Patient states he did hydrate during this time. Patient is reporting blurry vision with no loss of central or peripheral vision and a significant headache behind the left eye towards the top of his head. Patient states he was admitted in his 30s for the same issue regarding a very severe headache but was not diagnosed with migraine and there was no follow-up needed. In addition patient reports his sensation in his left upper thigh is diminished and it is worrying him. Patient does report chronic back problems likely related to weightlifting. Patient denies any history of motor vehicle accident or injury to the lower spine. Patient denies any loss of bowel or bladder. patient does have diminished sensation in the left upper thigh only on exam, strength and reflexes are all normal. Patient was not hypoglycemic on arrival. Patient also noted to be hypoxic at 89% upon arrival to the ED and was given 4 L with remarkable improvement. Chest x-ray negative for any acute findings. D-dimer low no indication for CTA. Patient does have a leukocytosis but no fever and is not complaining of any nausea or vomiting at this time. UA also negative for UTI. EKG normal sinus rhythm with a T-wave abnormality in the inferior leads. QTC 407. Troponin 9.9. CT of the head also negative for acute findings. Magnesium and TSH pending. Patient now on room air and pulse ox is 96%. Pt currently denies any chest pain, SOB at rest and states his dizziness has resolved. Patient states the headache persists and after receiving Tylenol there has been no change. Patient being admitted for syncopal episode. Review of Systems Review of Systems: Patient denies any chest pain, shortness of breath at rest, abdominal pain or nausea and vomiting. Patient is not having any diarrhea or constipation. Patient has had a significant behind left eye going into the temporal area and the perianal area. headache and was treated in the ED with Tylenol patient states the headache remains the same. Patient also reporting blurry vision. Patient denies any loss of central or peripheral vision. Patient also reporting decreased sensitivity in the left upper thigh specifically. Patient ?it feels weird? 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 PAF (paroxysmal atrial fibrillation) Cognitive capacity: Alert and orientated x3 Functional capacity: independent ambulation Family History Mother HTN (hypertension) Lupus COPD (chronic obstructive pulmonary disease) Father Diabetes Arthritis Brother HTN (hypertension) Brain tumor Surgical History Hx of hernia repair Hx of foot surgery Social History Household Members: Family Alcohol intake: never Patient Tobacco Use Status: Never used Tobacco Smoked in Last 30 Days: No e-Cigarette/Vaping Use: Never Used Use of substances other than those prescribed or required for medical reasons: No Advance Directives: No Advance Directives Information Provided: No Current occupational status: unemployed Current occupation: right hand Ebola Risk: Travel/Contact With Anyone From Affected Area/s: No Has Patient Experienced Ebola Symptoms: No Meds Allergies Allergy/AdvReac Type Severity Reaction Status Date / Time shrimp Allergy Severe RASH Verified 07/30/25 21:56 Active Medications: Current Medications Acetaminophen (Acetaminophen 325 Mg Tablet) 650 mg PO Q6H PRN PRN Reason: Pain, Mild 1-3,fever,headache Albuterol/Ipratropium (Albuterol/Iprat 2.5/0.5mg 3 Ml Ampul.Neb) 3 ml INHALE Q4H PRN PRN Reason: Shortness of Breath/Wheezing Calcium Carbonate (Calcium Carbonate 750 Mg Tab.Chew) 750 mg PO Q4H PRN PRN Reason: Heartburn Sodium Chloride (Ns) 1,000 mls @ 100 mls/hr IVCONT .Q10H [facility] Magnesium Hydroxide (Milk Of Magnesia 30 Ml Oral.Susp) 30 ml PO DAILY PRN PRN Reason: Constipation Melatonin (Melatonin 3 Mg Tablet) 6 mg PO BEDTIME PRN PRN Reason: Insomnia Ondansetron HCl (Ondansetron Hcl 4 Mg/2 Ml Vial) 4 mg IVPUSH Q8H PRN PRN Reason: Nausea and Vomiting Polyethylene Glycol (Polyethylene Glycol 3350 17 Gm Powd.Pack) 17 gm PO DAILY PRN PRN Reason: Constipation Sodium Chloride (0.9 % Sodium Chloride Flush 3 Ml Syringe) 3 ml IVFLUSH QSHIFT [facility] Home Medications ?Medication ?Instructions ?Recorded ?Confirmed ?Last Taken ?Type epinephrine 0.3 mg/0.3 mL 0.3 mg IM Q10M PRN Anxiety 02/01/21 06/08/25 Unknown History injection, auto-injector alprazolam 1 mg tablet 1 mg PO TID PRN Anxiety 08/06/24 06/08/25 Unknown History naloxone 4 mg/actuation nasal spray intranasal 02/18/25 06/08/25 Unknown History Physical Exam Vital Signs and Narrative: Vital Signs: Last Vital Signs Temp 98 F 07/31/25 03:55 Pulse 80 07/31/25 05:33 Resp 18 07/31/25 05:33 BP 111/71 07/31/25 05:33 Pulse Ox 96 07/31/25 05:33 O2 Del Method Room Air 07/31/25 05:33 BMI result Body Mass Index 31.1 Alert and orientated X3, able to give good history. Neuro: CN II-X11 intact, visual acuity intact , sensation diminished in left upper thigh only, photosensitivity but no nuchal rigidity EYES: PERRLA, EOM intact, sclerae nonicteric ENT: hearing intact, no issues with swallowing, uvula midline, lips moist, nares patent no epistaxis Cardiac: S1 S2 RRR, no murmur, no JVD, no edema in Lower ext Pulmonary: lungs clear to auscultation B Abdominal: BS active in all 4 quadrants, no guarding, tenderness, rebounding MSK: strength 5/5 upper and R lower extremities , 4/5 L lower ext : no CVA tenderness no bladder distension Extremities: no edema in lower extremities, PT and DP pulses palpable +2 Psych: mood stable, judgement and insight good Skin: No new rashes or lesions Results Labs 07/30/25 22:08 07/30/25 22:08 Labs: Laboratory Results - last 24 hr 07/30/25 07/31/25 22:08 00:26 MCV 85.3 MCH 30.2 MCHC 35.4 RDW 11.8 Plt Count 286 MPV 10.9 Immature Gran % (Auto) 0.7 H Neut % (Auto) 82.7 H Lymph % (Auto) 10.9 L [place] % (Auto) 5.4 Eos % (Auto) 0.1 Baso % (Auto) 0.2 Lymph # (Auto) 1.7 [place] # (Auto) 0.8 Eos # (Auto) 0.0 Baso # (Auto) 0.0 Abs Immat Gran (auto) 0.11 H Absolute Neuts (auto) 12.9 H Absolute Nucleated RBC 0.000 Nucleated RBC % (auto) 0.0 PT 11.8 INR 1.0 D-Dimer High Sensitivty < 150 Anion Gap 13 Estim Creat Clear Calc 82.9 Estimated GFR > 60 Random Glucose 131 H Calcium 8.8 D Total Bilirubin 0.6 AST 28 ALT 27 Alkaline Phosphatase 75 Troponin I High Sens 9.9 D Total Protein 6.7 Albumin 4.6 Urine Color Yellow Urine Appearance Clear Urine pH 6.0 Ur Specific [place] 1.025 Urine Protein Negative Urine Glucose (UA) Negative Urine Ketones Trace Urine Blood Negative Urine Nitrite Negative Ur Leukocyte Esterase Negative Urine RBC 0-2 Urine WBC 0-5 Ur Squamous Epith Cells 0-2 Urine Bacteria None Seen Hyaline Casts 0-2 Urine Opiates Screen Not Detected Ur Buprenorphine Scrn Not Detected Ur Oxycodone Screen Not Detected Urine Methadone Screen Not Detected Urine Fentanyl Screen Not Detected Ur Barbiturates Screen Not Detected Ur Phencyclidine Scrn Not Detected Ur Amphetamines Screen Not Detected U Benzodiazepines Scrn Not Detected Urine Cocaine Screen Not Detected U Marijuana (THC) Screen Not Detected Imaging Radiologist's Impressions: CT scan Negative for acute findings Chest x-ray negative for any acute processes Assessment and Plan (1) Syncope: Qualifiers: Syncope type: unspecified Qualified Code(s): R55 - Syncope and collapse Status: Acute Plan Patient is a 44-year-old male with past medical history PAFib normally on Eliquis, COVID, spondylosis of the lumbar spine, ,neuropathy ankle fusion, GERD, anxiety, recent sleep study negative for FARIHA, bronchitis was brought in by ambulance after experiencing a syncopal episode witnessed by family. It was in the evening while family was preparing dinner and patient complained to his that he was not feeling well and felt dizzy and as he began to pass out, family caught him and prevented the head strike. Patient had gone to the gym prior to the episode and did cardiovascular workout and was hydrating. Please note that patient is now caring for a 6-day-old baby that is premature along with his . In addition they have 4 other children. Patient states he is sleep deprived. 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 This was confirmed with patient's by phone. Continue telemetry Last Holter monitor was February 2020 5- for AFib GERD Omeprazole ordered Anxiety We will hold Xanax PRN for now DVT prophylaxis: Lovenox Med rec pending Full Code status Quality Stroke Does the patient have a stroke diagnosis?: No Reason for No Anti-thrombotic by Day Two: N/A - Med Ordered VTE Prior VTE?: No VTE Risk Level:: Medical - moderate - high VTE Device Contraindication: N/A - Device Ordered VTE Drug Contraindication: N/A - Med Ordered
--- NOTE | 2025-07-31 07:00 | CA_ITS ---
Transthoracic Echocardiogram Patient (Last, First, Middle): Gilbert Silva E Gender: M Date of : 1980 Age: 44 Procedure Date: 07/31/2025 Procedure Type: Transthoracic Echocardiogram Location: ER Height: 172.72 cm Weight: 92.53 kg BSA: 2.06 m2 Heart Rate: 62 bpm BP: 114 / 74 mmHg Coil Cleaner: LILIAM Referring MD: Martita ESPINO Symptoms: syncope Study Quality: Adequate w contrast ECG Rhythm: Sinus Conclusions: - The left ventricular systolic function is hyperdynamic. The visually estimated ejection fraction is >70%. - No obvious valvular pathology seen on this study. Findings Procedure Information Contrast agent, definity, is being given per protocol without apparent complications. Left Ventricle Normal left ventricular cavity size. There is mildly increased left ventricular wall thickness. The left ventricular systolic function is hyperdynamic. The visually estimated ejection fraction is >70%. The calculated ejection fraction is 73% by biplane method. There is no evidence of regional wall motion abnormalities. Diastolic function is normal for age. Right Ventricle Normal right ventricular cavity size. There is low normal right ventricular systolic function. Atria Both atria are normal in size. Aortic Valve There is a normal trileaflet aortic valve. There is no aortic valve stenosis. There is no aortic valve regurgitation. Mitral Valve The mitral valve appears normal. There is no mitral valve regurgitation. There is no mitral valve stenosis. Pulmonic Valve The pulmonic valve is likely normal. Tricuspid Valve Normal tricuspid valve structure. There is trace tricuspid valve regurgitation. There is no evidence of pulmonary hypertension. Great Vessels The asc aorta and aortic arch are normal in size. Venous The inferior vena cava is normal in size and collapses greater than 50% with inspiration. Pericardium/Pleural There is no evidence of pericardial effusion. Prior Study Comparison Changes noted compared to prior study dated: 09/03/2024. Increase in LVEF. Recommendations, Care & Conclusions No obvious valvular pathology seen on this study. Measurements 2D Linear Measurements IVSd: 1.18 0.6-0.9/0.6-1.0 cm LVIDd: 5.03 3.9-5.3/4.2-5.9 cm LVIDd Index: 2.44 2.4-3.2/2.2-3.1 cm/m2 LVIDs: 3.32 2.0-3.6 cm LVPWd: 1.07 0.7-1.1 cm LA Diam: 3.70 2.7-3.8/3.0-4.0 cm LAIDs Index: 1.80 1.5-2.3 cm/m2 LV Mass: 268.91 67-162/88-224 g LV Mass Index: 130.54 43-95/49-115 g/m2 LVOT Diam: 2.10 3.0+(-)1.3 cm 2D Systolic Function EF 4C: 73.40 >55% EF 2C: 72.20 >55% EF BiP: 72.80 >55% Mitral Valve MV Pk E: 0.89 MV PK A: 0.50 MV Decel Time: 173.00 E/A: 1.80 E'Lateral: 10.90 E'Medial: 9.14 E/E' Med: 9.70 E/E' Lat: 8.10 PHT: 51.00 MVA PHT: 4.31 Decel [place]: 5.14 Aortic Valve AoV Pk Lewis: 1.40 AoV Pk Grad: 8.00 JODI: 3.75 LVOT LVOT Pk Lewis: 1.40 LVOT Mn Lewis: 0.86 LVOT VTI: 0.25 LVOT Pk Grad: 8.00 LVOT Mn Grad: 4.00 LVOT Diam: 2.10 LVOT Area: 3.46 Diastolic Function MV Pk E: 0.89 MV Pk A: 0.50 E/A: 1.80 E'Medial: 9.14 E/E' Med: 9.70 E' Laterial: 10.90 E/E' Lat: 8.10 Right Ventricle TAPSE (mm): 17.80 TVS' Lewis: 9.46 Tricuspid Valve RA Press: 3.00 Great Vessels Aorta Sinus of Valsalva: 3.40 2.0-3.5 cm Ao Asc: 3.10 2.1-3.4 cm Ao Arch: 3.00 Pulmonary Veins Pulm Vein S/D 1.20 Pulmonary Valve PV Pk Lewis: 0.89 Peak PV Grad: 3.00 Updated in Other Vendor System with Status of Final Phillip Bustos MD electronically signed on 07/31/2025 11:15:21 AM with status of Final
[2025-07-31 07:10] LABS: Magnesium 2.1 mg/dL (1.6-2.6)
--- NOTE | 2025-07-31 10:11 | P.CONCA_ITS ---
History of Present Illness History of Present Illness Date of Service: 07/31/25 Chief complaint: near syncope Narrative: This is a cardiology consultation for syncope. Patient has been seen in the clinic an year ago. At that time, there was a question of atrial fibrillation that was diagnosed in [place] but no EKGs to confirm that. Any case, he underwent a comprehensive workup with an echocardiogram and Holter and there was no obvious abnormality. Current admissions because of syncopal episode. Patient states that he was doing some cocaine and was boiling something and in that instance, suddenly felt dizzy and he fell down. Then brought to the ER for further evaluation. Currently, he states that he feels as if everything is spinning around. Discussed more of a vertigo than true dizziness. He does not have any symptoms like chest pains or shortness of breath or palpitations or any other cardiac concerns. He states he was actually working out in the gym couple of hours prior to this specific episode. Review of Systems 2 Review of Systems: Yes all other systems are reviewed and are negative Constitutional: Constitutional: Reports as per HPI and Reports no additional constitutional complaints Eyes: Eyes: Reports as per HPI and Denies no additional eye complaints ENT: Denies system reviewed and no additional complaints, except as documented and Reports as per HPI Cardiovascular: Cardiovascular: Reports as per HPI, Reports no additional cardiovascular complaints, Denies acrocyanosis, Denies cool extremities, Denies chest pain, Denies leg edema, Denies lightheadedness, Denies palpitations and Denies dyspnea Respiratory: Respiratory: Reports as per HPI, Denies no additional respiratory complaints and Denies dyspnea Gastrointestinal: Gastrointestinal: Reports as per HPI and Denies no additional gastrointestinal complaints Genitourinary: Genitourinary: Reports no additional male genitourinary complaints and Reports as per HPI Musculoskeletal: Musculoskeletal: Reports no additional musculoskeletal complaints and Reports as per HPI Integumentary/Breasts: Skin/Breast: Reports system reviewed and no additional complaints, except as docu Neurologic: Reports system reviewed and no additional complaints, except as documented and Reports as per HPI Psychiatric: Psychiatric: Reports no additional psychiatric complaints and Reports as per HPI Endocrine: Endocrine: Reports no additional endocrine complaints, Reports as per HPI and Denies palpitations Hematologic/Lymphatic: Hematologic/Lymphatic: Reports no additional hematologic/lymphatic complaints and Reports as per HPI Allergic/Immunologic: Allergic/Immunologic: Reports no additional allergic/immunologic complaints and Reports as per HPI PMFSH Past Medical History Medical History (Updated 07/31/25 @ 10:25 by Phillip Bustos MD) Bronchitis Anxiety GERD (gastroesophageal reflux disease) Hx of prison use of blood thinners PAF (paroxysmal atrial fibrillation) Family History Family History Mother HTN (hypertension) Lupus COPD (chronic obstructive pulmonary disease) Father Diabetes Arthritis Brother HTN (hypertension) Brain tumor Surgical History Surgical History Hx of hernia repair Hx of foot surgery Social History Social History Household Members: Family Alcohol intake: never Patient Tobacco Use Status: Never used Tobacco Smoked in Last 30 Days: No e-Cigarette/Vaping Use: Never Used Use of substances other than those prescribed or required for medical reasons: No Advance Directives: No Advance Directives Information Provided: No Nutrition Risks: No Nutritional Risk Current occupational status: unemployed Current occupation: right hand Travel History Ebola Risk: Travel/Contact With Anyone From Affected Area/s: No Has Patient Experienced Ebola Symptoms: No Meds Allergies Allergy/AdvReac Type Severity Reaction Status Date / Time shrimp Allergy Severe RASH Verified 07/30/25 21:56 Active Medications: Current Medications Acetaminophen (Acetaminophen 325 Mg Tablet) 650 mg PO Q6H PRN PRN Reason: Pain, Mild 1-3,fever,headache Albuterol/Ipratropium (Albuterol/Iprat 2.5/0.5mg 3 Ml Ampul.Neb) 3 ml INHALE Q4H PRN PRN Reason: Shortness of Breath/Wheezing Calcium Carbonate (Calcium Carbonate 750 Mg Tab.Chew) 750 mg PO Q4H PRN PRN Reason: Heartburn Sodium Chloride (Ns) 1,000 mls @ 100 mls/hr IVCONT .Q10H [facility] Last Admin: 07/31/25 06:31 Dose: 100 mls/hr Magnesium Hydroxide (Milk Of Magnesia 30 Ml Oral.Susp) 30 ml PO DAILY PRN PRN Reason: Constipation Melatonin (Melatonin 3 Mg Tablet) 6 mg PO BEDTIME PRN PRN Reason: Insomnia Omeprazole (Omeprazole 20 Mg Capsule.Dr) 20 mg PO DAILY@0630 [facility] Last Admin: 07/31/25 06:26 Dose: 20 mg Ondansetron HCl (Ondansetron Hcl 4 Mg/2 Ml Vial) 4 mg IVPUSH Q8H PRN PRN Reason: Nausea and Vomiting Polyethylene Glycol (Polyethylene Glycol 3350 17 Gm Powd.Pack) 17 gm PO DAILY PRN PRN Reason: Constipation Sodium Chloride (0.9 % Sodium Chloride Flush 3 Ml Syringe) 3 ml IVFLUSH QSHIFT [facility] Last Admin: 07/31/25 07:31 Dose: Not Given Home Medications ?Medication ?Instructions ?Recorded ?Confirmed ?Last Taken ?Type epinephrine 0.3 mg/0.3 mL 0.3 mg IM Q10M PRN Anxiety 0 02/01/21 06/08/25 Unknown History injection, auto-injector alprazolam 1 mg tablet 1 mg PO TID PRN Anxiety 1007/2206/08/25 Unknown History naloxone 4 mg/actuation nasal spray intranasal 5 06/08/25 Unknown History Physical Exam 2 Vital Signs: Vital Signs: Last Vital Signs Temp 98.5 F 07/31/25 08:00 Pulse 65 07/31/25 08:00 Resp 13 07/31/25 08:00 BP 118/70 07/31/25 08:00 Pulse Ox 94 07/31/25 08:00 O2 Del Method Room Air 07/31/25 08:00 BMI result Body Mass Index 31.1 Const: General: comfortable and no acute distress O rientation/consciousness: patient oriented x3 HEENT: Other: Unremarkable Head: Yes normal to inspection Neck: Neck: Yes normal visual inspection Chest: Chest palpation & inspection: normal inspection of the chest Resp: Auscultation: clear to auscultation bilaterally Cardio: Palpation: normal PMI Heart sounds: S1 normal heart sound present, S2 normal heart sound present, no gallops, no murmurs and no rubs GI: Palpation (GI): Soft to palpation Back/Spine/Pelvis: Other: unremarkable Skin: General skin exam: no rashes or lesions noted Neuro: General: patient oriented x3 Extrem: General: Yes normal to inspection Psych: Mental Status: mental status grossly normal Objective Labs and Meds 07/30/25 22:08 07/30/25 22:08 Lab results: Laboratory Results - last 24 hr 07/30/25 07/31/25 22:08 00:26 WBC 15.6 H RBC 4.83 Hgb 14.6 Hct 41.2 L MCV 85.3 MCH 30.2 MCHC 35.4 RDW 11.8 Plt Count 286 MPV 10.9 Immature Gran % (Auto) 0.7 H Neut % (Auto) 82.7 H Lymph % (Auto) 10.9 L [place] % (Auto) 5.4 Eos % (Auto) 0.1 Baso % (Auto) 0.2 Lymph # (Auto) 1.7 [place] # (Auto) 0.8 Eos # (Auto) 0.0 Baso # (Auto) 0.0 Abs Immat Gran (auto) 0.11 H Absolute Neuts (auto) 12.9 H Absolute Nucleated RBC 0.000 Nucleated RBC % (auto) 0.0 PT 11.8 INR 1.0 D-Dimer High Sensitivty < 150 Sodium 142 Potassium 3.4 Chloride 109 H Carbon Dioxide 23 Anion Gap 13 BUN 19 H Creatinine 1.27 Estim Creat Clear Calc 82.9 Estimated GFR > 60 Random Glucose 131 H Calcium 8.8 D Magnesium 2.1 Total Bilirubin 0.6 AST 28 ALT 27 Alkaline Phosphatase 75 Troponin I High Sens 9.9 D Total Protein 6.7 Albumin 4.6 TSH 0.88 Urine Color Yellow Urine Appearance Clear Urine pH 6.0 Ur Specific [place] 1.025 Urine Protein Negative Urine Glucose (UA) Negative Urine Ketones Trace Urine Blood Negative Urine Nitrite Negative Ur Leukocyte Esterase Negative Urine RBC 0-2 Urine WBC 0-5 Ur Squamous Epith Cells 0-2 Urine Bacteria None Seen Hyaline Casts 0-2 Urine Opiates Screen Not Detected Ur Buprenorphine Scrn Not Detected Ur Oxycodone Screen Not Detected Urine Methadone Screen Not Detected Urine Fentanyl Screen Not Detected Ur Barbiturates Screen Not Detected Ur Phencyclidine Scrn Not Detected Ur Amphetamines Screen Not Detected U Benzodiazepines Scrn Not Detected Urine Cocaine Screen Not Detected U Marijuana (THC) Screen Not Detected ECG Interpretation: EKG with sinus rhythm at 67/Min; nonspecific changes in the inferior leads; normal ID and corrected QT. similar to prior. Assessment and Plan (1) Syncope and collapse: Status: Acute Plan Baseline EKG and telemetry are unremarkable. Unremarkable high sensitivity troponin. Prior echocardiogram with low normal LVEF and no significant valvular findings. Holters in the past had shown no arrhythmias. CTA head shows no intracranial findings. It seems that he is rather describing vertigo than any true cardiogenic syncope. Consider getting a brain MRI to look for cerebellar stroke. Consider Neurology evaluation. Procedures Date of Service Date of Service: 07/31/25
--- NOTE | 2025-07-31 11:39 | P.CNNE_ITS ---
History of Present Illness Data of Consult Service Date: 07/31/25 Primary Care Provider: [facility] Reason for consult: Syncope 44 years old man who apparently has past medical history of paroxysmal atrial fibrillation recently stopped working, became father of a new child few days ago, was working in his kitchen and standing when he he suddenly became dizzy. Dizziness became like a spinning sensation and then he lost control of himself and apparently was held by other people. He said that next thing he knew he was in hospital. According to him this is not happened before. There was no obvious description of convulsion, physical injury, or incontinence. He denied drinking alcohol or drug use. Review of Systems 2 Review of Systems: No recent cold or flu-like illness PMFSH Past Medical History Medical History (Updated 07/31/25 @ 11:42 by Daniel Barrett MD) Syncope and collapse Bronchitis Anxiety GERD (gastroesophageal reflux disease) Hx of shelter use of blood thinners PAF (paroxysmal atrial fibrillation) Family History Family History Mother HTN (hypertension) Lupus COPD (chronic obstructive pulmonary disease) Father Diabetes Arthritis Brother HTN (hypertension) Brain tumor Surgical History Surgical History Hx of hernia repair Hx of foot surgery Social History Social History Household Members: Family Alcohol intake: never Patient Tobacco Use Status: Never used Tobacco Smoked in Last 30 Days: No e-Cigarette/Vaping Use: Never Used Use of substances other than those prescribed or required for medical reasons: No Advance Directives: No Advance Directives Information Provided: No Nutrition Risks: No Nutritional Risk Current occupational status: unemployed Current occupation: right hand Travel History Ebola Risk: Travel/Contact With Anyone From Affected Area/s: No Has Patient Experienced Ebola Symptoms: No Meds Allergies Allergy/AdvReac Type Severity Reaction Status Date / Time shrimp Allergy Severe RASH Verified 07/30/25 21:56 Active Medications: Current Medications Acetaminophen (Acetaminophen 325 Mg Tablet) 650 mg PO Q6H PRN PRN Reason: Pain, Mild 1-3,fever,headache Albuterol/Ipratropium (Albuterol/Iprat 2.5/0.5mg 3 Ml Ampul.Neb) 3 ml INHALE Q4H PRN PRN Reason: Shortness of Breath/Wheezing Calcium Carbonate (Calcium Carbonate 750 Mg Tab.Chew) 750 mg PO Q4H PRN PRN Reason: Heartburn Sodium Chloride (Ns) 1,000 mls @ 100 mls/hr IVCONT .Q10H [facility] Last Admin: 07/31/25 06:31 Dose: 100 mls/hr Magnesium Hydroxide (Milk Of Magnesia 30 Ml Oral.Susp) 30 ml PO DAILY PRN PRN Reason: Constipation Melatonin (Melatonin 3 Mg Tablet) 6 mg PO BEDTIME PRN PRN Reason: Insomnia Omeprazole (Omeprazole 20 Mg Capsule.Dr) 20 mg PO DAILY@0630 [facility] Last Admin: 07/31/25 06:26 Dose: 20 mg Ondansetron HCl (Ondansetron Hcl 4 Mg/2 Ml Vial) 4 mg IVPUSH Q8H PRN PRN Reason: Nausea and Vomiting Polyethylene Glycol (Polyethylene Glycol 3350 17 Gm Powd.Pack) 17 gm PO DAILY PRN PRN Reason: Constipation Sodium Chloride (0.9 % Sodium Chloride Flush 3 Ml Syringe) 3 ml IVFLUSH QSHIFT [facility] Last Admin: 07/31/25 07:31 Dose: Not Given Home Medications ?Medication ?Instructions ?Recorded ?Confirmed ?Last Taken ?Type epinephrine 0.3 mg/0.3 mL 0.3 mg IM Q10M PRN Anxiety 0 02/01/21 06/08/25 Unknown History injection, auto-injector alprazolam 1 mg tablet 1 mg PO TID PRN Anxiety 1007/2206/08/25 Unknown History naloxone 4 mg/actuation nasal spray intranasal 5 06/08/25 Unknown History Physical Exam 2 Vital Signs: Vital Signs: Last Vital Signs Temp 98.5 F 07/31/25 08:00 Pulse 65 07/31/25 08:00 Resp 13 07/31/25 08:00 BP 118/70 07/31/25 08:00 Pulse Ox 94 07/31/25 08:00 O2 Del Method Room Air 07/31/25 08:00 BMI result Body Mass Index 31.1 Neuro: Other: He is alert and awake with normal spontaneity of speech fluency comprehension and affect. Face is symmetrical. Visual rodriguez are full. There was no focal weakness. Results Labs 07/30/25 22:08 07/30/25 22:08 Labs: Short CBC 07/30/25 Range/Units 22:08 WBC 15.6 H (4.8-10.8) X10*3/uL Hgb 14.6 (14.0-18.0) g/dl Hct 41.2 L (42.0-52.0) % Plt Count 286 (160-400) X10*3/uL BMP 07/30/25 22:08 Sodium 142 Potassium 3.4 Chloride 109 H Carbon Dioxide 23 BUN 19 H Creatinine 1.27 Calcium 8.8 D Liver Function 07/30/25 Range/Units 22:08 Total Bilirubin 0.6 (0.0-1.0) mg/dL AST 28 (5-37) U/L ALT 27 (0-40) U/L Alkaline Phosphatase 75 (39-117) U/L Albumin 4.6 (3.5-5.0) g/dL Urine 07/31/25 Range/Units 00:26 Urine Color Yellow Urine Appearance Clear Urine pH 6.0 (5.0-9.0) Ur Specific [place] 1.025 (1.005-1.025) Urine Protein Negative (Neg-Trace) mg/dL Urine Glucose (UA) Negative (Negative) mg/dL Head CT did not reveal any significant abnormality. EKG was normal. Assessment and Plan (1) Syncope and collapse: Status: Acute 44 years old man who became dizzy with vertigo type of symptom and then lost control of his body and become unresponsive. There was no obvious explanation at this time. Blood pressure was on the lower side and orthostasis might be an explanation but overall description of symptom was larger than what 1 would expect from orthostatic syncope. My recommendation is to do EEG rule out seizure disorder. Procedures Date of Service Date of Service: 07/31/25
--- NOTE | 2025-07-31 13:41 | PHA.MEDREC ---
Pharmacy Consult ? Medication Reconciliation Pharmacy has completed the medication reconciliation. Spoke to patient to confirm med list. Last dose of medications was 07/29/25
--- NOTE | 2025-07-31 14:56 | MHC.EDTECH ---
patient vision is very blurry so not able to stand and do vital signs also patient going to get a EEG done
--- NOTE | 2025-07-31 18:46 | HO.NURTONUR ---
Pt is a 44yo M with PMH of PAfib on blood thinners, chronic lumbar pain. Came into ED for syncopal episode. Admit for obs. Pt was seen by neuro and EEG was done today while in ED. Pending results. Labs unremarkable. Elevated WBC. Pt a/ox4. Neuro intact. Dizzy on standing. NSR on monitor. 98% on RA. 20RAC with 100ml/hr NS. VSS. NAD noted.
[2025-08-01] VITALS (18 sets, daily range): BP systolic 96–142; BP diastolic 59–95; PULSE 56–88; RESP 16–19; TEMP 34.7–37; O2SAT 93–97
[2025-08-01] MEDS: Butalb/Acetamin/Caff 50/325/40 TABLET 1 TAB PO ×2 (05:35→23:48)
[2025-08-01 07:07] LABS: MANUAL DIFF FLAG NO
[2025-08-01 07:17] LABS: Hematocrit 39.7 % (42.0-52.0); Hemoglobin 13.5 g/dl (14.0-18.0); Imm Gran Abs Auto 0.04 X10*3/uL (0.00-0.03); Imm Gran Pct Auto 0.6 % (0.0-0.4); Lymphocytes Absolute Auto 1.8 X10*3/uL (1.2-4.9); Mean Corpuscular HGB Conc 34.0 g/dl (31.0-36.0); Mean Corpuscular Hemoglobin 30.1 pg (27.0-33.0); Mean Corpuscular Volume 88.4 fL (80.0-98.0); NRBC Abs Auto 0.000 X10*3/uL (0.0-0.012); NRBC Pct Auto 0.0 /100WBC (0.0-0.2); Platelet Count 238 X10*3/uL (160-400); Red Blood Count 4.49 X10*6/uL (4.60-5.80); White Blood Count 7.0 X10*3/uL (4.8-10.8)
[2025-08-01 07:47] LABS: Anion Gap 9 (12-20); Blood Urea Nitrogen 10 mg/dL (9-16); Calcium 8.2 mg/dL (8.4-10.2); Carbon Dioxide 24 mmol/L (22-29); Chloride 113 mmol/L (96-108); Creatinine Clr Calc Pharmacy 110.5; Estimated Glomerular Filt Rate > 60; Potassium 3.8 mmol/L (3.3-5.1); Sodium 142 mmol/L (135-145)
--- NOTE | 2025-08-01 09:59 | MHC.CM.PN ---
[place] 08/01/25, Pt. lives with his and children, he does not use home health services or DME. HCP to be completed and added to chart. PCP is Milan Vieyra MD. Pt. can arrange a ride home at [place], DCP: home, self care, CM to follow for DC needs.
--- NOTE | 2025-08-01 11:46 | PM.DS ---
DS: Providers Provider Date of Service: 08/01/25 Date of admission: 07/31/25 05:38 Date of discharge: 08/01/25 Primary care physician: Kit Reyes MD Consults: 07/31/25 05:46 Consult to Cardiology Routine Consulting Provider: [facility] Reason for consultation: syncope Has provider been notified: No 07/31/25 06:26 Consult to Neurology Routine Consulting Provider: [facility] Reason for consultation: syncope w Severe headache blurry vision, loss of sensation left upper thigh DS: Diagnosis Discharge Diagnosis (1) Vestibular neuritis: Status: Acute DS: Summary Hospital Course Hospital Course: 44-year-old male with a history of paroxysmal AFib on anticoagulation and anxiety presents after he had a near syncopal episode at home. He states that it began approximately 24 hours ago and is worse when he turns his head. He states he has been sleep deprived as a has a new infant at home. He also stated he was not having adequate p.o. intake. He presented to the emergency room where monitor demonstrated sinus rhythm. CTA of the head was unremarkable. He was seen in consultation by Neurology who recommended an EEG which failed to demonstrate any seizure activity. He was given a pulse dose steroids for presumed vestibular neuritis with improvement. At this point in time he will be discharged on prednisone taper and will follow up with his PCP next available Time Attestation Discharge Coordination Time (in mins): 35 Quality: Safe Use of Opioids Does Pt have an Active Cancer Diagnosis on the Problem List?: No Quality: Stroke Does the patient have a stroke diagnosis?: No Physical Exam Vital Signs: Vital Signs: Last Vital Signs Temp 98.4 F 08/01/25 10:00 Pulse 60 08/01/25 10:00 Resp 17 08/01/25 10:00 BP 96/59 L 08/01/25 10:00 Pulse Ox 94 08/01/25 10:00 O2 Del Method Room Air 08/01/25 10:00 O2 Flow Rate 2 08/01/25 00:00 BMI result Body Mass Index 30.9 Const: Other: Awake alert oriented x3 in no acute distress Eyes: Other: No observable nystagmus Resp: Other: Clear to auscultation bilaterally no rales rhonchi or wheezes Cardio: Other: No S4; positive S1-S2; no S3 murmurs rubs or gallops GI: Other: Soft nontender nondistended normoactive bowel sounds Neuro: Other: Cranial nerves 2-12 grossly intact as tested. Motor is 5/5 all extremities. Sensation is intact. Gait steady. Cognition appropriate Extrem: Other: No edema bilaterally DS: Data Data Completed and Pending Labs on day of discharge: Laboratory Results - last 24 hr 08/01/25 06:49 WBC 7.0 RBC 4.49 L Hgb 13.5 L Hct 39.7 L MCV 88.4 MCH 30.1 MCHC 34.0 RDW 11.9 Plt Count 238 MPV 10.6 Immature Gran % (Auto) 0.6 H Neut % (Auto) 64.0 Lymph % (Auto) 26.1 [place] % (Auto) 7.6 Eos % (Auto) 1.3 Baso % (Auto) 0.4 Lymph # (Auto) 1.8 [place] # (Auto) 0.5 Eos # (Auto) 0.1 Baso # (Auto) 0.0 Abs Immat Gran (auto) 0.04 H Absolute Neuts (auto) 4.5 Absolute Nucleated RBC 0.000 Nucleated RBC % (auto) 0.0 Sodium 142 Potassium 3.8 Chloride 113 H Carbon Dioxide 24 Anion Gap 9 L BUN 10 Creatinine 0.95 Estim Creat Clear Calc 110.5 Estimated GFR > 60 Random Glucose 92 Calcium 8.2 L D Discharge Plan Discharge Anticipated Discharge Date/Time: 08/01/25 11:39 Patient Disposition: Home, Self-Care Discharge Diagnosis: Vestibular neuritis Referrals: Kit Reyes MD [Primary Care Provider, Medical] - 1 Week Discharge Medications: New prednisone 20 mg tablet See Rx Instructions .Route .COMPLEX Qty: 18 0RF Rx Instructions: 20 mg orally; 3 tabs daily for 3 days, 2 tabs daily for 3 days, 1 tab daily for 3 days Continued ibuprofen 800 mg tablet 800 mg PO TID PRN (Reason: Pain) albuterol sulfate [Ventolin HFA] 90 mcg/actuation HFA aerosol inhaler 1 puff inhalation Q6H PRN (Reason: Shortness Of Breath Or Wheezing) bupropion HCl 150 mg tablet extended release 24 hr 150 mg PO DAILY duloxetine 60 mg capsule,delayed release(DR/EC) 60 mg PO DAILY diclofenac sodium 1 % gel 2 g topical TID esomeprazole magnesium [Nexium] 40 mg capsule,delayed release(DR/EC) 40 mg PO DAILY@0630 alprazolam 1 mg tablet 1 mg PO TID PRN (Reason: Anxiety) famotidine [Pepcid] 20 mg tablet 20 mg PO BID Qty: 30 0RF Diet: Advance to usual diet Activity on Discharge: As tolerated Stand Alone Forms: Patient Portal Discharge page Print Language: Khmer Care Plan Goals: You have an inner ear issue. Take prednisone taper as ordered. This will gradually improve. Your test did not demonstrate a seizure disorder Health Concerns: Resume all other meds as taken prior to hospitalization Plan of Treatment: Follow up with your PCP next available Assessment: See discharge summary
--- NOTE | 2025-08-01 12:53 | P.PNIM_ITS ---
Subjective Subjective Date of Service: 08/01/25 Interval History: Still with positional dizziness. EEG unremarkable per neuro Review of Systems Denies chest pain Denies shortness of breath Denies nausea vomiting diarrhea Denies fever chills Admits to positional dizziness Constitutional Constitutional: Reports as per HPI and Reports no additional constitutional complaints Eyes Eyes: Reports as per HPI and Denies no additional eye complaints ENT Ears, Nose, Mouth, and Throat: Denies system reviewed and no additional complaints, except as documented and Reports as per HPI Cardiovascular Cardiovascular: Reports as per HPI, Reports no additional cardiovascular complaints, Denies acrocyanosis, Denies cool extremities, Denies chest pain, Denies leg edema, Denies lightheadedness, Denies palpitations and Denies dyspnea Respiratory Respiratory: Reports as per HPI, Denies no additional respiratory complaints and Denies dyspnea Gastrointestinal Gastrointestinal: Reports as per HPI and Denies no additional gastrointestinal complaints Genitourinary Genitourinary: Reports no additional male genitourinary complaints and Reports as per HPI Musculoskeletal Musculoskeletal: Reports no additional musculoskeletal complaints and Reports as per HPI Integumentary/Breasts Skin/Breast: Reports no additional skin complaints Neurologic Neurologic: Reports system reviewed and no additional complaints, except as documented and Reports as per HPI Psychiatric Psychiatric: Reports no additional psychiatric complaints and Reports as per HPI Endocrine Endocrine: Reports no additional endocrine complaints, Reports as per HPI and Denies palpitations Hematologic/Lymphatic Hematologic/Lymphatic: Reports no additional hematologic/lymphatic complaints and Reports as per HPI Allergic/Immunologic Allergic/Immunologic: Reports no additional allergic/immunologic complaints and Reports as per HPI Physical Exam 2 Vital Signs: Vital Signs: Last Vital Signs Temp 98.4 F 08/01/25 12:00 Pulse 67 08/01/25 12:00 Resp 17 08/01/25 12:00 BP 113/71 08/01/25 12:00 Pulse Ox 95 08/01/25 12:00 O2 Del Method Room Air 08/01/25 12:00 O2 Flow Rate 2 08/01/25 00:00 BMI result Body Mass Index 30.9 Const: Other: Awake alert no acute distress General: comfortable and no acute distress Orientation/consciousness: p atient oriented x3 HEENT: Other: Unremarkable Head: Yes normal to inspection Eyes: Other: No observable nystagmus Neck: Neck: Yes normal visual inspection Chest: Chest palpation & inspection: normal inspection of the chest Resp: Other: Clear to auscultation bilaterally no rales rhonchi or wheezes Auscultation: clear to auscultation bilaterally Cardio: Other: No S4; positive S1-S2; no S3 murmurs rubs or gallops Palpation: normal PMI Heart sounds: S1 normal heart sound present, S2 normal heart sound present, no gallops, no murmurs and no rubs GI: Other: Soft nontender nondistended normoactive bowel sounds Palpation (GI): Soft to palpation Back/Spine/Pelvis: Other: unremarkable Skin: General skin exam: no rashes or lesions noted Neuro: Other: Cranial nerves 2-12 grossly intact as tested. Motor is 5/5 all extremities. Sensation is intact. Gait steady. Cognition appropriate General: patient oriented x3 Extrem: Other: No edema bilaterally General: Yes normal to inspection Psych: Mental Status: mental status grossly normal Objective Data Active Medications Acetaminophen (Acetaminophen 325 Mg Tablet) 650 mg PO Q6H PRN PRN Reason: Pain, Mild 1-3 and fever Last Admin: 07/31/25 12:43 Dose: 650 mg Documented By: AWILDA Acetaminophen/Butalbital/Caffeine (Butalb/Acetamin/Caff 50/325/40 Tablet) 1 tab PO Q4H PRN PRN Reason: Headache Last Admin: 08/01/25 05:35 Dose: 1 tab Documented By: CARIN Albuterol/Ipratropium (Albuterol/Iprat 2.5/0.5mg 3 Ml Ampul.Neb) 3 ml INHALE Q4H PRN PRN Reason: Shortness of Breath/Wheezing Calcium Carbonate (Calcium Carbonate 750 Mg Tab.Chew) 750 mg PO Q4H PRN PRN Reason: Heartburn Magnesium Hydroxide (Milk Of Magnesia 30 Ml Oral.Susp) 30 ml PO DAILY PRN PRN Reason: Constipation Melatonin (Melatonin 3 Mg Tablet) 6 mg PO BEDTIME PRN PRN Reason: Insomnia Last Admin: 07/31/25 23:14 Dose: 6 mg Documented By: CARIN Omeprazole (Omeprazole 20 Mg Capsule.Dr) 20 mg PO DAILY@0630 [facility] Last Admin: 08/01/25 05:35 Dose: 20 mg Documented By: CARIN Ondansetron HCl (Ondansetron Hcl 4 Mg/2 Ml Vial) 4 mg IVPUSH Q8H PRN PRN Reason: Nausea and Vomiting Polyethylene Glycol (Polyethylene Glycol 3350 17 Gm Powd.Pack) 17 gm PO DAILY PRN PRN Reason: Constipation Sodium Chloride (0.9 % Sodium Chloride Flush 3 Ml Syringe) 3 ml IVFLUSH QSHIFT [facility] Last Admin: 08/01/25 09:51 Dose: Not Given Documented By: CHESTER Non-Admin Reason: IV Running Labs 08/01/25 06:49 08/01/25 06:49 Labs: Laboratory Results - last 24 hr 08/01/25 06:49 MCV 88.4 MCH 30.1 MCHC 34.0 RDW 11.9 Plt Count 238 MPV 10.6 Immature Gran % (Auto) 0.6 H Neut % (Auto) 64.0 Lymph % (Auto) 26.1 [place] % (Auto) 7.6 Eos % (Auto) 1.3 Baso % (Auto) 0.4 Lymph # (Auto) 1.8 [place] # (Auto) 0.5 Eos # (Auto) 0.1 Baso # (Auto) 0.0 Abs Immat Gran (auto) 0.04 H Absolute Neuts (auto) 4.5 Absolute Nucleated RBC 0.000 Nucleated RBC % (auto) 0.0 Anion Gap 9 L Estim Creat Clear Calc 110.5 Estimated GFR > 60 Random Glucose 92 Calcium 8.2 L D Assessment and Plan (1) Vestibular neuritis: Status: Acute (2) PAF (paroxysmal atrial fibrillation): Status: Acute (3) Anxiety: Status: Acute Plan 44-year-old male with history of paroxysmal AFib not on Eliquis GERD anxiety brought in after questionable syncopal episode. Upon further review patient states this is more dizziness and spinning. Admitted to telemetry no acute dysrhythmias overnight. Patient very clearly states that his dizziness with head movement 1. Vestibular neuritis -Zofran p.r.n. for nausea -pulse dose steroids -supportive measures 2. Paroxysmal atrial fibrillation -examined and normal sinus rhythm -at therapies as clinically indicated 3. Anxiety -stable and well compensated -continue outpatient therapies Full code Lovenox Quality Stroke Does the patient have a stroke diagnosis?: No Reason for No Anti-thrombotic by Day Two: N/A - Med Ordered VTE Prior VTE?: No VTE Risk Level:: Medical - moderate - high VTE Device Contraindication: N/A - Device Ordered VTE Drug Contraindication: N/A - Med Ordered
[2025-08-01 13:33] LABS: Glucose, Whole Blood 144 mg/dL (60-115)
[2025-08-01] MEDS: 0.9 % Sodium Chloride Flush 3 ML SYRINGE IVFLUSH ×2 (17:57→23:51)
[2025-08-02] VITALS (15 sets, daily range): BP systolic 99–130; BP diastolic 50–85; PULSE 64–86; RESP 16–20; TEMP 36–37; O2SAT 92–95
--- NOTE | 2025-08-02 | ECG_ITS ---
Test Reason : Chest pain, V-tach Blood Pressure : */* mmHG Vent. Rate : 80 BPM Atrial Rate : 80 BPM P-R Int : 148 ms QRS Dur : 98 ms QT Int : 368 ms P-R-T Axes : 53 62 -36 degrees QTcB Int : 424 ms Normal sinus rhythm T wave abnormality, consider inferior ischemia Abnormal ECG When compared with ECG of 30-Jul-2025 22:10, No significant change was found Referred By: Tj Dukes Electronically Signed By: LINNEA READ
[2025-08-02] MEDS: Magnesium Sulfate/H2O 2 GM/50 ML PIGGYBACK IV (00:15)
--- NOTE | 2025-08-02 00:19 | PM.EVENT ---
Event Note Date of Service: 08/02/25 Event Note: 11:50 pm - Event of Vtach (see pic below), 15 runs. Patient is complaining of chest pain. We will obtain magnesium sulfate 2 g IV x1, add magnesium level, start metoprolol 12.5 mg p.o. b.i.d., Nitrostat 0.4 mg sublingual every 5 minutes x3 p.r.n. chest pain and aspirin 325 mg p.o. stat then 81 mg p.o. daily. Recent echo showed no regional wall motion abnormalities. (pt is here for episodes of dizziness and LOC). ECG stat showed T-wave changes V4-5. Time Spent With Patient Time: Total time managing care of this patient today ____ minutes.
[2025-08-02] MEDS: Metoprolol Tartrate 12.5 MG HALFTAB PO ×3 (00:28→20:30)
[2025-08-02 00:51] LABS: Magnesium 1.8 mg/dL (1.6-2.6)
[2025-08-02 00:58] LABS: Troponin-I High Sensitivity 5.2 ng/L (<3.5-35.0)
--- NOTE | 2025-08-02 04:17 | PC.NURSE ---
Assumed care of pt at 19:00. Raised complaints of localized CP 10 at around 23:49 with a run of VTach 15 beats. Night Hospitalist notified. Pain relived by 1 dose of 0.4mg nitro. Magnesium sulfate, Metoprolol, aspirin, EKG, and Labs ordered and executed stat. Pt reported relief, calm and resting in bed. Continuos tele monitoring in place.
[2025-08-02] MEDS: 0.9 % Sodium Chloride Flush 3 ML SYRINGE IVFLUSH ×3 (09:25→20:31)
[2025-08-02] MEDS: Aspirin Enteric Coated 81 MG TABLET.DR PO (09:25)
[2025-08-02] MEDS: buPROPion HCl XL 150 MG TAB.ER.24H PO (09:25)
--- NOTE | 2025-08-02 10:43 | P.PNCA_ITS ---
Subjective Subjective Date of Service: 08/02/25 Interval history: It seems he had an episode of chest pain overnight and around that time he also had run of monomorphic VT for about 15 beats. No further syncope episodes. Review of Systems Review of Systems Yes all other systems are reviewed and are negative Constitutional: Reports as per HPI and Reports no additional constitutional complaints Eyes: Reports as per HPI and Denies no additional eye complaints Denies system reviewed and no additional complaints, except as documented and Reports as per HPI Cardiovascular: Reports as per HPI, Reports no additional cardiovascular complaints, Denies acrocyanosis, Denies cool extremities, Denies chest pain, Denies leg edema, Denies lightheadedness, Denies palpitations and Denies dyspnea Respiratory: Reports as per HPI, Denies no additional respiratory complaints and Denies dyspnea Gastrointestinal: Reports as per HPI and Denies no additional gastrointestinal complaints Genitourinary: Reports no additional male genitourinary complaints and Reports as per HPI Musculoskeletal: Reports no additional musculoskeletal complaints and Reports as per HPI Skin/Breast: Reports system reviewed and no additional complaints, except as docu Reports system reviewed and no additional complaints, except as documented and Reports as per HPI Psychiatric: Reports no additional psychiatric complaints and Reports as per HPI Endocrine: Reports no additional endocrine complaints, Reports as per HPI and Denies palpitations Hematologic/Lymphatic: Reports no additional hematologic/lymphatic complaints and Reports as per HPI Allergic/Immunologic: Reports no additional allergic/immunologic complaints and Reports as per HPI Physical Exam Vital Signs: Last Vital Signs Temp 96.8 F 08/02/25 07:33 Pulse 66 08/02/25 07:33 Resp 18 08/02/25 07:33 BP 110/69 08/02/25 07:33 Pulse Ox 92 08/02/25 07:33 O2 Del Method Room Air 08/02/25 07:33 O2 Flow Rate 3 08/01/25 19:32 BMI result Body Mass Index 30.9 Const General: comfortable and no acute distress Orientation/consciousness: patient oriented x3 HEENT Other: Unremarkable Head: Yes normal to inspection Neck Neck: Yes normal visual inspection Chest Chest palpation & inspection: normal inspection of the chest Resp Auscultation: clear to auscultation bilaterally Cardio Palpation: normal PMI Heart sounds: S1 normal heart sound present, S2 normal heart sound present, no gallops, no murmurs and no rubs GI Palpation (GI): Soft to palpation Back/Spine/Pelvis Other: unremarkable Skin General skin exam: no rashes or lesions noted Neuro General: patient oriented x3 Extrem General: Yes normal to inspection Psych Mental Status: mental status grossly normal Objective Labs and Meds 08/01/25 06:49 08/01/25 06:49 Lab results: Laboratory Results - last 24 hr 08/01/25 08/02/25 08/02/25 13:29 00:18 00:18 POC Glucose 144 H Magnesium 1.8 Troponin I High Sens Cancelled 5.2 Progress Note: A&P Assessment and plan (1) Syncope and collapse: Status: Acute (2) Ventricular tachycardia: Status: Acute Plan Baseline EKG and telemetry are unremarkable. Unremarkable high sensitivity troponin. Echocardiogram with hyperdynamic LVEF but otherwise unremarkable. Holters in the past had shown no arrhythmias. CTA head shows no intracranial findings. Telemetry shows an episode of monomorphic VT for 15 beats last night. Unclear if this is the etiology for the initial presentation of syncope. Discussed with Dr. Crockett at [facility]. He recommends implantable loop recorder for monitoring as an outpatient, a diagnostic catheterization and cardiac MRI. He will arrange clinic visit with him. We will set these up in the near future. Keep NPO and we will look into possible lead doing the implantable loop recorder tomorrow. Blood pressure is somewhat lowish and hence he may not be able to tolerate beta- blockers or calcium channel blockers. However, if blood pressure does go up, we can do a small dose of Toprol-XL. Discussed with Dr. Calvo. Time Spent With Patient Time: Total time managing care of this patient today ____ minutes. Progress Note: Quality Stroke Does the patient have a stroke diagnosis?: No Reason for No Anti-thrombotic by Day Two: N/A - Med Ordered Procedures Date of Service Date of Service: 08/02/25
--- NOTE | 2025-08-02 11:27 | P.PNIM_ITS ---
Subjective Subjective Date of Service: 08/02/25 Interval History: Had chest pain and 15 beats of Vtach overnight but no syncope He has no vertigo Physical Exam 2 Vital Signs: Vital Signs: Last Vital Signs Temp 96.8 F 08/02/25 07:33 Pulse 66 08/02/25 07:33 Resp 18 08/02/25 07:33 BP 110/69 08/02/25 07:33 Pulse Ox 92 08/02/25 07:33 O2 Del Method Room Air 08/02/25 07:33 O2 Flow Rate 3 08/01/25 19:32 BMI result Body Mass Index 30.9 Const: General: comfortable and no acute distress O rientation/consciousness: patient oriented x3 HEENT: Other: Unremarkable Head: Yes normal to inspection Neck: Neck: Yes normal visual inspection Chest: Chest palpation & inspection: normal inspection of the chest Resp: Auscultation: clear to auscultation bilaterally Cardio: Palpation: normal PMI Heart sounds: S1 normal heart sound present, S2 normal heart sound present, no gallops, no murmurs and no rubs GI: Palpation (GI): Soft to palpation Back/Spine/Pelvis: Other: unremarkable Skin: General skin exam: no rashes or lesions noted Neuro: General: patient oriented x3 Extrem: General: Yes normal to inspection Psych: Mental Status: mental status grossly normal Objective Data Active Medications Acetaminophen (Acetaminophen 325 Mg Tablet) 650 mg PO Q6H PRN PRN Reason: Pain, Mild 1-3 and fever Last Admin: 07/31/25 12:43 Dose: 650 mg Documented By: AWILDA Acetaminophen/Butalbital/Caffeine (Butalb/Acetamin/Caff 50/325/40 Tablet) 1 tab PO Q4H PRN PRN Reason: Headache Last Admin: 08/01/25 23:48 Dose: 1 tab Documented By: CARIN Albuterol/Ipratropium (Albuterol/Iprat 2.5/0.5mg 3 Ml Ampul.Neb) 3 ml INHALE Q4H PRN PRN Reason: Shortness of Breath/Wheezing Alprazolam (Alprazolam 0.5 Mg Tablet) 1 mg PO TID PRN PRN Reason: Anxiety Aspirin (Aspirin Enteric Coated 81 Mg Tablet.) 81 mg PO DAILY [facility] Last Admin: 08/02/25 09:25 Dose: 81 mg Documented By: BLACK Bupropion HCl (Bupropion Hcl Xl 150 Mg Tab.Er.24h) 150 mg PO DAILY [facility] Last Admin: 08/02/25 09:25 Dose: 150 mg Documented By: BLACK Calcium Carbonate (Calcium Carbonate 750 Mg Tab.Chew) 750 mg PO Q4H PRN PRN Reason: Heartburn Duloxetine HCl (Duloxetine Hcl 60 Mg Capsule.Dr) 60 mg PO DAILY [facility] Last Admin: 08/02/25 09:25 Dose: 60 mg Documented By: BLACK Enoxaparin Sodium (Enoxaparin Sodium 40 Mg/0.4 Ml Syringe) 40 mg SUBCUT Q24H [facility] Last Admin: 08/01/25 13:29 Dose: Not Given Documented By: CHESTER Non-Admin Reason: Patient Refused Famotidine (Famotidine 20 Mg Tablet) 20 mg PO BID [facility] Last Admin: 08/02/25 09:24 Dose: 20 mg Documented By: BLACK Magnesium Hydroxide (Milk Of Magnesia 30 Ml Oral.Susp) 30 ml PO DAILY PRN PRN Reason: Constipation Melatonin (Melatonin 3 Mg Tablet) 6 mg PO BEDTIME PRN PRN Reason: Insomnia Last Admin: 07/31/25 23:14 Dose: 6 mg Documented By: ACRIN Methylprednisolone Sodium Succinate (Methylprednisolone Sod Succ 125 Mg/2 Ml Vial) 60 mg IVPUSH Q6H [facility] Last Admin: 08/02/25 05:38 Dose: 60 mg Documented By: CARIN Metoprolol Tartrate (Metoprolol Tartrate 12.5 Mg Halftab) 12.5 mg PO BID [facility]; Protocol Last Admin: 08/02/25 09:25 Dose: 12.5 mg Documented By: BLACK Nitroglycerin (Nitroglycerin 0.4 Mg Tab.Subl) 0.4 mg SUBLINGUAL Q5MX3 PRN PRN Reason: Chest Pain Last Admin: 08/02/25 00:14 Dose: 0.4 mg Documented By: CARIN Omeprazole (Omeprazole 20 Mg Capsule.Dr) 20 mg PO DAILY@0630 [facility] Last Admin: 08/02/25 05:38 Dose: 20 mg Documented By: CARIN Ondansetron HCl (Ondansetron Hcl 4 Mg/2 Ml Vial) 4 mg IVPUSH Q8H PRN PRN Reason: Nausea and Vomiting Polyethylene Glycol (Polyethylene Glycol 3350 17 Gm Powd.Pack) 17 gm PO DAILY PRN PRN Reason: Constipation Sodium Chloride (0.9 % Sodium Chloride Flush 3 Ml Syringe) 3 ml IVFLUSH QSHIFT [facility] Last Admin: 08/02/25 09:25 Dose: 3 ml Documented By: BLACK Labs 08/01/25 06:49 08/01/25 06:49 Labs: Laboratory Results - last 24 hr 08/01/25 08/02/25 08/02/25 13:29 00:18 00:18 POC Glucose 144 H Magnesium 1.8 Troponin I High Sens Cancelled 5.2 Assessment and Plan (1) Vestibular neuritis: Status: Inactive (2) PAF (paroxysmal atrial fibrillation): Status: Acute (3) Anxiety: Status: Acute Plan 44-year-old male with history of paroxysmal AFib not on Eliquis GERD anxiety brought in after questionable syncopal episode. Upon further review patient states this is more dizziness and spinning. Has chest pain and 15 beats of vtach overnight Syncope, concern for arrythgmia for implantable loop recorder tomorrow DC steroid doubt vertigo, vestibular neuronitis Paroxysmal atrial fibrillation in sinus Anxiety continue present meds Full code Lovenox Quality Stroke Does the patient have a stroke diagnosis?: No Reason for No Anti-thrombotic by Day Two: N/A - Med Ordered VTE Prior VTE?: No VTE Risk Level:: Medical - moderate - high VTE Device Contraindication: N/A - Device Ordered VTE Drug Contraindication: N/A - Med Ordered
[2025-08-03 03:47] VITALS: BP 118/75; PULSE 59; RESP 16; TEMP 36.3; O2SAT 94
[2025-08-03 05:23] VITALS: BP 118/71; PULSE 59
[2025-08-03 05:24] VITALS: BP 122/84; BP 124/79; PULSE 61; PULSE 72
[2025-08-03 07:41] VITALS: BP 108/68; PULSE 56; RESP 16; TEMP 36.7; O2SAT 93
[2025-08-03] MEDS: Aspirin Enteric Coated 81 MG TABLET.DR PO (08:35)
[2025-08-03] MEDS: Metoprolol Tartrate 12.5 MG HALFTAB PO (08:36)
[2025-08-03] MEDS: buPROPion HCl XL 150 MG TAB.ER.24H PO (08:36)
[2025-08-03] MEDS: 0.9 % Sodium Chloride Flush 3 ML SYRINGE IVFLUSH (08:38)
--- NOTE | 2025-08-03 09:34 | P.PNIM_ITS ---
Subjective Subjective Date of Service: 08/03/25 Interval History: No syncope or further arrythmia reported overnight Physical Exam 2 Vital Signs: Vital Signs: Last Vital Signs Temp 98.1 F 08/03/25 07:41 Pulse 56 08/03/25 07:41 Resp 16 08/03/25 07:41 BP 108/68 08/03/25 07:41 Pulse Ox 93 08/03/25 07:41 O2 Del Method Room Air 08/03/25 07:41 O2 Flow Rate 3 08/01/25 19:32 BMI result Body Mass Index 30.9 Const: Other: General: AO X 3, no acute distress Resp: CTA bilateral CVS: S1,S2,RRR GI: +BS, NT, no distention Skin: No rash Neuro: motor grossly intact Psych: appropriate affect Objective Data Active Medications Acetaminophen (Acetaminophen 325 Mg Tablet) 650 mg PO Q6H PRN PRN Reason: Pain, Mild 1-3 and fever Last Admin: 07/31/25 12:43 Dose: 650 mg Documented By: AWILDA Acetaminophen/Butalbital/Caffeine (Butalb/Acetamin/Caff 50/325/40 Tablet) 1 tab PO Q4H PRN PRN Reason: Headache Last Admin: 08/01/25 23:48 Dose: 1 tab Documented By: CARIN Albuterol/Ipratropium (Albuterol/Iprat 2.5/0.5mg 3 Ml Ampul.Neb) 3 ml INHALE Q4H PRN PRN Reason: Shortness of Breath/Wheezing Alprazolam (Alprazolam 0.5 Mg Tablet) 1 mg PO TID PRN PRN Reason: Anxiety Aspirin (Aspirin Enteric Coated 81 Mg Tablet.) 81 mg PO DAILY [facility] Last Admin: 08/03/25 08:35 Dose: 81 mg Documented By: BERNICE Bupropion HCl (Bupropion Hcl Xl 150 Mg Tab.Er.24h) 150 mg PO DAILY [facility] Last Admin: 08/03/25 08:36 Dose: 150 mg Documented By: BERNICE Calcium Carbonate (Calcium Carbonate 750 Mg Tab.Chew) 750 mg PO Q4H PRN PRN Reason: Heartburn Duloxetine HCl (Duloxetine Hcl 60 Mg Capsule.) 60 mg PO DAILY [facility] Last Admin: 08/03/25 08:35 Dose: 60 mg Documented By: BERNICE Enoxaparin Sodium (Enoxaparin Sodium 40 Mg/0.4 Ml Syringe) 40 mg SUBCUT Q24H [facility] Last Admin: 08/02/25 12:37 Dose: 40 mg Documented By: BLACK Famotidine (Famotidine 20 Mg Tablet) 20 mg PO BID [facility] Last Admin: 08/03/25 08:35 Dose: 20 mg Documented By: BERNICE Magnesium Hydroxide (Milk Of Magnesia 30 Ml Oral.Susp) 30 ml PO DAILY PRN PRN Reason: Constipation Meclizine HCl (Meclizine Hcl 25 Mg Tablet) 25 mg PO Q6H PRN PRN Reason: Vertigo Last Admin: 08/02/25 13:01 Dose: 25 mg Documented By: BLACK Melatonin (Melatonin 3 Mg Tablet) 6 mg PO BEDTIME PRN PRN Reason: Insomnia Last Admin: 07/31/25 23:14 Dose: 6 mg Documented By: CARIN Metoprolol Tartrate (Metoprolol Tartrate 12.5 Mg Halftab) 12.5 mg PO BID [facility]; Protocol Last Admin: 08/03/25 08:36 Dose: 12.5 mg Documented By: BERNICE Nitroglycerin (Nitroglycerin 0.4 Mg Tab.Subl) 0.4 mg SUBLINGUAL Q5MX3 PRN PRN Reason: Chest Pain Last Admin: 08/02/25 00:14 Dose: 0.4 mg Documented By: CARIN Omeprazole (Omeprazole 20 Mg Capsule.Dr) 20 mg PO DAILY@0630 [facility] Last Admin: 08/03/25 06:38 Dose: 20 mg Documented By: AURORA Ondansetron HCl (Ondansetron Hcl 4 Mg/2 Ml Vial) 4 mg IVPUSH Q8H PRN PRN Reason: Nausea and Vomiting Last Admin: 08/02/25 12:37 Dose: 4 mg Documented By: BLACK Polyethylene Glycol (Polyethylene Glycol 3350 17 Gm Powd.Pack) 17 gm PO DAILY PRN PRN Reason: Constipation Sodium Chloride (0.9 % Sodium Chloride Flush 3 Ml Syringe) 3 ml IVFLUSH QSHIFT [facility] Last Admin: 08/03/25 08:38 Dose: 3 ml Documented By: BERNICE Labs 08/01/25 06:49 08/01/25 06:49 Labs: Laboratory Results - last 24 hr 08/01/25 08/02/25 08/02/25 13:29 00:18 00:18 POC Glucose 144 H Magnesium 1.8 Troponin I High Sens Cancelled 5.2 Assessment and Plan (1) Vestibular neuritis: Status: Inactive (2) PAF (paroxysmal atrial fibrillation): Status: Acute (3) Anxiety: Status: Acute Plan 44-year-old male with history of paroxysmal AFib not on Eliquis GERD anxiety brought in after questionable syncopal episode. Upon further review patient states this is more dizziness and spinning. Has chest pain and 15 beats of vtach overnight Syncope, concern for arrythgmia, had 15 beat vtach yesterday for implantable loop recorder today DC steroid doubt vertigo, vestibular neuronitis Paroxysmal atrial fibrillation in sinus Anxiety continue present meds Full code Lovenox Quality Stroke Does the patient have a stroke diagnosis?: No Reason for No Anti-thrombotic by Day Two: N/A - Med Ordered VTE Prior VTE?: No VTE Risk Level:: Medical - moderate - high VTE Device Contraindication: N/A - Device Ordered VTE Drug Contraindication: N/A - Med Ordered
--- NOTE | 2025-08-03 10:36 | P.DS_ITS ---
DS: Providers Provider Date of Service: 08/03/25 Date of admission: 07/31/25 05:38 Date of discharge: 08/03/25 Primary care physician: Kit Reyes MD Consults: 07/31/25 05:46 Consult to Cardiology Routine Consulting Provider: [facility] [place] [facility] Reason for consultation: syncope Has provider been notified: No 07/31/25 06:26 Consult to Neurology Routine Consulting Provider: [facility] Reason for consultation: syncope w Severe headache blurry vision, loss of sensation left upper thigh DS: Diagnosis Discharge Diagnosis (1) Vestibular neuritis: Status: Inactive (2) PAF (paroxysmal atrial fibrillation): Status: Acute (3) Anxiety: Status: Acute DS: Summary Hospital Course Hospital Course: 44-year-old male with a history of paroxysmal AFib on anticoagulation and anxiety presents after he had a near syncopal episode at home. He states that it began approximately 24 hours ago and is worse when he turns his head. He states he has been sleep deprived as a has a new infant at home. He also stated he was not having adequate p.o. intake. He presented to the emergency room where monitor demonstrated sinus rhythm. CTA of the head was unremarkable. He was seen in consultation by Neurology who recommended an EEG which failed to demonstrate any seizure activity. He was given a pulse dose steroids for presumed vestibular neuritis with improvement. At this point in time he will be discharged on prednisone taper and will follow up with his PCP next available Time Attestation Discharge Coordination Time (in mins): Admission hpi Chief Complaint: syncope Patient is a 44-year-old male with past medical history PAFib normally on Eliquis, COVID, spondylosis of the lumbar spine,,neuropathy ankle fusion, GERD, anxiety, recent sleep study negative for FARIHA, bronchitis was brought in by ambulance after experiencing a syncopal episode witnessed by family. It was in the evening while family was preparing dinner and patient complained to his that he was not feeling well and felt dizzy and as he began to pass out, family caught him and prevented the head strike. Patient currently on leave from work as he and his have just welcomed a 7-day-old baby that was born premature. Patient indicates that he has not had much sleep and prior to this episode in the kitchen, patient had been at the gym doing cardiovascular activity for approximately 2 hours. Patient states he did hydrate during this time. Patient is reporting blurry vision with no loss of central or peripheral vision and a significant headache behind the left eye towards the top of his head. Patient states he was admitted in his 30s for the same issue regarding a very severe headache but was not diagnosed with migraine and there was no follow-up needed. In addition patient reports his sensation in his left upper thigh is diminished and it is worrying him. Patient does report chronic back problems likely related to weightlifting. Patient denies any history of motor vehicle accident or injury to the lower spine. Patient denies any loss of bowel or bladder. patient does have diminished sensation in the left upper thigh only on exam, strength and reflexes are all normal. Patient was not hypoglycemic on arrival. Patient also noted to be hypoxic at 89% upon arrival to the ED and was given 4 L with remarkable improvement. Chest x-ray negative for any acute findings. D-dimer low no indication for CTA. Patient does have a leukocytosis but no fever and is not complaining of any nausea or vomiting at this time. UA also negative for UTI. EKG normal sinus rhythm with a T-wave abnormality in the inferior leads. QTC 407. Troponin 9.9. CT of the head also negative for acute findings. Magnesium and TSH pending. Patient now on room air and pulse ox is 96%. Pt currently denies any chest pain, SOB at rest and states his dizziness has resolved. Patient states the headache persists and after receiving Tylenol there has been no change. Patient being admitted for syncopal episode. Hospital course: Quality: Safe Use of Opioids Does Pt have an Active Cancer Diagnosis on the Problem List?: No Quality: Stroke Does the patient have a stroke diagnosis?: No Physical Exam Exam: Exam: General: AO X 3, no acute distress Resp: CTA bilateral CVS: S1,S2,RRR GI: +BS, NT, no distention Skin: No rash Neuro: motor grossly intact Psych: appropriate affect Vital Signs: Vital Signs: Last Vital Signs Temp 98.1 F 08/03/25 07:41 Pulse 56 08/03/25 07:41 Resp 16 08/03/25 07:41 BP 108/68 08/03/25 07:41 Pulse Ox 93 08/03/25 07:41 O2 Del Method Room Air 08/03/25 07:41 O2 Flow Rate 3 08/01/25 19:32 BMI result Body Mass Index 30.9 Discharge Plan Discharge Anticipated Discharge Date/Time: 08/01/25 11:39 Patient Disposition: Home, Self-Care Discharge Diagnosis: Vestibular neuritis Referrals: Kit Reyes MD [Primary Care Provider, Medical] - 1 Week Phillip Bustos MD [Physician, Cardiology] - 1 Week Discharge Medications: New prednisone 20 mg tablet See Rx Instructions .Route .COMPLEX Qty: 18 0RF Rx Instructions: 20 mg orally; 3 tabs daily for 3 days, 2 tabs daily for 3 days, 1 tab daily for 3 days Continued ibuprofen 800 mg tablet 800 mg PO TID PRN (Reason: Pain) albuterol sulfate [Ventolin HFA] 90 mcg/actuation HFA aerosol inhaler 1 puff inhalation Q6H PRN (Reason: Shortness Of Breath Or Wheezing) bupropion HCl 150 mg tablet extended release 24 hr 150 mg PO DAILY duloxetine 60 mg capsule,delayed release(DR/EC) 60 mg PO DAILY diclofenac sodium 1 % gel 2 g topical TID esomeprazole magnesium [Nexium] 40 mg capsule,delayed release(DR/EC) 40 mg PO DAILY@0630 alprazolam 1 mg tablet 1 mg PO TID PRN (Reason: Anxiety) famotidine [Pepcid] 20 mg tablet 20 mg PO BID Qty: 30 0RF Discharge Orders: Discharge Order (Routine); Ordered 08/03/25 Ordered By: Prince Calvo Diet: Advance to usual diet Activity on Discharge: As tolerated Stand Alone Forms: Patient Portal Discharge page Print Language: Wallisian Care Plan Goals: ` Health Concerns: Resume all other meds as taken prior to hospitalization Plan of Treatment: Follow up with your PCP next available Assessment: See discharge summary
--- NOTE | 2025-08-03 10:40 | P.PNCA_ITS ---
Subjective Subjective Date of Service: 08/03/25 Principal diagnosis: Syncope, nonsustained VT Interval history: Overnight patient has a no further cardiac arrhythmias. Has remained stable. No chest pain. Review of Systems Constitutional: Reports no additional constitutional complaints Physical Exam Vital Signs: Last Vital Signs Temp 98.1 F 08/03/25 07:41 Pulse 56 08/03/25 07:41 Resp 16 08/03/25 07:41 BP 108/68 08/03/25 07:41 Pulse Ox 93 08/03/25 07:41 O2 Del Method Room Air 08/03/25 07:41 O2 Flow Rate 3 08/01/25 19:32 BMI result Body Mass Index 30.9 Const General: comfortable and no acute distress Orientation/consciousness: patient oriented x3 HEENT Other: Unremarkable Head: Yes normal to inspection Neck Neck: Yes normal visual inspection Chest Chest palpation & inspection: normal inspection of the chest Resp Auscultation: clear to auscultation bilaterally Cardio Palpation: normal PMI Heart sounds: S1 normal heart sound present, S2 normal heart sound present, no gallops, no murmurs and no rubs GI Palpation (GI): Soft to palpation Back/Spine/Pelvis Other: unremarkable Skin General skin exam: no rashes or lesions noted Neuro General: patient oriented x3 Extrem General: Yes normal to inspection Psych Mental Status: mental status grossly normal Objective Labs and Meds 08/01/25 06:49 08/01/25 06:49 Progress Note: A&P Assessment and plan (1) Syncope: Status: Acute Assessment and Plan: Patient with syncope episode with symptoms of palpitation comes noted to have nonsustained ventricular tachycardia, monomorphic with normal LV EF on echocardiogram. Plan to place implantable loop recorder today. Once that is completed patient can be discharged home for outpatient workup including cardiac catheterization cardiac MRI which has been scheduled. Patient was made aware of the risks, benefits, alternatives to implantable loop recorder placement. Understands agrees. Continue with metoprolol therapy but can switch to long- acting metoprolol XL 25 mg daily. Outpatient workup and follow-up has been scheduled Time Spent With Patient Time: Total time managing care of this patient today ____ minutes. Progress Note: Quality Stroke Does the patient have a stroke diagnosis?: No Reason for No Anti-thrombotic by Day Two: N/A - Med Ordered Procedures Date of Service Date of Service: 08/03/25
--- NOTE | 2025-08-03 10:54 | MHC.CM.PN ---
[facility] PT WILL BE MEDICALLY CLEARED TODAY PENDING IMPLANTABLE LOOP RECODER PLACEMENT, PER CARDIO NOTE PLAN FOR OUTPT FOLLOW-UP FOR MRI AND POSSIBLE CARDIAC CATH, PT WILL ARRANGE TRANSPORT HOME.
[2025-08-03 11:25] VITALS: BP 123/75; PULSE 64; RESP 18; TEMP 36.6; O2SAT 94
--- NOTE | 2025-08-03 11:32 | P.BOP_ITS ---
Brief Operative Note Date of Service: 08/03/25 Pre-op diagnosis: Syncope, nonsustained VT Post-op diagnosis: same Procedure: Implantation of implantable loop recorder Implants: After obtaining full consent patient was in his room in his supine position. Patient is precordial area was then prepped and draped in a sterile fashion. Patient was then given 2% lidocaine with epinephrine intradermally and subcutaneously in the 4th intercostal space. A small incision was then made and [employer] implantable loop recorder with serial number [id number] was then implanted in the subcutaneous space using modified Seldinger technique. Measured R-waves at 0.4 mV. The wound was then closed with Steri-Strips and sterile pressure dressing was applied. Surgeon: Theodore Couch MD Anesthesia: local Was an Communications Department Chairperson used for this Procedure?: No Estimated blood loss (mL): 3 Pathology: none sent Condition: stable Disposition: floor
--- NOTE | 2025-08-03 13:39 | MHC.CM.PN ---
PT CLEARED TO DC HOME TODAY WITH NO SERVICES VIA PRIVATE TRANSPORT
== END 2025-08-03 15:22 | disposition home or self-care (01) ==
LOC: HO.ED 07-31 05:31 → HO.EDOVER 07-31 05:43 → HO.IMC 07-31 19:18
PROVIDERS: Hospitalist; Nurse Practitioner Family; Admitting Provider Internal Medicine; Emergency Provider Emergency Medicine; PCP Internal Medicine; Visit Provider Internal Medicine
DX: H81.20 Vestibular neuronitis, unspecified ear (principal); I47.20 Ventricular tachycardia, unspecified; R55 Syncope and collapse; F41.9 Anxiety disorder, unspecified; I48.0 Paroxysmal atrial fibrillation; R51.9 Headache, unspecified; H53.8 Other visual disturbances; K21.9 Gastro-esophageal reflux disease without esophagitis; R07.9 Chest pain, unspecified; Z79.01 Long term (current) use of anticoagulants; Z79.899 Other long term (current) drug therapy
CPT/HCPCS: 36415; 70450; 71045; 80048; 80053; 80307; 81001; 82947; 83735; 84443; 84484; 85025; 85379; 85610; 93005; 93306; 95819; 96361; 96365; 96366; 96372; 96375; 96376; 99222; 99285; J1650; J2004; J2270; J2405; J2919; J3360; J3475; Q9957

== ENCOUNTER → 2025-07-30 22:10 | Outpatient (BNV) | payer MEDICAID, SELFPAY | PROVIDERS: Admitting Provider Internal Medicine; Emergency Provider Emergency Medicine; PCP Internal Medicine; Visit Provider Internal Medicine | DX: R94.31 Abnormal electrocardiogram [ECG] [EKG] (principal); R42 Dizziness and giddiness | CPT/HCPCS: 93010 ==

== ENCOUNTER → 2025-07-30 22:12 | Outpatient (BNV) | payer MEDICAID, SELFPAY | PROVIDERS: Visit Provider Radiology Diagnostic Radiology | DX: R42 Dizziness and giddiness (principal) | CPT/HCPCS: 71045 ==

== ENCOUNTER → 2025-07-31 00:51 | Outpatient (BNV) | payer MEDICAID, SELFPAY | PROVIDERS: Admitting Provider Internal Medicine; Emergency Provider Emergency Medicine; Visit Provider General Practice | DX: R51.9 Headache, unspecified (principal); R55 Syncope and collapse | CPT/HCPCS: 70450 ==

== ENCOUNTER 2025-07-31 05:38 | Outpatient (BNV) | payer MEDICAID, SELFPAY | END 2025-08-02 00:24 | PROVIDERS: Admitting Provider Internal Medicine; Emergency Provider Emergency Medicine; PCP Internal Medicine; Visit Provider Internal Medicine | DX: R94.31 Abnormal electrocardiogram [ECG] [EKG] (principal); R07.9 Chest pain, unspecified | CPT/HCPCS: 93010 ==

== ENCOUNTER → 2025-07-31 05:38 | Outpatient (BNV) | payer MEDICAID, SELFPAY | PROVIDERS: Admitting Provider Internal Medicine; Emergency Provider Emergency Medicine; PCP Internal Medicine; Visit Provider Psychiatry & Neurology Neurology | DX: R55 Syncope and collapse (principal) | CPT/HCPCS: 99222 ==

== ENCOUNTER → 2025-07-31 05:38 | Outpatient (BNV) | payer MEDICAID, SELFPAY | PROVIDERS: Admitting Provider Internal Medicine; Emergency Provider Emergency Medicine; PCP Internal Medicine; Visit Provider Nurse Practitioner Family | DX: I48.0 Paroxysmal atrial fibrillation (principal); H81.20 Vestibular neuronitis, unspecified ear; F41.9 Anxiety disorder, unspecified | CPT/HCPCS: 99232; 99499 ==

== ENCOUNTER → 2025-07-31 05:38 | Outpatient (BNV) | payer MEDICAID, SELFPAY | PROVIDERS: Admitting Provider Internal Medicine; Emergency Provider Emergency Medicine; Visit Provider Internal Medicine | DX: R55 Syncope and collapse (principal); I47.20 Ventricular tachycardia, unspecified | CPT/HCPCS: 99233 ==

== ENCOUNTER 2025-08-14 09:42 | Outpatient (AMB) | payer MEDICAID, SELFPAY ==
--- OUTSIDE RECORDS SUMMARY | 2023-04-20 02:12 | XMS_ITS | Continuity of Care Document ---
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 reviewed. Related to Hemorrhoids, [...] to Left ankle pain Referral to PT Retur n to clinic if symptoms worsen or [...] cardiology and states he was clear by driveway sealer but our office has not received clearance notes from cardiology not in our office Related to JOINT PAIN-ANKLE patient seen by card iology was clear for surgery, today gave patient clearance for surgery; patient had labs by the surgical office and all he needs is our clearance Related to Pre-op evaluation refer to cards ekg and chest xra y Related to Atypical chest pain cbc, tsh f/u 2 weeks sooner if w orst Related to Palpitations ekg done and labs ch est xraywill need cardiac clearence for surgery-- refer to cards Related to Pre-op exam motrin tid for pain and swell vicodin for severe pain. Related to JOINT PAIN-ANKLE Patient instructed o n use of saline sprays. Related to Acute sinusitis zpak and flonase as directed Rel ated to Acute sinusitis RICE, sign for recor ds from Dr. Merritt Related to JOINT PAIN-ANKLE will refer pending receipt Relat ed to JOINT PAIN-ANKLE toradol 60 im x 1 now Related to Pain er meds as directed, massage, stretching, ice/heat, ref to PT Related to LBP (low back pain) as above Related to Cervi roddy strain Order labs/studies Assessments Type Assessment Date No Information Patient Care Teams Name Effective Dates (start - stop) Status Members No Information
--- OUTSIDE RECORDS SUMMARY | 2023-08-02 10:15 | XMS_ITS | Continuity of Care Document ---
Author Organization [facility] Address [address] [place] [address] Phone Care Team Providers Care Software Asset Manager Name Role Phone Samuel Biggs DO Unavailable [...] 15 MG - Active D/C TRAZODONE ; YORUBA LABEL PLS; D/C WELLBUTRIN EPIPEN 2-MECHELLE 0.3 [...] VISIT, EST OFFICE/OUTPATIENT VISIT, EST [facility],phys [facility]or-care ovrst Mccd,phys coor-care ovrst OFFICE/OUTPATIENT [...] Diagnoses Date Provider Providers Copied on Encounter [employer], [address], [address], [place] tel:[phone] [employer] No Information 3 Biggs Samuel. [address], [place], [address], [place]. tel:[phone] OFFICE/OUTPATI ENT VISIT EST [employer], [address], [place], [place], [address], [place] tel:[phone] [facility] Major depressive disorder, recurrent, moderateAnxi ety 1 Tom Langston. [address], [place], [address], [place]. tel:[phone] OFFICE/OUTPATI ENT VISIT, EST [employer], [address], [place], [place], [address], [place] tel:[phone] [facility] Major depressive disorder, recurrent, moderateAnxi ety Aug-0 0 Santos Dashrath. [address], [place], [address], [place]. tel:[phone] OFFICE/OUTPATI ENT VISIT, EST [employer], [address], [place], [place], [address], [place] tel:[phone] [facility] Major depressive disorder, recurrent, moderateAnxi ety Sep-0 0 Santos Dashrath. [address], [place], [address], [place]. tel:[phone] OFFICE/OUTPATI ENT VISIT EST [employer], [address], [place], [place], [address], [place] tel:[phone] [facility] Cardiology referrals and test done (chief complaint)Te [facility] (chief complaint)GI update (chief complaint) Heartburn symptomAtypi roddy chest pain 0 Syed Leilan. [address] [place], [address], [place]. tel:[phone] OFFICE/OUTPATI ENT VISIT EST [employer], [address], [place], [place], [address], [place] tel:[phone] [facility] Major depressive disorder, recurrent, moderateAnxi ety Mar- 0 Santos Dashrath. [address], [place], [address], [place]. tel:[phone] [employer], [address], [place], [place], [address], [place] tel:[phone] [facility] No Information 0 No Informatio n OFFICE/OUTPATI ENT VISIT, EST [employer], [address], [place], [place], [address], [place] tel:[phone] [facility] Major depressive disorder, recurrent, moderateAnxi ety Apr-2 3-202 0 Santos Dashrath. [address], [place], [address], [place]. tel:[phone] OFFICE/OUTPATI ENT VISIT, EST [employer] [facility], [address], [place], [place], [address], [place] [phone] [facility] Major depressive disorder, recurrent, moderateAnxi ety 9201 9 Santos Dashrath. [address], [place], [address], [place]. tel:[phone] OFFICE/OUTPATI ENT VISIT, EST [employer] [facility], [address], [place], [place], [address], [place] tel:[phone] [facility] Major depressive disorder, recurrent, moderateAnxi etyEncounter for administrati ve examinations , unspecified 9 Santos Dashrath. [address], [place], [address], [place]. tel:[phone] [employer], [address], [place], [place], [address], [place] tel:[phone] [facility] Encounter for administrati ve examinations , unspecified 9 Frempong Mathieu. [address] [place], [address], [place]. tel:[phone] OFFICE/OUTPATI ENT VISIT, EST [employer], [address], [place], [place], [address], [place] tel:[phone] [facility] HHP Follow up (chief complaint)Mu ltiple skin tags (chief complaint) Encounter for administrati ve examinations , unspecifiedS kin tags, multiple acquired Sep-0 3-201 9 Frempong Mathieu. [address] [place], [address], [place]. tel:[phone] [employer], [address], [place], [place], [address], [place] tel:[phone] [facility] Encounter for administrati ve examinations , unspecified 9 [employer] [facility]. [address] [place], [address], [place]. tel:[phone] OFFICE/OUTPATI ENT VISIT, EST [facility], [address], [place], [place], [address], [place] tel:[phone] [facility] Major depressive disorder, recurrent, moderateAnxi ety 9 Tom Langston. [address], [place], [address], [place]. tel:[phone] PSYCHOTHERAPY 30 MIN WITH A PATIENT AND/OR FAMILY [employer] [facility], [address], [place], [place], [address], [place] tel:[phone] [facility] Major depressive disorder, recurrent, moderateAnxi ety 9 No Informatio n OFFICE/OUTPATI ENT VISIT, EST [facility], [address], [place], [place], [address], [place] tel:[phone] [facility] HHP Follow up (chief complaint)ri ght leg pain (chief complaint) Posterior right knee painScreenin g for HIV (human immunodefici ency virus)Screen for STD (sexually transmitted disease)Over weight 9 [employer] [place]. [address] [place], [address], [place]. tel:[phone] [employer] [facility], [address], [place], [place], [address], [place] tel:[phone] [facility] Segmental and somatic dysfunction of lumbar region 9 [employer] [place] [facility]. [address] [place], [address], [place]. tel:[phone] [employer] [facility], [address], [place], [place], [address], [place] tel:[phone] [facility] Segmental and somatic dysfunction of lumbar region 9 Frempong Mahtieu. [address] [place], [address], [place]. tel:[phone] OFFICE/OUTPATI ENT VISIT, EST [employer] [facility], [address], [place], [place], [address], [place] tel:[phone] [facility] Major depressive disorder, recurrent, moderateAnxi ety 9 Santos Kian. [address], [place], [address], [place]. tel:[phone] OFFICE/OUTPATI ENT VISIT, EST [employer], [address], [place], [place], [address], [place] tel:[phone] [facility] x ray results (chief complaint) Primary osteoarthrit is, right ankle and foot February- 9 Bro Donaldson. [address] [place], [address], [place]. tel:[phone] PSYCHOTHERAPY 30 MIN WITH A PATIENT AND/OR FAMILY [facility] [employer], [address], [place], [place], [address], [place] tel:[phone] [facility] Major depressive disorder, recurrent, moderateAnxi ety 9 No Informatio n OFFICE/OUTPATI ENT VISIT, EST [employer], [address], [place], [place], [address], [place] tel:[phone] [facility] ankle issues (chief complaint) Acute right ankle pain February-0 9 Bro Cardoso [address] [place], [address], [place]. tel:[phone] OFFICE/OUTPATI ENT VISIT, EST [employer], [address], [address], [place] tel:[phone] [facility] Major depressive disorder, recurrent, moderateAnxi ety 9 Santos Dashrath. [address], [place], [address], [place]. tel:[phone] OFFICE/OUTPATI ENT VISIT, EST [facility], [address], [place], [place], [address], [place] [phone] [facility] HHP Follow Up (chief complaint)Bl ue Nails (chief complaint) Subungual hematoma of great toe of left foot, initial encounterSub ungual hematoma of great toe of right foot, initial encounterAtr ial fibrillation , unspecified typeHx of intermediate use of blood thinners 9 Frempong Mathieu. [address] [place], [address], [place]. tel:[phone] [facility], [address], [place], [place], [address], [place] [phone] [facility] Spinal Care (chief complaint) Segmental and somatic dysfunction of lumbar regionSegmen anitra and somatic dysfunction of thoracic regionMid back painAcute midline low back pain without sciatica 9 Gal Washington. [address], [place], [address], [place]. tel:[phone] PSYCHOTHERAPY 30 MIN WITH A PATIENT AND/OR FAMILY [facility], [address], [place], [place], [address], [place] tel:[phone] [facility] Major depressive disorder, recurrent, moderate 9 No Informatio n OFFICE/OUTPATI ENT VISIT, EST [facility], [address], [place], [place], [address], [place] [phone] [facility] Major depressive disorder, recurrent, moderate Feb-0 9 Santos Dashrath. [address], [place], [address], [place]. tel:[phone] [employer] [facility], [address], [place], [place], [address], [place] tel:[phone] [facility] [address] Consult (chief complaint) BMI 27.0-27.9,ad ultWeight loss counseling, encounter for 9 Rebekah Lozano. [address] [place], [address], [place]. tel:[phone] OFFICE/OUTPATI ENT VISIT, [facility] [employer], [address], [place], [place], [address], [place] tel:[phone] [facility] Podiatry referral (chief complaint) Right foot pain 9 Syed Boyd. [address] [place], [address], [place]. tel:[phone] OFFICE/OUTPATI ENT VISIT, [facility] [employer], [address], [place], [place], [address], [place] tel:[phone] [facility] Major depressive disorder, recurrent, moderate 8 Tom Langston. [address], [place], [address], [place]. tel:[phone] OFFICE/OUTPATI ENT VISIT, [facility] [employer], [address], [place], [place], [address], [place] tel:[phone] [facility] Encounter for screening for other disorderPoor dietAtrial fibrillation , unspecified typeOsteoart hritis, unspecified osteoarthrit is type, unspecified siteDepressi on, unspecified depression typePOLST (Physician Orders for Life-Sustain ing Treatment)En counter to establish care with new doctor 8 Freddy Murdock. [address] [place], [address], [place]. tel:[phone] OFFICE/OUTPATI ENT VISIT, [facility], [address], [place], [place], [address], [place] tel:[phone] [facility] lab results (chief complaint) Shrimp allergyAller gy to treesAtrial fibrillation with controlled ventricular rateRecurren t sinusitis 8 No Informatio n [facility], [address], [place], [place], [address], [place] tel:[phone] [facility] labs only (chief complaint) Allergic rhinitis, unspecified 8 Syed Deb. [address] [place], [address], [place]. tel:[phone] OFFICE/OUTPATI ENT VISIT, [facility], [address], [place], [place], [address], [place] tel:[phone] [facility] f/u allergies/ referrals (chief complaint) Allergic rhinitis, unspecified seasonality, unspecified triggerSnori ngFatigue, unspecified type Sep-2 8 Syed Deb. [address] [place], [address], [place]. tel:[phone] PSYCHOTHERAPY 30 MIN WITH A PATIENT AND/OR FAMILY [facility] [employer] [facility], [address], [place], [place], [address], [place] tel:[phone] [facility] Major depressive disorder, recurrent, moderate Sep-2 8 No Informatio n OFFICE/OUTPATI ENT VISIT, [facility] [employer] [facility], [address], [place], [place], [address], [place] tel:[phone] [facility] Major depressive disorder, recurrent, moderatePain in unspecified jointPersona l history of other diseases of the circulatory system 8 Tom Langston. [address], [place], [address], [place]. tel:[phone] OFFICE/OUTPATI ENT VISIT, [facility] [employer], [address], [place], [place], [address], [place] tel:[phone] [facility] Results (chief complaint) Low vitamin D levelEncount er to discuss test results 8 Syed Boyd. [address] [place], [address], [place]. tel:[phone] [employer], [address], [address], [place] tel:[phone] [facility] No Information 8 Syed Boyd. [address] [place], [address], [place]. tel:[phone] PSYCHOTHERAPY 30 MIN WITH A PATIENT AND/OR FAMILY [facility], [address], [place], [place], [address], [place] tel:[phone] [facility] Major depressive disorder, recurrent, moderate 8 No Informatio n [employer], [address], [address], [place] tel:[phone] [facility] No Information 8 Syed Boyd. [address] [place], [address], [place]. tel:[phone] OFFICE/OUTPATI ENT VISIT, EST [employer], [address], [address], [place] tel:[phone] [facility] f/u (chief complaint)Ad dendum 03/12/18 (chief complaint) Arthralgia, unspecified jointHistory of atrial fibrillation 8 Syed Boyd. [address] [place], [address], [place]. tel:[phone] OFFICE/OUTPATI ENT VISIT, EST [employer], [address], [address], [place] tel:[phone] [facility] Major depressive disorder, recurrent, moderateImpu lse control disorder 8 Tom Langston. [address], [place], [address], [place]. tel:[phone] OFFICE/OUTPATI ENT VISIT, EST [employer], [address], [place], [place], [address], [place] tel:[phone] [facility] ER follow up (chief complaint) Atrial fibrillation with controlled ventricular rate 8 Carlo Sloan. [address], [place], [address], [place]. tel:[phone] PSYCHOTHERAPY 30 MIN WITH A PATIENT AND/OR FAMILY [employer], [address], [place], [place], [address], [place] tel:[phone] [facility] Major depressive disorder, recurrent, moderate Dec-0 8 No Informatio n OFFICE/OUTPATI ENT VISIT, EST [employer], [address], [address], [place] tel:[phone] [facility] established care (chief complaint) Body mass index (BMI) 29.0-29.9, [facility] er to establish careArthralg ia, unspecified jointFatigue , unspecified typeChronic bilateral low back pain without sciaticaOthe r chronic pain 8 Syed Boyd. [address] [place], [address], [place]. tel:[phone] PSYCHOTHERAPY 30 MIN WITH A PATIENT AND/OR FAMILY [employer], [address], [place], [place], [address], [place] tel:[phone] [facility] Major depressive disorder, recurrent, moderateAnge r 8 No Informatio n PSYCHOTHERAPY 30 MIN WITH A PATIENT AND/OR FAMILY [employer], [address], [place], [place], [address], [place] tel:[phone] [facility] Major depressive disorder, recurrent, moderatePani c disorder without agoraphobiaI mpulse control disorder 7 Santos Dashrath. [address], [place], [address], [place]. tel:[phone] PSYCHOTHERAPY 30 MIN WITH A PATIENT AND/OR FAMILY [facility], [address], [address], [place] tel:[phone] [facility] Major depressive disorder, recurrent, moderatePani c disorder without agoraphobiaI mpulse control disorder 7 Santos Dashrath. [address], [place], [address], [place]. tel:[phone] PSYCHOTHERAPY 30 MIN WITH A PATIENT AND/OR FAMILY [facility], [address], [address], [place] tel:[phone] [facility] Major depressive disorder, recurrent, moderatePani c disorder without agoraphobiaI mpulse control disorder Jan- 7 Santos Dashrath. [address], [place], [address], [place]. tel:[phone] PSYCHOTHERAPY 30 MIN WITH A PATIENT AND/OR FAMILY [employer], [address], [address], [place] tel:[phone] [facility] Major depressive disorder, recurrent, moderatePani c disorder without agoraphobia 7 Santos Dashrath. [address], [place], [address], [place]. tel:[phone] OFFICE/OUTPATI ENT VISIT, [facility] [employer], [address], [place], [place], [address], [place] tel:[phone] [facility] Major depressive disorder, recurrent, moderatePani c disorder without agoraphobia 6 [facility]. [address], [place], [address], [place]. tel:[phone] OFFICE/OUTPATI ENT VISIT, EST [facility], [facility], [place], [place], [address], [place] tel:[phone] [facility] depression (chief complaint) Major depressive disorder, recurrent, moderatePani c disorder without agoraphobia 6 [facility]. [address], [place], [address], [place]. tel:[phone] PSYCHOTHERAPY 45 MIN [facility], [facility], [place], [place], [address], [place] tel:[phone] [facility] Major depressive disorder, recurrent, moderatePani c disorder without agoraphobia 6 No Informatio n Psychiatric Diagnositc Eval [facility], [address], [place], [place], [address], [place] tel:[phone] [facility] Depression (chief complaint)Pa sally Attacks (chief complaint)Mo od Swings (chief complaint) Major depressive disorder, recurrent, moderatePani c disorder without agoraphobia 5 No Informatio n Family History Family Member Type Diagnosis Age At Onset Brother Problem (finding) Cancer, brain Mother Problem (finding) Lupus erythematosus Immunizations Vaccine Date Status Comments Tdap (Adacel) administered Source: Other Provider Payers Payer name Insurance type Covered alliance party ID Authoriza tiania(s) [facility] Managed Wrap [id number] Social History Type Description Quantity Date Captured [...] Alcohol/chemical dependency screeing. Due on due Goal Depression scree kylah. Due on due Goal Dental exam. Due on due Goal Hep C Ab. Due on due Goal Unhealthy drug u se screening. Due on due Goal Hepatitis C scre ening. Due on due Goal Lipid panel. Due on due Goal Alcohol/chemical dependency screeing. Due on due Goal Depression scree kylah. Due on due Goal Dental exam. Due on due Goal Hep C Ab. Due on due Goal Influenza vaccine. Due on due Goal Tdap due Goal Lipid panel. Due on due Goal Lipid Panel. Due on due Goal Depression scree kylah. Due on due Goal Dental exam. Due on due Goal Hep C Ab. Due on due Goal Alcohol/chemical dependency screeing. Due on due Goal Hep C Ab. Due on due Goal Depression scree kylah. Due on due Goal Dental exam. Due on due Goal Alcohol/chemical dependency screeing. Due on due Goal Lipid Panel due Goal Dental exam. Due on due Goal Hep C Ab. Due on due Goal Alcohol/chemical dependency screeing. Due on due Goal Depression scree kylah. Due on due Goal Lipid Panel due Goal Alcohol/chemical dependency screeing. Due on due Goal Hep C Ab. Due on due Goal Dental exam. Due on due Goal Lipid Panel due Goal Depression scree kylah. Due on due Goal Lipid Panel. Due on 023 due Goal Hep C Ab. Due on due Goal PHQ9. Due on due Goal Dental exam. Due on due Goal Alcohol/chemical dependency screeing. Due on due Goal Depression scree kylah. Due on due Goal SHA Senior 65+. Due on due Goal SHA Adult 18-64 yrs. Due on due Goal Depression scree kylah. Due on due Goal Tdap due Goal SHA Adult 18-64 yrs. Due on due Goal Tdap due Goal SHA Senior 65+. Due on [...] Evaluate and treat ordered Referral Ordered: Referrals: [facility]. Evaluate and treat Appointment date/timeframe: 10/16/2018 ordered [...] Lab Order Chlamydi a/Neisseria gonorrhoeae RNA, TMA ([id number]), Ordered on: Ordered Future Order: Lab Order CMP ([id number]), Orde red on: Ordered Future Order: Lab Order CBC (INC LUDES DIFF/PLT) ([id number]), Ordered on: Ordered Future Order: Lab Order LIPID PA PARVIZ ([id number]), Ordered on: Ordered Future Order: Lab Order HEMOGLOB IN A1C (496), Ordered on: Ordered Future Order: Lab Order TSH, 3RD GENERATION (9), Ordered on: Ordered Future Order: Lab Order T4, FREE (866), O rdered on: Ordered Future Order: Lab Order URINALYS IS, COMPLETE W/REFLEX TO CULTURE ([id number]), Ordered on: Ordered Future Order: Lab Order RPR (DX) W/REFL TITER AND CONFIRMATORY TESTING ([id number]), Ordered on: Ordered Future Order: Lab Order HIV-1/2 Antigen and Antibodies, Fourth Generation, with Reflexes ([id number]), Ordered on: Ordered History Of Present Illness Encounter Date Complaint History Of Prese nt Illness GI update > Seen by Dr. Ra felton, scheduled for EGD 06/24/20 Tele Health > Patient verbal ly consented to have their visit with [facility] via Telehealth for their concern.> Reason for Telehealth Visit: State guidelines require residents to remain at home> Telehealth Platform used: Telephone > Is this visit type clinically appropriate for this patient? Yes> Is the encounter in place of a [id number] encounter? Yes> Total Length of Telehealth Visit: 15 minutes> The patient understands and consents to this telehealth(audio) encounter> Date of verified by patient> Language line used for Interpretation: Tuvaluan> ID # - Placido [id number] Cardiology referrals and test done > Cardiac work up - Unremarkable, per Dr. Valadez, chest pain is non cardiac Multiple skin tags Patient is re questing a New referral for Derm for multiple large skin tags on his left side and right shoulder x yrs . Requesting for them to be removed . HHP Follow up Patient is here for routine p follow up . right leg pain Onset: 3 months ago. Location: right. Pertinent negatives include joint instability and joint tenderness. HHP Follow up Patient is here for hhp follow up . x ray results Patient still trivedi ving right ankle pain, here to review old x-ray results. Patient denies any new problems to feet or ankles. ankle issues Patient relates a pain to the right ankle, he describes as sharp, worse pain with weight bearing after a while. Has no x-rays, duration on several years, had an old surgery to this area. Blue Nails - No recent trau ma- Noticed after game of basketball- Initially painful however symptoms resolved. - Pt on Eliquis.- Concern about the discoloration . HHP Follow Up 38 year old male presenting for HHP Follow Up Spinal Care Presents with pa in and [...] Still complaining of Right foot pain, his Systems Project Manager is Dr. Newby> No other health complaints HHP enrollment 37 year old male patient here presenting for [facility] Enrollment.Specialist/ Other doctors:- Cardiology - Afib- Podiatry - Odin- - Anxiety Depression - Gastro - for Ulcers- Pain management- on Yoandy-PCP- [facility] PMHx Date/ status / medications:- [...] Caffeine: none Hospital Visits: 6 months ago [facility] lab results labs only f/u allergies/ referrals [...] - will do Lumbosacral X-ray> Currently takes [facility]dick for pain, c/o pain management2. Annual labs3. [...] his rage and denies becoming physically violent. Panic Attacks No Previous Dx. Pt. reports [...] he feels the need to run away. Depression The patient pres ents with anxious/fearful [...] chronic pain, nausea, urinary frequency and vomiting. 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
--- NOTE | 2025-08-14 10:44 | A.OFFVIS_ITS ---
Intake Visit Reasons: Wound check/on antibiotics Allergies shrimp Allergy (Severe, Verified 07/30/25 21:56) RASH Medication List - Last Reconciled 08/14/25 by RODERICK Paniagua acetaminophen (Tylenol) 650 mg (2 x 325 mg) PO QID PRN albuterol sulfate 90 mcg/actuation (Ventolin HFA) 1 puff inhalation Q6H PRN alprazolam 1 mg PO TID PRN bupropion HCl XL 150 mg PO DAILY cefuroxime axetil 500 mg PO BID diclofenac sodium 1% 2 grams topical TID duloxetine 60 mg PO DAILY esomeprazole magnesium (Nexium) 40 mg PO DAILY@0630 famotidine (Pepcid) 20 mg PO BID ibuprofen 800 mg PO TID PRN prednisone 20 mg orally; 3 tabs daily for 3 days, 2 tabs daily for 3 days, 1 tab daily for 3 days HPI HPI Wound check/on antibiotics: Details: Gilbert is a 44-year-old male with reported past medical history of paroxysmal atrial fibrillation, previously diagnosed in [place], no EKGs to confirm. More recently he was seen by [facility] and now follows with us. He did have an episode of syncope and while inpatient he had 15 beat episode of monomorphic NSVT. An ILR was placed on 08/03/25. He came for wound check on 08/07 and the area was partially open. He received wound care and was started on antibiotics. He now presents for repeat wound check. Today he reports that he has minor soreness at the ILR site. The dressing that was applied last week was still intact with reddish/ brown staining and foul smell. No fevers or chills reported. He has had no recurrent syncopal episodes and no presyncope. He is not bothered by recent heart palpitations. No chest pains, shortness of breath, PND, orthopnea or edema. No lightheadedness, presyncope, syncope. Currently out of work due to having the syncopal event. [facility] Medical History Syncope and collapse Bronchitis Anxiety GERD (gastroesophageal reflux disease) Hx of assisted use of blood thinners PAF (paroxysmal atrial fibrillation) Surgical History Hx of hernia repair Hx of foot surgery Family History Mother HTN (hypertension) Lupus COPD (chronic obstructive pulmonary disease) Father Diabetes Arthritis Brother HTN (hypertension) Brain tumor Social History Household Members: Spouse and Children Housing: Apartment Do you presently have visiting nurse or other home services: No Alcohol intake: never Patient Tobacco Use Status: Never used Tobacco e-Cigarette/Vaping Use: Never Used service: No Current occupational status: unemployed Current occupation: right 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 Review of Systems Const All systems reviewed & are unremarkable except as noted in HPI and below Card Details: minor discomfort at ILR site, no fevers Denies chest pain at rest, Denies chest pain with activity, Denies rapid heart rate, Denies irregular heart rhythm, Denies dyspnea, Denies dyspnea on exertion and Denies orthopnea Resp Denies cough, Denies dyspnea and Denies dyspnea on exertion Musc Denies no additional complaints Psych Denies no additional complaints Physical Exam Const General: cooperative, healthy appearing, comfortable and no acute distress Resp Effort & Inspection: normal respiratory effort Auscultation: clear to auscultation bilaterally, no rales, no rhonchi and no wheezes Cardio Other: ILR site - dressing removed, small amount of serous drainage noted, wound open and ILR edge visable. area around site without redness or visable swelling. Mild tenderness to palpation. Rate: regular rate Rhythm: regular rhythm Heart sounds: S1 normal heart sound present, S2 normal heart sound present, no murmurs and no rubs Extrem General: Yes normal to inspection and No no pedal edema Psych Appearance: grossly normal Mental Status: mental status grossly normal Speech and movement: Normal speech and movement present Office Procedures Cardiac Device Check Cardiac Device Check Details: ILR device check: No arrythmia alerts, 3 pt symptom episodes that correlated with sinus rhythm. No afib or NSVT seen during monitoring dates 08/03/25 - 08/14/25 [id number] Cardiac Interrogation, subcut cardiac rhythm monitor Procedure code (CPT) selection complete Office Procedure Misc Details: ILR wound open and device edge visable. Plan for removal discussed with pt and he is agreeable to proceed. Dr Walls present and performed the procedure. Pt was placed in semi recumbent position on exam table. Area was cleaned with betadine solution. The wound and surrounding tissue was injected the 1% Xylocaine solution. A sterile lory clamp was used to retrieve the ILR device and it was easily extracted. The wound was expressed with minimal drainage noted. The area was again cleaned with betadine then covered with sterile gauze and covered with Tegaderm dressing. Pt tolerated the procedure very well. Wound care instructions given. Procedure time ( implanted loop recorder removal) - 10 minutes. Office Procedure Billing Code: CLAUDE Procedure Billing Code Assessment & Plan Assessment & Plan (1) Encounter for wound care: Category: Medical Plan: ILR wound open with device visable - ILR removed in sterile fashion, wound cleaned with betadine and dry sterile gauze and tegaderm applied. Instructed to leave dressing intact/ dry for 48 hr then can remove. Site care reviewed and signs and symptoms of infection reviewed in detail. Will change antibiotic to Doxycycline 100mg bid for 7 days. Will arrange for office wound check in 1 week - sooner if needed. (2) Syncope: Code(s): R55 - Syncope and collapse Category: Medical Plan: Recent admit for witness syncopal event that was preceded by dizziness. Initial evaluation without any significant findings beyond hypoxemia that improved quickly with O2 use. While admitted, he had a 15 beat run of monomorphic NSVT. Echocardiogram showd EF > 70%, no valve or regional wall motion abnormalities. EKG showed SR, T wave abnormality inferiorly and Qtc 424ms. ILR was placed for rhythm monitoring. EP referral already made. Plan is for outpt cardiac cath and cardiac MRI for further evaluation - orders are in place. (3) PAF (paroxysmal atrial fibrillation): Code(s): I48.0 - Paroxysmal atrial fibrillation Category: Medical Plan: Reported history of paroxysmal atrial fibrillation, though not confirmed. A cardiac event monitor done 03/07/2024 through [facility] showed sinus rhythm with occasional PACs and PVCs, no atrial fibrillation. EKG done here 04/15/2024 showed sinus rhythm with T-wave inversion lead 3 and AVF, unchanged from prior EKG, rate 68. A cardiac event monitor was done 09/03/2024 however only worn for 3.5 days due to reported skin irritation from the patch. It showed sinus rhythm with average heart rate 75, no arrhythmias. Holter monitor done 03/11/2025 showing sinus rhythm with average heart rate 78, rare SVE and ve. Echocardiogram 09/03/2024 showed EF 50-55%, no valve abnormality, left atrium likely dilated. Most recent echo as above. Home sleep study 01/12/2025 showed no evidence of sleep apnea. ILR was in use fro 08/03 through today and does not show any afib. To date he has no confmred atrial fibrillation seen. Chads Vasc score of 0. No indication for anticoagulation due to low CHADS-VASc score and no confirmed AFib. (4) Hospital discharge follow-up: Code(s): Z09 - Encounter for follow-up examination after completed treatment for conditions other than malignant neoplasm Category: Medical Plan: [facility] notes reviewed. Plan Time spent on chart review, documentation, interview, assessment, office procedure. Medications: New doxycycline hyclate 100 mg PO BID 14 tabs 0RF 7 days Discontinued cefuroxime axetil Discontinued Reason: Doctor's Order 500 mg PO BID 28 tabs 0RF Coding Level of Care Code Est Pt Level 5 (01202) Complex EM visit Add On G2211 Diagnoses Encounter for wound care Syncope R55 PAF (paroxysmal atrial fibrillation) I48.0 Hospital discharge follow-up Z09 CPT Codes Cardiac Device Check - Cardiac Device 16: [id number] Cardiac Interrogation, subcut cardiac rhythm monitor ([id number]) Office Procedure - Office Procedure Billing Code: AMB Procedure Billing Code ([id number]) Time Spent (min) 45
--- OUTSIDE RECORDS SUMMARY | 2025-08-14 11:07 | XMS_ITS | Encounter Summary ---
Author Organization [employer] Address [address] [place] [address] [address] [place] [address] Care Team Providers Care [employer] [place] Utility Worker Name Role Phone Milan Abrams MD Primary Care Prov ider Reason for Visit * Reason Onset Date Comments Hospital Follow-up 08/03/2025 Encounter Details Date Type Department Care Team ([facility] Contact Info) Description 08/03/2025 Telephone [facility] MED & PEDS [address] [place] [address] Milan Abrams MD [address] [place] [address] Hospital Follow-up Social History Tobacco Use Types Packs/Day Years [...] the past 12 months, has t he [employer], gas, oil or water company threatened to [...] encounter Miscellaneous Notes * Telephone Encounter - Ruddy Chen - 08/03/2025 3:06 PM EDT Tc from pt requesting a HDF appt. Hospital: [facility] Date of admission: 07/30 Discharge date: 08/03 Diagnosed: Heart Issues *Send message to [facility] Coordinators Contact pt at [phone] documented in this encounter Plan of Treatment Upcoming Encounters Date Type Department Care Team (Late st Contact Info) Description 09/21/2025 9:30 AM EST Office Visit [facility] MED [facility] PEDS [address] [place] [address] Monica Andres FNP [address] [place] [address] documented as of this encounter Visit Diagnoses Not on filedocumented in this encounter Additional Health Concerns Assessment Noted Time PHQ-9 Depression Total Score: 21 08/04/2 025 3:47 PM EDT documented as of this encounter Care Teams [employer] Utility Worker Relationship Specialty Start Date End Date Milan Abrams MD [address] [place] [address] PCP - General Internal Medicine 12/30/24 documented as of this encounter
--- OUTSIDE RECORDS SUMMARY | 2025-08-14 11:07 | XMS_ITS | Encounter Summary ---
Author Organization [employer] Address [address] [facility] [address] [place] [address] Care Team Providers Care Self Propelled Hot Mix Roller Operator Name Role Phone Milan Abrams MD Primary Care Prov ider Encounter Details Date Type Department Care Team ([facility] st Contact Info) Description 07/22/2025 Orders Only [facility] MED & PEDS [address] [place], [place] [phone] Milan Abrams MD [address] [place] [address] Social History Tobacco Use Types Packs/Day Years [...] Description 09/21/2025 9:30 AM EST Office Visit [facility] MED & PEDS [address] [place], [place] [phone] Monica Andres FNP [address] [place] [address] documented as of this encounter Visit Diagnoses Not on filedocumented in this encounter Additional Health Concerns Assessment Noted Time PHQ-9 Depression Total Score: 21 025 3:47 PM EDT documented as of this encounter Care Teams Self Propelled Hot Mix Roller Operator Relationship Specialty Start Date End Date Milan Abrams MD [address] [place] [address] PCP - General Internal Medicine 12/30/24 documented as of this encounter
--- OUTSIDE RECORDS SUMMARY | 2025-08-14 11:07 | XMS_ITS | Encounter Summary ---
Author Organization [employer] Address [address] [place] [address] [address] [place] [address] Care Team Providers Care Drupal Programmer Name Role Phone Diana Zamudio MD Primary Care Provider [phone] Milan Abrams MD Primary Care Prov ider Reason for Referral * Consultation (Routine) - Closed Specialty Diagnoses / Procedures Referred By Contac t Referred To Contact Cardiology Diagnoses Paroxysmal atrial fibrillation (CMS/HCC) (HCC) Diana Zamudio MD [address] [place] [address] Phone: tel: fax: [address] Phone: tel: fax: Referral ID Status Reason Start Date Expiration Date V isits Requested Visits Authorized [id number] Closed Specialty Services Required 04/25/2024 04/25/2025 6 6 Encounter Details Date Type Department Care Team (Late st Contact Info) Description 04/15/2024 Orders Only [facility] MEDICINE [address] [place] [address] Diana Zamudio MD [address] [place] [address] Paroxysmal atrial fibrillation (CMS/HCC) (Primary Dx) Social [...] your housing situation today? I have quinn feranndez 08/27/[address] you li [...] Description 09/21/2025 9:30 AM EST Office Visit [facility] MED & PEDS [address] [place], [place] [phone] Monica Andres FNP [address] [place], [place] [phone] documented as of this encounter Procedures Procedure [...] documented as of this encounter Care Teams Drupal Programmer Relationship Specialty Start Date End Date Diana Zamudio MD [address] [place] [address] PCP - General Family Medicine 12/20/20 12/29/24 Milan Abrams MD [address] [place] [id number] PCP - General Internal Medicine 12/30/24 documented as of this encounter
--- OUTSIDE RECORDS SUMMARY | 2025-08-14 11:08 | XMS_ITS | Encounter Summary ---
Author Organization [employer] Address [address] [facility] [address] [place] [address] Care Team Providers Care Car Dryer Name Role Phone Milan Abrams MD Primary Care Prov ider Reason for Visit * Reason Onset Date Comments PCP Summary form 07/29/2025 Encounter Details Date Type Department Care Team ([facility] st Contact Info) Description 07/29/2025 Telephone [facility] MEDICINE [address] [place] [address] Milan Abrams MD [address] [place] [address] PCP Summary form Social History Tobacco Use [...] the past 12 months, has t he [employer], gas, oil or water company threatened to [...] this or next week. Contact Martine at [phone] documented in this encounter Plan of Treatment Upcoming Encounters Date Type Department Care Team (Late st Contact Info) Description 09/21/2025 9:30 AM EST Office Visit [facility] MED & PEDS [address] [place] [address] Monica Andres FNP [address] [place] [address] documented as of this encounter Visit Diagnoses Not on filedocumented in this encounter Additional Health Concerns Assessment Noted Time PHQ-9 Depression Total Score: 21 025 3:47 PM EDT documented as of this encounter Care Teams Car Dryer Relationship Specialty Start Date End Date VieyraMilan Ruiz MD [address] [place] [address] PCP - General Internal Medicine 12/30/24 documented as of this encounter
--- OUTSIDE RECORDS SUMMARY | 2025-08-14 11:08 | XMS_ITS | Clinical Summary ---
Author Organization [employer] Address [address] [facility] [address] [place] [address] Care Team Providers Care Sales Account Coordinator Name Role Phone Milan Abrams MD [...] SPLIT. 90 tablet 3 08/04/20 24 Active clobetasol (Temovate) 0.05 [...] 2 each 3 12/31/19 25 026 Active acetaminophen (Pain Relief Extra Strength) 500 MG tablet TAKE 1 TABLET (500 MG) BY MOUTH EVERY 8 (EIGHT) HOURS IF NEEDED FOR MILD PAIN. 90 tablet 3 01/20/20 25 Active QUEtiapine (SEROquel) 25 MG tabletIndicati ons:Mood disorder (CMS/HCC) Take 1 tablet (25 mg) by mouth at bedtime. Take every night 90 tablet 3 05/11/20 25 Active DULoxetine (Cymbalta) [address] capsuleIndicat ions:Mood disorder (CMS/HCC) TAKE 1 CAPSULE BY MOUTH EVERY DAY. DO NOT CRUSH OR CHEW. 90 capsule 05/15/20 25 Active Ventolin HFA 108 (90 Base) MCG/ACT inhaler Inhale 1 puff every 6 (six) hours if needed for wheezing. 18 g 3 06/01/20 25 026 Active ibuprofen 800 MG tablet TOME 1 TABLETA POR VIA ORAL RAIMUNDO VECES AL DEMARCUS 90 tablet 07/22/20 25 Active ALPRAZolam (Xanax) 1 MG tabletIndicati ons:Mood disorder (CMS/HCC) TOME 1 TABLETA POR VIA ORAL TODOS [place] SUAREZ CUANDO SEA NECESARIO FOR PANIC ATTACK (MAX 20 TABS/MONTH) 20 tablet 07/29/20 25 Active esomeprazole (NexIUM) [address] capsule Take 1 capsule by mouth Once per day. 05/17/20 25 Active famotidine (Pepcid) 20 MG tablet Take 1 tablet by mouth 2 times daily. 07/22/20 25 Active Diclofenac Sodium 1 % gelIndications :De Quervain's tenosynovitis, Right wrist pain TO APPLY TO THE AFFECTED AREA 3 TIMES A DAY 100 g 08/07/20 25 Active omeprazole (PriLOSEC) [address] capsuleIndicat ions:Gastroeso phageal reflux disease, unspecified whether esophagitis present TAKE 1 CAPSULE BY MOUTH BEFORE MORNING MEAL DAILY 90 capsule 3 08/04/20 24 025 Discontinued(M ed list cleanup (will not trigger notification to Pharmacy)) ALPRAZolam (Xanax) 1 MG tabletIndicati ons:Mood disorder (CMS/HCC) TOME ABDON TABLETA POR VIA ORAL ONCE DAILY NEEDED FOR PANIC ATTACK (MAX 20 TABLETS/MONTH) 20 tablet 01/20/20 25 025 Discontinued(M ed list cleanup (will not trigger notification to Pharmacy)) ibuprofen 800 MG tablet TAKE 1 TABLET BY MOUTH 3 TIMES DAILY 90 tablet 05/18/20 25 025 Discontinued ALPRAZolam (Xanax) 1 MG tabletIndicati ons:Mood disorder (CMS/HCC) TOME 1 TABLETA POR VIA ORAL TODOS LOS SUAREZ CUANDO SEA NECESARIO FOR PANIC ATTACK (MAX 20 TABS/MONTH) 20 tablet 06/27/20 25 025 Discontinued Diclofenac Sodium 1 % gelIndications :De Quervain's tenosynovitis, Right wrist pain TO APPLY TO THE AFFECTED AREA 3 TIMES A DAY 100 g 07/07/20 25 025 Discontinued Active Problems Problem Noted Date Diagnosed Date Chronic pain of left ankle 05/21/2024 Assessment & Plan (05/21/2024 6:39 AM EDT): S/p internal fixation in 2018 Declines hardware removal offered in 2020 at [facility] Movement and stretching Vicodin very [...] management. For any issues or concerns, call [facility]. All his questions were answered. I have [...] not interested in BH therapy, Atrial fibrillation (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 Had been off anticoagulation for some time Depressive disorder 12/21/2020 Assessment & Plan (06/01/2025 4:29 PM EDT): Followed by therapist, no suicidal/homicidal ideas Encounters Date Type Department Care Team Description 08/06/2025 10:00 AM EDT Office Visit [facility] [address] [place] [address] Kit Reyes MD Paroxysmal atrial fibrillation (CMS/HCC) (HCC) (Primary Dx) 08/06/2025 Refill [facility] [address] [place] [address] Milan Abrams MD De Quervain's tenosynovitis; Right wrist pain 08/06/2025 Travel 08/03/2025 Patient Outreach [facility] [address] [place] [address] Milan Abrams MD Transition Of Care (Tcm) (HDF- Unscheduled , Number not in service ) 08/03/2025 Telephone [facility] [address] [place] [address] Milan Abrams MD Hospital Follow-up 07/31/2025 Orders Only GENERIC EXTERNAL DATA DEPARTMENT Provider, Generic External Data 07/30/2025 Orders Only GENERIC EXTERNAL DATA DEPARTMENT Provider, Generic External Data 07/29/2025 Telephone [facility] [address] [place] [address] Milan Abrams MD PCP Summary form 07/27/2025 Refill [facility] [address] [place] [address] Milan Abrams MD Mood disorder ([facility]/HCC) 07/23/2025 Telephone [facility] [address] [place] [address] Milan Abrams MD TP 07/23/2025 Telephone [facility] [address] [place] [address] Milan Abrams MD 07/22/2025 Orders Only [facility] [address] [place] [address] Milan Abrams MD 07/20/2025 Refill [facility] [address] [place] [address] Kit Reyes MD 07/09/2025 Telephone [facility] [address] [place] [address] Milan Abrams MD 06/27/2025 Refill [facility] [address] [place] [address] Milan Abrams MD De Quervain's tenosynovitis; Right wrist pain 06/26/2025 Telephone [facility] [address] [place] [address] Milan Abrams MD TP 06/24/2025 Refill [facility] [address] [place] [address] Milan Abrams MD Mood disorder ([facility]) 06/11/2025 Telephone [facility] [address] [place] [address] Milan Abrams MD Letter Request (I called [...] their son into daycare. ) 06/03/2025 Telephone [facility] [address] [place] [address] Milan Abrams MD Letter Request (I called to get clarification, on a request for a letter for welfare. I reached a voicemail, and left a message asking the patient to return my call at ext [phone].) 06/01/2025 3:15 PM EDT Office Visit [facility] [address] [place] [address] Milan Abrams MD Paroxysmal atrial fibrillation (CMS/HCC) (Primary Dx); Dietary counseling; Exercise counseling; Depressive disorder 06/01/2025 Travel 05/25/2025 Refill [facility] [address] [place] [address] Kit Reyes MD Mood disorder (CMS/HCC); De Quervain's tenosynovitis; Right wrist pain 05/25/2025 Travel 05/17/2025 Refill [facility] [address] [place] [address] Milan Abrams MD 05/15/2025 Refill [facility] [address] [place] [address] Milan Abrams MD Mood disorder (CMS/HCC) from [...] Sign Reading Time Taken Comments Blood Pressure 134/82 08/06/2025 9:51 AM EDT Pulse 72 08/06/2025 9:51 AM EDT Temperature 36.9 C (98.4 F) 08/06/2025 9:51 AM EDT Respiratory Rate 20 08/06/2025 9:51 AM EDT Oxygen Saturation 96% 04/23/2025 9:03 AM EDT Inhaled Oxygen Concentration - - Weight 89.8 kg (198 lb) 08/06/2025 9:51 AM EDT Height 172.7 cm (5' 8 ) 08/06/2025 9:51 AM EDT Body Mass Index 30.11 08/06/2025 9:51 AM EDT Plan of Treatment Upcoming Encounters Date Type Department Care Team (Late st Contact Info) Description 09/21/2025 9:30 AM EST Office Visit [facility] [address] [place] [address] Dmitry Monica, J2EE APPLICATION DEVELOPER [address] [place] [address] Health Maintenance Due Date Last Done Comments [...] 06/01/2025 , 06/01/2025 Disability Screening 01/18/2026 01/18/2025 Alcohol/Substance Use Screening 06/01/2026 06/01/2025 Tobacco Screening 08/06/2026 08/06/2025 Lipid Panel 08/01/2028 08/01/2023, 10/19/2021 Zoster Vaccines [...] Procedure Name Priority Date/Time Associated Diagnosis Comments CT HEAD WO CONTRAST Routine 07/31/2025 5 :06 AM EDT DRUG MONITOR, PANEL 1, SCREEN, URINE Routine 07/31/2025 12:26 AM EDT URINALYSIS, COMPLETE, WITH REFLEX TO CULTURE Routine 07/31/2025 12:26 AM EDT XR CHEST 1 VIEW Routine 07/30/2025 10:37 PM EDT D DIMER HIGH SENSITIVITY Routine 07/30/2025 10:08 PM EDT HIGH SENSITIVITY TROPONIN I Routine 07/30/2025 10:08 PM EDT CBC WITH AUTO DIFFERENTIAL Routine 07/30/2025 10:08 PM EDT COMPREHENSIVE METABOLIC PANEL Routine 07/30/2025 10:08 PM EDT PROTHROMBIN TIME-INR Routine 07/30/2025 10:08 PM EDT LIPID PANEL, STANDARD Routine 08/01/2023 11:21 AM EDT Annual physical exam ZZZ HISTORICAL HEPATITIS C AB W/REFL TO HCV RNA, QN, PCR Routine 12/27/2020 10:03 AM EST from Last 3 Months or Most Recently Relevant to Health Maintenance Results * CT Head w/o Contrast (07/31/2025 5:06 AM EDT) Anatomical Region Laterality Modality Head, Neck Computed Tomogra phy 07/31/2025 5:06 AM EDT Narrative 07/31/2025 5:07 AM EDT [address] [address] [address] Scan Report Signed Patient: Gilbert Silva MR#: [id number] : 1980 Acct:[id number] Age/Sex: 44 / M ADM Date: 07/30/25 Loc: HO.ED Attending Dr: Ordering Physician: Stephanie Ruano MD Date of Service: 07/31/25 Procedure(s): CT head/brain wo IV con Accession Number(s): [id number] cc: [facility]; Stephanie Ruano MD Report Number: [id number]: Total DLP = 598.00 mGy-cm Reason for Exam: syncope, severe MIGUEL CLINICAL HISTORY: syncope, severe MIGUEL CT head without contrast Comparison: None provided Findings: No intra-axial mass, midline shift, hydrocephalus, or acute hemorrhage. No significant atrophy-like change or white matter disease. There is no sinus or mastoid fluid. The orbits are unremarkable. There is no acute fracture. IMPRESSION: 1. No acute intracranial findings. This document has been electronically signed by: Joseph Yu MD, PHD on 07/31/2025 05:06:28 Dictated By: Joseph Yu MD Signed By: <Electronically signed by Joseph Yu MD in OV> 07/31/25 0507 DD/ 050 TD/TT: 07/31/25 050 Smooth Plater: Procedure Note Donotuseinterpreter, Image - 07/31/[address] [place] [address] [address] Scan Report Signed Patient: Gilbert Silva EMR#: [id number] : 1980Acct:[id number] Age/Sex: 44 / MADM Date: 07/30/25 Loc: HO.ED Attending Dr: Ordering Physician: Stephanie Ruano MD Date of Service: 07/31/25 Procedure(s): CT head/brain wo IV con Accession Number(s): [id number] cc: [facility]; Stephanie Ruano MD Report Number: [id number]: Total DLP = 598.00 mGy-cm Reason for Exam: syncope, severe MIGUEL CLINICAL HISTORY: syncope, severe MIGUEL CT head without contrast Comparison: None provided Findings: No intra-axial mass, midline shift, hydrocephalus, or acute hemorrhage. No significant atrophy-like change or white matter disease. There is no sinus or mastoid fluid. The orbits are unremarkable. There is no acute fracture. IMPRESSION: 1. No acute intracranial findings. This document has been electronically signed by: Joseph Yu MD, PHD on 07/31/2025 05:06:28 Dictated By: Joseph Yu MD Signed By: <Electronically signed by Joseph Yu MD in OV> 07/31/25 0507 DD/ 5 TD/TT: 07/31/25505 Smooth Plater: [facility] External Provider IMG CT PROCEDURES Edited Result - Final * Urinalysis, Complete, with Reflex to Culture (07/31/2025 12:26 AM EDT) Color Urine Yellow [facility] Appearance Urine Clear [facility] PH 6.0 5.0 - 9.0 [facility] Glucose Urine UA Negative Negative mg/dL [facility] Urine Blood Negative Negative [facility] Specific Smock - Urine 1.025 1.005 - 1.025 [facility] Urine Protein Negative Neg-Trace mg/dL [facility] Urine Ketones Trace Negative mg/dL [facility] Nitrite Urine Negative Negative [facility] Leukocyte Esterase Urine Negative Negative [facility] RBC Urine 0-2 0 - 2 /HPF [facility] Urine WBC 0-5 0 - 5 /HPF [facility] Urine Squamous Epithelial Cell 0-2 0 - 2 /HPF [facility] Urine Bacteria None Seen None Seen [facility] Hyaline Casts, Urine 0-2 0 - 2 /LPF [facility] 07/31/2025 12:2 6 AM EDT 07/31/2025 12:33 AM EDT Narrative [facility] - 07/31/2025 1:43 AM EDT [id number], Clean Catch Generic External Data Provider LAB URINE ORDERAB LES Final Result [facility] [address] [place] [phone] * Drug Monitoring, Panel 1, Screen, Urine (07/31/2025 12:26 AM EDT) Opiate Screen Urine Not Detected Not Detect [facility] Comment:Opiate cut-off is 30 0 ng/mL.Positive results are unconfirmed and should not be used fornon-medical purposes. Barbiturates, Urine Not Detected Not Detect [facility] Comment:Barbiturate cut-off is 200 ng/mL.Positive results are unconfirmed and should not be used fornon-medical purposes. Phencyclidine Screen Urine Not Detected Not Detect [facility] Comment:Phencyclidine cut-of f is 25 ng/mL.Positive results are unconfirmed and should not be used fornon-medical purposes. Amphetamine Screen Urine Not Detected Not Detect [facility] Comment:Amphetamine cut-off is 1000 ng/mL.Positive results are unconfirmed and should not be used fornon-medical purposes. Benzodiazepines Screen Urine Not Detected Not Detect [facility] Comment:Benzodiazepine cut-o ff is 200 ng/mL.Positive results are unconfirmed and should not be used fornon-medical purposes. Cocaine Screen Urine Not Detected Not Detect [facility] Comment:Cocaine cut-off is 3 00 ng/mL.Positive results are unconfirmed and should not be used fornon-medical purposes. Cannabinoid Screen Urine Not Detected Not Detect [facility] Comment:Cannabinoid cut-off is 50 ng/mL.Positive results are unconfirmed and should not be used fornon-medical purposes. Methadone Screen, Urine Not Detected Not Detect ng/mL [facility] Comment:Methadone cut-off is 300 ng/mL.Positive results are unconfirmed and should not be used fornon-medical purposes. FENTANYL URINE Not Detected Not Detect [facility] Comment:Fentanyl cut-off is 1 ng/mL.Positive results are unconfirmed and should not be used fornon-medical purposes. Oxycodone Urine Screen Not Detected Not Detect ng/mL [facility] Comment:Oxycodone cut-off is 100 ng/mL.Positive results are unconfirmed and should not be used fornon-medical purposes. Buprenorphine Screen Not Detected Not Detect ng/mL [facility] Comment:Buprenorphine cut-of f is 5 ng/mL.Positive results are unconfirmed and should not be used fornon-medical purposes. 07/31/2025 12:2 6 AM EDT 07/31/2025 1:11 AM EDT us Generic External Data Provider LAB URINE ORDERAB LES Final Result [facility] [address] [place] [phone] * XR Chest 1 View (07/30/2025 10:37 PM EDT) Anatomical Region Laterality Modality Chest Radiographic Marry ging 07/30/2025 10:3 7 PM EDT Narrative 07/30/2025 10:39 PM EDT [address] [address] XRay Report Signed Patient: Gilbert Silva MR#: [id number] : 1980 Acct:[id number] Age/Sex: 44 / M ADM Date: 07/30/25 Loc: .ED Attending Dr: Ordering Physician: Generic ED Physician Date of Service: 07/30/25 Procedure(s): XR chest 1V Accession Number(s): [id number] cc: Generic ED Physician; [facility] Reason for Exam: DIZZINESS CLINICAL HISTORY: DIZZINESS 1 view chest x-ray Comparison: 04/15/2024 Findings: Lungs are clear without acute infiltrates. No pneumothorax. Heart size normal. No acute bony abnormalities. Impression: No acute processes This document has been electronically signed by: Andres Irvin MD on 07/30/2025 22:37:04 Dictated By: Andres Irvin MD Signed By: <Electronically signed by Andres Irvin MD in OV> 07/30/252237 DD/ 36 TD/TT: 07/30/252236 Smooth Plater: Procedure Note Donotuseinterpreter, Image - 10/02/[address] [address] XRay Report Signed Patient: Gilbert Silva EMR#: [id number] : 1980Acct:[id number] Age/Sex: 44 / MADM Date: 07/30/25 Loc: HO.ED Attending Dr: Ordering Physician: Generic ED Physician Date of Service: 07/30/25 Procedure(s): XR chest 1V Accession Number(s): [id number] cc: Generic ED Physician; [facility] Reason for Exam: DIZZINESS CLINICAL HISTORY: DIZZINESS 1 view chest x-ray Comparison: 04/15/2024 Findings: Lungs are clear without acute infiltrates. No pneumothorax. Heart size normal. No acute bony abnormalities. Impression: No acute processes This document has been electronically signed by: Andres Irvin MD on 07/30/2025 22:37:04 Dictated By: Andres Irvin MD Signed By: <Electronically signed by Andres Irvin MD in OV> 07/30/252237 DD/ 36 TD/TT: 07/30/252236 Smooth Plater: [facility] External Provider IMG XR PROCEDURES Edited Result - Final * D Dimer High Sensitivity (07/30/2025 10:08 PM EDT) D Dimer High Sensitivity <150 NG/ML [facility] Comment:D-DIMER HS REFERENCE RANGENote: Our assay reports D-Dimer Units (D- DU).The cut-off value for venous thromboembolic (VTE) disease is230 ng/mL. This value has a very high negative predictivevalue when the patient has a low to moderate clinicalprobability of VTE.The upper limit of normal is 243 ng/mL. 07/30/2025 10:0 8 PM EDT 07/30/2025 10:14 PM EDT Generic External Data Provider LAB BLOOD ORDERAB LES Final Result [facility] [address] [place] [phone] [phone] * High Sensitivity Troponin I (07/30/2025 10:08 PM EDT) [facility] TROPONIN I HIGH SENSITIVITY 9.9 <3.5 - 35.0 ng/L [facility] Comment:The [place] high sens itivity Troponin-I results should beused in conjunction with other diagnostic information suchas ECG, clinical observations and information, and patientsymptoms to aid in the diagnosis of [place]. 07/30/2025 10:0 8 PM EDT 07/30/2025 10:14 PM EDT us Generic External Data Provider LAB BLOOD ORDERAB LES Final Result Performing Organization Address [facility] de Phone Number [facility] [address] [place] [phone] * (ABNORMAL) CBC auto differential (07/30/2025 10:08 PM EDT) [facility] White Blood Count 15.6(H) 4.8 - 10.8 X10*3/uL [facility] Red Blood Count 4.83 4.60 - 5.80 X10*6/uL [facility] Hemoglobin 14.6 14.0 - 18.0 g/dl [facility] Hematocrit 41.2(L) 42.0 - 52.0 % [facility] Mean Corpuscular Volume 85.3 80.0 - 98.0 fL [facility] Mean Corpuscular Hemoglobin 30.2 27.0 - 33.0 pg [facility] Mean Corpuscular HGB Conc 35.4 31.0 - 36.0 g/dl [facility] Red Cell Distribution Width 11.8 11.0 - 16.0 % [facility] Platelet Count 286 160 - 400 X10*3/uL [facility] Mean Platelet Volume 10.9 9.4 - 12.4 fL [facility] Neutrophils Percent Auto 82.7(H) 45 - 73 % [facility] Imm Gran Pct Auto 0.7(H) 0.0 - 0.4 % [facility] Lymphocytes Percent Auto 10.9(L) 20 - 40 % [facility] Monocytes Percent Auto 5.4 2 - 11 % [facility] Eosinophils Percent Auto 0.1 0 - 4 % [facility] Basophils Percent Auto 0.2 0 - 2 % [facility] NRBC Pct Auto 0.0 0.0 - 0.2 /100WBC [facility] Neutrophils Absolute Auto 12.9(H) 2.0 - 8.3 x10*3/uL [facility] Imm Gran Abs Auto 0.11(H) 0.00 - 0.03 X10*3/uL [facility] Lymphocytes Absolute Auto 1.7 1.2 - 4.9 X10*3/uL [facility] Monocytes Absolute Auto 0.8 0.1 - 1.2 X10*3/uL [facility] Eosinophils Absolute Auto 0.0 0.0 - 0.4 X10*3/uL [facility] Basophils Absolute Auto 0.0 0.0 - 0.2 X10*3/uL [facility] NRBC Abs Auto 0.000 0.0 - 0.012 X10*3/uL [facility] 07/30/2025 10:0 8 PM EDT 07/30/2025 10:14 PM EDT us Generic External Data Provider LAB BLOOD ORDERAB LES Final Result [facility] [address] [place] [phone] * Prothrombin Time-INR (07/30/2025 10:08 PM EDT) Prothrombin Time 11.8 10.9 - 12.4 SEC [facility] INTERNATIONAL NORM RATIO 1.0 0.9 - 1.1 [facility] Comment:INTERNATIONAL NORMAL IZED RATIO (INR) REFERENCE RANGES Reference RangeFor patients not on anticoagulant therapy: 0.9 - 1.1INR ranges for oral anticoagulanttherapy:For prevention and treatment of venous thrombosis and pulmonary embolism: 2.0 - 3.0For acute myocardial infarction with aspirin therapy: 2.0 - 3.0For acute myocardial infarction without aspirin therapy: 3.0 - 4.0For patients with mechanical prosthetic heart valves: 2.5 - 3.5 07/30/2025 10:0 8 PM EDT 07/30/2025 10:14 PM EDT us Generic External Data Provider LAB BLOOD ORDERAB LES Final Result [facility] [address] [place], [place] [phone] * (ABNORMAL) Comprehensive Metabolic Panel (07/30/2025 10:08 PM EDT) Sodium 142 135 - 145 mmol/L [facility] Potassium 3.4 3.3 - 5.1 mmol/L [facility] Chloride 109(H) 96 - 108 mmol/L [facility] Carbon Dioxide 23 22 - 29 mmol/L [facility] Anion Gap 13 12 - 20 [facility] Urea Nitrogen (BUN) 19(H) 9 - 16 mg/dL [facility] Creatinine, Serum 1.27 0.5 - 1.4 mg/dL [facility] Creatinine Clr Calc Pharmacy 82.9 [facility] Comment:eGFR (calculated fro m the MDRD study equation) and eCrCl(calculated from the Cockcroft-Gault equation) are based ondifferent parameters and may not yield comparable results.If eCrCl result is absurd, please check patient'sheight/weight. Estimated Glomerular Filt Rate >60 [facility] Comment:Chronic Kidney Disea se: Estimated GFR < 60 mL/min/1.83w9Zdtwya Kidney Disease: Estimated GFR < 15 mL/min/1.73m2 Glucose 131(H) 60 - 115 mg/dL [facility] Calcium 8.8 8.4 - 10.2 mg/dL [facility] Bilirubin, Total 0.6 0.0 - 1.0 mg/dL [facility] Aspartate Amino Transferase 28 5 - 37 U/L [facility] Alanine Aminotransferase 27 0 - 40 U/L [facility] Total Protein 6.7 6.5 - 8.0 g/dL [facility] Albumin Level 4.6 3.5 - 5.0 g/dL [facility] Alkaline Phosphatase 75 39 - 117 U/L [facility] 07/30/2025 10:0 8 PM EDT 07/30/2025 10:14 PM EDT us Generic External Data Provider LAB BLOOD ORDERAB LES Final Result [facility] [address] [place] [phone] * (ABNORMAL) Lipid Panel, Standard (08/01/2023 11:21 AM EDT) Triglycerides 71 <150 mg/dL [facility] Comment:Desirable Triglyceri de: less than 150 mg/dLBorderline High Triglyceride 150-199 mg/dLHigh Triglyceride: 200-499 mg/dLVery High Triglyceride: greater than or equal to 5OO mg/dL Cholesterol 152 <200 mg/dL [facility] Comment:Desirable Cholestero l: less than 200 mg/dLBorderline High Cholesterol: 200-239 mg/dLHigh Cholesterol: greater than 239 mg/dL LDL Cholesterol Calculated 100(H) <100 mg/dL [facility] Comment:Desirable LDL: less than 100 mg/dLNear Optimal/Above Optimal LDL: 110- 129 mg/dLBorderline High LDL: 130-159 mg/dLHigh LDL: 160-189 mg/dLVery High LDL: greater than or equal to 190 mg/dL HDL Cholesterol 38(L) >40 mg/dL [facility] Comment:Desirable HDL: great er than 40 mg/dL Note: This HDL assay may give artificially low results in patients with liver disease. Blood Venous blood specimen / Unknown 08/01/2023 11:21 AM EDT 08/01/2023 1:13 PM EDT us Diana Zamudio MD LAB BLOOD ORDERABLES Final Res ult Performing Organization Address [facility] Co de Phone Number [facility] [address] [place] [address] [phone] * HEPATITIS C AB W/REFL TO HCV RNA, QN, PCR (12/27/2020 10:03 AM EST) HEPATITIS C ANTIBODY NON-REACT [facility] INDEX 0.10 <1.00 [facility] Comment: HCV antibody was non-reactive. There is no laboratory evidence of HCV infection. In most cases, no further action is required. However, if recent HCV exposure is suspected, a test for HCV RNA (test code [id number]) is suggested. For additional information please refer to [email or web address] (This link is being provided for informational/ educational purposes only.) 12/27/2020 10:0 3 AM EST us Diana Zamudio MD HISTORICAL/NON ORDERABLE LABS Final Result Performing Organization Address [facility] Co de Phone Number [facility] [address] from Last 3 Months or Most Recently Relevant to Health Maintenance Insurance [facility] C3 Care Teams Sales Account Coordinator Relationship Specialty Start Date End Date Milan Abrams MD [address] [place] [id number] PCP - General Internal Medicine 12/30/24
--- OUTSIDE RECORDS SUMMARY | 2025-08-14 11:08 | XMS_ITS | Encounter Summary ---
Author Organization [employer] Address [address] [place] [address] 7 [place] [address] Care Team Providers Care Hands Assembler Name Role Phone Diana Zamudio MD Primary Care Provider [phone] Milan Abrams MD Primary Care Prov ider Reason for Visit * Reason Onset Date Comments Appointment Request 05/16/2023 Encounter Details Date Type Department Care Team ([facility] st Contact Info) Description 05/16/2023 Telephone [facility] [address] [place] [address] Diana Zamudio MD [address] [place] [address] Appointment Request Social History Tobacco Use Types [...] with ADL's does not require AFC or 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 Will [...] Description 09/21/2025 9:30 AM EST Office Visit [facility] [address] [place] [address] Monica Andres FNP [address] [place], [place] [phone] documented as of this encounter Visit Diagnoses Not on filedocumented in this encounter Additional Health Concerns Assessment Noted Time PHQ-9 Depression Total Score: 12 023 1:13 PM EDT documented as of this encounter Care Teams Hands Assembler Relationship Specialty Start Date End Date Diana Zamudio MD [address] [place] [address] PCP - General Family Medicine 12/20/20 12/29/24 Milan Abrams MD [address] [place] [address] PCP - General Internal Medicine 12/30/24 documented as of this encounter
--- OUTSIDE RECORDS SUMMARY | 2025-08-14 11:08 | XMS_ITS | Encounter Summary ---
Author Organization [email or web address] Address [address] [facility] 7t [place] [address] Care Team Providers Care Delivery Of Shopping News Name Role Phone Diana Zamudio MD Primary Care Provider [phone] Milan Abrams MD Primary Care Prov ider Reason for Visit * Reason Onset Date Comments Change PCP 04/21/2024 Encounter Details Date Type Department Care Team (Late st Contact Info) Description 04/21/2024 Telephone [facility] [address] [place] [address] Diana Zamudio MD [address] [place], [place] [phone] Change PCP Social History Tobacco Use Types [...] Description 09/21/2025 9:30 AM EST Office Visit [facility] [address] [place] [address] Monica Andres FNP [address] [place] [address] documented as of this encounter Visit Diagnoses Not on filedocumented in this encounter Additional Health Concerns Assessment Noted Time PHQ-9 Depression Total Score: 3 03/03/20 24 2:34 PM EDT documented as of this encounter Care Teams Delivery Of Shopping News Relationship Specialty Start Date End Date Diana Zamudio MD [address] [place] [address] PCP - General Family Medicine 12/20/20 12/29/24 Milan Abrams MD [address] [place] [address] PCP - General Internal Medicine 12/30/24 documented as of this encounter
--- OUTSIDE RECORDS SUMMARY | 2025-08-14 11:08 | XMS_ITS | Encounter Summary ---
Author Organization [employer] Address [address] [place] [address] 7 [place] [address] Care Team Providers Care Curing Machine Operator Name Role Phone Diana Zamudio MD Primary Care Provider [phone] Milan Abrams MD Primary Care Prov ider Reason for Visit * Reason Comments Med Refill Encounter Details Date Type Department Care Team (Late st Contact Info) Description 12/08/2022 Refill [facility] [address] [place] [address] John Saunders FNP Social History Tobacco Use [...] Description 09/21/2025 9:30 AM EST Office Visit [facility] [address] [place], [place] [phone] Monica Andres FNP [address] [place], [place] [phone] documented as of this encounter Visit Diagnoses Not on filedocumented in this encounter Additional Health Concerns Assessment Noted Time PHQ-9 Depression Total Score: 12 023 11:15 AM EST documented as of this encounter Care Teams Curing Machine Operator Relationship Specialty Start Date End Date Diana Zamudio MD [address] [place] [address] PCP - General Family Medicine 12/20/20 12/29/24 Milan Abrams MD [address] [place] [address] PCP - General Internal Medicine 12/30/24 documented as of this encounter
== END 2025-08-14 10:43 | disposition home or self-care (01) ==
PROVIDERS: PCP Internal Medicine; Visit Provider Internal Medicine Cardiovascular Disease
DX: R55 Syncope and collapse (principal); I48.0 Paroxysmal atrial fibrillation; Z95.818 Presence of other cardiac implants and grafts; Z09 Encounter for follow-up examination after completed treatment for conditions other than malignant neoplasm
CPT/HCPCS: 93285; 99215

== ENCOUNTER → 2025-08-14 09:42 | Outpatient (BNVA) | payer MEDICAID, SELFPAY | PROVIDERS: PCP Internal Medicine; Visit Provider Internal Medicine Cardiovascular Disease | DX: Z45.89 Encounter for adjustment and management of other implanted devices (principal); R55 Syncope and collapse; I48.0 Paroxysmal atrial fibrillation | CPT/HCPCS: 33286; 93285; 99212 ==

== ENCOUNTER → 2025-08-20 23:59 | Outpatient (BNV) | payer MEDICAID, SELFPAY | PROVIDERS: PCP Internal Medicine; Visit Provider Internal Medicine Cardiovascular Disease | DX: I47.29 Other ventricular tachycardia (principal); R07.9 Chest pain, unspecified | CPT/HCPCS: 93458; 99152 ==

== ENCOUNTER 2025-09-21 10:40 | Outpatient (REF) | payer MEDICAID, SELFPAY ==
[2025-09-21 14:25] LABS: MANUAL DIFF FLAG NO
[2025-09-21 14:36] LABS: Hematocrit 47.8 % (42.0-52.0); Hemoglobin 16.0 g/dl (14.0-18.0); Imm Gran Abs Auto 0.04 X10*3/uL (0.00-0.03); Imm Gran Pct Auto 0.6 % (0.0-0.4); Lymphocytes Absolute Auto 1.6 X10*3/uL (1.2-4.9); Mean Corpuscular HGB Conc 33.5 g/dl (31.0-36.0); Mean Corpuscular Hemoglobin 29.6 pg (27.0-33.0); Mean Corpuscular Volume 88.5 fL (80.0-98.0); NRBC Abs Auto 0.000 X10*3/uL (0.0-0.012); NRBC Pct Auto 0.0 /100WBC (0.0-0.2); Platelet Count 334 X10*3/uL (160-400); Red Blood Count 5.40 X10*6/uL (4.60-5.80); White Blood Count 7.2 X10*3/uL (4.8-10.8)
[2025-09-21 16:01] LABS: CT PCR Urine NOT DETECTED (Not Detect.); NG PCR Urine NOT DETECTED (Not Detect.)
[2025-09-21 17:29] LABS: Alanine Aminotransferase 35 U/L (0-40); Albumin Level 5.0 g/dL (3.5-5.0); Alkaline Phosphatase 72 U/L (39-117); Anion Gap 13 (12-20); Aspartate Amino Transferase 34 U/L (5-37); Blood Urea Nitrogen 14 mg/dL (9-16); Calcium 9.7 mg/dL (8.4-10.2); Carbon Dioxide 24 mmol/L (22-29); Chloride 109 mmol/L (96-108); Cholesterol 158 mg/dL (<200); Estimated Glomerular Filt Rate > 60; HDL Cholesterol 42 mg/dL (>40); Potassium 3.8 mmol/L (3.3-5.1); Sodium 142 mmol/L (135-145); Total Protein 7.3 g/dL (6.5-8.0); Triglycerides 159 mg/dL (<150)
[2025-09-22 05:00] LABS: HIV Num 1 0.09 S/CO (0.00-0.99)
[2025-09-23 21:13] LABS: HCV Log PCR <1.18 NOT DETECTED Log IU/mL (NOT DETECTED); HepC Viral Load <15 NOT DETECTED IU/mL (NOT DETECTED)
== END 2025-09-21 10:41 | disposition home or self-care (01) ==
LOC: HO.CHCLDS 10:40
PROVIDERS: Visit Provider Registered Nurse
DX: Z00.00 Encounter for general adult medical examination without abnormal findings (principal); Z20.2 Contact with and (suspected) exposure to infections with a predominantly sexual mode of transmission; Z11.4 Encounter for screening for human immunodeficiency virus [HIV]; Z23 Encounter for immunization
CPT/HCPCS: 80053; 80061; 83036; 84443; 85025; 86592; 87389; 87491; 87522; 87591

== ENCOUNTER 2025-09-29 09:11 | Outpatient (AMB) | payer MEDICAID, SELFPAY ==
--- NOTE | 2025-09-29 09:15 | A.OFFVIS_ITS ---
Vital Signs 09/29/25 09:16 Height 5 ft 8 in Weight 200 lb 9.93 oz BMI 30.5 BP 108/72 Blood Pressure Location Rt brachial Position Sitting Pulse 84 Pulse Source Pulse Oximeter Intake Visit Reasons: heart palpations/ dizziness Key Punch Teacher Required: Yes Key Punch Teacher Name: voice [id number] Allergies shrimp Allergy (Severe, Verified 09/29/25 09:18) RASH Medication List - Last Reconciled 09/29/25 by RODERICK Paniagua acetaminophen (Tylenol) 650 mg (2 x 325 mg) PO QID PRN albuterol sulfate 90 mcg/actuation (Ventolin HFA) 1 puff inhalation Q6H PRN alprazolam 1 mg PO TID PRN bupropion HCl XL 150 mg PO DAILY diclofenac sodium 1% 2 grams topical TID duloxetine 60 mg PO DAILY esomeprazole magnesium (Nexium) 40 mg PO DAILY@0630 famotidine (Pepcid) 20 mg PO BID ibuprofen 800 mg PO TID PRN prednisone 20 mg orally; 3 tabs daily for 3 days, 2 tabs daily for 3 days, 1 tab daily for 3 days HPI HPI heart palpations/ dizziness: Details: Gilbert is a 45-year-old male with reported past medical history of reported paro xysmal atrial fibrillation, previously diagnosed in [place], no EKGs to confirm. More recently he was seen by [facility] and now follows with us. He did have an episode of syncope and while undergoing inpatient evaluation he had 15 beat episode of monomorphic NSVT. An ILR was placed on 08/03/25 however site did not heal well and device was removed last visit. A cardiac catheterization was done showing normal coronary arteries. A cardiac MRI was completed showing normal findings. He now presents for follow- up. Today he reports that he has been getting heart palpitations in the last few days however denies having any at this visit. He was able to record a couple tracings on his smart watch which do show sinus rhythm. He has had some brief lightheadedness but no presyncope or syncope. No chest discomfort at rest or with activity. No shortness of breath, leg edema, activity intolerance. He says he never took metoprolol in the past. He has not had an appointment with the EP provider. His right radial catheterization site is feeling good. Prior ILR site fully healed. COUNTS INCLUDE 234 BEDS AT [facility] Medical History Syncope and collapse Bronchitis Anxiety GERD (gastroesophageal reflux disease) Hx of skilled nursing use of blood thinners PAF (paroxysmal atrial fibrillation) Surgical History Hx of hernia repair Hx of foot surgery Family History Mother HTN (hypertension) Lupus COPD (chronic obstructive pulmonary disease) Father Diabetes Arthritis Brother HTN (hypertension) Brain tumor Social History Household Members: Spouse and Children Housing: Apartment Do you presently have visiting nurse or other home services: No Alcohol intake: never Patient Tobacco Use Status: Never used Tobacco e-Cigarette/Vaping Use: Never Used service: No Current occupational status: unemployed Current occupation: right hand Review of Systems Const All systems reviewed & are unremarkable except as noted in HPI and below ENT Denies dizziness Card Denies chest pain, Denies chest pain at rest, Denies chest pain with activity, Reports rapid heart rate, Denies pedal edema, Denies edema, Denies leg edema, Denies lightheadedness, Denies palpitations, Denies dyspnea, Denies dyspnea on exertion and Denies orthopnea Resp Denies cough, Denies dyspnea and Denies dyspnea on exertion GI Denies hematochezia and Denies change in stool character Musc Denies abnormal gait, Denies limited range of motion, Denies muscle cramps, Denies muscle weakness, Denies numbness, Denies radiating pain into limb, Denies stiffness and Denies tingling Neuro Denies abnormal gait, Denies dizziness, Denies numbness and Denies tingling Endo Denies palpitations Physical Exam Vital Signs: Last Vital Signs Pulse 84 09/29/25 09:16 BP 108/72 09/29/25 09:16 BMI result Body Mass Index 30.5 Const General: cooperative, healthy appearing, comfortable and no acute distress Chest Other: ILR site with small well healed scar Resp Effort & Inspection: normal respiratory effort Auscultation: clear to auscultation bilaterally, no rales, no rhonchi and no wheezes Cardio Rate: regular rate Rhythm: regular rhythm Heart sounds: S1 normal heart sound present, S2 normal heart sound present, no murmurs and no rubs Extrem General: Yes normal to inspection and No no pedal edema Psych Appearance: grossly normal Mental Status: mental status grossly normal Speech and movement: Normal speech and movement present Assessment & Plan Assessment & Plan (1) Syncope: Code(s): R55 - Syncope and collapse Category: Medical Plan: Recent admit for witness syncopal event that was preceded by dizziness. Initial evaluation without any significant findings beyond hypoxemia that improved quickly with O2 use. While admitted, he had a 15 beat run of monomorphic NSVT. Echocardiogram showd EF > 70%, no valve or regional wall motion abnormalities. EKG showed SR, T wave abnormality inferiorly and Qtc 424ms. ILR was placed for rhythm monitoring however site did not heal well and it was removed last visit. Cardiac catheterization 08/20/2025 showed normal coronary arteries. Cardiac MRI 09/02/2025 showed normal study. He reports some recent palpitations but no presyncope or syncope. Will check a Holter monitor to assess for arrhythmia. EP referral order in place. Will reach out to our master scheduler regarding appointment. Cardiology follow-up 2-3 months (2) PAF (paroxysmal atrial fibrillation): Code(s): I48.0 - Paroxysmal atrial fibrillation Category: Medical Plan: Reported history of paroxysmal atrial fibrillation, though not confirmed. A cardiac event monitor done 03/07/2024 through [facility] showed sinus rhythm with occasional PACs and PVCs, no atrial fibrillation. EKG done here 04/15/2024 showed sinus rhythm with T-wave inversion lead 3 and AVF, unchanged from prior EKG, rate 68. A cardiac event monitor was done 09/03/2024 however only worn for 3.5 days due to reported skin irritation from the patch. It showed sinus rhythm with average heart rate 75, no arrhythmias. Holter monitor done 03/11/2025 showing sinus rhythm with average heart rate 78, rare SVE and ve. Echocardiogram 09/03/2024 showed EF 50-55%, no valve abnormality, left atrium likely dilated. Most recent echo as above. Home sleep study 01/12/2025 showed no evidence of sleep apnea. ILR was in use fro 08/03 through 08/14 and did not show any afib. To date he has no confmred atrial fibrillation seen. Chads Vasc score of 0. No indication for anticoagulation due to low CHADS-VASc score and no confirmed AFib. He is not on any rate slowing agents at present. (3) S/P cardiac catheterization: Comment: 08/20/2025, normal coronary arteries Code(s): Z98.890 - Other specified postprocedural states Category: Surgical Plan: Right radial catheterization site well healed Plan I reviewed the patient's recent symptoms of palpitations and fatigue. I confirmed with the patient that prior cardiac workup, including a cardiac catheterization and cardiac MRI, were normal. I explained that concern remains for an underlying heart rhythm issue, given the history of syncope and an arrhythmia noted during a previous hospitalization. I discussed the plan to order a heart monitor for a few days to try to identify the heart's activity during any symptomatic periods. I informed the patient that I would investigate the delay in the referral to the raw shellfish preparer in [place]. I advised that the hospital's centralized scheduling department will call to arrange an appointment for the monitor placement. Orders: Orders ECG 5 day holter monitor Today I47.20 - Ventricular tachycardia, unspecified, I48.0 - Paroxysmal atrial fibrillation Patient Instructions: - The hospital's centralized scheduling department will call you to set up an appointment to have a heart monitor placed. - Please wear the heart monitor for a few days as instructed. - We will check on the status of your referral to the heart rhythm specialist in [place]. Patient was informed and verbally consented to the use of an ambient scribe for clinic note documentation during this visit. Visit time spent on chart review, interview, assessment, orders, documentation. Coding Level of Care Code Est Pt Level 4 (27725) Complex visit Add On G2211 Diagnoses Syncope R55 PAF (paroxysmal atrial fibrillation) I48.0 S/P cardiac catheterization Z98.890 Time Spent (min) 28
[2025-09-29 09:16] VITALS: BP 108/72; PULSE 84; BMI 30.5
--- OUTSIDE RECORDS SUMMARY | 2025-09-29 09:43 | XMS_ITS | Encounter Summary ---
Author Organization [employer] Address [address] [place] [address] [address] [place] [address] Care Team Providers Care Technician Terminal And Repeater Name Role Phone Diana Zamudio MD Primary Care Provider [phone] Milan Abrams MD Primary Care Prov ider Monica Andres Primary Care Provider [phone] Reason for Referral * Consultation (Routine) - Closed Specialty Diagnoses / Procedures Referred By Contac t Referred To Contact Cardiology Diagnoses Paroxysmal atrial fibrillation (CMS/HCC) (HCC) Diana Zamudio MD [address] [place] [address] Phone: tel: fax: [facility] [address] [place] [phone] Phone: tel: fax: Referral ID Status Reason Start Date Expiration Date V isits Requested Visits Authorized [id number] Closed Specialty Services Required 04/25/2024 04/25/2025 6 6 Encounter Details Date Type Department Care Team (Late st Contact Info) Description 04/15/2024 Orders Only [facility] [address] [place] [address] Diana Zamudio MD [address] [place], [place] [phone] Paroxysmal atrial fibrillation (CMS/HCC) (Primary Dx) Social [...] your housing situation today? I have quinn jim 08/27/[address] you li [...] Care Team (Late st Contact Info) Description 12/25/2025 10:15 AM EST Office Visit [facility] [address] [place], [place] [phone] Monica Andres FNP [address] [place] [address] documented as of this encounter Procedures Procedure [...] documented as of this encounter Care Teams Technician Terminal And Repeater Relationship Specialty Start Date End Date Diana Zamudio MD [address] [place] [address] PCP - General Family Medicine 12/20/20 12/29/24 Milan Abrams MD [address] [place] [address] PCP - General Internal Medicine 12/30/24 09/10/25 Monica Andres FNP [address] [place] [address] PCP - General Family Medicine 09/11/25 documented as of this encounter
--- OUTSIDE RECORDS SUMMARY | 2025-09-29 09:43 | XMS_ITS | Clinical Summary ---
Author Organization [employer] Address [address] [facility] [address] [place] [address] Care Team Providers Care Branch Maker Name Role Phone Monica Andres JAYA Primary Care Provider [phone] Allergies Active Allergy Reactions Criticality Noted Date Comments Shrimp Extract Rash High 07/30/2025 Medications D3 Super Strength 50 MCG (1999 UT) capsule Take 50 mcg by mouth in the morning. 02/22/20 23 Active EPINEPHrine (Epipen) 0.3 MG/0.3ML injection syringe Inject 0.3 mL into the shoulder, thigh, or buttocks. 02/22/20 22 Active buPROPion XL (Wellbutrin XL) 150 MG 24 hr tabletIndicat ions:Mood disorder (CMS/HCC) TAKE 1 TABLET (150 MG) BY MOUTH IN THE MORNING. DO NOT CRUSH, CHEW, OR SPLIT. 90 tablet 3 08/04/20 24 Active clobetasol (Temovate) 0.05 % gelIndication s:Polymorphic light eruption Apply 1 Application. topically 2 times daily. 30 g 08/29/20 24 Active naloxone (Narcan) 4 mg/0.1 mL nasal sprayIndicati ons:Anxiety Administer 1 spray (4 mg) into affected [...] 01/20/20 25 Active QUEtiapine (SEROquel) 25 MG tabletIndicat ions:Mood disorder (CMS/HCC) Take 1 tablet (25 mg) by mouth at bedtime. Take every night 90 tablet 3 05/11/20 25 Active DULoxetine (Cymbalta) [address] capsuleIndica tions:Mood disorder (CMS/HCC) TAKE 1 CAPSULE BY MOUTH EVERY DAY. DO NOT CRUSH OR CHEW. 90 capsule 05/15/20 25 Active Ventolin HFA 108 (90 Base) MCG/ACT inhaler Inhale 1 puff every 6 (six) hours if needed for wheezing. 18 g 3 06/01/20 25 026 Active esomeprazole (NexIUM) [address] capsule Take 1 capsule by mouth Once per day. 05/17/20 25 Active famotidine (Pepcid) 20 MG tablet Take 1 tablet by mouth 2 times daily. 07/22/20 25 Active ibuprofen 800 MG tablet TAKE 1 TABLET BY MOUTH THREE TIMES A DAY NEEDED FOR PAIN OR FEVER 90 tablet 3 09/21/20 25 Active Diclofenac Sodium 1 % gelIndication s:De Quervain's tenosynovitis ,Right wrist pain To apply to the affected area 3 times a day 100 g 2 09/21/20 25 Active ALPRAZolam (Xanax) 1 MG tabletIndicat ions:Mood disorder (CMS/HCC) TOME 1 TABLETA POR VIA ORAL TODOS [place]ARE[place] CU[place]O SEA NECESARIO FOR PANIC ATTACK (MAX 20 TABS/MONTH) 20 tablet 09/28/20 25 Active Aspirin Low Dose 81 MG chewable tablet TAKE 1 TABLET BY MOUTH EVERY DAY FOR 30 DAYS 08/23/20 22 025 Discontinued(Th erapy completed) ibuprofen 800 MG tablet TOME 1 TABLETA POR VIA ORAL RAIMUNDO VECES AL DEMARCUS 90 tablet 07/22/20 25 025 Discontinued Diclofenac Sodium 1 % gelIndication s:De Quervain's tenosynovitis ,Right wrist pain TO APPLY TO THE AFFECTED AREA 3 TIMES A DAY 100 g 08/07/20 25 025 Discontinued ALPRAZolam (Xanax) 1 MG tabletIndicat ions:Mood disorder (CMS/HCC) TOME 1 TABLETA POR VIA ORAL TODOS LOS SUAREZ CUANDO SEA NECESARIO FOR PANIC ATTACK (MAX 20 TABS/MONTH) 20 tablet 08/27/20 25 025 Discontinued Diclofenac Sodium 1 % gelIndication s:De Quervain's tenosynovitis ,Right wrist pain TO APPLY TO THE AFFECTED AREA 3 TIMES A DAY 100 g 2 09/14/20 25 025 Discontinued(Re order (will not trigger notification to Pharmacy)) Active Problems Problem Noted Date Diagnosed Date Cervical pain (neck) 09/21/2025 Assessment & Plan (09/21/2025 9:10 PM EST): - Improved/resolved today - Continue home stretching exercises. Continue topical analgesic cream as previously prescribed. Use NSAIDs as needed for pain. - F/up precautions Near syncope 09/21/2025 Assessment & Plan (09/21/2025 9:14 PM EST): - [facility] hospitalization Jul 2025 for near syncopal event associated w/ dizziness. CTA of head unremarkable, EEG did not demonstrate seizure activity. Vestibular neuritis suspected as etiology. - Continue neurology follow-up out patient - referral placed today - Pt request for railings to be installed outside of the home. Will proceed to Medical Records with the paperwork. Numbness and tingling of left leg 09/21/2025 Assessment & Plan (09/21/2025 9:20 PM EST): - Persistent numbness, tingling, and burning sensation in the left lower extremity, likely neuropathic in origin. Possible association with prior low back pain. - Ordered nerve conduction study (EMG/NCS) to evaluate for neuropathy or nerve entrapment. Results to be reviewed. Continue current management until results available. Spondylosis of lumbar region without myelopathy or radiculopathy 09/20/2025 Long-term current use of benzodiazepine 08/27/20 25 Chronic pain of left ankle 05/21/2024 Assessment & Plan (09/21/2025 9:20 PM EST): S/p internal fixation in 2018 Declines hardware removal offered in 2020 at [facility] Movement and stretching Assessment & Plan (05/21/2024 6:39 AM EDT): S/p internal fixation in 2019 Declines hardware removal offered in 2020 at [facility] Movement and stretching Vicodin very sparingly prn Left sided abdominal pain 01/23/2023 Assessment & Plan (09/21/2025 9:08 PM EST): - Chronic epigastric pain with prior incomplete treatment for H. pylori infection per pt report - Recommended repeat H. pylori testing with GI. Advised to complete full course of therapy if positive. Continue omeprazole and famotidine as previously prescribed. Mood disorder 11/02/2022 Assessment & Plan (09/21/2025 9:21 PM EST): - Previously following with [facility] Psychopharm clinic - GRANT Saunders Current med regimen: - quetiapine 25mg nightly - bupropion 150mg daily - duloxetine 60mg daily - Xanax 1 mg daily PRN (20 tablets/month) Previous medications: mirtazapine and latuda (caused SE - anxiety in middle of the night) BH: not currently - Mood disorder with anxiety and panic attacks - Continue current anxiolytic regimen as needed. Advised on risks of long-term benzodiazepine use and potential for dependence. Continue duloxetine for chronic pain and mood stabilization. Continue quetiapine at bedtime for sleep as previously prescribed. - Risks and side effects: Discussed risk of dependence with long-term benzodiazepine use. Discussed that bupropion may increase anxiety. Assessment & Plan (03/03/2024 3:12 PM EDT): [...] management. For any issues or concerns, call [facility]. All his questions were answered. I have [...] the plan. Photosensitivity 07/03/2022 Assessment & Plan (09/21/2025 9:22 PM EST): - Previous DOMENICA negative - Describes photosensitivity with erythematous rash and pruritus on sun exposure, requiring sun protection measures. - Continue use of sun-protective clothing, sunglasses, and topical sunscreen. - Previous consult with [facility] Derm team Assessment & Plan (05/21/2024 6:37 AM EDT): Noted x 2 years DOMENICA negative With joint pains Will refer to derm for further recommendations besides wearing sunscreen, avoidance of sun Helicobacter pylori gastritis 05/23/2022 Gastroesophageal reflux disease 05/27/2021 Assessment & Plan (01/19/2025 9:29 AM EDT): Followed by gastroenterology, on omeprazole, encouraged lifestyle modifications, Anxiety 12/21/2020 Assessment & Plan (01/19/2025 9:30 AM EDT): On cymbalta, alprazolam PRN, seroquel, bupropion, no suicidal ideas, not interested in BH therapy, Atrial fibrillation (CMS/HCC) 12/21/2020 Assessment & Plan (09/21/2025 9:24 PM EST): - Following with [facility] Cardiology (previously [facility]- Dr. Walters) - ILR 08/03-08/14/25 w/o confirmed Afib. - Per cards consult note Jul 2025: Chads Vasc score of 0. No indication of anticoagulation due to no confirmed Afib. EF referral made. Plan for outpatient cardiac cath and cardiac MRI for further evaluation. Assessment & Plan (06/01/2025 4:22 PM EDT): Followed by cardiology, on aspirin, no changes will be made Assessment & Plan (01/19/2025 9:28 AM EDT): Followed by cardiology, [id number] score 0 points on aspirin Assessment & Plan (05/21/2024 6:36 AM EDT): Referred to [facility] Given number to call Assessment & Plan (08/01/2023 11:08 AM EDT): Will make f/u appointment with cabinet finisher Had been off anticoagulation for some time Depressive disorder 12/21/2020 Assessment & Plan (06/01/2025 4:29 PM EDT): Followed by therapist, no suicidal/homicidal ideas Resolved Problems Problem Noted Date Diagnosed Date Resolved Date Annual physical exam 08/01/2023 025 Normal electroencephalography 04/10/2022 09/20/2025 Encounters Date Type Department Care Team Description 09/24/2025 Refill [facility] [address] [place] [address] Milan Abrams MD Mood disorder (CMS/HCC) 09/21/2025 9:30 AM EST Office Visit [facility] [address] [place] [address] Monica Andres FNP Paroxysmal atrial fibrillation (CMS/HCC) ([facility]) (Primary Dx); Photosensitivity; Mood disorder (CMS/HCC); Chronic pain of left ankle; Numbness and tingling of left leg; De Quervain's tenosynovitis; Right wrist pain; Near syncope; Healthcare maintenance; Encounter for immunization; Left sided abdominal pain; Cervical pain (neck); Dizziness 09/21/2025 Travel 09/21/2025 Refill [facility] [address] [place] [address] Milan Abrams MD 09/14/2025 Patient Outreach [address] [address] Monica Andres FNP Pre-visit Planning (SDOH screening negative and Tobacco screening negative) 09/12/2025 Refill [facility] [address] [place] [address] Dipika Massey MD De Kassandra's tenosynovitis; Right wrist pain 08/26/2025 Refill [facility] [address] [place] [address] Milan Abrams MD Mood disorder ([facility]/HCC); Long-term current use of benzodiazepine 08/24/[address] [address] Milan Abrams MD 08/06/2025 10:00 AM EDT Office Visit [facility] [address] [place] [address] Kit Reyes MD Paroxysmal atrial fibrillation (CMS/HCC) (HCC) (Primary Dx) 08/06/2025 Refill [facility] [address] [place] [address] Milan Abrams MD De Quervain's tenosynovitis; Right wrist pain 08/06/2025 Travel 08/03/2025 Patient Outreach [facility] [address] [place] [address] Milan Abrams MD Transition Of Care (Tcm) (HDF- Unscheduled , Number not in service ) 08/03/2025 Telephone [facility] [address] [place] [address] Milan Abrams MD Hospital Follow-up 07/31/2025 Orders Only GENERIC EXTERNAL DATA DEPARTMENT Provider, Generic External Data 07/30/2025 Orders Only GENERIC EXTERNAL DATA DEPARTMENT Provider, Generic External Data 07/29/[address] [address] Milan Abrams MD PCP Summary form 07/27/2025 Refill [facility] [address] [place] [address] Milan Abrams MD Mood disorder (CMS/HCC) 07/23/2025 Telephone [facility] [address] [place] [address] Milan Abrams MD TP 07/23/[address] [address] Milan Abrams MD 07/22/2025 Orders Only [facility] [address] [place] [address] Milan Abrams MD 07/20/2025 Refill [facility] [address] [place] [address] Kit Reyes MD 07/09/2025 Telephone [facility] [address] [place] [address] Milan Abrams MD from Last 3 Months Immunizations Immunization Administration Dates Next Due Tdap 09/21/2025 Family History Medical History Relation Name Comments Brain cancer Brother Diabetes Father Asthma Mother Diabetes Mother Hypertension Mother Lupus Mother Osteoarthritis Mother Skin cancer Mother Relation Name Status Comments Brother Alive Father Mother Social History Tobacco Use Types [...] housing situation today? I have quinn fernandez 09/14/[address] you li ve. Do you have problems with any of the following? None of the above 09/14/2025 Food Insecurity Answer Date Recorded Within the past 12 months, y ou worried that your food would run out before you got money to buy more: Never True 09/14/2025 Within the past 12 months,th e food you bought just didn't last and you didn't have enough money to get more: Never True Transportation Answer Date Recorded In the past 12 months, has l ack of transportation kept you from medical appts, meetings, work or from getting things needed for daily living? No 09/14/2025 Utilities Answer Date Recorded In the past 12 months, has t he electric, gas, oil or water company threatened to shut off services in your home? No 09/14/2025 Depression Answer Date Recorded Patient Health Questionnaire-2 Score 5 06/01/2025 Internet Access Answer Date Recorded Internet Access Q1 Yes 09/14/2025 Internet Access Q2 Not on file 09/14/2025 Sex and Gender Information Value Date Recorded Sex Assigned at Male 08/28/2022 10:37 AM EDT Legal Sex Male 10:37 AM EDT Gender Identity Male 08/28/2022 10:37 AM EDT Sexual Orientation Straight 08/28/2022 10 :37 AM EDT Last Filed Vital Signs Vital Sign Reading Time Taken Comments Blood Pressure 132/88 09/21/2025 9:20 AM EST Pulse 80 09/21/2025 9:20 AM EST Temperature 36.1 C (97 F) 09/21/2025 9:20 AM EST Respiratory Rate 18 09/21/2025 9:20 AM EST Oxygen Saturation 98% 09/21/2025 9:20 AM EST Inhaled Oxygen Concentration - - Weight 88.9 kg (196 lb) 09/21/2025 9:20 AM EST Height 172.7 cm (5' 8 ) 09/21/2025 9:20 AM EST Body Mass Index 29.8 09/21/2025 9:20 AM EST Plan of Treatment Upcoming Encounters Date Type Department Care Team (Late st Contact Info) Description 12/25/2025 10:15 AM EST Office Visit [facility] [address] [place], [place] [phone] Monica Andres, FURNITURE FABRICATOR [address] [place], [place] [phone] Health Maintenance Due Date Last Done Comments Family Planning (PISQ) 1996 HPV Vaccines (1 - Male 3-dos e series) 1996 Hepatitis B Vaccines (1 of 3 - 19+ 3-dose series) 2000 Depression Monitoring 12/02/2025 06/01/2025 , 06/01/2025 Disability Screening 01/18/2026 01/18/2025 Influenza Vaccine (#1) 2026 Postp oned from 06/29/2025 (Patient Refused) Alcohol/Substance Use Screening 06/01/2026 06/01/2025 Tobacco Screening 08/06/2026 08/06/2025 SDOH Screening 09/14/2026 09/14/2025 COVID-19 Vaccine (1 - 2024-2 6 season) 2026 Postponed from 06/29 (Patient Refused) Pneumococcal Vaccine: Pediatrics (0 to 5 Years) and At-Risk Patients (6 to 49) Years (1 of 2 - PCV) 09/21/2026 Postponed from 02/2000 (Patient Refused) Lipid Panel 09/21/2030 09/21/2025, 08/01/2023, 10/19/2021 Zoster Vaccines (1 of 2) 2031 DTaP/Tdap/Td Vaccines (2 - T d or Tdap) 09/21/2035 09/21/2025 RSV Patients and Patients Aged 60 years or older (1 - 1-dose 75+ series) 2056 HIV Screening Completed 09/21/2025 Hepatitis C Screening Completed 09/21/2025 , 12/27/2020 HIB Vaccines Aged Out No longer [...] Procedure Name Priority Date/Time Associated Diagnosis Comments CHLAMYDIA/TRICHOMONAS /NEISSERIA GONORRHOEAE, PCR, URINE Routine 09/21/2025 10:46 AM EST Encounter for immunization HIV 1/2 ANTIGEN/ANTIBODY, FOURTH GENERATION W/RFL Routine 09/21/2025 10:42 AM EST Healthcare maintenance RPR (MONITOR) W/REFL TITER Routine 09/21/2025 10:42 AM EST Healthcare maintenance HEPATITIS C VIRAL RNA, QUANTITATIVE, REAL-TIME PCR Routine 09/21/2025 10:42 AM EST Healthcare maintenance CBC WITH AUTO DIFFERENTIAL Routine 09/21/2025 10:42 AM EST Healthcare maintenance COMPREHENSIVE METABOLIC PANEL Routine 09/21/2025 10:42 AM EST Healthcare maintenance TSH W/REFLEX TO FT4 Routine 09/21/2025 1 0:42 AM EST Healthcare maintenance HEMOGLOBIN A1C Routine 09/21/2025 10:42 AM EST Healthcare maintenance LIPID PANEL, STANDARD Routine 09/21/2025 10:42 AM EST Healthcare maintenance CT HEAD WO CONTRAST Routine 07/31/2025 5 [...] PROTHROMBIN TIME-INR Routine 07/30/2025 10:08 PM EDT from Last 3 Months Results * Chlamydia/N. Gonorrhoeae, PCR, Urine (09/21/2025 10:46 AM EST) CT PCR, Urine NOT DETECTED Not Detect. [facility] Comment:A not detected test result does not exclude the possibilityof infection because test results can be affected byimproper specimen collection, concurrent antibiotic therapy,or the number of organisms in the specimen which may bebelow the sensitivity of the test. As with many diagnostictests, results from the Xpert CT/NG assay should beinterpreted in conjunction with other laboratory andclinical data available to the clinician.The Xpert CT/NG assay should not be used for the evaluationof suspected sexual abuse or for other medico-legalindications. Additional testing is recommended in anycircumstance when false positive or false negative resultscould lead to adverse medical, social or psychologicalconsequences. NG PCR, Urine NOT DETECTED Not Detect. [facility] Comment:A not detected test result does not exclude the possibilityof infection because test results can be affected byimproper specimen collection, concurrent antibiotic therapy,or the number of organisms in the specimen which may bebelow the sensitivity of the test. As with many diagnostictests, results from the Xpert CT/NG assay should beinterpreted in conjunction with other laboratory andclinical data available to the clinician.The Xpert CT/NG assay should not be used for the evaluationof suspected sexual abuse or for other medico-legalindications. Additional testing is recommended in anycircumstance when false positive or false negative resultscould lead to adverse medical, social or psychologicalconsequences. Urine (Urine, Random) 09/21/2025 10:46 AM EST 09/21/2025 1:58 PM EST Monica Andres [facility] URINE ORDERABLES Final Res ult Performing Organization Address [facility] Co de Phone Number [facility] [address] [place] [phone] * TSH with Reflex to Free T4 (09/21/2025 10:42 AM EST) Pathologist [facility] TSH reflex Free T4 1.86 0.32 - 4.0 uIU/mL [facility] Blood 09/21/2025 10:4 2 AM EST 09/21/2025 2:01 PM EST Monica Red Condorrhonda [facility] BLOOD ORDERABLES Final Res ult Performing Organization Address [facility] Co de Phone Number [facility] [address] [place] [phone] * Hepatitis C Viral RNA, Quantitative, Real-Time PCR (09/21/2025 10:42 AM EST) Pathologist [facility] Hepatitis C Viral Load <15 NOT DETECTED NOT DETECTED IU/mL [facility] HCV Log PCR <1.18 NOT DETECTED NOT DETECTED Log IU/mL [facility] Comment:For additional infor matdavian, please refer [email or web address]/DIF69o7(This link is being provided for informational/educational purposes only.)THIS TEST WAS PERFORMED AT:[email or web address] [place] [phone] CAZARES MD Blood 09/21/2025 10:4 2 AM EST 09/21/2025 2:01 PM EST us Monica Dmitry FURNITURE FABRICATOR LAB BLOOD ORDERABLES Final Res ult [facility] [address] [place] [phone] * (ABNORMAL) CBC auto differential (09/21/2025 10:42 AM EST) Only the most recent of2 resultswithin the time period is included. White Blood Count 7.2 4.8 - 10.8 X10*3/uL [facility] Red Blood Count 5.40 4.60 - 5.80 X10*6/uL [facility] Hemoglobin 16.0 14.0 - 18.0 g/dl [facility] Hematocrit 47.8 42.0 - 52.0 % [facility] Mean Corpuscular Volume 88.5 80.0 - 98.0 fL [facility] Mean Corpuscular Hemoglobin 29.6 27.0 - 33.0 pg [facility] Mean Corpuscular HGB Conc 33.5 31.0 - 36.0 g/dl [facility] Red Cell Distribution Width 12.1 11.0 - 16.0 % [facility] Platelet Count 334 160 - 400 X10*3/uL [facility] Mean Platelet Volume 11.4 9.4 - 12.4 fL [facility] Neutrophils Percent Auto 67.8 45 - 73 % [facility] Imm Gran Pct Auto 0.6(H) 0.0 - 0.4 % [facility] Lymphocytes Percent Auto 22.3 20 - 40 % [facility] Monocytes Percent Auto 7.8 2 - 11 % [facility] Eosinophils Percent Auto 1.1 0 - 4 % [facility] Basophils Percent Auto 0.4 0 - 2 % [facility] NRBC Pct Auto 0.0 0.0 - 0.2 /100WBC [facility] Neutrophils Absolute Auto 4.9 2.0 - 8.3 x10*3/uL [facility] Imm Gran Abs Auto 0.04(H) 0.00 - 0.03 X10*3/uL [facility] Lymphocytes Absolute Auto 1.6 1.2 - 4.9 X10*3/uL [facility] Monocytes Absolute Auto 0.6 0.1 - 1.2 X10*3/uL [facility] Eosinophils Absolute Auto 0.1 0.0 - 0.4 X10*3/uL [facility] Basophils Absolute Auto 0.0 0.0 - 0.2 X10*3/uL [facility] NRBC Abs Auto 0.000 0.0 - 0.012 X10*3/uL [facility] Blood Venous blood specimen / Unknown 09/21/2025 10:42 AM EST 09/21/2025 2:18 PM EST us Monica Andres [facility] BLOOD ORDERABLES Final Res ult [facility] [address] [place], [place] [phone] * RPR (Monitor) with Reflex to??Titer (09/21/2025 10:42 AM EST) RPR (Monitor) w/Refl Titer NON-REACTI VE NON-REACT NINO [facility] Comment:THIS TEST WAS PERFOR MED AT:[email or web address] [place] [phone] CAZARES MD Rapid Plasma Reagin Ab Titer TNP [facility] Blood Venous blood specimen / Unknown 09/21/2025 10:42 AM EST 09/21/2025 2:01 PM EST Monica Andres [facility] BLOOD ORDERABLES Final Res ult Performing Organization Address [facility] Co de Phone Number [facility] [address] [place] [phone] * HIV-1/2 Antigen and Antibodies, Fourth Generation, with Reflexes (09/21/2025 10:42 AM EST) HIV AB/AG Nonreactive Nonreactive [facility] Comment:HIV-1 p24 Ag and/or HIV-1/HIV-2 Ab not detected.A test result that is nonreactive does not exclude thepossibility of exposure to or infection with HIV-1 and/orHIV-2. Nonreactive results in this assay for individualswith prior exposure to HIV-1 and/or HIV-2 may be due toantigen and antibody levels that are below the limit ofdetection of this assay.The [employer] HIV Ag/Ab Combo assay result andsupplemental assay results should be interpreted inconjunction with the patient's clinical presentation,history and other laboratory results. If the results areinconsistent with clinical evidence, additional testing issuggested to confirm the result. Blood Venous blood specimen / Unknown 09/21/2025 10:42 AM EST 09/21/2025 2:01 PM EST Monica Andres [facility] BLOOD ORDERABLES Final Res ult Performing Organization Address [facility] Co de Phone Number [facility] [address] [place] [phone] * Hemoglobin A1c (09/21/2025 10:42 AM EST) Hemoglobin A1c 5.3 <6.0 % [facility] Comment:Hemoglobin A1C Refer ence Range Adults: 4.8 - 6.0 % Non diabetic: < 6.0 % Goal: < 7.0 %Additional Action Suggested: > 8.0 %Note: Hemoglobin A1c results are invalid for patients with abnormal amounts of HbF. Blood transfusions may impact the HbA1c concentration in the patient sample. Estimated Average Glucose 105 mg/dL [facility] Comment:eAG = Estimated ave rage glucose which is %A1C expressed asaverage glucose, using the formula of the [id number] Glucose study (ADAG), Diabetes Care, Vol.31,#8,May. 2007 Blood Venous blood specimen / Unknown 09/21/2025 10:42 AM EST 09/21/2025 2:18 PM EST Monica Andres [facility] BLOOD ORDERABLES Final Res ult Performing Organization Address City/[facility] Co de Phone Number [facility] [address] [place] [address] [phone] * (ABNORMAL) Lipid Panel, Standard (09/21/2025 10:42 AM EST) Triglycerides 159(H) <150 mg/dL [facility] Comment:Desirable Triglyceri de: less than 150 mg/dLBorderline High Triglyceride 150-199 mg/dLHigh Triglyceride: 200-499 mg/dLVery High Triglyceride: greater than or equal to 5OO mg/dL Cholesterol 158 <200 mg/dL [facility] Comment:Desirable Cholestero l: less than 200 mg/dLBorderline High Cholesterol: 200-239 mg/dLHigh Cholesterol: greater than 239 mg/dL LDL Cholesterol Calculated 85 <100 mg/dL [facility] Comment:Desirable LDL: less than 100 mg/dLNear Optimal/Above Optimal LDL: 110- 129 mg/dLBorderline High LDL: 130-159 mg/dLHigh LDL: 160-189 mg/dLVery High LDL: greater than or equal to 190 mg/dL HDL Cholesterol 42 >40 mg/dL [facility] Comment:Desirable HDL: great er than 40 mg/dL Note: This HDL assay may give artificially low results in patients with liver disease. Blood Venous blood specimen / Unknown 09/21/2025 10:42 AM EST 09/21/2025 2:01 PM EST Monica Andres [facility] BLOOD ORDERABLES Final Res ult Performing Organization Address City/[facility]/ZIP Co de Phone Number [facility] [address] [place] [address] [phone] * (ABNORMAL) Comprehensive Metabolic Panel (09/21/2025 10:42 AM EST) Only the most recent of2 resultswithin the time period is included. Sodium 142 135 - 145 mmol/L [facility] Potassium 3.8 3.3 - 5.1 mmol/L [facility] Chloride 109(H) 96 - 108 mmol/L [facility] Carbon Dioxide 24 22 - 29 mmol/L [facility] Anion Gap 13 12 - 20 [facility] Urea Nitrogen (BUN) 14 9 - 16 mg/dL [facility] Creatinine, Serum 0.94 0.5 - 1.4 mg/dL [facility] Estimated Glomerular Filt Rate >60 [facility] Comment:Chronic Kidney Disea se: Estimated GFR < 60 mL/min/1.18k4Pidcyv Kidney Disease: Estimated GFR < 15 mL/min/1.73m2 Glucose 82 60 - 115 mg/dL [facility] Calcium 9.7 8.4 - 10.2 mg/dL [facility] Bilirubin, Total 0.8 0.0 - 1.0 mg/dL [facility] Aspartate Amino Transferase 34 5 - 37 U/L [facility] Alanine Aminotransferase 35 0 - 40 U/L [facility] Total Protein 7.3 6.5 - 8.0 g/dL [facility] Albumin Level 5.0 3.5 - 5.0 g/dL [facility] Alkaline Phosphatase 72 39 - 117 U/L [facility] Blood Venous blood specimen / Unknown 09/21/2025 10:42 AM EST 09/21/2025 2:01 PM EST us Monica Andres [employer] LAB BLOOD ORDERABLES Final Res ult Performing Organization Address [facility]/ZIP Co de Phone Number [facility] [address] [place] [address] [phone] * CT Head w/o Contrast (07/31/2025 5:06 AM EDT) Anatomical Region Laterality Modality Head, Neck Computed Tomogra phy 07/31/2025 5:06 AM EDT Narrative 07/31/2025 5:07 AM EDT [place] [address] [address] Scan Report Signed Patient: Gilbert Silva MR#: [id number] : 1980 Acct:[id number] Age/Sex: 44 / M ADM Date: 07/30/25 Loc: HO.ED Attending Dr: Ordering Physician: Stephanie Ruano MD Date of Service: 07/31/25 Procedure(s): CT head/brain wo IV con Accession Number(s): [id number] cc: [facility]; Stephanie Ruano MD Report Number: [id number]: Total DLP = 598.00 mGy-cm Reason for [...] 07/31/25 0507 DD/ 050 TD/TT: 07/31/25 050 Director Of Corporate Strategy: Procedure Note Donotuseinterpreter, Image - 07/31/[address] [place] [address] [address] Scan Report Signed Patient: Gilbert Silva EMR#: [id number] : 1980Acct:[id number] Age/Sex: 44 / MADM Date: 07/30/25 Loc: HO.ED Attending Dr: Ordering Physician: Stephanie Ruano MD Date of Service: 07/31/25 Procedure(s): CT head/brain wo IV con Accession Number(s): [id number] cc: [facility]; Stephanie Ruano MD Report Number: [id number]: Total DLP = 598.00 mGy-cm Reason for [...] Yu MD in OV> 07/31/25 0507 DD/ 0506 TD/TT: 07/31/25 0506 Director Of Corporate Strategy: us [facility] External Provider IMG CT PROCEDURES Edited Result - Final * Urinalysis, Complete, with Reflex to Culture (07/31/2025 12:26 AM EDT) Color Urine Yellow [facility] Appearance Urine Clear [facility] PH 6.0 5.0 - 9.0 [facility] Glucose Urine UA Negative Negative mg/dL [facility] Urine Blood Negative Negative [facility] Specific [place] - Urine 1.025 1.005 - 1.025 [facility] Urine Protein Negative Neg-Trace mg/dL [facility] Urine Ketones Trace Negative mg/dL [facility] Nitrite Urine Negative Negative [facility] Leukocyte Esterase Urine Negative Negative [facility] RBC Urine 0-2 0 - 2 /HPF [facility] Urine WBC 0-5 0 - 5 /HPF [facility] Urine Squamous Epithelial Cell 0-2 0 - 2 /HPF [facility] Urine Bacteria None Seen None Seen [facility] Hyaline Casts, Urine 0-2 0 - 2 /LPF [facility] 07/31/2025 12:2 6 AM EDT 07/31/2025 12:33 AM EDT Narrative [facility] - 07/31/2025 1:43 AM EDT [id number], Clean [employer]atch us Generic External Data Provider LAB URINE ORDERAB LES Final Result [facility] [address] [place] [address] [phone] * Drug Monitoring, Panel 1, Screen, Urine (07/31/2025 12:26 AM EDT) Opiate Screen Urine Not Detected Not Detect [facility] Comment:Opiate cut-off is 30 0 ng/mL.Positive results are unconfirmed and should not be used fornon-medical purposes. Barbiturates, Urine Not Detected Not Detect [facility] Comment:Barbiturate cut-off is 200 ng/mL.Positive results are unconfirmed and should not be used fornon-medical purposes. Phencyclidine Screen Urine Not Detected Not Detect [facility] Comment:Phencyclidine cut-of f is 25 ng/mL.Positive results are unconfirmed and should not be used fornon-medical purposes. Amphetamine Screen Urine Not Detected Not Detect [facility] Comment:Amphetamine cut-off is 1000 ng/mL.Positive results are unconfirmed and should not be used fornon-medical purposes. Benzodiazepines Screen Urine Not Detected Not Detect [facility] Comment:Benzodiazepine cut-o ff is 200 ng/mL.Positive results are unconfirmed and should not be used fornon-medical purposes. Cocaine Screen Urine Not Detected Not Detect [facility] Comment:Cocaine cut-off is 3 00 ng/mL.Positive results are unconfirmed and should not be used fornon-medical purposes. Cannabinoid Screen Urine Not Detected Not Detect [facility] Comment:Cannabinoid cut-off is 50 ng/mL.Positive results are unconfirmed and should not be used fornon-medical purposes. Methadone Screen, Urine Not Detected Not Detect ng/mL [facility] Comment:Methadone cut-off is 300 ng/mL.Positive results are unconfirmed and should not be used fornon-medical purposes. FENTANYL URINE Not Detected Not Detect [facility] Comment:Fentanyl cut-off is 1 ng/mL.Positive results are unconfirmed and should not be used fornon-medical purposes. Oxycodone Urine Screen Not Detected Not Detect ng/mL [facility] Comment:Oxycodone cut-off is 100 ng/mL.Positive results are unconfirmed and should not be used fornon-medical purposes. Buprenorphine Screen Not Detected Not Detect ng/mL [facility] Comment:Buprenorphine cut-of f is 5 ng/mL.Positive results are unconfirmed and should not be used fornon-medical purposes. 07/31/2025 12:2 6 AM EDT 07/31/2025 1:11 AM EDT Generic External Data Provider LAB URINE ORDERAB LES Final Result Performing Organization Address City/State/[facility] Co de Phone Number [facility] [address] [place] [phone] * XR Chest 1 View (07/30/2025 10:37 PM EDT) Anatomical Region Laterality Modality Chest Radiographic Marry ging 07/30/2025 10:3 7 PM EDT Narrative 07/30/2025 10:39 PM EDT [address] [address] XRay Report Signed Patient: Gilbert Silva MR#: [id number] : 1980 Acct:[id number] Age/Sex: 44 / M ADM Date: 07/30/25 Loc: .ED Attending Dr: Ordering Physician: Generic ED Physician Date of Service: 07/30/25 Procedure(s): XR chest 1V Accession Number(s): [id number] cc: Generic ED Physician; [facility] Reason for Exam: DIZZINESS CLINICAL HISTORY: [...] in OV> 07/30/252237 DD/ 36 TD/TT: 07/30/252236 Director Of Corporate Strategy: Procedure Note Donotuseinterpreter, Image - 07/30/2025 [place] [address] XRay Report Signed Patient: Gilbert Silva EMR#: [id number] : 1980Acct:[id number] Age/Sex: 44 / MADM Date: 07/30/25 Loc: .ED Attending Dr: Ordering Physician: Generic ED Physician Date of Service: 07/30/25 Procedure(s): XR chest 1V Accession Number(s): [id number] cc: [facility] ED Physician; [facility] Reason for Exam: DIZZINESS CLINICAL HISTORY: [...] in OV> 07/30/252237 DD/ 36 TD/TT: 07/30/252236 Director Of Corporate Strategy: [facility] External Provider IMG XR PROCEDURES Edited Result - Final * D Dimer High Sensitivity (07/30/2025 10:08 PM EDT) D Dimer High Sensitivity <150 NG/ML [facility] Comment:D-DIMER HS REFERENCE RANGENote: Our assay [...] ORDERAB LES Final Result Performing Organization Address [facility] de Phone Number [facility] [address] [place] [phone] * High Sensitivity Troponin I (07/30/2025 10:08 PM EDT) TROPONIN I HIGH SENSITIVITY 9.9 <3.5 - 35.0 ng/L [facility] Comment:The [place] high sens itivity Troponin-I results should beused in conjunction with other diagnostic information suchas ECG, clinical observations and information, and patientsymptoms to aid in the diagnosis of AK. 07/30/2025 10:0 8 PM EDT 07/30/2025 10:14 PM EDT [employer] External Data Provider LAB BLOOD ORDERAB LES Final Result Performing Organization Address [facility] Phone Number [facility] [address] [place] [phone] * Prothrombin Time-INR (07/30/2025 10:08 PM EDT) Prothrombin Time 11.8 10.9 - 12.4 SEC [facility] INTERNATIONAL NORM RATIO 1.0 0.9 - 1.1 [facility] Comment:INTERNATIONAL NORMAL IZED RATIO (INR) REFERENCE [...] ORDERAB LES Final Result Performing Organization Address City/State/[facility] Co de Phone Number [facility] [address] [place] [address] [phone] from Last 3 Months Insurance [facility] C3 Care Teams Branch Maker Relationship Specialty Start Date End Date Monica Andres FNP [address] [place], [place] [phone] PCP - General Family Medicine 09/11/25
--- OUTSIDE RECORDS SUMMARY | 2025-09-29 09:43 | XMS_ITS | Encounter Summary ---
Author Organization [employer] Address [address] [facility] 7t [place] [address] Care Team Providers Care Beck Tender Name Role Phone Diana Zamudio MD Primary Care Provider [phone] Milan Abarms MD Primary Care Prov ider Monica Andres Primary Care Provider [phone] Reason for Visit * Reason Onset Date Comments Change PCP 04/21/2024 Encounter Details Date Type Department Care Team (Late st Contact Info) Description 04/21/2024 Telephone [facility] MEDICINE [address] [place], [place] [phone] Diana Zamudio MD [address] [place], [place] [phone] Change PCP Social History Tobacco Use Types [...] Description 12/25/2025 10:15 AM EST Office Visit [facility] MED & PEDS [address] [place] [address] Monica Andres FNP [address] [place] [address] documented as of this encounter Visit Diagnoses Not on filedocumented in this encounter Additional Health Concerns Assessment Noted Time PHQ-9 Depression Total Score: 3 03/03/20 24 2:34 PM EDT documented as of this encounter Care Teams Beck Tender Relationship Specialty Start Date End Date Diana Zamudio MD [address] [place] [address] PCP - General Family Medicine 12/20/20 12/29/24 Milan Abrams MD [address] [place] [address] PCP - General Internal Medicine 12/30/24 09/10/25 Monica Andres FNP [address] [place] [address] PCP - General Family Medicine 09/11/25 documented as of this encounter
--- OUTSIDE RECORDS SUMMARY | 2025-09-29 09:43 | XMS_ITS | Encounter Summary ---
Author Organization [employer] Address [address] [place] [address] 7t [place] [address] Care Team Providers Care Lunchroom Aide Name Role Phone Diana Zamudio MD Primary Care Provider [phone] Milan Abrams MD Primary Care Prov ider Monica Andres Primary Care Provider Reason for Visit * Reason Onset Date Comments Appointment Request 05/16/2023 Encounter Details Date Type Department Care Team (Late st Contact Info) Description 05/16/2023 Telephone [facility] MEDICINE [address] [place], [place] [phone] Diana Zamudio MD [address] [place] [address] Appointment Request Social History Tobacco Use Types [...] 8:05 AM EDT Bárbara Ruelas RN - [facility] reports patient was evaluated and independent with ADL's does not require AFC or PIECE DYEING MACHINE TENDER, patient needs only homemaking services IADl's. Will forward message to provider binh OLMEDO. * Telephone Encounter - Clare Williamson - 05/16/2023 11:44 AM EDT Tc from [place] requesting a PE appt . States pt needs for a program . documented in this encounter Plan of Treatment Upcoming Encounters Date Type Department Care Team ([facility] st Contact Info) Description 12/25/2025 10:15 AM EST Office Visit [facility] CHC MED & PEDS [address] [place], [place] [phone] Monica Andres FNP [address] [place] [address] documented as of this encounter Visit Diagnoses Not on filedocumented in this encounter Additional Health Concerns Assessment Noted Time PHQ-9 Depression Total Score: 12 023 1:13 PM EDT documented as of this encounter Care Teams Lunchroom Aide Relationship Specialty Start Date End Date Diana Zamudio MD [address] [place] [address] PCP - General Family Medicine 12/20/20 12/29/24 Milan Abrams MD [address] [place] [address] PCP - General Internal Medicine 12/30/24 09/10/25 Monica Andres FNP [address] [place] [address] PCP - General Family Medicine 09/11/25 documented as of this encounter
--- OUTSIDE RECORDS SUMMARY | 2025-09-29 09:43 | XMS_ITS | Encounter Summary ---
Author Organization [employer] Address [address] [facility] 7 [place] [address] Care Team Providers Care Algebra Tutor Name Role Phone Milan Abrams MD Primary Care Prov ider Monica Andres Primary Care Provider [phone] Reason for Visit * Reason Onset Date Comments PCP Summary form 07/29/2025 Encounter Details Date Type Department Care Team (Late st Contact Info) Description 07/29/2025 Telephone [facility] MEDICINE [address] [place] [address] Milan Abrams MD [address] [place], [place] [phone] PCP Summary form Social History Tobacco Use [...] this or next week. Contact Martine at [phone] documented in this encounter Plan of Treatment Upcoming Encounters Date Type Department Care Team (Late st Contact Info) Description 12/25/2025 10:15 AM EST Office Visit [facility] CHC MED & PEDS [address] [place] [address] Monica Andres FNP [address] [place] [address] documented as of this encounter Visit Diagnoses Not on filedocumented in this encounter Additional Health Concerns Assessment Noted Time PHQ-9 Depression Total Score: 21 025 3:47 PM EDT documented as of this encounter Care Teams Algebra Tutor Relationship Specialty Start Date End Date Milan Abrams MD [address] [place] [address] PCP - General Internal Medicine 12/30/24 09/10/25 Monica Andres FNP [address] [place] [address] PCP - General Family Medicine 09/11/25 documented as of this encounter
--- OUTSIDE RECORDS SUMMARY | 2025-09-29 09:43 | XMS_ITS | Encounter Summary ---
Author Organization [employer] Address [address] [place] [address] 7t [place] [address] Care Team Providers Care Machine Operations Supervisor Name Role Phone Milan Abrams MD Primary Care Prov ider Monica Andres Primary Care Provider [phone] Encounter Details Date Type Department Care Team ([facility] Contact Info) Description 07/22/2025 Orders Only [facility] CHC MED & PEDS [address] [place], [place] [phone] Milan Abrams MD [address] [place], [place] [phone] Social History Tobacco Use Types Packs/Day Years [...] the past 12 months, has t he [employer] gas, oil or water [employer] threatened to shut off services in your [...] Description 12/25/2025 10:15 AM EST Office Visit [facility] CHC MED & PEDS [address] [place] [address] Monica Andres FNP [address] [place] [address] documented as of this encounter Visit Diagnoses Not on filedocumented in this encounter Additional Health Concerns Assessment Noted Time PHQ-9 Depression Total Score: 21 025 3:47 PM EDT documented as of this encounter Care Teams Machine Operations Supervisor Relationship Specialty Start Date End Date Milan Abrams MD [address] [place] [address] PCP - General Internal Medicine 12/30/24 09/10/25 Monica Andres FNP [address] [place] [address] PCP - General Family Medicine 09/11/25 documented as of this encounter
--- OUTSIDE RECORDS SUMMARY | 2025-09-29 09:43 | XMS_ITS | Encounter Summary ---
Author Organization [employer] Address [address] [place] [address] [address] [place] [address] Care Team Providers Care Autocutter Name Role Phone Diana Zamudio MD Primary Care Provider [phone] Milan Abrams MD Primary Care Prov ider Monica Andres Primary Care Provider [phone] Reason for Visit * Reason Comments Med Refill Encounter Details Date Type Department Care Team (Late st Contact Info) Description 12/08/2022 Refill [facility] MEDICINE [address] [place] [address] John Saunders FNP Social History Tobacco Use [...] Description 12/25/2025 10:15 AM EST Office Visit [facility] CHC MED & PEDS [address] [place], [place] [phone] Monica Andres FNP [address] [place], [place] [phone] documented as of this encounter Visit Diagnoses Not on filedocumented in this encounter Additional Health Concerns Assessment Noted Time PHQ-9 Depression Total Score: 12 023 11:15 AM EST documented as of this encounter Care Teams Autocutter Relationship Specialty Start Date End Date Diana Zamudio MD [address] [place] [address] PCP - General Family Medicine 12/20/20 12/29/24 Milan Abrams MD [address] [place] [address] PCP - General Internal Medicine 12/30/24 09/10/25 Monica Andres FNP [address] [place] [address] PCP - General Family Medicine 09/11/25 documented as of this encounter
--- OUTSIDE RECORDS SUMMARY | 2025-09-29 09:43 | XMS_ITS | Encounter Summary ---
Author Organization [employer] Address [address] [place] [address] 7[address] [place] [address] Care Team Providers Care Instrument Sterilizer Name Role Phone Milan Abrams MD Primary Care Prov ider Monica Andres Primary Care Provider [phone] Reason for Visit * Reason Onset Date Comments Hospital Follow-up 08/03/2025 Encounter Details Date Type Department Care Team ([facility] Contact Info) Description 08/03/2025 Telephone [facility] CHC MED & PEDS [address] [place], [place] [phone] Milan Abrams MD [address] [place], [place] [phone] Hospital Follow-up Social History Tobacco Use Types [...] from pt requesting a HDF appt. Hospital: [facility] Date of admission: 07/30 Discharge date: 08/03 Diagnosed: Heart Issues *Send message to [facility] Clinical Care Coordinators Contact pt at [phone] documented in this encounter Plan of Treatment Upcoming Encounters Date Type Department Care Team (Late st Contact Info) Description 12/25/2025 10:15 AM EST Office Visit [facility] MED & PEDS [address] [place] [address] Monica Andres FNP [address] [place] [address] documented as of this encounter Visit Diagnoses Not on filedocumented in this encounter Additional Health Concerns Assessment Noted Time PHQ-9 Depression Total Score: 21 025 3:47 PM EDT documented as of this encounter Care Teams Instrument Sterilizer Relationship Specialty Start Date End Date Milan Abrams MD [address] [place] [address] PCP - General Internal Medicine 12/30/24 09/10/25 Monica Andres FNP [address] [place] [address] PCP - General Family Medicine 09/11/25 documented as of this encounter
--- OUTSIDE RECORDS SUMMARY | 2025-09-29 09:43 | XMS_ITS | Encounter Summary ---
Author Organization [employer] Address [address] [place] [address] [address] [place] [address] Care Team Providers Care Equipment Installer Name Role Phone Monica Andres JAYA Primary Care Provider [phone] Reason for Visit * Reason Comments Med Refill Encounter Details Date Type Department Care Team ([facility] st Contact Info) Description 09/24/2025 Refill [facility] CHC MED & PEDS [address] [place], [place] [phone] Milan Abrams MD [address] [place] [address] Mood disorder (CMS/HCC) Social History Tobacco Use [...] encounter Miscellaneous Notes * Telephone Encounter - JAYA Santana - 09/28/2025 6:03 PM EST Yes, Tier 2 documented in this encounter Plan of Treatment Upcoming Encounters Date Type Department Care Team ([facility] st Contact Info) Description 12/25/2025 10:15 AM EST Office Visit [facility] MED & PEDS [address] [place] [address] Monica Andres FNP [address] [place] [address] documented as of this encounter Visit Diagnoses Diagnosis Mood disorder (CMS/HCC) Unspecified episodic mood disorder documented in this encounter Additional Health Concerns Assessment Noted Time PHQ-9 Depression Total Score: 21 025 3:47 PM EDT documented as of this encounter Care Teams Equipment Installer Relationship Specialty Start Date End Date Monica Andres FNP [address] [place] [address] PCP - General Family Medicine 09/11/25 documented as of this encounter
== END 2025-09-29 09:43 | disposition home or self-care (01) ==
LOC: HO.HCS 09:12
PROVIDERS: PCP Internal Medicine; Visit Provider Nurse Practitioner Family
DX: R55 Syncope and collapse (principal); I48.0 Paroxysmal atrial fibrillation; Z98.890 Other specified postprocedural states
CPT/HCPCS: 99214

== ENCOUNTER → 2025-09-29 09:11 | Outpatient (BNVA) | payer MEDICAID, SELFPAY | PROVIDERS: PCP Internal Medicine; Visit Provider Nurse Practitioner Family | DX: R55 Syncope and collapse (principal); I48.0 Paroxysmal atrial fibrillation; Z98.890 Other specified postprocedural states | CPT/HCPCS: 99212 ==

== ENCOUNTER → 2025-10-02 11:09 | Outpatient (REF) | payer MEDICAID, SELFPAY ==
--- OUTSIDE RECORDS SUMMARY | 2025-10-02 13:40 | XMS_ITS | Encounter Summary ---
Author Organization [employer] Address [address] [facility] 7t [place] [address] Care Team Providers Care Merchant Mariner Name Role Phone Monica Andres Primary Care Provider Encounter Details Date Type Department Care Team ([facility] Contact Info) Description 09/30/2025 Results Follow-Up [facility] MED & PEDS [address] [place], [place] [phone] Monica Andres FNP 505 [place] [address] Lipid Panel, Standard, Hemoglobin A1c, TSH with Reflex to Free T4, Additional followed-up results: 6 Social History Tobacco Use Types Packs/Day Years [...] the past 12 months, has t he [employer], gas, oil or water [employer] threatened to shut off services in your [...] encounter Miscellaneous Notes * Telephone Encounter - Justine Barajas RN - 10/01/2025 1:49 PM EST TC to pt and pt spouse and reviewed results and recommendations. Pt verbalized understanding and agreement with plan. * Telephone Encounter - Justine Barajas RN - 10/01/2025 1:49 PM EST ----- Message from Monica Andres sent at 09/30/2025 4:32 PM EST ----- Mild hypertriglyceridemia. Possibly false elevation if he wasn't fasting during labs. Regardless, recommend healthy lifestyle interventions. STD testing negative Labs otherwise normal/stable Thanks! ----- Message ----- From: Interface, Lab Results In Sent: 09/21/2025 2:38 PM EST To: JAYA Santana documented in this encounter Plan of Treatment Upcoming Encounters Date Type Department Care Team (Late st Contact Info) Description 11/04/2025 2:15 PM EST Clinical Support [facility] & PED[facility] [address] [place] [address] Salome Antony RN 505 [place] [address] 12/25/2025 10:15 AM EST Office Visit [facility] [address] [place] [address] Monica Andres FNP 505 [place] [address] documented as of this encounter Visit Diagnoses Not on filedocumented in this encounter Additional Health Concerns Assessment Noted Time PHQ-9 Depression Total Score: 21 025 3:47 PM EDT documented as of this encounter Care Teams Merchant Mariner Relationship Specialty Start Date End Date Monica Andres FNP [address] [place] [address] PCP - General Family Medicine 09/11/25 documented as of this encounter
--- OUTSIDE RECORDS SUMMARY | 2025-10-02 13:40 | XMS_ITS | Encounter Summary ---
Author Organization [employer] Address [address] [place] [address] 7t [place] [address] Care Team Providers Care Social Work Administrator Name Role Phone Diana Zamudio MD Primary Care Provider [phone] Milan Abrams MD Primary Care Prov ider Monica Andres Primary Care Provider [phone] Reason for Visit * Reason Onset Date Comments Appointment Request 05/16/2023 Encounter Details Date Type Department Care Team (Late st Contact Info) Description 05/16/2023 Telephone [facility] MEDICINE [address] [place], [place] [phone] Diana Zamudio MD [address] [place] [address] Appointment Request Social History Tobacco Use Types [...] 8:05 AM EDT Bárbara Ruelas RN - [facility] reports patient was evaluated and independent with ADL's does not require AFC or PLANT QUALITY MANAGER, patient needs only homemaking services IADl's. Will forward message to provider binh OLMEDO. * Telephone Encounter - Clare Williamson - 05/16/2023 11:44 AM EDT Tc from [place] requesting a PE appt . States pt needs for a program . documented in this encounter Plan of Treatment Upcoming Encounters Date Type Department Care Team ([facility] st Contact Info) Description 11/04/2025 2:15 PM EST Clinical Support [facility] MED & PEDS [address] [place] [address] Salome Antony RN 505 [place] [address] 12/25/2025 10:15 AM EST Office Visit [facility] MED & PEDS [address] [place] [address] Monica Andres FNP [address] [place] [address] documented as of this encounter Visit Diagnoses Not on filedocumented in this encounter Additional Health Concerns Assessment Noted Time PHQ-9 Depression Total Score: 12 023 1:13 PM EDT documented as of this encounter Care Teams Social Work Administrator Relationship Specialty Start Date End Date Diana Zamudio MD [address] [place] [address] PCP - General Family Medicine 12/20/20 12/29/24 Milan Abrams MD 505 [place] [address] PCP - General Internal Medicine 12/30/24 09/10/25 Monica Andres FNP [address] [place] [address] PCP - General Family Medicine 09/11/25 documented as of this encounter
--- OUTSIDE RECORDS SUMMARY | 2025-10-02 13:40 | XMS_ITS | Encounter Summary ---
Author Organization [employer] Address [address] [place] [address] 7 [place] [address] Care Team Providers Care Cork Insulator Helper Name Role Phone Monica Andres JAYA Primary Care Provider [phone] Reason for Visit * Reason Comments Med Refill Encounter Details Date Type Department Care Team ([facility] st Contact Info) Description 09/24/2025 Refill [facility] MED & PEDS 505 [place], [place] [phone] Milan Abrams MD 505 [place] [address] Mood disorder (CMS/HCC) Social History Tobacco Use [...] Telephone Encounter - Salome Antony RN - 09/29/2025 9:56 AM EST TC to pt, initial MANUFACTURING PLANT MANAGER appointment schedule for 11/04/24 @ 2:15pm. Pt traveling till end september. * Telephone Encounter - JAYA Santana - 09/28/2025 6:03 PM EST Yes, Tier 2 documented in this encounter Plan of Treatment Upcoming Encounters Date Type Department Care Team (Late st Contact Info) Description 11/04/2025 2:15 PM EST Clinical Support [facility] MED & PEDS [address] [facility] [place] [address] Salome Antony RN 505 [facility] [place] [address] 12/25/2025 10:15 AM EST Office Visit [facility] MED & PEDS [address] [place] [address] Monica Andres FNP [address] [place] [address] documented as of this encounter Visit Diagnoses Diagnosis Mood disorder (CMS/HCC) Unspecified episodic mood disorder documented in this encounter Additional Health Concerns Assessment Noted Time PHQ-9 Depression Total Score: 21 025 3:47 PM EDT documented as of this encounter Care Teams Cork Insulator Helper Relationship Specialty Start Date End Date Monica Andres FNP 505 [place] [address] PCP - General Family Medicine 09/11/25 documented as of this encounter
--- OUTSIDE RECORDS SUMMARY | 2025-10-02 13:40 | XMS_ITS | Encounter Summary ---
Author Organization [employer] Address [address] [place] [address] 7t [place] [address] Care Team Providers Care Genetic Counsellor Name Role Phone Diana Zamudio MD Primary Care Provider [phone] Milan Abrams MD Primary Care Prov ider Monica Andres Primary Care Provider [phone] Reason for Referral * Consultation (Routine) - Closed Specialty Diagnoses / Procedures Referred By Contac t Referred To Contact Cardiology Diagnoses Paroxysmal atrial fibrillation (CMS/HCC) (HCC) Diana Zamudio MD [address] [place] [address] Phone: tel: fax: [facility] [address] [place] [phone] Phone: tel: fax: Referral ID Status Reason Start Date Expiration Date V isits Requested Visits Authorized [id number] Closed Specialty Services Required 04/25/2024 04/25/2025 6 6 Encounter Details Date Type Department Care Team (Late st Contact Info) Description 04/15/2024 Orders Only [facility] MEDICINE [address] [place] [address] Diana Zamudio MD [address] [place], [place] [phone] Paroxysmal atrial fibrillation (CMS/HCC) (Primary Dx) Social [...] Description 11/04/2025 2:15 PM EST Clinical Support [facility] MED & PEDS 505 [place] [address] Salome Antony, RN 505 [place] [address] 12/25/2025 10:15 AM EST Office Visit [facility] MED & PEDS 505 [place] [address] Monica Andres FNP 505 [place] [address] documented as of this encounter Procedures Procedure [...] documented as of this encounter Care Teams Genetic Counsellor Relationship Specialty Start Date End Date Diana Zamudio MD [address] [place] [address] PCP - General Family Medicine 12/20/20 12/29/24 Milan Abrams MD 505 [place] [address] PCP - General Internal Medicine 12/30/24 09/10/25 Monica Andres FNP [address] [place] [address] PCP - General Family Medicine 09/11/25 documented as of this encounter
--- OUTSIDE RECORDS SUMMARY | 2025-10-02 13:40 | XMS_ITS | Encounter Summary ---
Author Organization [employer] Address [address] [place] [address] 7t [place] [address] Care Team Providers Care Aerial Erector Name Role Phone Milan Abrams MD Primary Care Prov ider Monica Andres Primary Care Provider [phone] Reason for Visit * Reason Onset Date Comments Hospital Follow-up 08/03/2025 Encounter Details Date Type Department Care Team ([facility] Contact Info) Description 08/03/2025 Telephone [facility]C MED & PEDS 505 [place], [place] [phone] Milan Abrams MD 505 [place], [place] [phone] Hospital Follow-up Social History Tobacco Use Types [...] from pt requesting a HDF appt. Hospital: [facility] Date of admission: 07/30 Discharge date: 08/03 Diagnosed: Heart Issues *Send message to [place] Clinical Care Coordinators Contact pt at [phone] documented in this encounter Plan of Treatment Upcoming Encounters Date Type Department Care Team ([facility] st Contact Info) Description 11/04/2025 2:15 PM EST Clinical Support [facility] MED & PEDS [address] [place] [address] Salome Antony, TASHA 505 [place] [address] 12/25/2025 10:15 AM EST Office Visit [facility] MED & PEDS [address] [place] [address] Monica Andres FNP [address] [place] [address] documented as of this encounter Visit Diagnoses Not on filedocumented in this encounter Additional Health Concerns Assessment Noted Time PHQ-9 Depression Total Score: 21 025 3:47 PM EDT documented as of this encounter Care Teams Aerial Erector Relationship Specialty Start Date End Date Milan Abrams MD [address] [place] [address] PCP - General Internal Medicine 12/30/24 09/10/25 Monica Andres FNP [address] [place] [address] PCP - General Family Medicine 09/11/25 documented as of this encounter
--- OUTSIDE RECORDS SUMMARY | 2025-10-02 13:40 | XMS_ITS | Encounter Summary ---
Author Organization [employer] Address [address] [facility] 7 [place] [address] Care Team Providers Care Academic Affairs Director Name Role Phone Milan Abrams MD Primary Care Prov ider Monica Andres Primary Care Provider [phone] Reason for Visit * Reason Onset Date Comments PCP Summary form 07/29/2025 Encounter Details Date Type Department Care Team (Late st Contact Info) Description 07/29/[address] [facility] MEDICINE [address] [place] [address] Milan Abrams MD [address] [place], [place] [phone] PCP Summary form Social History Tobacco Use [...] this or next week. Contact Martine at [phone] documented in this encounter Plan of Treatment Upcoming Encounters Date Type Department Care Team (Late st Contact Info) Description 11/04/2025 2:15 PM EST Clinical Support [facility] MED & PEDS 505 [place] [address] Salome Antony, RN 505 [place] [address] 12/25/2025 10:15 AM EST Office Visit [facility] MED & PEDS 505 [place] [address] Monica Andres FNP 505 [place] [address] documented as of this encounter Visit Diagnoses Not on filedocumented in this encounter Additional Health Concerns Assessment Noted Time PHQ-9 Depression Total Score: 21 025 3:47 PM EDT documented as of this encounter Care Teams Academic Affairs Director Relationship Specialty Start Date End Date Milan Abrams MD [address] [place] [address] PCP - General Internal Medicine 12/30/24 09/10/25 Monica Andres FNP [address] [place] [address] PCP - General Family Medicine 09/11/25 documented as of this encounter
--- OUTSIDE RECORDS SUMMARY | 2025-10-02 13:40 | XMS_ITS | Encounter Summary ---
Author Organization [employer] Address [address] [place] [address] 7 [place] [address] Care Team Providers Care Television Maintenance Man Name Role Phone Milan Abrams MD Primary Care Prov ider Monica Andres Primary Care Provider [phone] Encounter Details Date Type Department Care Team ([facility] Contact Info) Description 07/22/2025 Orders Only [facility] CHC MED & PEDS [address] [place], [place] [phone] Milan Abrams MD 505 [place], [place] [phone] Social History Tobacco Use Types Packs/Day Years [...] the past 12 months, has t he [email or web address], gas, oil or water company threatened to [...] Description 11/04/2025 2:15 PM EST Clinical Support [facility] MED & PEDS [address] [place] [address] Salome Antony RN 505 [place] [address] 12/25/2025 10:15 AM EST Office Visit [facility] MED & PEDS 505 [place] [address] Monica Andres FNP 505 [place] [address] documented as of this encounter Visit Diagnoses Not on filedocumented in this encounter Additional Health Concerns Assessment Noted Time PHQ-9 Depression Total Score: 21 025 3:47 PM EDT documented as of this encounter Care Teams Television Maintenance Man Relationship Specialty Start Date End Date Milan Abrams MD [address] [place] [address] PCP - General Internal Medicine 12/30/24 09/10/25 Monica Andres FNP [address] [place] [address] PCP - General Family Medicine 09/11/25 documented as of this encounter
--- OUTSIDE RECORDS SUMMARY | 2025-10-02 13:40 | XMS_ITS | Encounter Summary ---
Author Organization [employer] Address [address] [place] [address] 7t [place] [address] Care Team Providers Care Clinic Scheduler Name Role Phone Diana Zamudio MD Primary Care Provider Milan Abrams MD Primary Care Prov ider Monica Andres Primary Care Provider [phone] Reason for Visit * Reason Comments Med Refill Encounter Details Date Type Department Care Team (Late st Contact Info) Description 12/08/2022 Refill [facility] MEDICINE [address] [place] [address] John Saunders FNP Social History Tobacco Use [...] 2:15 PM EST Clinical Support [facility] MED & PEDS 505 [place] [address] Salome Antony, TASHA [address] [place] [address] 12/25/2025 10:15 AM EST Office Visit [facility] MED & PEDS 505 [place] [address] Monica Andres FNP [address] [place] [address] documented as of this encounter Visit Diagnoses Not on filedocumented in this encounter Additional Health Concerns Assessment Noted Time PHQ-9 Depression Total Score: 12 023 11:15 AM EST documented as of this encounter Care Teams Clinic Scheduler Relationship Specialty Start Date End Date Diana Zamudio MD [address] [place] [address] PCP - General Family Medicine 12/20/20 12/29/24 Milan Abrams MD 505 [place] [address] PCP - General Internal Medicine 12/30/24 09/10/25 Monica Andres FNP [address] [place] [address] PCP - General Family Medicine 09/11/25 documented as of this encounter
--- OUTSIDE RECORDS SUMMARY | 2025-10-02 13:40 | XMS_ITS | Encounter Summary ---
Author Organization [employer] Address [address] [facility] 7t [place] [address] Care Team Providers Care Sales Clerk Supervisor Name Role Phone Diana Zamudio MD Primary Care Provider Milan Abrams MD Primary Care Prov ider Monica Andres Primary Care Provider [phone] Reason for Visit * Reason Onset Date Comments Change PCP 04/21/2024 Encounter Details Date Type Department Care Team (Late st Contact Info) Description 04/21/2024 Telephone [facility] MEDICINE 230 [place], [place] [phone] Diana Zamudio MD [address] [place], [place] [phone] Change PCP Social History Tobacco Use Types [...] 11/04/2025 2:15 PM EST Clinical Support [facility] MED & PEDS 505 [place] [address] Salome Antony, RN 505 [place] [address] 12/25/2025 10:15 AM EST Office Visit [facility] MED & PEDS 505 [place] [address] Monica Andres FNP 505 [place] [address] documented as of this encounter Visit Diagnoses Not on filedocumented in this encounter Additional Health Concerns Assessment Noted Time PHQ-9 Depression Total Score: 3 03/03/20 24 2:34 PM EDT documented as of this encounter Care Teams Sales Clerk Supervisor Relationship Specialty Start Date End Date Diana Zmaudio MD [address] [place] [address] PCP - General Family Medicine 12/20/20 12/29/24 Milan Abrams MD 505 [place] [address] PCP - General Internal Medicine 12/30/24 09/10/25 Monica Andres FNP 505 [place] [address] PCP - General Family Medicine 09/11/25 documented as of this encounter
--- OUTSIDE RECORDS SUMMARY | 2025-10-02 13:41 | XMS_ITS | Clinical Summary ---
Author Organization [facility] Address [address] [place] [address] Care Team Providers Care Supervisor Metalizing Name Role Phone Monica Andres JAYA Primary Care Provider [phone] Allergies Active Allergy Reactions Criticality Noted Date [...] & Plan (09/21/2025 9:14 PM EST): - [facility] hospitalization Jul 2025 for near syncopal event [...] Declines hardware removal offered in 2020 at [facility] Movement and stretching Assessment & Plan (05/21/2024 6:39 AM EDT): S/p internal fixation in 2019 Declines hardware removal offered in 2020 at [facility] Movement and stretching Vicodin very [...] 9:21 PM EST): - Previously following with [facility] Psychopharm clinic - GRANT Saunders Current med [...] management. For any issues or concerns, call [facility]. All his questions were answered. I [...] and topical sunscreen. - Previous consult with [facility] Derm team Assessment & Plan (05/21/2024 6:37 [...] (09/21/2025 9:24 PM EST): - Following with [facility] Cardiology (previously [facility]- Dr. Walters) - ILR [...] (01/19/2025 9:28 AM EDT): Followed by cardiology, Gluy3svip score 0 points on aspirin Assessment & Plan (05/21/2024 6:36 AM EDT): Referred to [facility] Given number to call Assessment & Plan (08/01/2023 11:08 AM EDT): Will make f/u appointment with mud mill tender Had been off anticoagulation for some time Depressive disorder 12/21/2020 Assessment & Plan (06/01/2025 4:29 PM EDT): Followed by therapist, no suicidal/homicidal ideas Resolved Problems Problem Noted Date Diagnosed Date Resolved Date Annual physical exam 08/01/2023 025 Normal electroencephalography 04/10/2022 09/20/2025 Encounters Date Type Department Care Team Description 09/30/2025 Results Follow-Up [facility] [address] [place] [address] Monica Andres FNP Lipid Panel, Standard, Hemoglobin A1c, TSH with Reflex to Free T4, Additional followed-up results: 6 09/24/2025 Refill [facility] [address] [place] [address] Milan Abrams MD Mood disorder (CMS/HCC) 09/21/2025 9:30 AM EST Office Visit [facility] [address] [place] [address] Monica Andres FNP Paroxysmal atrial fibrillation (CMS/HCC) (HCC) (Primary Dx); Photosensitivity; Mood disorder (CMS/HCC); Chronic pain of left ankle; Numbness and tingling of left leg; De Quervain's tenosynovitis; Right wrist pain; Near syncope; Healthcare maintenance; Encounter for immunization; Left sided abdominal pain; Cervical pain (neck); Dizziness 09/21/2025 Travel 09/21/2025 Refill [facility] [address] [place] [address] Milan Abrams MD 09/14/2025 Patient Outreach [address] [address] Monica Andres FNP Pre-visit Planning (SDOH screening negative and Tobacco screening negative) 09/12/2025 Refill [facility] [address] [place] [address] Dipika Massey MD De Quervain's tenosynovitis; Right wrist pain 08/26/2025 Refill [facility] [address] [place] [address] Milan Abrams MD Mood disorder (CMS/HCC); Long-term current use of benzodiazepine 08/24/2025 Telephone [facility] [address] [place] [phone] Milan Abrams MD 08/06/2025 10:00 AM EDT Office Visit [facility] [address] [place] [address] Kit Reyes MD Paroxysmal atrial fibrillation (CMS/HCC) (HCC) (Primary Dx) 08/06/2025 Refill [facility] [address] [place] [address] Milan Abrams MD De Kassandra's tenosynovitis; Right wrist pain 08/06/2025 Travel 08/03/2025 Patient Outreach [facility] [address] [place] [address] Milan Abrams MD Transition Of Care (Tcm) (HDF- Unscheduled , Number not in service ) 08/03/2025 Telephone [facility] [address] [place] [address] Milan Abrams MD Hospital Follow-up 07/31/2025 Orders Only GENERIC EXTERNAL DATA DEPARTMENT Provider, Generic External Data 07/30/2025 Orders Only GENERIC EXTERNAL DATA DEPARTMENT Provider, Generic External Data 07/29/[address] [address] Milan Abrams MD PCP Summary form 07/27/2025 Refill [facility] [address] [place] [address] Milan Abrams MD Mood disorder ([facility]/HCC) 07/23/2025 Telephone [facility] [address] [place] [address] Milan Abrams MD TP 07/23/[address] [address] Milan Abrams MD 07/22/2025 Orders Only [facility] [address] [place] [address] Milan Abrams MD 07/20/2025 Refill [facility] [address] [place] [address] Kit Reyes MD 07/09/2025 Telephone [facility] [address] [place] [address] Milan Abrams MD from Last 3 Months [...] PM EST Clinical Support [facility] [address] [place] [address] Salome Antony, RN [address] [place] [address] 12/25/2025 10:15 AM EST Office Visit [facility] [address] [place] [address] Monica Andres FNP [address] [place] [address] Health Maintenance Due Date Last Done Comments [...] CT PCR, Urine NOT DETECTED Not Detect. [facility] Comment:A not detected test result does [...] NG PCR, Urine NOT DETECTED Not Detect. [facility] Comment:A not detected test result does [...] AM EST 09/21/2025 1:58 PM EST Monica iCetanarhonda [facility] URINE ORDERABLES Final Res ult [facility] [address] [place] [phone] * TSH with Reflex to Free T4 (09/21/2025 10:42 AM EST) TSH reflex Free T4 1.86 0.32 - 4.0 uIU/mL [facility] Blood 09/21/2025 10:4 2 AM EST 09/21/2025 2:01 PM EST Monica iCetanarhonda [employer] SALES REPRESENTATIVE LAB BLOOD ORDERABLES Final Res ult Performing Organization Address [facility]/ZIP Co de Phone Number [facility] [address] [place] [address] [phone] * Hepatitis C Viral RNA, Quantitative, Real-Time PCR (09/21/2025 10:42 AM EST) [facility] Hepatitis C Viral Load <15 NOT DETECTED NOT DETECTED IU/mL [facility] HCV Log PCR <1.18 NOT DETECTED NOT DETECTED Log IU/mL [facility] Comment:For additional infor mation, please refer [email or web address]/[email or web address](This link is being provided for informational/educational purposes only.)THIS TEST WAS PERFORMED AT:[facility] [place] [phone] CAZARES MD Blood 09/21/2025 10:4 2 AM EST 09/21/2025 2:01 PM EST Monica Andres NOVELTIES SALES REPRESENTATIVE LAB BLOOD ORDERABLES Final Res ult Performing Organization Address [facility] Co de Phone Number [facility] [address] [place] [address] [phone] * (ABNORMAL) CBC auto differential (09/21/2025 10:42 AM EST) Only the most recent of2 resultswithin the time period is included. [facility] White Blood Count 7.2 4.8 - 10.8 X10*3/uL [facility] Red Blood Count 5.40 4.60 - 5.80 X10*6/uL [facility] Hemoglobin 16.0 14.0 - 18.0 g/dl [facility] Hematocrit 47.8 42.0 - 52.0 % [facility] Mean Corpuscular Volume 88.5 80.0 - 98.0 fL [facility] Mean Corpuscular Hemoglobin 29.6 27.0 - 33.0 pg [facility] Mean Corpuscular HGB Conc 33.5 31.0 - 36.0 g/dl [facility] Red Cell Distribution Width 12.1 11.0 - 16.0 % [facility] Platelet Count 334 160 - 400 X10*3/uL [facility] Mean Platelet Volume 11.4 9.4 - 12.4 fL [facility] Neutrophils Percent Auto 67.8 45 - 73 % [facility] Imm Gran Pct Auto 0.6(H) 0.0 - 0.4 % [facility] Lymphocytes Percent Auto 22.3 20 - 40 % [facility] Monocytes Percent Auto 7.8 2 - 11 % [facility] Eosinophils Percent Auto 1.1 0 - 4 % [facility] Basophils Percent Auto 0.4 0 - 2 % [facility] NRBC Pct Auto 0.0 0.0 - 0.2 /100WBC [facility] Neutrophils Absolute Auto 4.9 2.0 - 8.3 x10*3/uL [facility] Imm Gran Abs Auto 0.04(H) 0.00 - 0.03 X10*3/uL [facility] Lymphocytes Absolute Auto 1.6 1.2 - 4.9 X10*3/uL [facility] Monocytes Absolute Auto 0.6 0.1 - 1.2 X10*3/uL [facility] Eosinophils Absolute Auto 0.1 0.0 - 0.4 X10*3/uL [facility] Basophils Absolute Auto 0.0 0.0 - 0.2 X10*3/uL [facility] NRBC Abs Auto 0.000 0.0 - 0.012 X10*3/uL [facility] Blood Venous blood specimen / Unknown 09/21/2025 10:42 AM EST 09/21/2025 2:18 PM EST us Monica Andres [employer]OVELT[employer] SALES REPRESENTATIVE LAB BLOOD ORDERABLES Final Res ult [facility] [address] [place] [address] [phone] * RPR (Monitor) with Reflex to??Titer (09/21/2025 10:42 AM EST) RPR (Monitor) w/Refl Titer NON-REACTI VE NON-REACT NINO [facility] Comment:THIS TEST WAS PERFOR MED AT:[facility] [place] [phone] CAZARES MD Rapid Plasma Reagin Ab Titer TNP [facility] Blood Venous blood specimen / Unknown 09/21/2025 10:42 AM EST 09/21/2025 2:01 PM EST Monica Andres [facility] BLOOD ORDERABLES Final Res ult Performing Organization Address [facility] Co de Phone Number [facility] [address] [place] [phone] * HIV-1/2 Antigen and Antibodies, Fourth Generation, with Reflexes (09/21/2025 10:42 AM EST) HIV AB/AG Nonreactive Nonreactive [facility] Comment:HIV-1 p24 Ag and/or HIV-1/HIV-2 Ab not detected.A test result that is nonreactive does not exclude thepossibility of exposure to or infection with HIV-1 and/orHIV-2. Nonreactive results in this assay for individualswith prior exposure to HIV-1 and/or HIV-2 may be due toantigen and antibody levels that are below the limit ofdetection of this assay.[employer] HIV Ag/Ab Combo assay result andsupplemental assay results should be interpreted inconjunction with the patient's clinical presentation,history and other laboratory results. If the results areinconsistent with clinical evidence, additional testing issuggested to confirm the result. Blood Venous blood specimen / Unknown 09/21/2025 10:42 AM EST 09/21/2025 2:01 PM EST us Monica Andres [employer]OVELTIES SALES REPRESENTATIVE LAB BLOOD ORDERABLES Final Res ult Performing Organization Address [facility]/ZIP Co de Phone Number [facility] [address] [place] [address] [phone] * Hemoglobin A1c (09/21/2025 10:42 AM EST) Hemoglobin A1c 5.3 <6.0 % [facility] Comment:Hemoglobin A1C Refer ence Range Adults: 4.8 - 6.0 % Non diabetic: < 6.0 % Goal: < 7.0 %Additional Action Suggested: > 8.0 %Note: Hemoglobin A1c results are invalid for patients with abnormal amounts of HbF. Blood transfusions may impact the HbA1c concentration in the patient sample. Estimated Average Glucose 105 mg/dL [facility] Comment:eAG = Estimated ave rage glucose which is %A1C expressed asaverage glucose, using the formula of the S0D-SefyymlZhohsap Glucose study (ADAG), Diabetes Care, Vol.31,#8,May. 2007 Blood Venous blood specimen / Unknown 09/21/2025 10:42 AM EST 09/21/2025 2:18 PM EST us Monica Andres [employer]OVELTIES SALES REPRESENTATIVE LAB BLOOD ORDERABLES Final Res ult [facility] [address] [place] [phone] * (ABNORMAL) Lipid Panel, Standard (09/21/2025 10:42 AM EST) Triglycerides 159(H) <150 mg/dL [facility] Comment:Desirable Triglyceri de: less than 150 mg/dLBorderline High Triglyceride 150-199 mg/dLHigh Triglyceride: 200-499 mg/dLVery High Triglyceride: greater than or equal to 5OO mg/dL Cholesterol 158 <200 mg/dL [facility] Comment:Desirable Cholestero l: less than 200 mg/dLBorderline High Cholesterol: 200-239 mg/dLHigh Cholesterol: greater than 239 mg/dL LDL Cholesterol Calculated 85 <100 mg/dL [facility] Comment:Desirable LDL: less than 100 mg/dLNear Optimal/Above Optimal LDL: 110- 129 mg/dLBorderline High LDL: 130-159 mg/dLHigh LDL: 160-189 mg/dLVery High LDL: greater than or equal to 190 mg/dL HDL Cholesterol 42 >40 mg/dL [facility] Comment:Desirable HDL: great er than 40 mg/dL Note: This HDL assay may give artificially low results in patients with liver disease. Blood Venous blood specimen / Unknown 09/21/2025 10:42 AM EST 09/21/2025 2:01 PM EST us Monica Andres NOVELTIES SALES REPRESENTATIVE LAB BLOOD ORDERABLES Final Res ult [facility] [address] [place], [place] [phone] * (ABNORMAL) Comprehensive Metabolic Panel (09/21/2025 10:42 AM EST) Only the most recent of2 resultswithin the time period is included. Sodium 142 135 - 145 mmol/L [facility] Potassium 3.8 3.3 - 5.1 mmol/L [facility] Chloride 109(H) 96 - 108 mmol/L [facility] Carbon Dioxide 24 22 - 29 mmol/L [facility] Anion Gap 13 12 - 20 [facility] Urea Nitrogen (BUN) 14 9 - 16 mg/dL [facility] Creatinine, Serum 0.94 0.5 - 1.4 mg/dL [facility] Estimated Glomerular Filt Rate >60 [facility] Comment:Chronic Kidney Disea se: Estimated GFR < 60 mL/min/1.14x1Hxkfff Kidney Disease: Estimated GFR < 15 mL/min/1.73m2 Glucose 82 60 - 115 mg/dL [facility] Calcium 9.7 8.4 - 10.2 mg/dL [facility] Bilirubin, Total 0.8 0.0 - 1.0 mg/dL [facility] Aspartate Amino Transferase 34 5 - 37 U/L [facility] Alanine Aminotransferase 35 0 - 40 U/L [facility] Total Protein 7.3 6.5 - 8.0 g/dL [facility] Albumin Level 5.0 3.5 - 5.0 g/dL [facility] Alkaline Phosphatase 72 39 - 117 U/L [facility] Blood Venous blood specimen / Unknown 09/21/2025 10:42 AM EST 09/21/2025 2:01 PM EST us Monica Andres [employer]OVELTIES SALES REPRESENTATIVE LAB BLOOD ORDERABLES Final Res ult Performing Organization Address City/State/[facility] Co de Phone Number [facility] [address] [place] [phone] * CT Head w/o Contrast (07/31/2025 5:06 AM EDT) Anatomical Region Laterality Modality Head, Neck Computed Tomogra phy 07/31/2025 5:06 AM EDT Narrative 07/31/2025 5:07 AM EDT [place] [address] CT Scan Report Signed Patient: Gilbert Silva MR#: [id number] : 1980 Acct:[id number] Age/Sex: 44 / M ADM Date: 07/30/25 Loc: HO.ED Attending Dr: Ordering Physician: Stephanie Ruano MD Date of Service: 07/31/25 Procedure(s): CT head/brain wo IV con Accession Number(s): [id number] cc: [facility]; Stephanie Ruano MD Report Number: [id number]: Total DLP = 598.00 mGy-cm Reason for [...] signed by Joseph Yu MD in OV> 07/31/25506 DD/ 5 TD/TT: 07/31/25505 Dog Warden: Procedure Note Walker, Image - 07/31/[address] [address] [address] Scan Report Signed Patient: Gilbert Silva EMR#: [id number] : 1980Acct:[id number] Age/Sex: 44 / MADM Date: 07/30/25 Loc: HO.ED Attending Dr: Ordering Physician: Stephanie Ruano MD Date of Service: 07/31/25 Procedure(s): CT head/brain wo IV con Accession Number(s): [id number] cc: [facility]; Stephanie Ruano MD Report Number: [id number]: Total DLP = 598.00 mGy-cm Reason for [...] signed by Joseph Yu MD in OV> 07/31/25506 DD/ 5 TD/TT: 07/31/25505 Dog Warden: us [facility] External Provider IMG CT PROCEDURES Edited Result - Final * Urinalysis, Complete, with Reflex to Culture (07/31/2025 12:26 AM EDT) Color Urine Yellow [facility] Appearance Urine Clear [facility] PH 6.0 5.0 - 9.0 [facility] Glucose Urine UA Negative Negative mg/dL [facility] Urine Blood Negative Negative [facility] Specific [place] - Urine 1.025 1.005 - 1.025 [facility] Urine Protein Negative Neg-Trace mg/dL [facility] Urine Ketones Trace Negative mg/dL [facility] Nitrite Urine Negative Negative [facility] Leukocyte Esterase Urine Negative Negative [facility] RBC Urine 0-2 0 - 2 /HPF [facility] Urine WBC 0-5 0 - 5 /HPF [facility] Urine Squamous Epithelial Cell 0-2 0 - 2 /HPF [facility] Urine Bacteria None Seen None Seen [facility] Hyaline Casts, Urine 0-2 0 - 2 /LPF [facility] 07/31/2025 12:2 6 AM EDT 07/31/2025 12:33 AM EDT Narrative [facility] - 07/31/2025 1:43 AM EDT [id number], Clean Catch us Generic External Data Provider LAB URINE ORDERAB LES Final Result [facility] [address] [place] [address] [phone] * Drug Monitoring, Panel 1, Screen, Urine (07/31/2025 12:26 AM EDT) Opiate Screen Urine Not Detected Not Detect [facility] Comment:Opiate cut-off is 30 0 ng/mL.Positive results are unconfirmed and should not be used fornon-medical purposes. Barbiturates, Urine Not Detected Not Detect [facility] Comment:Barbiturate cut-off is 200 ng/mL.Positive results are unconfirmed and should not be used fornon-medical purposes. Phencyclidine Screen Urine Not Detected Not Detect [facility] Comment:Phencyclidine cut-of f is 25 ng/mL.Positive results are unconfirmed and should not be used fornon-medical purposes. Amphetamine Screen Urine Not Detected Not Detect [facility] Comment:Amphetamine cut-off is 1000 ng/mL.Positive results are unconfirmed and should not be used fornon-medical purposes. Benzodiazepines Screen Urine Not Detected Not Detect [facility] Comment:Benzodiazepine cut-o ff is 200 ng/mL.Positive results are unconfirmed and should not be used fornon-medical purposes. Cocaine Screen Urine Not Detected Not Detect [facility] Comment:Cocaine cut-off is 3 00 ng/mL.Positive results are unconfirmed and should not be used fornon-medical purposes. Cannabinoid Screen Urine Not Detected Not Detect [facility] Comment:Cannabinoid cut-off is 50 ng/mL.Positive results are unconfirmed and should not be used fornon-medical purposes. Methadone Screen, Urine Not Detected Not Detect ng/mL [facility] Comment:Methadone cut-off is 300 ng/mL.Positive results are unconfirmed and should not be used fornon-medical purposes. FENTANYL URINE Not Detected Not Detect [facility] Comment:Fentanyl cut-off is 1 ng/mL.Positive results are unconfirmed and should not be used fornon-medical purposes. Oxycodone Urine Screen Not Detected Not Detect ng/mL [facility] Comment:Oxycodone cut-off is 100 ng/mL.Positive results are unconfirmed and should not be used fornon-medical purposes. Buprenorphine Screen Not Detected Not Detect ng/mL [facility] Comment:Buprenorphine cut-of f is 5 ng/mL.Positive results are unconfirmed and should not be used fornon-medical purposes. 07/31/2025 12:2 6 AM EDT 07/31/2025 1:11 AM EDT Generic External Data Provider LAB URINE ORDERAB LES Final Result [facility] [address] [place] [phone] * XR Chest 1 View (07/30/2025 10:37 PM EDT) Anatomical Region Laterality Modality Chest Radiographic Marry ging 07/30/2025 10:3 7 PM EDT Narrative 07/30/2025 10:39 PM EDT [address] [address] XRay Report Signed Patient: Gilbert Silva MR#: [id number] : 1980 Acct:[id number] Age/Sex: 44 / M ADM Date: 07/30/25 Loc: HO.ED Attending Dr: Ordering Physician: Generic ED Physician Date of Service: 07/30/25 Procedure(s): XR chest 1V Accession Number(s): [id number] cc: Generic ED Physician; [facility] Reason for Exam: DIZZINESS CLINICAL HISTORY: [...] in OV> 07/30/252237 DD/ 36 TD/TT: 07/30/252236 Dog Warden: Procedure Note Donotuseinterpreter, Image - 07/30/[address] [address] XRay Report Signed Patient: Gilbert Silva EMR#: [id number] : 1980Acct:[id number] Age/Sex: 44 / MADM Date: 07/30/25 Loc: .ED Attending Dr: Ordering Physician: Generic ED Physician Date of Service: 07/30/25 Procedure(s): XR chest 1V Accession Number(s): [id number] cc: Generic ED Physician; [facility] Reason for Exam: DIZZINESS CLINICAL HISTORY: [...] in OV> 07/30/252237 DD/ 36 TD/TT: 07/30/252236 Dog Warden: [facility] External Provider IMG XR PROCEDURES Edited Result - Final * D Dimer High Sensitivity (07/30/2025 10:08 PM EDT) D Dimer High Sensitivity <150 NG/ML [facility] Comment:D-DIMER HS REFERENCE RANGENote: Our [...] ORDERAB LES Final Result Performing Organization Address [facility] Co de Phone Number [facility] [address] [place] [phone] * High Sensitivity Troponin I (07/30/2025 10:08 PM EDT) TROPONIN I HIGH SENSITIVITY 9.9 <3.5 - 35.0 ng/L [facility] Comment:The [place] high sens itivity Troponin-I results should beused in conjunction with other diagnostic information suchas ECG, clinical observations and information, and patientsymptoms to aid in the diagnosis of [place]. 07/30/2025 10:0 8 PM EDT 07/30/2025 10:14 PM EDT Generic External Data Provider LAB BLOOD ORDERAB LES Final Result Performing Organization Address City/[facility]/ZIP Co de Phone Number [facility] [address] [place] [phone] * Prothrombin Time-INR (07/30/2025 10:08 PM EDT) Prothrombin Time 11.8 10.9 - 12.4 SEC [facility] INTERNATIONAL NORM RATIO 1.0 0.9 - 1.1 [facility] Comment:INTERNATIONAL NORMAL IZED RATIO (INR) [...] ORDERAB LES Final Result Performing Organization Address City/State/[facility] Co de Phone Number [facility] [address] [place] [address] [phone] from Last 3 Months Insurance [facility] C3 Care Teams Supervisor Metalizing Relationship Specialty Start Date End Date Monica Andres FNP [address] [place] [phone] PCP - General Family Medicine 09/11/25
== END ==
LOC: HO.CARD 11:09
PROVIDERS: PCP Registered Nurse; Visit Provider Nurse Practitioner Family
DX: R00.2 Palpitations (principal)
CPT/HCPCS: 93225

== ENCOUNTER → 2025-10-02 11:24 | Outpatient (BNV) | payer MEDICAID, SELFPAY | PROVIDERS: PCP Registered Nurse; Visit Provider Internal Medicine Cardiovascular Disease | DX: R00.2 Palpitations (principal) | CPT/HCPCS: 93227 ==